=== PATIENT | female | born 1955 | race Caucasian/White ===

== ENCOUNTER 2021-12-10 13:39 | Inpatient (IN) ==
[2021-12-10] MEDS ORDERED: SODIUM CHLORIDE 0.9% 1000ML 1,000 ML IV SCH (13:45)
[2021-12-10 14:25] LABS: Basophils # (auto) 0.03 K/uL (0-0.2); Basophils % (auto) 0.5 %; Eosinophils % (auto) 1.8 %; Hematocrit (blood only) 28.4 % (37-47); Hemoglobin 9.3 g/dL (12.0-16.0); Immature Granulocytes # (auto) 0.01 K/uL (0.00-0.02); Immature Granulocytes % (auto) 0.2 %; Lymphocytes # (auto) 0.28 K/uL (1.2-3.4); Mean Corpuscular Hemoglobin 29.6 pg (25-34); Mean Corpuscular Hgb Conc 32.7 g/dL (32-36); Mean Corpuscular Volume 90.4 fL (80-100); Mean Platelet Volume 9.5 fL (7.4-10.4); Monocytes # (auto) 0.12 K/uL (0.11-0.59); Monocytes % (auto) 2.1 %; Neutrophils # (auto) 5.06 K/uL (1.4-6.5); Neutrophils % (auto) 90.4 %; Platelet Count 258 K/uL (130-400); RDW Coefficient of Variation 16.2 % (11.5-14.5); RDW Standard Deviation 53.9 fL (36.4-46.3); Red Blood Count 3.14 M/uL (4.2-5.4)
--- NOTE | 2021-12-10 14:25 | Emergency Department Note ---
History of Present Illness General Chief complaint: Hypotension Stated complaint: hypotension Time Seen by Provider: 12/10/21 13:41 History of Present Illness Provider complaint: Hypotension Onset (ago): day(s) 1 Maximum Pain Intensity: 0 Associated symptoms: no chest pain, no cough, no fever/chills, no headaches, no malaise, no nausea/vomiting or no shortness of breath 66-year-old female presents with history of metastatic breast cancer emergency department for hypotension. Patient was at her oncologist office and found to have low blood pressures. She reports polyuria over the last day or so. She reports no dysuria. No fevers. No cough. No falls. No chest pain or difficulty breathing. No shortness of breath. Patient presents with paperwork from her visit. Last chemotherapy was on Monday. According to the paperwork that was sent by the physician at the office the patient had orthostatic blood pressures with a laying blood pressure of 95/51 sitting blood pressure 74/41 and standing blood pressure of 50/35. Home Medications Medication Instructions Recorded Confirmed Type albuterol sulfate 90 mcg/actuation 2 puffs INH Q4H PRN gm 08/08/19 12/10/21 History aerosol inhaler amoxicillin 500 mg capsule 2,000 mg PO .COMPLEX cap 08/08/19 12/10/21 History aspirin 81 mg tablet,delayed 81 mg PO QAM 08/08/19 12/10/21 History release clopidogrel 75 mg tablet (Plavix) 75 mg PO QAM 08/08/19 12/10/21 History fenofibrate micronized 200 mg 200 mg PO HS 08/08/19 12/10/21 History capsule levothyroxine 200 mcg tablet 200 mcg PO DAILYBB 08/08/19 12/10/21 History (Synthroid) omeprazole 20 mg capsule,delayed 20 mg PO QAM 08/08/19 12/10/21 History release calcium carbonate 600 mg-vitamin 1 tab PO BID 10/09/19 12/10/21 History D3 5 mcg (200 unit) tablet fluticasone propionate 50 1 sprays INTNAS DAILY PRN 10/09/19 12/10/21 History mcg/actuation nasal spray,suspension acetaminophen 500 mg tablet 1,000 mg PO Q6H PRN tab 07/09/21 12/10/21 History (Tylenol Extra Strength) denosumab 120 mg/1.7 mL (70 mg/mL) 120 mg SUBCUT .EVERY 3 MONTHS ml 07/09/21 12/10/21 History subcutaneous solution (Xgeva) fluoxetine 20 mg capsule (Prozac) 40 mg PO QAM cap 07/09/21 12/10/21 History oxycodone-acetaminophen 5 mg-325 1 tab PO Q6H PRN 07/09/21 12/10/21 History mg tablet (Percocet) paclitaxel-protein bound 100 mg 0 mg IV UD 07/09/21 12/10/21 History intravenous suspension (Abraxane) prochlorperazine maleate 5 mg 10 mg PO QID PRN tab 07/09/21 12/10/21 History tablet (Compazine) spironolactone 100 mg tablet 100 mg PO QAM tab 07/09/21 12/10/21 History metoprolol tartrate 25 mg tablet 12.5 mg PO BID #90 tab 11/04/21 12/10/21 Rx ferrous sulfate 325 mg (65 mg 325 mg PO 2XWK tab 11/12/21 12/10/21 History iron) tablet losartan 25 mg tablet 25 mg PO QAM 11/12/21 12/10/21 History atorvastatin 80 mg tablet 80 mg PO HS 12/10/21 12/10/21 History metformin 500 mg tablet 500 mg PO BID 12/10/21 12/10/21 History ondansetron 4 mg disintegrating 4 mg PO Q6H PRN 12/10/21 12/10/21 History tablet Allergies Allergy/AdvReac Type Severity Reaction Status Date / Time NSAIDS (Non-Steroidal Allergy Severe Hives Verified 12/10/21 14:29 Anti-Inflamma oxaprozin [From Daypro] Allergy Severe Anaphylaxis Verified 12/10/21 14:29 dextromethorphan Allergy Mild Hives Verified 12/10/21 14:29 erythromycin base Allergy Mild Hives Verified 12/10/21 14:29 methylprednisolone Allergy Mild Anaphylaxis Verified 12/10/21 14:29 Past Med/Surg History Medical History Asthma Cancer right breast cancer Diabetes mellitus, type 2 Fusion of spine GERD (gastroesophageal reflux disease) History of deviated nasal septum History of OCD (obsessive compulsive disorder) Hx MRSA infection bilateral axillary abscess a year ago. Has not been retested. 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 Beliefs That Will Affect Care: None Current Living Situation: Spouse Feels Safe at Home: Yes Assistive Devices: Cane, Glasses and Walker Review of Systems A total of 10 systems reviewed and were otherwise negative Physical Exam Vital Signs Vital Signs - 24 hr 12/10/21 13:40 12/10/21 13:47 12/10/21 14:00 Temperature 37.2 C Temperature Source Oral Pulse Rate - Lying Pulse Rate - Sitting Pulse Rate - Standing Pulse Rate 66 75 76 Pulse Rate [Left Finger] Pulse Rate from SpO2 Sensor Pulse Rhythm [Left Finger] Respiratory Rate 16 6 L 27 H Respiratory Effort / Characteristics Non-Labored Respiratory Depth Normal Blood Pressure - Lying Blood Pressure - Sitting Blood Pressure- Standing Blood Pressure 135/59 L Blood Pressure [Left Arm] Blood Pressure Mean 84 Blood Pressure Mean [Left Arm] Pulse Oximetry 96 Oxygen Delivery Method Room Air Sepsis Recent Fever Within 48 Hours No Sepsis New/Unexplained Change in Mental Status N/A Sepsis Action Taken by Nursing No Action Required 12/10/21 14:02 12/10/21 14:15 12/10/21 14:16 Temperature Temperature Source Pulse Rate - Lying Pulse Rate - Sitting Pulse Rate - Standing Pulse Rate 73 75 80 Pulse Rate [Left Finger] Pulse Rate from SpO2 Sensor 78 71 84 Pulse Rhythm [Left Finger] Respiratory Rate 17 15 18 Respiratory Effort / Characteristics Respiratory Depth Blood Pressure - Lying Blood Pressure - Sitting Blood Pressure- Standing Blood Pressure 111/64 121/57 L 129/57 L Blood Pressure [Left Arm] Blood Pressure Mean 79 78 81 Blood Pressure Mean [Left Arm] Pulse Oximetry 96 91 93 Oxygen Delivery Method Sepsis Recent Fever Within 48 Hours Sepsis New/Unexplained Change in Mental Status Sepsis Action Taken by Nursing 12/10/21 14:18 12/10/21 14:30 12/10/21 14:31 Temperature Temperature Source Pulse Rate - Lying Pulse Rate - Sitting Pulse Rate - Standing Pulse Rate 70 Pulse Rate [Left Finger] 72 72 Pulse Rate from SpO2 Sensor 75 Pulse Rhythm [Left Finger] Respiratory Rate 20 16 16 Respiratory Effort / Characteristics Non-Labored Non-Labored Respiratory Depth Normal Normal Blood Pressure - Lying Blood Pressure - Sitting Blood Pressure- Standing Blood Pressure 124/52 L Blood Pressure [Left Arm] 129/57 L 124/52 L Blood Pressure Mean 76 Blood Pressure Mean [Left Arm] 81 76 Pulse Oximetry 98 96 96 Oxygen Delivery Method Room Air Room Air Sepsis Recent Fever Within 48 Hours Sepsis New/Unexplained Change in Mental Status Sepsis Action Taken by Nursing 12/10/21 14:48 12/10/21 14:51 12/10/21 14:54 Temperature Temperature Source Pulse Rate - Lying Pulse Rate - Sitting Pulse Rate - Standing Pulse Rate 80 Pulse Rate [Left Finger] 70 Pulse Rate from SpO2 Sensor 76 Pulse Rhythm [Left Finger] Respiratory Rate 19 Respiratory Effort / Characteristics Non-Labored Respiratory Depth Blood Pressure - Lying Blood Pressure - Sitting Blood Pressure- Standing Blood Pressure 130/58 L Blood Pressure [Left Arm] 127/54 L Blood Pressure Mean 82 Blood Pressure Mean [Left Arm] 78 Pulse Oximetry 99 Oxygen Delivery Method Sepsis Recent Fever Within 48 Hours Sepsis New/Unexplained Change in Mental Status Sepsis Action Taken by Nursing 12/10/21 14:56 12/10/21 15:00 12/10/21 15:04 Temperature Temperature Source Pulse Rate - Lying 70 Pulse Rate - Sitting 72 Pulse Rate - Standing 70 Pulse Rate 87 76 Pulse Rate [Left Finger] 72 Pulse Rate from SpO2 Sensor 88 75 Pulse Rhythm [Left Finger] Regular Respiratory Rate 13 17 Respiratory Effort / Characteristics Non-Labored Respiratory Depth Normal Blood Pressure - Lying 124/52 L Blood Pressure - Sitting 130/58 L Blood Pressure- Standing 132/55 L Blood Pressure 132/55 L Blood Pressure [Left Arm] 132/55 L Blood Pressure Mean 80 Blood Pressure Mean [Left Arm] 80 Pulse Oximetry 97 98 Oxygen Delivery Method Sepsis Recent Fever Within 48 Hours Sepsis New/Unexplained Change in Mental Status Sepsis Action Taken by Nursing 12/10/21 15:15 Temperature Temperature Source Oral Pulse Rate - Lying Pulse Rate - Sitting Pulse Rate - Standing Pulse Rate Pulse Rate [Left Finger] Pulse Rate from SpO2 Sensor Pulse Rhythm [Left Finger] Respiratory Rate Respiratory Effort / Characteristics Respiratory Depth Normal Blood Pressure - Lying Blood Pressure - Sitting Blood Pressure- Standing Blood Pressure Blood Pressure [Left Arm] Blood Pressure Mean Blood Pressure Mean [Left Arm] Pulse Oximetry Oxygen Delivery Method Sepsis Recent Fever Within 48 Hours Sepsis New/Unexplained Change in Mental Status Sepsis Action Taken by Nursing Physical Exam GENERAL: She is oriented to person, place, and time. She appears well-developed and well-nourished. She does not appear distressed. HENT: Exam performed. -Head: Normocephalic and atraumatic. -Right Ear: External ear normal. No mastoid tenderness. -Left Ear: External ear normal. No mastoid tenderness. -Mouth/Throat: The oropharynx is clear and moist. No trismus in the jaw. No dental abscesses or uvula swelling. No oropharyngeal exudate or tonsillar absce sses. EYES: Conjunctivae and EOM are normal. Pupils are equal, round, and reactive to light. Right eye exhibits no discharge. Left eye exhibits no discharge. No scleral icterus. NECK: Normal range of motion. Neck supple. No JVD present. No spinous process tenderness present. No carotid bruit present. No rigidity. No tracheal deviation and normal range of motion present. No Brudzinski's sign and no Kernig's sign noted. CV: Normal rate, regular rhythm, normal heart sounds and intact distal pulses. There is no peripheral edema. Palpable radial pulses bue. PULM/CHEST: Effort normal and breath sounds normal. No respiratory distress. No stridor. She has no wheezes. She has no rales. -Chest Wall: She exhibits no tenderness. ABD: The abdomen is soft. Bowel sounds are normal. She has no distension. No mass is present. There is no tenderness. There is no rebound, no guarding, no Perrin's sign and no tenderness at McBurney's point. Rovsig negative MUSC/SKEL: Normal range of motion. There is no peripheral edema, tenderness or deformity. LYMPH: No cervical adenopathy. NEURO: She is alert and oriented to person, place, and time. She has normal strength. No cranial nerve deficit or sensory deficit. Coordination and gait normal. GCS eye subscore is 4. GCS verbal subscore is 5. GCS motor subscore is 6. Cerebellar tests wnl. SKIN: Skin is warm and dry. She is not diaphoretic. PSYCH: She has a normal mood and affect. Behavior is normal. Judgment and thought content normal. Course Course 1341: The patient was evaluated in room B1. A complete history and physical exam was performed Cardiac monitoring: An order was placed for continuous cardiac monitoring. The monitor shows a rate of 70 with sinus rhythm Pressure stable on arrival fluids were started via EMS 1545: Vital signs stable. Patient's blood pressure has been stable in the emergency department. Labs are within normal limits with the exception of a magnesium of 1.3. Urinalysis negative for infection. [facility] who stated to admit to Dr. Eduardo Administered Medications Discontinued Medications Sodium Chloride (Nss 1000ml) 1,000 mls @ 999 mls/hr IV .Q1H1M KIM Stop: 12/10/21 14:45 Last Infusion: 12/10/21 15:27 Dose: 0 mls/hr Documented by: [id number] Admin: 12/10/21 14:16 Dose: 999 mls/hr Documented by: [id number] Medical Decision Making Laboratory Data Result diagrams: 12/10/21 13:58 12/10/21 13:58 Lab Results 12/10/21 12/10/21 12/10/21 Range/Units 13:58 13:58 13:58 WBC 5.60 (4.8-10.8) K/uL RBC 3.14 L (4.2-5.4) M/uL Hgb 9.3 L (12.0-16.0) g/dL Hct 28.4 L (37-47) % MCV 90.4 (80-100) fL MCH 29.6 (25-34) pg MCHC 32.7 (32-36) g/dL RDW Std Deviation 53.9 H (36.4-46.3) fL RDW Coeff of Azra 16.2 H (11.5-14.5) % Plt Count 258 (130-400) K/uL MPV 9.5 (7.4-10.4) fL Immature Gran % (Auto) 0.2 % Neut % (Auto) 90.4 % Lymph % (Auto) 5.0 % Craig % (Auto) 2.1 % Eos % (Auto) 1.8 % Baso % (Auto) 0.5 % Neut # (Auto) 5.06 (1.4-6.5) K/uL Lymph # (Auto) 0.28 L (1.2-3.4) K/uL Craig # (Auto) 0.12 (0.11-0.59) K/uL Eos # (Auto) 0.10 (0-0.5) K/uL Baso # (Auto) 0.03 (0-0.2) K/uL Immature Gran # (Auto) 0.01 (0.00-0.02) K/uL PT 11.8 (9.0-12.0) Seconds INR 1.1 (0.9-1.1) APTT 23.4 (21.0-31.0) Seconds PTT Ratio 0.9 Sodium 136 (136-145) mmol/L Potassium 4.3 (3.5-5.1) mmol/L Chloride 102 (98-107) mmol/L Carbon Dioxide 26 (21-32) mmol/L Anion Gap 8 (3-11) BUN 13 (6-23) mg/dl Creatinine 0.76 (0.6-1.2) mg/dl Est Cr Clr Drug Dosing 58.3 ml/min Est GFR ( Amer) 93.4 ml/min Est GFR (Non-Af Amer) 80.6 ml/min BUN/Creatinine Ratio 17.1 (10-20) Glucose 173 H (70-99(Fasting)) mg/dl Lactate (0.4-2.0) mmol/L Calcium 9.2 (8.5-10.1) mg/dl Magnesium 1.3 L (1.7-2.4) mg/dl Total Bilirubin 0.6 (0.2-1.0) mg/dl AST 19 (13-39) U/L ALT 7 (7-52) U/L Alkaline Phosphatase 93 (34-104) U/L Troponin I < 0.03 (0-0.04) ng/ml Total Protein 6.5 (6.0-8.3) gm/dl Albumin 3.6 (3.4-5.0) gm/dl Globulin 2.9 (2.5-4.0) gm/dl Albumin/Globulin Ratio 1.2 (0.9-2) Procalcitonin (0-0.5) ng/ml Urine Color Urine Appearance (Clear) Urine pH (4.5-7.5) Ur Specific Whiting (1.000-1.030) Urine Protein (Negative) Urine Glucose (UA) (Negative) Urine Ketones (Negative) Urine Blood (Negative) Urine Nitrite (Negative) Urine Bilirubin (Negative) Urine Urobilinogen (Negative) Ur Leukocyte Esterase (Negative) Urine WBC (Auto) (0-5) /hpf Urine RBC (Auto) (0-4) /hpf U Hyaline Cast (Auto) (0-5) /lpf U Epithel Cells (Auto) (0-5) /lpf Urine Bacteria (Auto) (Negative) Ur Renal Epithelial Cell (0-5) /lpf 12/10/21 12/10/21 12/10/21 Range/Units 13:58 13:58 14:55 WBC (4.8-10.8) K/uL RBC (4.2-5.4) M/uL Hgb (12.0-16.0) g/dL Hct (37-47) % MCV (80-100) fL MCH (25-34) pg MCHC (32-36) g/dL RDW Std Deviation (36.4-46.3) fL RDW Coeff of Azra (11.5-14.5) % Plt Count (130-400) K/uL MPV (7.4-10.4) fL Immature Gran % (Auto) % Neut % (Auto) % Lymph % (Auto) % Craig % (Auto) % Eos % (Auto) % Baso % (Auto) % Neut # (Auto) (1.4-6.5) K/uL Lymph # (Auto) (1.2-3.4) K/uL Craig # (Auto) (0.11-0.59) K/uL Eos # (Auto) (0-0.5) K/uL Baso # (Auto) (0-0.2) K/uL Immature Gran # (Auto) (0.00-0.02) K/uL PT (9.0-12.0) Seconds INR (0.9-1.1) APTT (21.0-31.0) Seconds PTT Ratio Sodium (136-145) mmol/L Potassium (3.5-5.1) mmol/L Chloride (98-107) mmol/L Carbon Dioxide (21-32) mmol/L Anion Gap (3-11) BUN (6-23) mg/dl Creatinine (0.6-1.2) mg/dl Est Cr Clr Drug Dosing ml/min Est GFR ( Amer) ml/min Est GFR (Non-Af Amer) ml/min BUN/Creatinine Ratio (10-20) Glucose (70-99(Fasting)) mg/dl Lactate 1.5 (0.4-2.0) mmol/L Calcium (8.5-10.1) mg/dl Magnesium (1.7-2.4) mg/dl Total Bilirubin (0.2-1.0) mg/dl AST (13-39) U/L ALT (7-52) U/L Alkaline Phosphatase (34-104) U/L Troponin I (0-0.04) ng/ml Total Protein (6.0-8.3) gm/dl Albumin (3.4-5.0) gm/dl Globulin (2.5-4.0) gm/dl Albumin/Globulin Ratio (0.9-2) Procalcitonin 0.05 (0-0.5) ng/ml Urine Color Dark Yellow Urine Appearance Clear (Clear) Urine pH 6.0 (4.5-7.5) Ur Specific Whiting 1.016 (1.000-1.030) Urine Protein 3+ H (Negative) Urine Glucose (UA) Negative (Negative) Urine Ketones Negative (Negative) Urine Blood 3+ H (Negative) Urine Nitrite Negative (Negative) Urine Bilirubin Negative (Negative) Urine Urobilinogen Negative (Negative) Ur Leukocyte Esterase Negative (Negative) Urine WBC (Auto) 10-30 H (0-5) /hpf Urine RBC (Auto) 10-30 H (0-4) /hpf U Hyaline Cast (Auto) 5-10 H (0-5) /lpf U Epithel Cells (Auto) >30 H (0-5) /lpf Urine Bacteria (Auto) Negative (Negative) Ur Renal Epithelial Cell 0-5 (0-5) /lpf Imaging Data Radiologist's Impression: Chest X-Ray 12/10/21 13:41 SINGLE VIEW CHEST CLINICAL HISTORY: Sepsis. FINDINGS: An AP, portable, upright chest radiograph is compared to study dated 12/01/2014. A right internal jugular central venous infusion port is in place. The heart is top normal for projection noting atherosclerotic calcification of the thoracic aorta. The pulmonary vasculature is noncongested. Chronic interstitial thickening is similar to previous. An accessory azygous fissure is incidentally noted. No airspace consolidation or large pleural effusion is identified. No pneumothorax is seen. The skeletal structures are osteopenic. The bony thorax is grossly intact. IMPRESSION: No acute cardiopulmonary abnormality. ACT 112: Negative or not required by law. Electronically signed by: Mukesh Melissa M.D. 12/10/2021 2:30 PM ECG Data Indication: + weakness Rate (beats per minute): 72 Rhythm: + sinus with SA ECG Intervals/blocks: + Normal SD and + Normal QT-c ECG ST segments: + Normal ST segments Additional Comments: QRS 74 MDM Narrative 1341: The patient was evaluated in room B1. A complete history and physical exam was performed Cardiac monitoring: An order was placed for continuous cardiac monitoring. The monitor shows a rate of 70 with sinus rhythm Pressure stable on arrival fluids were started via EMS 1545: Vital signs stable. Patient's blood pressure has been stable in the emergency department. Labs are within normal limits with the exception of a magnesium of 1.3. Urinalysis negative for infection. [facility] Dulce who stated to admit to Dr. Mei murray Impression & Plan Hypomagnesemia Discharge Plan Visit Data Chief Complaint: Hypotension Stated Complaint: hypotension ED Provider: Dilan Albrecht Discharge Problem: Hypomagnesemia Patient Disposition: Admitted As Inpatient Forms Stand Alone Forms: [facility] [employer] Prescriptions Prescriptions: No Action calcium carbonate-vitamin D3 600 mg(1,500mg) -200 unit tablet 1 tab PO BID RF: 0 fluticasone propionate 50 mcg/actuation spray,suspension 1 sprays INTNAS DAILY PRN (Reason: Congestion) RF: 0 prochlorperazine maleate [Compazine] 5 mg tablet 10 mg PO QID PRN (Reason: nausea and vomiting) RF: 0 Xgeva 120 mg/1.7 mL (70 mg/mL) solution 120 mg subcut .EVERY 3 MONTHS RF: 0 Abraxane 100 mg suspension for reconstitution 0 mg IV UD RF: 0 oxycodone-acetaminophen [Percocet] 5-325 mg tablet 1 tab PO Q6H PRN (Reason: Pain) RF: 0 acetaminophen [Tylenol Extra Strength] 500 mg tablet 1,000 mg PO Q6H PRN (Reason: Pain) RF: 0 losartan 25 mg tablet 25 mg PO QAM RF: 0 ferrous sulfate 325 mg (65 mg iron) tablet 325 mg PO 2XWK RF: 0 metoprolol tartrate 25 mg tablet 12.5 mg PO BID Qty: 90 RF: 3 albuterol sulfate 90 mcg/actuation HFA aerosol inhaler 2 puffs INH Q4H PRN (Reason: Shortness Of Breath Or Wheezing) RF: 0 amoxicillin 500 mg capsule 2,000 mg PO .COMPLEX RF: 0 aspirin 81 mg tablet,delayed release (DR/EC) 81 mg PO QAM RF: 0 clopidogrel [Plavix] 75 mg tablet 75 mg PO QAM RF: 0 fenofibrate micronized 200 mg capsule 200 mg PO HS RF: 0 omeprazole 20 mg capsule,delayed release(DR/EC) 20 mg PO QAM RF: 0 levothyroxine [Synthroid] 200 mcg tablet 200 mcg PO DAILYBB RF: 0 fluoxetine [Prozac] 20 mg capsule 40 mg PO QAM RF: 0 spironolactone 100 mg tablet 100 mg PO QAM RF: 0 ondansetron [Zofran ODT] 4 mg Tablet,Disintegrating 4 mg PO Q6H PRN (Reason: Nausea And Vomiting) RF: 0 metformin 500 mg Tablet 500 mg PO BID RF: 0 atorvastatin 80 mg tablet 80 mg PO HS RF: 0 Referrals Referrals: Alejandra Oquendo MD [Primary Care Provider] -
--- NOTE | 2021-12-10 14:32 | XRay Report ---
SINGLE VIEW CHEST CLINICAL HISTORY: Sepsis. FINDINGS: An AP, portable, upright chest radiograph is compared to study dated 12/01/2014. A right int ernal jugular central venous infusion port is in place. The heart is top normal for projection noting atherosclerotic calcification of the thoracic aorta. The pulmonary vasculature is noncongested. Control System Manager christiano interstitial thickening is similar to previous. An accessory azygous fissure is incidentally note d. No airspace consolidation or large pleural effusion is identified. No pneumothorax is seen. The sk eletal structures are osteopenic. The bony thorax is grossly intact. IMPRESSION: No acute cardiopulmonary abnormality. ACT 112: Negative or not required by law. Electronically signed by: Mukesh Melissa M.D. 12/10/2021 2:30 PM
[2021-12-10 14:34] LABS: Alanine Aminotransferase 7 U/L (7-52); Albumin Globulin Ratio 1.2 (0.9-2); Albumin Level 3.6 gm/dl (3.4-5.0); Alkaline Phosphatase 93 U/L (34-104); Anion Gap 8 (3-11); Aspartate Aminotransferase 19 U/L (13-39); BUN Creatinine Ratio 17.1 (10-20); Bilirubin,Total 0.6 mg/dl (0.2-1.0); Blood Urea Nitrogen 13 mg/dl (6-23); Calcium 9.2 mg/dl (8.5-10.1); Carbon Dioxide 26 mmol/L (21-32); Chloride 102 mmol/L (98-107); Creatinine Clr Calc Pharmacy 58.3 ml/min; Est GFR (African American) 93.4 ml/min; Est GFR (Non-African American) 80.6 ml/min; Globulin 2.9 gm/dl (2.5-4.0); Glucose 173 mg/dl (70-99(Fasting)); Magnesium 1.3 mg/dl (1.7-2.4); Potassium 4.3 mmol/L (3.5-5.1); Sodium 136 mmol/L (136-145); Total Protein 6.5 gm/dl (6.0-8.3)
[2021-12-10 14:36] LABS: Troponin I < 0.03 ng/ml (0-0.04)
[2021-12-10 14:51] LABS: INR 1.1 (0.9-1.1); Partial Thromboplastin Ratio 0.9; Partial Thromboplastin Time 23.4 Seconds (21.0-31.0); Prothrombin Time 11.8 Seconds (9.0-12.0)
[2021-12-10 15:22] LABS: Appearance Urine Clear (Clear); Bacteria Urine Automated Negative (Negative); Bilirubin Urine Negative (Negative); Blood Urine 3+ (Negative); Color Urine Dark Yellow; Epithelial Cell Urine Auto >30 /lpf (0-5); Glucose Urine UA Negative (Negative); Ketones Urine Negative (Negative); Leukocyte Esterase Urine Negative (Negative); Nitrite Urine Negative (Negative); Protein Urine 3+ (Negative); Specific Gravity Urine 1.016 (1.000-1.030); Urobilinogen Urine Negative (Negative)
[2021-12-10 15:40] LABS: Renal Epithelial Cells Urine 0-5 /lpf (0-5)
[2021-12-10 15:53] LABS: Influenza A virus by PCR Negative (Neg); Influenza B virus by PCR Negative (Neg); RSV by PCR Negative (Neg); SARS CoV2 RNA(COVID-19) InHosp NEGATIVE (Negative)
--- NOTE | 2021-12-10 15:58 | History & Physical Report ---
Date of Service December 10, 2021 Assessment & Plan (1) Hypotension: Plan: Patient is 66-year-old female with PMH right breast cancer with metastasis to pelvis s/p lumpectomy, radiation currently on chemo, DM II, HTN, dyslipidemia, CAD s/p VENKATA presented to ER for hypotension. Lightheaded today and seen at PCP clinic and found to be hypotensive with orthostatic hypotension In ER patient afebrile, SBP in 120s. No leukocytosis, Hgb: 9.3 (Around recent baseline), lactate and procalcitonin WNL In ER given 1 L NSS Hypertension may be secondary to dehydration, recent chemotherapy. r/o underlying infection Blood cultures, urine culture pending IVF Orthostatic vital signs in a.m. CBC, BMP in am (2) UTI (urinary tract infection): Plan: Possible UTI. Patient reports increased urinary frequency, urgency past couple of days. UA: 10-30 WBC, 10-30 RBC, > epithelial cells, negative bacteria Urine culture pending Rocephin pending urine culture (3) Hypomagnesemia: Plan: Magnesium: 1.3 In ER given 2 g magnesium sulfate IV Monitor and further replace as needed (4) Diabetes mellitus, type 2: Plan: A1c: 5.9 on 12/08/2021 Patient reports episodes of hypoglycemia recently and her glycemic medications have been cut back Hold home Metformin NovoLog correction insulin only at this time secondary to history hypoglycemic episodes at home (5) Hypertension: Plan: Hypotensive today Hold losartan, spironolactone Continue metoprolol tartrate with holding parameters (6) Hypercholesteremia: Plan: Continue statin (7) CAD (coronary artery disease): Plan: S/P VENKATA Denies CP, SOB Continue aspirin, Plavix, statin, Toprol tartrate (8) Anemia: Plan: Hgb: 9.3. Recent baseline ~9.5 Monitor (9) Hypothyroidism: Plan: Continue levothyroxine DVT Prophylaxis Lovenox SQ Full Code as per discussion with pt Follows with Dr Oquendo for routine care Pt was seen and care coordinated with Dr Eduardo. See addendum History of Present Illness Chief Complaint: Low blood pressure Primary Care Provider: Aleajndra Oquendo MD Patient is 66-year-old female with PMH right breast cancer with metastasis to pelvis s/p lumpectomy, radiation currently on chemo, DM II, HTN, dyslipidemia, C AD s/p VENKATA presented to ER for hyportension. Patient reports this morning felt lightheaded she checked her blood sugar and was 112 and had orange juice and went up to 132. She reports urinary urgency and increased frequency for the past 2 days. Reports nausea and vomiting with eating solid food only, she reports she feels like after she eats she gets a sudden pain in epigastric area and then will vomit and feels better after. Reports this is different than her nausea and vomiting with chemo. Last chemo was on 12/08/2021. Patient reports was started on iron recently and since has been having episodes of diarrhea. This week it was recommended that she takes her iron supplement twice weekly instead. Denies any current abdominal pain. Was seen at PCPs office today and noted to have orthostatic hypotension. In the clinic is reported her blood pressure 95/51, standing blood pressure 50/35 and was referred to ER. Patient reports did not receive IV fluids via EMS as they could not access her port. Denies fever/chills, diaphoresis, OCHOA, syncope, vision changes, neck pain, CP, SOB, orthopnea, palpitations, cough, sore throat, choking, otalgia, rhinorrhea, paresthesias,extremity weakness, extremity edema, rashes, hematuria, melena, hematochezia, hematemesis. Allergies Allergy/AdvReac Type Severity Reaction Status Date / Time NSAIDS (Non-Steroidal Allergy Severe Hives Verified 12/10/21 14:29 Anti-Inflamma oxaprozin [From Daypro] Allergy Severe Anaphylaxis Verified 12/10/21 14:29 dextromethorphan Allergy Mild Hives Verified 12/10/21 14:29 erythromycin base Allergy Mild Hives Verified 12/10/21 14:29 methylprednisolone Allergy Mild Anaphylaxis Verified 12/10/21 14:29 aspirin Allergy Unknown Unknown Verified 12/10/21 20:36 doxylamine Allergy Unknown Unknown Verified 12/10/21 20:36 pseudoephedrine Allergy Unknown Unknown Verified 12/10/21 20:36 Home Medications Medication Instructions Recorded Confirmed Type albuterol sulfate 90 mcg/actuation 2 puffs INH Q4H PRN gm 08/08/19 12/10/21 History aerosol inhaler amoxicillin 500 mg capsule 2,000 mg PO .COMPLEX cap 08/08/19 12/10/21 History aspirin 81 mg tablet,delayed 81 mg PO QAM 08/08/19 12/10/21 History release clopidogrel 75 mg tablet (Plavix) 75 mg PO QAM 08/08/19 12/10/21 History fenofibrate micronized 200 mg 200 mg PO HS 08/08/19 12/10/21 History capsule levothyroxine 200 mcg tablet 200 mcg PO DAILYBB 08/08/19 12/10/21 History (Synthroid) omeprazole 20 mg capsule,delayed 20 mg PO QAM 08/08/19 12/10/21 History release calcium carbonate 600 mg-vitamin 1 tab PO BID 10/09/19 12/10/21 History D3 5 mcg (200 unit) tablet fluticasone propionate 50 1 sprays INTNAS DAILY PRN 10/09/19 12/10/21 History mcg/actuation nasal spray,suspension acetaminophen 500 mg tablet 1,000 mg PO Q6H PRN tab 07/09/21 12/10/21 History (Tylenol Extra Strength) denosumab 120 mg/1.7 mL (70 mg/mL) 120 mg SUBCUT .EVERY 3 MONTHS ml 07/09/21 12/10/21 History subcutaneous solution (Xgeva) fluoxetine 20 mg capsule (Prozac) 40 mg PO QAM cap 07/09/21 12/10/21 History oxycodone-acetaminophen 5 mg-325 1 tab PO Q6H PRN 07/09/21 12/10/21 History mg tablet (Percocet) paclitaxel-protein bound 100 mg 0 mg IV UD 07/09/21 12/10/21 History intravenous suspension (Abraxane) prochlorperazine maleate 5 mg 10 mg PO QID PRN tab 07/09/21 12/10/21 History tablet (Compazine) spironolactone 100 mg tablet 100 mg PO QAM tab 07/09/21 12/10/21 History metoprolol tartrate 25 mg tablet 12.5 mg PO BID #90 tab 11/04/21 12/10/21 Rx ferrous sulfate 325 mg (65 mg 325 mg PO 2XWK tab 11/12/21 12/10/21 History iron) tablet losartan 25 mg tablet 25 mg PO QAM 11/12/21 12/10/21 History atorvastatin 80 mg tablet 80 mg PO HS 12/10/21 12/10/21 History metformin 500 mg tablet 500 mg PO BID 12/10/21 12/10/21 History ondansetron 4 mg disintegrating 4 mg PO Q6H PRN 12/10/21 12/10/21 History tablet Past Med/Surg History Medical History (Updated 12/10/21 @ 17:49 by Toyin Kenny PA-C) Anemia Asthma Cancer right breast cancer Diabetes mellitus, type 2 Fusion of spine GERD (gastroesophageal reflux disease) History of deviated nasal septum History of OCD (obsessive compulsive disorder) Hx MRSA infection bilateral axillary abscess a year ago. Has not been retested. Hyperlipidemia Hypertension Hypothyroidism Myocardial Infarction On anticoagulant therapy Osteoarthritis Peripheral neuropathy RUE, RLE Recent weight loss Surgical History History of cholecystectomy History of colonoscopy 2019 polyp removed History of discectomy History of esophagogastroduodenoscopy (EGD) History of heart artery stent History of repair of rotator cuff right Hx of lumpectomy right breast Family History Other Cancer Diabetes Hypertension Stroke Social History Smoking Status: Never smoker Hx Alcohol Use: No Hx Substance Use: No Preferred Language: Micronesian Communication Ability: Effective Rn Lpn Cna Required: No Beliefs That Will Affect Care: None Current Living Situation: Alone Current Living Situation Comment: Alone w/ family support, recently passed Other Information That Helps Us Care for You: No Feels Safe at Home: Yes Safety Concerns: Feels Safe At This Time Assistive Devices: Glasses Review of Systems Review of Systems: All systems reviewed & are unremarkable except as noted in HPI & below Physical Exam Physical Exam: General: no acute distress, chronic ill appearing, pale Head: normocephalic, atraumatic Eyes: PERRL, EOM's intact, conjunctiva non-injected, anicteric ENT: normal inspection external ears, nose, mucous membranes mildly dry Neck: supple, trachea midline Lungs: clear, no respiratory distress, no wheezing/rhonchi/rales CV: RRR, no murmur, no pretibial edema Abd: normal BS, soft, non-tender Ext: no cyanosis, no calf tenderness Neuro: A&O x 3, no focal deficits noted, normal affect Skin: warm, dry Results & Data Results & Data ([facility]) Vital Signs (Past 12 Hours) Vital Signs Temp Pulse Pulse Resp BP BP Pulse Ox 12/10/21 15:00 76 72 17 132/55 L 98 12/10/21 14:56 87 13 132/55 L 97 12/10/21 14:54 80 19 130/58 L 99 12/10/21 14:48 70 127/54 L 12/10/21 14:31 72 16 124/52 L 96 12/10/21 14:30 70 16 124/52 L 96 12/10/21 14:18 72 20 129/57 L 98 12/10/21 14:16 80 18 129/57 L 93 12/10/21 14:15 75 15 121/57 L 91 12/10/21 14:02 73 17 111/64 96 12/10/21 14:00 76 27 H 12/10/21 13:47 75 6 L 12/10/21 13:40 37.2 C 66 16 135/59 L 96 Laboratory Results Short CBC 12/10/21 Range/Units 13:58 WBC 5.60 (4.8-10.8) K/uL Hgb 9.3 L (12.0-16.0) g/dL Hct 28.4 L (37-47) % Plt Count 258 (130-400) K/uL BMP 12/10/21 13:58 Sodium 136 Potassium 4.3 Chloride 102 Carbon Dioxide 26 BUN 13 Creatinine 0.76 Glucose 173 H Calcium 9.2 Cardiac Enzymes 12/10/21 Range/Units 13:58 Troponin I < 0.03 (0-0.04) ng/ml Liver Function 12/10/21 Range/Units 13:58 Total Bilirubin 0.6 (0.2-1.0) mg/dl AST 19 (13-39) U/L ALT 7 (7-52) U/L Alkaline Phosphatase 93 (34-104) U/L Albumin 3.6 (3.4-5.0) gm/dl Urine 12/10/21 Range/Units 14:55 Urine Color Dark Yellow Urine Appearance Clear (Clear) Urine pH 6.0 (4.5-7.5) Ur Specific [place] 1.016 (1.000-1.030) Urine Protein 3+ H (Negative) Urine Glucose (UA) Negative (Negative) Diagnostic Findings Chest X-Ray 12/10/21 13:41 SINGLE VIEW CHEST CLINICAL HISTORY: Sepsis. FINDINGS: An AP, portable, upright chest radiograph is compared to study dated 12/01/2014. A right internal jugular central venous infusion port is in place. The heart is top normal for projection noting atherosclerotic calcification of the thoracic aorta. The pulmonary vasculature is noncongested. Chronic interstitial thickening is similar to previous. An accessory azygous fissure is incidentally noted. No airspace consolidation or large pleural effusion is identified. No pneumothorax is seen. The skeletal structures are osteopenic. The bony thorax is grossly intact. IMPRESSION: No acute cardiopulmonary abnormality. ACT 112: Negative or not required by law. Electronically signed by: Mukesh Melissa M.D. 12/10/2021 2:30 PM Supervising Physician Co-Signing Physician Notes Care coordinated with Toyin Kenny PA-C. Agree with above note. Patient seen and examined. Please refer to her notes for full details. Vital signs reviewed. Physical exam: General exam: Alert and oriented. Not in acute distress. CVS: S1 and S2 heard, regular rate and rhythm, no murmurs. RS: Clear to auscultation, no wheezing or crackles. ABD: Soft, bowel sounds present, nontender, no distention. FIBER HEEL PIECE SHAPER: Nonfocal. EXT: No edema, no erythema. Labs: Reviewed. Assessment and plan: 66F with hx cad s/p stent, Asthma, Dm, Metastatic breast cancer on chemo for last 2 yrs as per patient, last chemo couple of days ago felt light headed today felt almost passing out. In clinic her Blood pressure was low and orthostatic hypotension present and was sent to ER. Currently after fluids she is feeling fine. She had some diarrhea after chemo. No nausea or vomiting. appetite not . chest pain or sob. No cough. No fevers. Had headache earlier but ok now. Near syncope Hypotension orthostatic hypotension iv fluids monitor in med/tele Possible UTI on rocephin follow cx Hypomagnesium will replace. Other diagnosis and plan of care as per Toyin Kenny PA-C. Gaurang warren MD.
[2021-12-10] MEDS: MAGNESIUM SULFATE / D5W 1 GM/100 ML BAG IV SCH ×2 (16:16→18:00)
[2021-12-10] MEDS ORDERED: ALBUTEROL HFA 8 GM INHALER INH PRN (18:31)
[2021-12-10] MEDS ORDERED: GLUCOSE 10 TABS/TUBE PO PRN (18:31)
[2021-12-10] MEDS ORDERED: CARBOHYDRATES FOR HYPOGLYCEMIA PO PRN (18:31)
[2021-12-10] MEDS ORDERED: FLUTICASONE PROPIONATE NA SPR 16 GM BTL NAE PRN (18:31)
[2021-12-10] MEDS ORDERED: GLUCOSE 40% GEL 15 GM TUBE PO PRN (18:31)
[2021-12-10] MEDS ORDERED: oxyCODONE/ACETAMINOPHEN 5mg/325mg TAB PO PRN (18:31)
[2021-12-10] MEDS ORDERED: GLUCAGON FOR INJ 1 MG VIAL SQ PRN (18:31)
[2021-12-10] MEDS ORDERED: DEXTROSE 50% 50 ML SYRINGE IV PRN (18:31)
[2021-12-10] MEDS: SODIUM CHLORIDE 0.9% 1000ML 1,000 ML IV SCH (19:07)
[2021-12-10] MEDS ORDERED: PNEUMOCOCCAL POLYSACCHARIDES 25 MCG/0.5 ML VIAL/SYR IM ONE (19:15)
[2021-12-10] MEDS: cefTRIAXone SODIUM 1,000 MG in DEXTROSE 5% 50 ML IV SCH (19:34)
[2021-12-10] MEDS: ENOXAPARIN INJ 40 MG/0.4 ML SYR SQ SCH (19:43)
[2021-12-10] MEDS: CLOPIDOGREL BISULFATE 75 MG TAB PO SCH (20:38)
[2021-12-10] MEDS: ATORVASTATIN 40 MG TAB PO SCH (20:39)
[2021-12-10] MEDS: CALCIUM 600MG + VIT D 400 IU TAB PO SCH (20:39)
[2021-12-10] MEDS: METOPROLOL TARTRATE 25 MG TAB PO SCH (20:40)
[2021-12-10] MEDS: INSULIN ASPART PER UNIT SC SCH (20:41)
[2021-12-11] MEDS ORDERED: HEPARIN 100 UNIT/ML 5ML FLUSH FLUSH PRN (00:46)
[2021-12-11] MEDS: ONDANSETRON INJ 2 MG/ML 2 ML VIAL IV PRN (01:36)
[2021-12-11] MEDS: SODIUM CHLORIDE 0.9% 1000ML 1,000 ML IV SCH (02:31)
[2021-12-11] MEDS: LEVOTHYROXINE SODIUM 200 MCG TABLET PO SCH (04:52)
[2021-12-11 05:42] LABS: Mean Corpuscular Hemoglobin 29.3 pg (25-34); Mean Corpuscular Volume 91.6 fL (80-100); Platelet Count 239 K/uL (130-400); RDW Coefficient of Variation 16.3 % (11.5-14.5); RDW Standard Deviation 54.4 fL (36.4-46.3); Red Blood Count 2.73 M/uL (4.2-5.4); White Blood Count 4.77 K/uL (4.8-10.8)
[2021-12-11 06:07] LABS: BUN Creatinine Ratio 16.9 (10-20); Calcium 8.6 mg/dl (8.5-10.1); Creatinine Clr Calc Pharmacy 62.5 ml/min; Est GFR (African American) 105.7 ml/min; Est GFR (Non-African American) 91.2 ml/min; Magnesium 1.7 mg/dl (1.7-2.4)
[2021-12-11] MEDS: INSULIN ASPART PER UNIT SC SCH ×4 (08:11→23:58)
[2021-12-11] MEDS: ACETAMINOPHEN 325 MG TAB PO PRN ×2 (08:11→21:09)
[2021-12-11] MEDS: CLOPIDOGREL BISULFATE 75 MG TAB PO SCH (08:12)
[2021-12-11] MEDS: METOPROLOL TARTRATE 25 MG TAB PO SCH ×2 (08:12→21:06)
[2021-12-11] MEDS: FLUoxetine HCL 20 MG CAP PO SCH (08:13)
[2021-12-11] MEDS: ASPIRIN 81 MG ECTAB PO SCH (08:13)
[2021-12-11] MEDS: CALCIUM 600MG + VIT D 400 IU TAB PO SCH ×2 (08:13→21:06)
[2021-12-11] MEDS: PANTOprazole 40 MG TAB PO SCH (08:13)
[2021-12-11 08:57] LABS: Hematocrit (blood only) 25.8 % (37-47); Hemoglobin 8.2 g/dL (12.0-16.0)
[2021-12-11] MEDS ORDERED: SODIUM CHLORIDE 0.9% 1000ML 1,000 ML IV ONE (11:00)
--- NOTE | 2021-12-11 13:00 | Electrocardiogram Report ---
Test Reason : Blood Pressure : / mmHG Vent. Rate : 072 BPM Atrial Rate : 072 BPM P-R Int : 140 ms QRS Dur : 074 ms QT Int : 422 ms P-R-T Axes : 071 041 031 degrees QTc Int : 462 ms Normal sinus rhythm with sinus arrhythmia Normal ECG When compared with ECG of 30-NOV-2014 06:20, T wave inversion no longer evident in Inferior leads Nonspecific T wave abnormality no longer evident in Lateral leads Confirmed by Reyes Velazquez ([id number]) on 12/11/2021 1:00:14 PM Referred By: Wendy Zarate Confirmed By:Reyes Velazquez
--- NOTE | 2021-12-11 14:19 | Hospitalist Progress Note ---
Date of Service December 11, 2021 Assessment & Plan (1) Hypotension: Plan: Patient is a 66 yr female with H/O Right breast cancer with metastasis to pelvis s/p lumpectomy, radiation currently on chemo, DM II, HTN, dyslipidemia, CAD s/p VENKATA presented to ER for hypotension. Lightheaded today and seen at PCP clinic and found to be hypotensive with orthostatic hypotension Hypotension Likely due to dehydration, recent chemotherapy Also to rule out Infection Lactate and procalcitonin WNL Negative Orthostatics Blood culture pending Urine culture pending Continue IV fluids Hold antihypertensives (2) UTI (urinary tract infection): Plan: Abnormal UA Possible UTI Urine culture pending On Rocephin empirically (3) Hypomagnesemia: Plan: Replace as needed Monitor (4) Diabetes mellitus, type 2: Plan: A1c: 5.9 on 12/08/2021 Patient reports episodes of hypoglycemia recently and her glycemic medications have been cut back Hold home Metformin Continue NovoLog Monitor BGs Right breast CA with metastasis bone S/P lumpectomy, radiation Currently on Chemotherapy Last chemo on 12/08/21 Follows with [facility] (5) Hypertension: Plan: BP relatively low Hold losartan, spironolactone Continue metoprolol tartrate with holding parameters Monitor (6) Hypercholesteremia: Plan: Continue statin (7) CAD (coronary artery disease): Plan: S/P VENKATA Continue aspirin, Plavix, statin, Beta Blockers (8) Anemia: Plan: Anemia of Chronic disease Iron deficiency Anemia Baseline Hb ~9.5 No acute bleeding issues Hb drop likely dilutional and due to chemotherapy Continue Iron supplements Monitor CBC (9) Hypothyroidism: Plan: Continue levothyroxine DVT Px Lovenox SQ Code Status Full Code Admission and Anticipated Discharge Date Admission Date: December 10, 2021 Subjective Patient is seen and examined at bedside Reports having chronic right upper extremity pain which she attributes to liver mets States having nausea today but no vomiting Dizziness slowly improving Also reports having left lower extremity discomfort Denies any chest pain, shortness of breath, dysuria, hematuria, melena or any other bleeding issues Review of Systems Review of Systems: All systems reviewed & are unremarkable except as noted in Subjective Physical Exam Physical Exam: Physical Exam: Vitals signs as noted above General Appearance:Moderately built and nourished, no apparent distress, Chronic ill appearing Head: normocephalic, Atraumatic Eyes: normal inspection, EOMI Neck: supple, Trachea midline Respiratory/Chest: Normal breath sounds, CTA, No accessory muscle use Cardiovascular: S1, S2, No murmur Abdomen/GI:Soft, Non tender, Bowel sounds present Extremities/Musculoskeletal:normal inspection, no edema, left calf mild tender Neurologic/Psych:AAOX3, grossly no focal neurological deficits Skin: normal color, warm Results & Data Results & Data ([facility]) Vital Signs (Past 12 Hours) Vital Signs Temp Pulse Pulse Resp BP Pulse Ox 12/11/21 11:19 37.1 C 58 L 96 H 114/62 96 12/11/21 09:02 69 12/11/21 07:25 36.6 C 66 20 121/57 L 98 12/11/21 02:55 37 C 64 16 112/61 95 Laboratory Results Short CBC 12/10/21 12/11/21 12/11/21 Range/Units 13:58 05:02 08:47 WBC 5.60 4.77 L (4.8-10.8) K/uL Hgb 9.3 L 8.0 L 8.2 L (12.0-16.0) g/dL Hct 28.4 L 25.0 L 25.8 L (37-47) % Plt Count 258 239 (130-400) K/uL BMP 12/10/21 12/11/21 13:58 05:02 Sodium 136 137 Potassium 4.3 4.0 Chloride 102 106 Carbon Dioxide 26 26 BUN 13 11 Creatinine 0.76 0.65 Glucose 173 H 98 Calcium 9.2 8.6 Cardiac Enzymes 12/10/21 Range/Units 13:58 Troponin I < 0.03 (0-0.04) ng/ml Liver Function 12/10/21 Range/Units 13:58 Total Bilirubin 0.6 (0.2-1.0) mg/dl AST 19 (13-39) U/L ALT 7 (7-52) U/L Alkaline Phosphatase 93 (34-104) U/L Albumin 3.6 (3.4-5.0) gm/dl Urine 12/10/21 Range/Units 14:55 Urine Color Dark Yellow Urine Appearance Clear (Clear) Urine pH 6.0 (4.5-7.5) Ur Specific [place] 1.016 (1.000-1.030) Urine Protein 3+ H (Negative) Urine Glucose (UA) Negative (Negative)
[2021-12-11] MEDS: ENOXAPARIN INJ 40 MG/0.4 ML SYR SQ SCH (19:18)
[2021-12-11] MEDS: cefTRIAXone SODIUM 1,000 MG in DEXTROSE 5% 50 ML IV SCH (19:18)
[2021-12-11] MEDS: ATORVASTATIN 40 MG TAB PO SCH (21:05)
[2021-12-12] MEDS: LEVOTHYROXINE SODIUM 200 MCG TABLET PO SCH (05:37)
[2021-12-12 06:07] LABS: Hematocrit (blood only) 26.3 % (37-47); Hemoglobin 8.4 g/dL (12.0-16.0); Mean Corpuscular Hemoglobin 29.8 pg (25-34); Mean Corpuscular Hgb Conc 31.9 g/dL (32-36); Mean Corpuscular Volume 93.3 fL (80-100); Platelet Count 247 K/uL (130-400); RDW Coefficient of Variation 16.4 % (11.5-14.5); RDW Standard Deviation 56.3 fL (36.4-46.3); Red Blood Count 2.82 M/uL (4.2-5.4); White Blood Count 5.56 K/uL (4.8-10.8)
[2021-12-12 06:34] LABS: BUN Creatinine Ratio 18.2 (10-20); Calcium 9.2 mg/dl (8.5-10.1); Creatinine Clr Calc Pharmacy 66.7 ml/min; Est GFR (African American) 105.2 ml/min; Est GFR (Non-African American) 90.8 ml/min; Magnesium 1.4 mg/dl (1.7-2.4); Potassium 4.2 mmol/L (3.5-5.1)
[2021-12-12] MEDS: INSULIN ASPART PER UNIT SC SCH ×4 (07:44→20:44)
[2021-12-12] MEDS: ASPIRIN 81 MG ECTAB PO SCH (08:31)
[2021-12-12] MEDS: PANTOprazole 40 MG TAB PO SCH (08:31)
[2021-12-12] MEDS: FLUoxetine HCL 20 MG CAP PO SCH (08:31)
[2021-12-12] MEDS: CLOPIDOGREL BISULFATE 75 MG TAB PO SCH (08:31)
[2021-12-12] MEDS: CALCIUM 600MG + VIT D 400 IU TAB PO SCH ×2 (08:32→20:31)
[2021-12-12] MEDS: METOPROLOL TARTRATE 25 MG TAB PO SCH ×2 (08:32→20:29)
[2021-12-12] MEDS ORDERED: MAGNESIUM SULFATE / D5W 1 GM/100 ML BAG IV ONE (09:45)
[2021-12-12] MEDS: SODIUM CHLORIDE 0.9% 1000ML 1,000 ML IV SCH ×2 (13:00→20:36)
--- NOTE | 2021-12-12 15:38 | Hospitalist Progress Note ---
Date of Service December 12, 2021 Assessment & Plan (1) Hypotension: Plan: Patient is a 66 yr female with H/O Right breast cancer with metastasis to pelvis s/p lumpectomy, radiation currently on chemo, DM II, HTN, dyslipidemia, CAD s/p VENKATA presented to ER for hypotension. Lightheaded today and seen at PCP clinic and found to be hypotensive with orthostatic hypotension Hypotension Likely due to dehydration, recent chemotherapy Also to rule out Infection Lactate and procalcitonin WNL Negative Orthostatics Blood culture: Negative to date Urine culture: Negative Hold antihypertensives Continue IV fluids (2) UTI (urinary tract infection): Plan: Abnormal UA UTI ruled out Urine culture Negative Received Rocephin empirically for 2 days (3) Hypomagnesemia: Plan: Replace as needed Monitor (4) Diabetes mellitus, type 2: Plan: A1c: 5.9 on 12/08/2021 Patient reports episodes of hypoglycemia recently and her glycemic medications have been cut back Hold home Metformin Continue NovoLog Monitor BGs Right breast CA with metastasis bone S/P lumpectomy, radiation Currently on Chemotherapy Last chemo on 12/08/21 Follows with [facility] (5) Hypertension: Plan: BP relatively low Hold losartan, spironolactone Continue metoprolol tartrate with holding parameters Monitor (6) Hypercholesteremia: Plan: Continue statin (7) CAD (coronary artery disease): Plan: S/P VENKATA Continue aspirin, Plavix, statin, Beta Blockers (8) Anemia: Plan: Anemia of Chronic disease Iron deficiency Anemia Baseline Hb ~9.5 No acute bleeding issues Hb drop likely dilutional and due to chemotherapy Continue Iron supplements Monitor CBC (9) Hypothyroidism: Plan: Continue levothyroxine DVT Px Lovenox SQ Code Status Full Code Admission and Anticipated Discharge Date Admission Date: December 10, 2021 Subjective Patient is seen and examined at bedside Dizziness improving but not completely resolved BP relatively low today left lower extremity discomfort improving Denies any chest pain, dyspnea, abd pain No other complaints Review of Systems Review of Systems: All systems reviewed & are unremarkable except as noted in Subjective Physical Exam Physical Exam: Physical Exam: Vitals signs as noted above General Appearance:Moderately built and nourished, no apparent distress, Chronic ill appearing Head: normocephalic, Atraumatic Eyes: normal inspection, EOMI Neck: supple, Trachea midline Respiratory/Chest: Normal breath sounds, CTA, No accessory muscle use Cardiovascular: S1, S2, No murmur Abdomen/GI:Soft, Non tender, Bowel sounds present Extremities/Musculoskeletal:normal inspection, no edema, left calf mild tender Neurologic/Psych:AAOX3, grossly no focal neurological deficits Skin: normal color, warm Results & Data Results & Data ([facility]) Vital Signs (Past 12 Hours) Vital Signs Temp Pulse Pulse Resp BP Pulse Ox 12/12/21 15:12 63 12/12/21 15:09 37.0 C 68 16 109/58 L 93 12/12/21 10:48 37.5 C 62 16 124/63 95 12/12/21 07:25 36.9 C 73 16 124/69 97 12/12/21 07:03 61 12/12/21 04:12 36.6 C 62 16 124/62 95 Laboratory Results Short CBC 12/12/21 Range/Units 05:34 WBC 5.56 (4.8-10.8) K/uL Hgb 8.4 L (12.0-16.0) g/dL Hct 26.3 L (37-47) % Plt Count 247 (130-400) K/uL BMP 12/12/21 05:34 Sodium 140 Potassium 4.2 Chloride 107 Carbon Dioxide 27 BUN 12 Creatinine 0.66 Glucose 103 H Calcium 9.2
[2021-12-12] MEDS: ENOXAPARIN INJ 40 MG/0.4 ML SYR SQ SCH (20:28)
[2021-12-12] MEDS: ATORVASTATIN 40 MG TAB PO SCH (20:31)
[2021-12-12] MEDS: MAGNESIUM CHLORIDE 64MG DELAYED REL TAB PO SCH (20:33)
[2021-12-12] MEDS ORDERED: FENOFIBRATE NANOCRYSTALLIZED 145 MG TABLET PO SCH (21:00)
[2021-12-13] MEDS: LEVOTHYROXINE SODIUM 200 MCG TABLET PO SCH (04:57)
[2021-12-13 06:14] LABS: Hematocrit (blood only) 23.8 % (37-47); Hemoglobin 7.8 g/dL (12.0-16.0)
[2021-12-13 06:37] LABS: BUN Creatinine Ratio 16.4 (10-20); Calcium 8.2 mg/dl (8.5-10.1); Creatinine Clr Calc Pharmacy 65.7 ml/min; Est GFR (African American) 104.7 ml/min; Est GFR (Non-African American) 90.3 ml/min; Magnesium 1.4 mg/dl (1.7-2.4); Potassium 3.7 mmol/L (3.5-5.1)
[2021-12-13] MEDS ORDERED: MAGNESIUM SULFATE / D5W 1 GM/100 ML BAG IV ONE (08:15)
[2021-12-13] MEDS: INSULIN ASPART PER UNIT SC SCH ×2 (08:40→12:18)
[2021-12-13] MEDS: METOPROLOL TARTRATE 25 MG TAB PO SCH (08:46)
[2021-12-13] MEDS: PANTOprazole 40 MG TAB PO SCH (08:46)
[2021-12-13] MEDS: MAGNESIUM CHLORIDE 64MG DELAYED REL TAB PO SCH (08:47)
[2021-12-13] MEDS: CALCIUM 600MG + VIT D 400 IU TAB PO SCH (08:47)
[2021-12-13] MEDS: CLOPIDOGREL BISULFATE 75 MG TAB PO SCH (08:47)
[2021-12-13] MEDS: ASPIRIN 81 MG ECTAB PO SCH (08:47)
[2021-12-13] MEDS: FLUoxetine HCL 20 MG CAP PO SCH (08:47)
[2021-12-13] MEDS ORDERED: FERROUS SULFATE 325 MG TAB PO SCH (09:00)
[2021-12-13 09:44] VITALS: PULSE 66
[2021-12-13] MEDS: ONDANSETRON INJ 2 MG/ML 2 ML VIAL IV PRN (10:16)
[2021-12-13 11:49] VITALS: BP 120/56; TEMP 97.9; O2SAT 96
--- NOTE | 2021-12-13 12:40 | Hospitalist Progress Note ---
Date of Service December 13, 2021 Assessment & Plan (1) Hypotension: Plan: Patient is a 66 yr female with H/O Right breast cancer with metastasis to pelvis s/p lumpectomy, radiation currently on chemo, DM II, HTN, dyslipidemia, CAD s/p VENKATA presented to ER for hypotension. Lightheaded today and seen at PCP clinic and found to be hypotensive with orthostatic hypotension Hypotension Likely due to dehydration, recent chemotherapy Also to rule out Infection Lactate and procalcitonin WNL Negative Orthostatics Blood culture: Negative to date Urine culture: Negative Hold antihypertensives Received IV fluids BP improved (2) UTI (urinary tract infection): Plan: Abnormal UA UTI ruled out Urine culture Negative Received Rocephin empirically for 2 days (3) Hypomagnesemia: Plan: Replace as needed Monitor (4) Diabetes mellitus, type 2: Plan: A1c: 5.9 on 12/08/2021 Patient reports episodes of hypoglycemia recently and her glycemic medications have been cut back Hold home Metformin Continue NovoLog Monitor BGs Right breast CA with metastasis bone S/P lumpectomy, radiation Currently on Chemotherapy Last chemo on 12/08/21 Follows with [facility] (5) Hypertension: Plan: BP relatively low Hold losartan, spironolactone Continue metoprolol tartrate with holding parameters Monitor (6) Hypercholesteremia: Plan: Continue statin (7) CAD (coronary artery disease): Plan: S/P VENKATA Continue aspirin, Plavix, statin, Beta Blockers (8) Anemia: Plan: Anemia of Chronic disease Iron deficiency Anemia Baseline Hb ~9.5 No acute bleeding issues Hb drop dilutional due to IV fluids and due to chemotherapy Continue Iron supplements Monitor CBC Planned for repeat blood work with her Oncologist this week as outpatient (9) Hypothyroidism: Plan: Continue levothyroxine DVT Px Lovenox SQ Code Status Full Code Admission and Anticipated Discharge Date Admission Date: December 10, 2021 Subjective Patient is seen and examined at bedside Chronic nausea which attributes to cancer Dizziness resolved BP better Denies any chest pain, dyspnea, abd pain, vomiting, abd pain Review of Systems Review of Systems: All systems reviewed & are unremarkable except as noted in Subjective Physical Exam Physical Exam: Physical Exam: Vitals signs as noted above General Appearance:Moderately built and nourished, no apparent distress, Chronic ill appearing Head: normocephalic, Atraumatic Eyes: normal inspection, EOMI Neck: supple, Trachea midline Respiratory/Chest: Normal breath sounds, CTA, No accessory muscle use Cardiovascular: S1, S2, No murmur Abdomen/GI:Soft, Non tender, Bowel sounds present Extremities/Musculoskeletal:normal inspection, no edema, left calf mild tender Neurologic/Psych:AAOX3, grossly no focal neurological deficits Skin: normal color, warm Results & Data Results & Data ([facility]) Vital Signs (Past 12 Hours) Vital Signs Temp Pulse Pulse Resp BP Pulse Ox 12/13/21 11:48 36.6 C 66 16 120/56 L 96 12/13/21 09:43 66 12/13/21 07:28 36.8 C 68 16 146/69 H 95 12/13/21 04:30 36.7 C 66 127/72 94 12/13/21 00:39 71 Laboratory Results Short CBC 12/13/21 Range/Units 05:34 Hgb 7.8 L (12.0-16.0) g/dL Hct 23.8 L (37-47) % BMP 12/13/21 05:34 Sodium 139 Potassium 3.7 Chloride 107 Carbon Dioxide 25 BUN 11 Creatinine 0.67 Glucose 105 H Calcium 8.2 L
--- NOTE | 2021-12-13 12:52 | Discharge Summary ---
Date of Service December 13, 2021 Admission HPI Per Admitting Provider Patient is 66-year-old female with PMH right breast cancer with metastasis to pelvis s/p lumpectomy, radiation currently on chemo, DM II, HTN, dyslipidemia, CAD s/p VENKATA presented to ER for hyportension. Patient reports this morning felt lightheaded she checked her blood sugar and was 112 and had orange juice and went up to 132. She reports urinary urgency and increased frequency for the past 2 days. Reports nausea and vomiting with eating solid food only, she reports she feels like after she eats she gets a sudden pain in epigastric area and then will vomit and feels better after. Reports this is different than her nausea and vomiting with chemo. Last chemo was on 12/08/2021. Patient reports was started on iron recently and since has been having episodes of diarrhea. This week it was recommended that she takes her iron supplement twice weekly instead. Denies any current abdominal pain. Was seen at PCPs office today and noted to have orthostatic hypotension. In the clinic is reported her blood pressure 95/51, standing blood pressure 50/35 and was referred to ER. Patient reports did not receive IV fluids via EMS as they could not access her port. Denies fever/chills, diaphoresis, OCHOA, syncope, vision changes, neck pain, CP, SOB, orthopnea, palpitations, cough, sore throat, choking, otalgia, rhinorrhea, paresthesias,extremity weakness, extremity edema, rashes, hematuria, melena, hematochezia, hematemesis. Admission Exam Per Admitting Provider General: no acute distress, chronic ill appearing, pale Head: normocephalic, atraumatic Eyes: PERRL, EOM's intact, conjunctiva non-injected, anicteric ENT: normal inspection external ears, nose, mucous membranes mildly dry Neck: supple, trachea midline Lungs: clear, no respiratory distress, no wheezing/rhonchi/rales CV: RRR, no murmur, no pretibial edema Abd: normal BS, soft, non-tender Ext: no cyanosis, no calf tenderness Neuro: A&O x 3, no focal deficits noted, normal affect Skin: warm, dry Principal Diagnosis Hypotension Hypomagnesemia Discharge Data Allergies Allergy/AdvReac Type Severity Reaction Status Date / Time NSAIDS (Non-Steroidal Allergy Severe Hives Verified 12/10/21 14:29 Anti-Inflamma oxaprozin [From Daypro] Allergy Severe Anaphylaxis Verified 12/10/21 14:29 dextromethorphan Allergy Mild Hives Verified 12/10/21 14:29 erythromycin base Allergy Mild Hives Verified 12/10/21 14:29 methylprednisolone Allergy Mild Anaphylaxis Verified 12/10/21 14:29 aspirin Allergy Unknown Unknown Verified 12/10/21 20:36 doxylamine Allergy Unknown Unknown Verified 12/10/21 20:36 pseudoephedrine Allergy Unknown Unknown Verified 12/10/21 20:36 Consultations 12/10/21 15:30 ED Decision to Admit Stat Hospital Course (1) Hypotension: Patient is a 66 yr female with H/O Right breast cancer with metastasis to pelvis s/p lumpectomy, radiation currently on chemo, DM II, HTN, dyslipidemia, CAD s/p VENKATA presented to ER for hypotension. Lightheaded today and seen at PCP clinic and found to be hypotensive with orthostatic hypotension Hypotension Likely due to dehydration, recent chemotherapy Also to rule out Infection Lactate and procalcitonin WNL Negative Orthostatics Blood culture: Negative to date Urine culture: Negative Hold antihypertensives Received IV fluids BP improved (2) UTI (urinary tract infection): Abnormal UA UTI ruled out Urine culture Negative Received Rocephin empirically for 2 days (3) Hypomagnesemia: Replace as needed Monitor (4) Diabetes mellitus, type 2: A1c: 5.9 on 12/08/2021 Patient reports episodes of hypoglycemia recently and her glycemic medications have been cut back Hold home Metformin Continue NovoLog Monitor BGs Right breast CA with metastasis bone S/P lumpectomy, radiation Currently on Chemotherapy Last chemo on 12/08/21 Follows with [facility] (5) Hypertension: BP relatively low Hold losartan, spironolactone Continue metoprolol tartrate with holding parameters Monitor (6) Hypercholesteremia: Continue statin (7) CAD (coronary artery disease): S/P VENKATA Continue aspirin, Plavix, statin, Beta Blockers (8) Anemia: Anemia of Chronic disease Iron deficiency Anemia Baseline Hb ~9.5 No acute bleeding issues Hb drop dilutional due to IV fluids and due to chemotherapy Continue Iron supplements Monitor CBC Planned for repeat blood work with her Oncologist this week as outpatient (9) Hypothyroidism: Continue levothyroxine DVT Px Lovenox SQ Code Status Full Code Total Time Total Time Spent Total Time Spent (In Minutes): 43 minutes Discharge Plan Discharge Items Patient Disposition: Home - Self-Care Reason For Visit: HYPOTENSION Discharge Diagnosis: Hypotension Hypomagnesemia Activity: Per Instructions section Exercise/Sports: Gradually increase as tolerated Non-emergency contact: Primary Care Provider Call non-emergency contact if: you have any medication questions, your symptoms worsen, your pain is concerning for you and you have a fever Follow-up/Referrals: Alejandra Oquendo MD [Primary Care Provider] - Diet: Carb Consistent or DM2 Addtl Attending Provider Instructions: Follow-up with for primary care service on December 16, 2021 11:20 AM Follow-up with your oncologist in 1 to 2 weeks with blood work as advised --- Final blood cultures are pending at the time of discharge. Follow-up with your physician for results. --- Hold on taking losartan, spironolactone until follow-up with your physician. Check your blood pressure regularly as advised. Further instructions as per your family physician. --- Start taking magnesium supplements as prescribed. Seek immediate medical attention if your symptoms reoccur or worsen Please take all medications as instructed on discharge list below. Please call if you have any questions or problems. You can reach a [facility] hospitalist on duty at [facility] 24 hours a day by calling [phone] Pending Studies at Discharge: Yes Studies:: Blood Cultures Stand-Alone Forms: My [facility] [employer], Smoking Cessation Medications and DC Order Prescriptions: New Mag 64 64 mg Tablet,Delayed Release (Dr/Ec) 64 mg PO BID Qty: 30 RF: 0 Continued calcium carbonate-vitamin D3 600 mg(1,500mg) -200 unit tablet 1 tab PO BID RF: 0 fluticasone propionate 50 mcg/actuation spray,suspension 1 sprays INTNAS DAILY PRN (Reason: Congestion) RF: 0 prochlorperazine maleate [Compazine] 5 mg tablet 10 mg PO QID PRN (Reason: nausea and vomiting) RF: 0 Xgeva 120 mg/1.7 mL (70 mg/mL) solution 120 mg subcut .EVERY 3 MONTHS RF: 0 Abraxane 100 mg suspension for reconstitution 0 mg IV UD RF: 0 oxycodone-acetaminophen [Percocet] 5-325 mg tablet 1 tab PO Q6H PRN (Reason: Pain) RF: 0 acetaminophen [Tylenol Extra Strength] 500 mg tablet 1,000 mg PO Q6H PRN (Reason: Pain) RF: 0 ferrous sulfate 325 mg (65 mg iron) tablet 325 mg PO 2XWK RF: 0 metoprolol tartrate 25 mg tablet 12.5 mg PO BID Qty: 90 RF: 3 albuterol sulfate 90 mcg/actuation HFA aerosol inhaler 2 puffs INH Q4H PRN (Reason: Shortness Of Breath Or Wheezing) RF: 0 amoxicillin 500 mg capsule 2,000 mg PO .COMPLEX RF: 0 aspirin 81 mg tablet,delayed release (DR/EC) 81 mg PO QAM RF: 0 clopidogrel [Plavix] 75 mg tablet 75 mg PO QAM RF: 0 fenofibrate micronized 200 mg capsule 200 mg PO HS RF: 0 omeprazole 20 mg capsule,delayed release(DR/EC) 20 mg PO QAM RF: 0 levothyroxine [Synthroid] 200 mcg tablet 200 mcg PO DAILYBB RF: 0 fluoxetine [Prozac] 20 mg capsule 40 mg PO QAM RF: 0 ondansetron [Zofran ODT] 4 mg Tablet,Disintegrating 4 mg PO Q6H PRN (Reason: Nausea And Vomiting) RF: 0 metformin 500 mg Tablet 500 mg PO BID RF: 0 atorvastatin 80 mg tablet 80 mg PO HS RF: 0 Discontinued losartan 25 mg tablet 25 mg PO QAM RF: 0 spironolactone 100 mg tablet 100 mg PO QAM RF: 0 Discharge Orders: Discharge Order (Routine); Ordered 12/13/21 Ordered By: Hayden Gibbs Admission Data Admit Date/Time: 12/10/21 16:12 Attending Provider: Hayden Gibbs Admit Provider: Gaurang Eduardo Primary Care Provider: Alejandra Oquendo Other Providers: Gaurang Eduardo
== END 2021-12-13 15:45 | disposition home or self-care (01) | DRG 312 ==
LOC: ED 13:39 → 2N 16:12 → SUATTDRO 16:12 → 2N 17:30
DX: E11.9 Type 2 diabetes mellitus without complications; Z79.899 Other long term (current) drug therapy; M19.90 Unspecified osteoarthritis, unspecified site; Z79.84 Long term (current) use of oral hypoglycemic drugs; Z79.82 Long term (current) use of aspirin; D64.81 Anemia due to antineoplastic chemotherapy; I25.2 Old myocardial infarction; R82.90 Unspecified abnormal findings in urine; E86.0 Dehydration; E83.42 Hypomagnesemia; E03.9 Hypothyroidism, unspecified; E78.00 Pure hypercholesterolemia, unspecified; I10 Essential (primary) hypertension; D63.8 Anemia in other chronic diseases classified elsewhere; Z85.3 Personal history of malignant neoplasm of breast; E78.5 Hyperlipidemia, unspecified; E11.42 Type 2 diabetes mellitus with diabetic polyneuropathy; Z79.890 Hormone replacement therapy; Z88.8 Allergy status to other drugs, medicaments and biological substances; Z83.3 Family history of diabetes mellitus; I95.1 Orthostatic hypotension; Z88.6 Allergy status to analgesic agent; Z82.49 Family history of ischemic heart disease and other diseases of the circulatory system; T45.1X5A Adverse effect of antineoplastic and immunosuppressive drugs, initial encounter; I95.2 Hypotension due to drugs; C79.51 Secondary malignant neoplasm of bone; Z95.5 Presence of coronary angioplasty implant and graft; I25.10 Atherosclerotic heart disease of native coronary artery without angina pectoris; J45.909 Unspecified asthma, uncomplicated; D50.9 Iron deficiency anemia, unspecified; K21.9 Gastro-esophageal reflux disease without esophagitis; Z79.02 Long term (current) use of antithrombotics/antiplatelets; Z88.1 Allergy status to other antibiotic agents

== ENCOUNTER 2022-02-28 18:04 | Observation (INO) ==
--- NOTE | 2022-02-28 20:33 | Emergency Department Note ---
Impression & Plan Metastatic breast cancer, Hypomagnesemia, Facial droop, Facial paralysis/Circle palsy, Pleural effusion ED Provider Note Provider: Delvis Rollins MD DATE OF SERVICE: 02/28/2022 CHIEF COMPLAINT: Right facial droop and had pain involving the right eye HISTORY OF PRESENT ILLNESS: Patient is a 66-year-old female history of hypothyroidism, type 2 diabetes, CAD, breast cancer currently on chemotherapy with liver and bone mets presenting here today reporting onset approximately 5 days ago of some numbness and droop of her right cheek and face. This is worsened over the last several days over the last day or so now involving the right eye which is watering and not blinking well. Denies any new numbness or tingling in the extremities or significant weakness here but is currently on chemotherapy. Reports some unchanged during this time slight neuropathy from the chemotherapy" chemo brain. Denies significant worsening of this or falls. Reports bit of pain in the right posterior ear and neck region as well. Did have a week or 2 ago some swelling of the legs but this improved quite a bit. Still with some shortness of breath with exertion at times. Was to see her doctor's office today but when they learned of her symptoms sent her here for evaluation. Patient with some occasional slurred speech she says it is waxing and waning to some degree. Patient reports with chemotherapy her taste has been chronically off. REVIEW OF SYSTEMS: A total of 10 review of systems was obtained and negative except as stated above in the HPI. PAST MEDICAL HISTORY: As noted above MEDICATIONS: Reviewed home medication list and currently on chemotherapy SOCIAL HISTORY: Former nurse PHYSICAL EXAM: GENERAL: alert and oriented in no acute distress on stretcher Head: normocephalic and atraumatic, bald EYES: No injection, discharge or icterus except for some occasional tearing of the right eye which does not close entirely.PERRL, EOMI. NECK: Trachea midline. Supple without crepitus. ENT: Mucous membranes pink and moist. Pharynx without erythema or exudate. LUNGS: Airway patent. No retractions. Breath sounds clear with diminished bases however HEART: Regular rate and rhythm. ABDOMEN: Soft and non-tender, without guarding or rebound. SKIN: Acyanotic, warm, dry, without rashes EXTREMITIES: Without significant calf tenderness or deformity with trace bilateral pedal edema NEUROLOGICAL:No aphasia. No slurred speech. Normal strength and tone in the extremities. Sensation to gross touch normal. Ambulatory. Patient with significant droop of the right facial involving with the maxillary cheek and perhaps slightly the right forehead although a bit difficult to ascertain entirely. The right eye does not close entirely with blinking. EK bpm normal sinus rhythm. No PVC or PAC. No acute ST segment elevation or depression with a QTC of 468. Some nonspecific inferior anterior T wave changes noted. CONTINUOUS CARDIAC MONITORING: was ordered and showed a heart rate of bpm in 1 chest x-ray per my interpretation: No evidence of pneumothorax or pneumonia with recurrent left pulmonary edema. Patient's laboratory studies and imaging reviewed. Differential includes Infection, dehydration, metabolic abnormality, hypo/hyperglycemia, electrolyte disturbance, anemia, hypoxia, cardiac sources, intracerebral event, toxicologic, neurologic, as well as other pathologies. IMPRESSION/MEDICAL DECISION MAKING: Patient with significant past medical history with risk factors for both CVA as well as possible oncological reason causing her facial droop and eye issues. No significant issues in the other extremities beyond her baseline with a chemotherapy. This may simply represent a Glass's palsy type situation. Patient states she was leaning towards this and did not want to come in until her doctor told her to today. It has been [address] of the head as well as CTA of the head and neck will be completed with blood work and Lyme screening. Mild slightly improved anemia. Minimal leukopenia. No significant electrolyte abnormality. Borderline magnesium 1.5. Negative Lyme and COVID testing. Given magnesium supplementations and some Tylenol. CT imaging reports as below without significant acute findings although some pleural effusions. Lower suspicion stroke more likely Glass's palsy. Will cover with prednisone steroid and artificial tears. Given some irritation of the eye given trimethoprim drops for the eye. Did have increased welling last week with improved some. No history of significant fluid or swelling in the past. Chest x-ray with some pulmonary edema noted. Discussion with the patient all this and feel it is likely Glass's palsy. Believe further neurological evaluation also evaluation of the pleural effusions given her multiple comorbidities is reasonable. Hospitalist contacted in discussion with the patient. DIAGNOSIS: Right facial droop, slurred speech, pleural effusions, hypomagnesemia, breast cancer DISPOSITION: Hospitalist will evaluate Patient was agreeable with this plan. Preliminary Findings Only See Final Report For Complete Findings CT HEAD: Mild brain volume loss. Minimal chronic ischemic changes. No mass, hemorrhage or acute infarct. Sinuses, mastoids and bones are intact. Impression: No acute findings. Radiologist: Jairo Dietrich M.D. Study ready at 21:42 and initial results transmitted at 21:53 Preliminary Findings Only See Final Report For Complete Findings CTA HEAD: Moderate throat stenosis of the cavernous carotid arteries. MCAs and ACAs are intact. Vertebrals, basilar and the financial institution manager are intact. No abnormal enhancement. Impression: No acute findings. Radiologist: Jairo Dietrich M.D. Study ready at 21:42 and initial results transmitted at 21:56 Preliminary Findings Only See Final Report For Complete Findings CTA NECK: Mild atherosclerosis of the aortic arch. Mild atherosclerosis of the right carotid bulb. Mild atherosclerosis of the left carotid bulb. ICAs are intact. Vertebral arteries are intact. Partially seen small to moderate sized right pleural effusion and small left pleural effusion. The soft tissue structures are intact. DJD. Impression: No acute findings. Pleural effusions. Radiologist: Jairo Dietrich M.D. Study ready at 21:46 and initial results transmitted at 21:58 Past Med/Surg History Medical History (Updated 02/28/22 @ 22:49 by Delvis Rollins M.D.) Anemia Asthma Cancer right breast cancer Diabetes mellitus, type 2 Fusion of spine GERD (gastroesophageal reflux disease) History of deviated nasal septum History of OCD (obsessive compulsive disorder) Hx MRSA infection bilateral axillary abscess a year ago. Has not been retested. Hyperlipidemia Hypertension Hypothyroidism Myocardial Infarction On anticoagulant therapy Osteoarthritis Peripheral neuropathy RUE, RLE Recent weight loss Surgical History History of cholecystectomy History of colonoscopy 2019 polyp removed History of discectomy History of esophagogastroduodenoscopy (EGD) History of heart artery stent History of repair of rotator cuff right Hx of lumpectomy right breast Family History Other Cancer Diabetes Hypertension Stroke Social History Smoking Status: Never smoker Hx Alcohol Use: No Hx Substance Use: No Preferred Language: Bulgarian Communication Ability: Effective Edge Sawyer Required: No Beliefs That Will Affect Care: None Current Living Situation: Alone Current Living Situation Comment: Alone w/ family support, recently passed Feels Safe at Home: Yes Assistive Devices: Cane, Walker and Wheelchair Allergies Allergies Allergy/AdvReac Type Severity Reaction Status Date / Time NSAIDS (Non-Steroidal Allergy Severe Hives Verified 02/28/22 22:22 Anti-Inflamma oxaprozin [From Daypro] Allergy Severe Anaphylaxis Verified 02/28/22 22:22 dextromethorphan Allergy Mild Hives Verified 02/28/22 22:22 erythromycin base Allergy Mild Hives Verified 02/28/22 22:22 methylprednisolone Allergy Mild Anaphylaxis Verified 02/28/22 22:22 aspirin Allergy Unknown Unknown Verified 12/10/21 20:36 doxylamine Allergy Unknown Unknown Verified 02/28/22 22:22 pseudoephedrine Allergy Unknown Unknown Verified 02/28/22 22:22 Home Meds Home Medications Medication Instructions Recorded Confirmed albuterol sulfate 90 mcg/actuation 2 puffs INH Q4H PRN gm 08/08/19 02/28/22 aerosol inhaler amoxicillin 500 mg capsule 2,000 mg PO .COMPLEX cap 08/08/19 02/28/22 aspirin 81 mg tablet,delayed 81 mg PO QAM 08/08/19 02/28/22 release clopidogrel 75 mg tablet (Plavix) 75 mg PO QAM 08/08/19 02/28/22 fenofibrate micronized 200 mg 200 mg PO HS 08/08/19 02/28/22 capsule levothyroxine 200 mcg tablet 400 mcg PO 2XWK 08/08/19 02/28/22 (Synthroid) omeprazole 20 mg capsule,delayed 20 mg PO QAM 08/08/19 02/28/22 release calcium carbonate 600 mg-vitamin 1 tab PO BID 10/09/19 02/28/22 D3 5 mcg (200 unit) tablet fluticasone propionate 50 1 sprays INTNAS DAILY PRN 10/09/19 02/28/22 mcg/actuation nasal spray,suspension acetaminophen 500 mg tablet 1,000 mg PO Q6H PRN tab 07/09/21 02/28/22 (Tylenol Extra Strength) denosumab 120 mg/1.7 mL (70 mg/mL) 120 mg SUBCUT .EVERY 3 MONTHS ml 07/09/21 02/28/22 subcutaneous solution (Xgeva) fluoxetine 20 mg capsule (Prozac) 40 mg PO QAM cap 07/09/21 02/28/22 oxycodone-acetaminophen 5 mg-325 1 tab PO Q6H PRN 07/09/21 02/28/22 mg tablet (Percocet) paclitaxel protein-bound 100 mg 0 mg IV UD 07/09/21 02/28/22 intravenous suspension (Abraxane) prochlorperazine maleate 5 mg 10 mg PO QID PRN tab 07/09/21 02/28/22 tablet (Compazine) ferrous sulfate 325 mg (65 mg 325 mg PO 2XWK tab 11/12/21 02/28/22 iron) tablet atorvastatin 80 mg tablet 80 mg PO HS 12/10/21 02/28/22 ondansetron 4 mg disintegrating 4 mg PO Q6H PRN 12/10/21 02/28/22 tablet levothyroxine 200 mcg tablet 200 mcg PO 5XWK 02/28/22 02/28/22 magnesium chloride 64 mg 64 mg PO DAILY 02/28/22 02/28/22 (magnesium chloride) tablet,delayed release (Mag 64) Previous Rx's Medication Instructions Recorded metoprolol tartrate 25 mg tablet 12.5 mg PO BID #90 tab 11/04/21 Results & Data (ED) Vital Signs Vital Signs - 24 hr 02/28/22 18:22 02/28/22 20:27 02/28/22 22:00 Temperature 36.7 C Temperature Source Temporal Artery Scan Pulse Rate 92 H Pulse Rate [Apical] 70 74 Respiratory Rate 20 17 18 Respiratory Effort / Characteristics Non-Labored Non-Labored Spontaneous Respiratory Depth Normal Normal Blood Pressure 162/78 H Blood Pressure [Left Arm] 147/55 H 165/67 H Blood Pressure Mean 106 Blood Pressure Mean [Left Arm] 85 99 Pulse Oximetry 95 95 98 Oxygen Delivery Method Room Air Room Air Room Air Sepsis Recent Fever Within 48 Hours No Sepsis New/Unexplained Change in Mental Status N/A Sepsis Action Taken by Nursing No Action Required Laboratory Data Result diagrams: 02/28/22 20:35 02/28/22 20:35 Lab Results 02/28/22 02/28/22 02/28/22 Range/Units 20:16 20:35 20:35 WBC 2.99 L (4.8-10.8) K/uL RBC 3.17 L (4.2-5.4) M/uL Hgb 9.4 L (12.0-16.0) g/dL Hct 29.4 L (37-47) % MCV 92.7 (80-100) fL MCH 29.7 (25-34) pg MCHC 32.0 (32-36) g/dL RDW Std Deviation 74.0 H (36.4-46.3) fL RDW Coeff of Azra 22.0 H (11.5-14.5) % Plt Count 305 (130-400) K/uL MPV 11.6 H (7.4-10.4) fL PT 11.8 (9.0-12.0) Seconds INR 1.1 (0.9-1.1) APTT 24.1 (21.0-31.0) Seconds PTT Ratio 0.9 Sodium (136-145) mmol/L Potassium (3.5-5.1) mmol/L Chloride (98-107) mmol/L Carbon Dioxide (21-32) mmol/L Anion Gap (3-11) BUN (6-23) mg/dl Creatinine (0.6-1.2) mg/dl Est Cr Clr Drug Dosing ml/min Est GFR ( Amer) ml/min Est GFR (Non-Af Amer) ml/min BUN/Creatinine Ratio (10-20) Glucose (70-99(Fasting)) mg/dl POC Glucose 93 (70-99) mg/dl Calcium (8.5-10.1) mg/dl Magnesium (1.7-2.4) mg/dl Total Bilirubin (0.2-1.0) mg/dl AST (13-39) U/L ALT (7-52) U/L Alkaline Phosphatase (34-104) U/L Troponin I High Sens (0-14) pg/ml Total Protein (6.0-8.3) gm/dl Albumin (3.4-5.0) gm/dl Globulin (2.5-4.0) gm/dl Albumin/Globulin Ratio (0.9-2) Lyme Disease IgG Ab (Negative) Lyme Disease IgM Ab (Negative) SARS-CoV-2, RNA, NAAT (NEGATIVE) 02/28/22 02/28/22 02/28/22 Range/Units 20:35 20:35 21:10 WBC (4.8-10.8) K/uL RBC (4.2-5.4) M/uL Hgb (12.0-16.0) g/dL Hct (37-47) % MCV (80-100) fL MCH (25-34) pg MCHC (32-36) g/dL RDW Std Deviation (36.4-46.3) fL RDW Coeff of Azra (11.5-14.5) % Plt Count (130-400) K/uL MPV (7.4-10.4) fL PT (9.0-12.0) Seconds INR (0.9-1.1) APTT (21.0-31.0) Seconds PTT Ratio Sodium 140 (136-145) mmol/L Potassium 4.1 (3.5-5.1) mmol/L Chloride 108 H (98-107) mmol/L Carbon Dioxide 25 (21-32) mmol/L Anion Gap 7 (3-11) BUN 10 (6-23) mg/dl Creatinine 0.76 (0.6-1.2) mg/dl Est Cr Clr Drug Dosing 57.8 ml/min Est GFR ( Amer) 93.4 ml/min Est GFR (Non-Af Amer) 80.6 ml/min BUN/Creatinine Ratio 13.2 (10-20) Glucose 86 (70-99(Fasting)) mg/dl POC Glucose (70-99) mg/dl Calcium 8.7 (8.5-10.1) mg/dl Magnesium 1.5 L (1.7-2.4) mg/dl Total Bilirubin 0.7 (0.2-1.0) mg/dl AST 37 (13-39) U/L ALT 13 (7-52) U/L Alkaline Phosphatase 60 (34-104) U/L Troponin I High Sens 7.3 (0-14) pg/ml Total Protein 6.1 (6.0-8.3) gm/dl Albumin 3.7 (3.4-5.0) gm/dl Globulin 2.4 L (2.5-4.0) gm/dl Albumin/Globulin Ratio 1.5 (0.9-2) Lyme Disease IgG Ab Negative (Negative) Lyme Disease IgM Ab Negative (Negative) SARS-CoV-2, RNA, NAAT NEGATIVE (NEGATIVE) Administered Medications Discontinued Medications Acetaminophen (Acetaminophen 325 Mg Tab) 650 mg PO NOW STA Stop: 02/28/22 22:44 Last Admin: 02/28/22 22:55 Dose: 650 mg Documented by: [id number] Gadobutrol (Gadobutrol 7.5ml Vial) 5.5 ml IV ONCE ONE Stop: 03/01/22 01:05 Last Admin: 03/01/22 01:04 Dose: 5.5 ml Documented by: [id number] Magnesium Sulfate/Dextrose (Magnesium Sulfate / D5w) 1 gm in 100 mls @ 200 mls/hr IV Q30M KIM Stop: 02/28/22 23:42 Last Admin: 02/28/22 23:39 Dose: 200 mls/hr Documented by: [id number] Infusion: 02/28/22 23:25 Dose: 200 mls/hr Documented by: [id number] Admin: 02/28/22 22:55 Dose: 200 mls/hr Documented by: [id number] Ioversol (Optiray 320 125ml) 119 ml IV ONCE ONE Stop: 02/28/22 21:32 Last Admin: 02/28/22 21:34 Dose: 119 ml Documented by: [id number] Ioversol (Optiray 320 125ml) 125 ml IV ONCE ONE Stop: 03/01/22 00:25 Last Admin: 03/01/22 00:25 Dose: 94 ml Documented by: [id number] Multi-Ingredient Cream (Artificial Tears Op Oint 3.5 Gm Tube) 1 appln OP NOW ONE Stop: 02/28/22 22:46 Last Admin: 02/28/22 23:39 Dose: 1 appln Documented by: [id number] Polymyxin/Trimethoprim Sulfate (Trimethoprim/Polymyxin B) 2 drops OP NOW ONE Stop: 02/28/22 22:47 Last Admin: 02/28/22 22:55 Dose: 2 drops Documented by: [id number] Prednisone (Prednisone 20 Mg Tab) 40 mg PO NOW STA Stop: 02/28/22 22:46 Last Admin: 02/28/22 22:55 Dose: 40 mg Documented by: [id number] Discharge Plan Visit Data Chief Complaint: Stroke/CVA Symptoms Stated Complaint: DROOPING OF MOUTH AND EYE, SLURRED SPEECH ED Provider: Delvis Rollins Discharge Problem: Metastatic breast cancer, Hypomagnesemia, Facial droop, Facial paralysis/Circle palsy, Pleural effusion Patient Disposition: Being Evaluated by Hospitalist Forms Stand Alone Forms: My [facility] Prescriptions Prescriptions: No Action calcium carbonate-vitamin D3 600 mg(1,500mg) -200 unit tablet 1 tab PO BID RF: 0 fluticasone propionate 50 mcg/actuation spray,suspension 1 sprays INTNAS DAILY PRN (Reason: Congestion) RF: 0 prochlorperazine maleate [Compazine] 5 mg tablet 10 mg PO QID PRN (Reason: nausea and vomiting) RF: 0 Xgeva 120 mg/1.7 mL (70 mg/mL) solution 120 mg subcut .EVERY 3 MONTHS RF: 0 Abraxane 100 mg suspension for reconstitution 0 mg IV UD RF: 0 oxycodone-acetaminophen [Percocet] 5-325 mg tablet 1 tab PO Q6H PRN (Reason: Pain) RF: 0 acetaminophen [Tylenol Extra Strength] 500 mg tablet 1,000 mg PO Q6H PRN (Reason: Pain) RF: 0 ferrous sulfate 325 mg (65 mg iron) tablet 325 mg PO 2XWK RF: 0 metoprolol tartrate 25 mg tablet 12.5 mg PO BID Qty: 90 RF: 3 albuterol sulfate 90 mcg/actuation HFA aerosol inhaler 2 puffs INH Q4H PRN (Reason: Shortness Of Breath Or Wheezing) RF: 0 amoxicillin 500 mg capsule 2,000 mg PO .COMPLEX RF: 0 aspirin 81 mg tablet,delayed release (DR/EC) 81 mg PO QAM RF: 0 clopidogrel [Plavix] 75 mg tablet 75 mg PO QAM RF: 0 fenofibrate micronized 200 mg capsule 200 mg PO HS RF: 0 omeprazole 20 mg capsule,delayed release(DR/EC) 20 mg PO QAM RF: 0 levothyroxine [Synthroid] 200 mcg tablet 400 mcg PO 2XWK RF: 0 fluoxetine [Prozac] 20 mg capsule 40 mg PO QAM RF: 0 ondansetron 4 mg Tablet,Disintegrating 4 mg PO Q6H PRN (Reason: Nausea And Vomiting) RF: 0 atorvastatin 80 mg tablet 80 mg PO HS RF: 0 levothyroxine 200 mcg tablet 200 mcg PO 5XWK RF: 0 Mag 64 64 mg tablet,delayed release (DR/EC) 64 mg PO DAILY RF: 0 Referrals Referrals: Randy Rush MD [Primary Care Provider] -
[2022-02-28 20:52] LABS: Hematocrit (blood only) 29.4 % (37-47); Hemoglobin 9.4 g/dL (12.0-16.0); Mean Corpuscular Hemoglobin 29.7 pg (25-34); Mean Corpuscular Volume 92.7 fL (80-100); Mean Platelet Volume 11.6 fL (7.4-10.4); Platelet Count 305 K/uL (130-400); Red Blood Count 3.17 M/uL (4.2-5.4); White Blood Count 2.99 K/uL (4.8-10.8)
[2022-02-28 21:08] LABS: INR 1.1 (0.9-1.1); Partial Thromboplastin Ratio 0.9; Partial Thromboplastin Time 24.1 Seconds (21.0-31.0); Prothrombin Time 11.8 Seconds (9.0-12.0)
[2022-02-28 21:13] LABS: Troponin I High Sensitivity 7.3 pg/ml (0-14)
[2022-02-28 21:17] LABS: Albumin Globulin Ratio 1.5 (0.9-2); Albumin Level 3.7 gm/dl (3.4-5.0); BUN Creatinine Ratio 13.2 (10-20); Bilirubin,Total 0.7 mg/dl (0.2-1.0); Calcium 8.7 mg/dl (8.5-10.1); Creatinine Clr Calc Pharmacy 57.8 ml/min; Est GFR (African American) 93.4 ml/min; Est GFR (Non-African American) 80.6 ml/min; Globulin 2.4 gm/dl (2.5-4.0); Magnesium 1.5 mg/dl (1.7-2.4); Potassium 4.1 mmol/L (3.5-5.1); Total Protein 6.1 gm/dl (6.0-8.3)
[2022-02-28] MEDS ORDERED: OPTIRAY 320 125ml IV ONE (21:31)
[2022-02-28 21:32] LABS: Lyme Ab IgG w/WB Rflx Negative (Negative); Lyme Ab IgM w/WB Rflx Negative (Negative)
[2022-02-28] MEDS ORDERED: ACETAMINOPHEN 325 MG TAB PO STA (22:43)
[2022-02-28] MEDS ORDERED: predniSONE 20 MG TAB PO STA (22:45)
[2022-02-28] MEDS ORDERED: ARTIFICIAL TEARS OP OINT 3.5 GM TUBE OP ONE (22:45)
[2022-02-28] MEDS ORDERED: TRIMETHOPRIM/POLYMYXIN B OP ONE (22:46)
--- NOTE | 2022-02-28 22:51 | History & Physical Report ---
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 It may contain grammatical or spelling errors. Kindly contact undersigned for clarification of any documentation item in question. History of Present Illness Chief Complaint: Right facial droop Primary Care Provider: Randy Rush MD History obtained from patient and records. Medical history significant for chronic diastolic failure (EF 50 to 55%, TTE 2014), CAD status post stent, hypertension, hyperlipidemia, metastatic breast cancer status post surgery ongoing chemotherapy, PMR, DM2 diet-controlled, hypothyroidism, OCD as per records, chronic anemia (baseline hemoglobin of 9). Last confinement December 2021 for hypotension and hypomagnesemia. 2 weeks ago, patient developed shortness of breath and bilateral leg swelling. Out-of-town trip to [place] and [place]. No chest pain. No cough symptoms. Symptoms improving but not fully resolved upon return home. 5 days ago, patient noted right-sided numbness and droopiness of the face. Trouble closing her right eye. And tearing. Achy postauricular pain without r ashes. No prior episodes. No recollection of tick bites. At the ER, prednisone given for Glass's palsy. Medical History as above Surgical History : D&C, vascular procedure, partial mastectomy right, cholecystectomy, pilonidal cyst removal, shoulder surgery Family History : Breast cancer, colon cancer, DM, heart disease Personal/Social history : Non-smoker, occasional EtOH intake, retired RN, Allergies Allergy/AdvReac Type Severity Reaction Status Date / Time NSAIDS (Non-Steroidal Allergy Severe Hives Verified 02/28/22 22:22 Anti-Inflamma oxaprozin [From Daypro] Allergy Severe Anaphylaxis Verified 02/28/22 22:22 dextromethorphan Allergy Mild Hives Verified 02/28/22 22:22 erythromycin base Allergy Mild Hives Verified 02/28/22 22:22 methylprednisolone Allergy Mild Anaphylaxis Verified 02/28/22 22:22 aspirin Allergy Unknown Unknown Verified 12/10/21 20:36 doxylamine Allergy Unknown Unknown Verified 02/28/22 22:22 pseudoephedrine Allergy Unknown Unknown Verified 02/28/22 22:22 Home Medications Medication Instructions Recorded Confirmed Type albuterol sulfate 90 mcg/actuation 2 puffs INH Q4H PRN gm 08/08/19 02/28/22 History aerosol inhaler amoxicillin 500 mg capsule 2,000 mg PO .COMPLEX cap 08/08/19 02/28/22 History aspirin 81 mg tablet,delayed 81 mg PO QAM 08/08/19 02/28/22 History release clopidogrel 75 mg tablet (Plavix) 75 mg PO QAM 08/08/19 02/28/22 History fenofibrate micronized 200 mg 200 mg PO HS 08/08/19 02/28/22 History capsule levothyroxine 200 mcg tablet 400 mcg PO 2XWK 08/08/19 02/28/22 History (Synthroid) omeprazole 20 mg capsule,delayed 20 mg PO QAM 08/08/19 02/28/22 History release calcium carbonate 600 mg-vitamin 1 tab PO BID 10/09/19 02/28/22 History D3 5 mcg (200 unit) tablet fluticasone propionate 50 1 sprays INTNAS DAILY PRN 10/09/19 02/28/22 History mcg/actuation nasal spray,suspension acetaminophen 500 mg tablet 1,000 mg PO Q6H PRN tab 07/09/21 02/28/22 History (Tylenol Extra Strength) denosumab 120 mg/1.7 mL (70 mg/mL) 120 mg SUBCUT .EVERY 3 MONTHS ml 07/09/21 02/28/22 History subcutaneous solution (Xgeva) fluoxetine 20 mg capsule (Prozac) 40 mg PO QAM cap 07/09/21 02/28/22 History oxycodone-acetaminophen 5 mg-325 1 tab PO Q6H PRN 07/09/21 02/28/22 History mg tablet (Percocet) paclitaxel protein-bound 100 mg 0 mg IV UD 07/09/21 02/28/22 History intravenous suspension (Abraxane) prochlorperazine maleate 5 mg 10 mg PO QID PRN tab 07/09/21 02/28/22 History tablet (Compazine) metoprolol tartrate 25 mg tablet 12.5 mg PO BID #90 tab 11/04/21 02/28/22 Rx ferrous sulfate 325 mg (65 mg 325 mg PO 2XWK tab 11/12/21 02/28/22 History iron) tablet atorvastatin 80 mg tablet 80 mg PO HS 12/10/21 02/28/22 History ondansetron 4 mg disintegrating 4 mg PO Q6H PRN 12/10/21 02/28/22 History tablet levothyroxine 200 mcg tablet 200 mcg PO 5XWK 02/28/22 02/28/22 History magnesium chloride 64 mg 64 mg PO DAILY 02/28/22 02/28/22 History (magnesium chloride) tablet,delayed release (Mag 64) Past Med/Surg History Medical History (Updated 03/01/22 @ 05:45 by Chan Urbina MD) Anemia Asthma Cancer right breast cancer Diabetes mellitus, type 2 Fusion of spine GERD (gastroesophageal reflux disease) History of deviated nasal septum History of OCD (obsessive compulsive disorder) Hx MRSA infection bilateral axillary abscess a year ago. Has not been retested. Hyperlipidemia Hypertension Hypothyroidism Myocardial Infarction On anticoagulant therapy Osteoarthritis Peripheral neuropathy RUE, RLE Recent weight loss Surgical History History of cholecystectomy History of colonoscopy 2019 polyp removed History of discectomy History of esophagogastroduodenoscopy (EGD) History of heart artery stent History of repair of rotator cuff right Hx of lumpectomy right breast Family History Other Cancer Diabetes Hypertension Stroke Social History Smoking Status: Never smoker Hx Alcohol Use: No Hx Substance Use: No Preferred Language: Ivorian Communication Ability: Effective Boom Master Required: No Beliefs That Will Affect Care: None Current Living Situation: Other Current Living Situation Comment: friends stay w/ her. currently friends are moving in w/ her Feels Safe at Home: Yes Safety Concerns: Feels Safe At This Time Assistive Devices: Cane Review of Systems Review of Systems: As per HPI, all other systems reviewed and negative Physical Exam Physical Exam: GENERAL: Comfortable, pleasant, no respiratory distress SKIN: Pallor, warm HEENT: Alopecia, pale palpebral conjunctivae, incomplete eye closure right, ri ght facial palsy, moist buccal mucosa NECK : Supple, no tenderness CHEST : Decreased breath sounds, no tenderness HEART : RRR, no obvious murmurs ABDOMEN: Some distention, nontender EXTREMITIES : Minimal LE swelling, no LE tenderness, no other conspicuous deformities noted NEUROLOGIC : Coherent, right facial palsy, gait and stance not assessed Results & Data Results & Data ([facility]) Vital Signs (Past 12 Hours) Vital Signs Temp Pulse Pulse Resp BP BP Pulse Ox 02/28/22 20:27 70 17 147/55 H 95 02/28/22 18:22 36.7 C 92 H 20 162/78 H 95 Laboratory Results Laboratory Results WBC 2.99 K/uL (4.8-10.8) L 02/28/22 20:35 RBC 3.17 M/uL (4.2-5.4) L 02/28/22 20:35 Hgb 9.4 g/dL (12.0-16.0) L 02/28/22 20:35 Hct 29.4 % (37-47) L 02/28/22 20:35 MCV 92.7 fL (80-100) 02/28/22 20:35 MCH 29.7 pg (25-34) 02/28/22 20:35 MCHC 32.0 g/dL (32-36) 02/28/22 20:35 RDW Std Deviation 74.0 fL (36.4-46.3) H 02/28/22 20:35 RDW Coeff of Azra 22.0 % (11.5-14.5) H 02/28/22 20:35 Plt Count 305 K/uL (130-400) 02/28/22 20:35 MPV 11.6 fL (7.4-10.4) H 02/28/22 20:35 PT 11.8 Seconds (9.0-12.0) 02/28/22 20:35 INR 1.1 (0.9-1.1) 02/28/22 20:35 APTT 24.1 Seconds (21.0-31.0) 02/28/22 20:35 PTT Ratio 0.9 02/28/22 20:35 Sodium 140 mmol/L (136-145) 02/28/22 20:35 Potassium 4.1 mmol/L (3.5-5.1) 02/28/22 20:35 Chloride 108 mmol/L (98-107) H 02/28/22 20:35 Carbon Dioxide 25 mmol/L (21-32) 02/28/22 20:35 Anion Gap 7 (3-11) 02/28/22 20:35 BUN 10 mg/dl (6-23) 02/28/22 20:35 Creatinine 0.76 mg/dl (0.6-1.2) 02/28/22 20:35 Est Cr Clr Drug Dosing 57.8 ml/min 02/28/22 20:35 Est GFR ( Amer) 93.4 ml/min 02/28/22 20:35 Est GFR (Non-Af Amer) 80.6 ml/min 02/28/22 20:35 BUN/Creatinine Ratio 13.2 (10-20) 02/28/22 20:35 Glucose 86 mg/dl (70-99(Fasting)) 02/28/22 20:35 POC Glucose 93 mg/dl (70-99) 02/28/22 20:16 Calcium 8.7 mg/dl (8.5-10.1) 02/28/22 20:35 Magnesium 1.5 mg/dl (1.7-2.4) L 02/28/22 20:35 Total Bilirubin 0.7 mg/dl (0.2-1.0) 02/28/22 20:35 AST 37 U/L (13-39) 02/28/22 20:35 ALT 13 U/L (7-52) 02/28/22 20:35 Alkaline Phosphatase 60 U/L (34-104) 02/28/22 20:35 Troponin I High Sens 7.3 pg/ml (0-14) 02/28/22 20:35 Total Protein 6.1 gm/dl (6.0-8.3) 02/28/22 20:35 Albumin 3.7 gm/dl (3.4-5.0) 02/28/22 20:35 Globulin 2.4 gm/dl (2.5-4.0) L 02/28/22 20:35 Albumin/Globulin Ratio 1.5 (0.9-2) 02/28/22 20:35 Lyme Disease IgG Ab Negative (Negative) 02/28/22 20:35 Lyme Disease IgM Ab Negative (Negative) 02/28/22 20:35 SARS-CoV-2, RNA, NAAT NEGATIVE (NEGATIVE) 02/28/22 21:[address] head initial read: Mild brain volume loss. Minimal chronic ischemic changes. No mass, hemorrhage or acute infarct. Sinuses, mastoids and bones are intact. Impression:No acute findings. CTA head initial read: Moderate throat stenosis of the cavernous carotid arteries. MCAs and ACAs are intact. Vertebrals, basilar and the heel emery buffer are intact. No abnormal enhancement. Impression:No acute findings CTA neck initial read: Mild atherosclerosis of the aortic arch. Mild atherosclerosis of the right carotid bulb. Mild atherosclerosis of the left carotid bulb. ICAs are intact. Vertebral arteries are intact. Partiallyseen small to moderate sized right pleural effusion and small left pleural effusion. The soft tissue structures are intact. DJD. Impression:No acute findings. Pleural effusions CT chest initial read: No acute pulmonaryembolism. Moderate right and mild left pleural effusionswith subjacent atelectasis. Mild pulmonaryvascular redistribution. Cardiomegaly. Findings are consistent with CHF. No pneumothorax. Hepatic steatosiswith lowattenuation lesions in the liver, concerning for metastatic disease. Correlate for primarymalignancy. Right Port-A-Cath. Non-aneurysmal aortawith mild asthma changes LE venous Dopplers initial read: All of the visualized deep veins of both lower extremities are unremarkable. No masses or fluid collections. Impression:No DVT MRI brain initial read: No mass, hemorrhage or acute infarct. Mild chronic ischemic changes. No extra- axial collections. The pedicles are intact. No abnormal enhancement. Impression:No acute findings. EKG as per my interpretation: Rate 75, NSR, normal axis, T wave abnormalities in ferior and septal leads
[2022-02-28] MEDS: MAGNESIUM SULFATE / D5W 1 GM/100 ML BAG IV SCH ×2 (22:55→23:39)
[2022-02-28] MEDS ORDERED: PROMETHAZINE HCL 12.5 MG in SODIUM CHLORIDE 0.9% 50 ML IV PRN (23:58)
[2022-03-01] MEDS ORDERED: OPTIRAY 320 125ml IV ONE (00:24)
[2022-03-01] MEDS ORDERED: GADOBUTROL 7.5ML VIAL IV ONE (01:04)
[2022-03-01] MEDS ORDERED: CARBOHYDRATES FOR HYPOGLYCEMIA PO PRN (01:28)
[2022-03-01] MEDS ORDERED: FUROSEMIDE INJ 20 MG/2 ML VIAL IV ONE (01:28)
[2022-03-01] MEDS ORDERED: GLUCOSE 10 TAB/TUBE PO PRN (01:28)
[2022-03-01] MEDS ORDERED: DEXTROSE 50% 50 ML SYRINGE IV PRN (01:28)
[2022-03-01] MEDS ORDERED: ACETAMINOPHEN 325 MG TAB PO PRN (01:28)
[2022-03-01] MEDS ORDERED: FLUTICASONE PROPIONATE NA SPR 16 GM BTL PRN (01:28)
[2022-03-01] MEDS ORDERED: GLUCAGON FOR INJ 1 MG VIAL SQ PRN (01:28)
[2022-03-01] MEDS ORDERED: oxyCODONE/ACETAMINOPHEN 5mg/325mg TAB PO PRN (01:28)
[2022-03-01] MEDS ORDERED: ALBUMIN 25% 12.5 GM/50 ML VIAL IV ONE (01:28)
[2022-03-01] MEDS ORDERED: GLUCOSE 40% GEL 15 GM TUBE PO PRN (01:28)
[2022-03-01] MEDS: METOPROLOL TARTRATE 25 MG TAB PO SCH ×2 (02:28→08:57)
[2022-03-01] MEDS: INSULIN ASPART PER UNIT SC SCH ×4 (02:34→17:37)
[2022-03-01] MEDS: ARTIFICIAL TEARS OP OINT 3.5 GM TUBE OPR SCH ×8 (02:56→17:06)
[2022-03-01] MEDS ORDERED: INSULIN GLARGINE SOLOSTAR 100 UNITS/ML 3 ML PEN SC SCH (03:00)
[2022-03-01] MEDS: valACYclovir HCL 500 MG TABLET PO SCH ×2 (05:11→15:05)
[2022-03-01] MEDS ORDERED: LEVOTHYROXINE SODIUM 200 MCG TABLET PO SCH (06:30)
--- NOTE | 2022-03-01 06:40 | Ultrasound Report ---
BILATERAL LOWER EXTREMITY VENOUS DOPPLER HISTORY: Acute pain and swelling of the lower legs leg swellling COMPARISON STUDY: None. FINDINGS: There is normal compressibility, flow, and augmentation within the bilateral lower extremit y deep venous systems. Subcutaneous edema limits evaluation of the lower leg venous structures. IMPRESSION: No DVT within the right or left lower extremity. ACT 112: Negative or not required by law. Electronically signed by: Raghavendra Lange M.D. 03/01/2022 6:39 AM
--- NOTE | 2022-03-01 07:02 | CT Scan Report ---
CT head/brain wo con, CT angio neck with con, CT angio head w con CLINICAL HISTORY: 66 years-old Female with R facial droop hx breast ca, R neck pain. Acute strokelik e symptoms TECHNIQUE: Multiple axial CT images of the head were obtained without contrast. CTA head and neck wa s also obtained following the intravenous administration of 119 mL Optiray 320. 3-D coronal and sagit nori MIPS were obtained and submitted for review. All measurements were obtained according to NASCET roxi amos. A dose lowering technique was utilized adhering to the principles of ALARA. CT DOSE: 970.73 mGy.cm COMPARISON: Brain MRI 03/01/2022 FINDINGS: CT HEAD: No acute intracranial hemorrhage, midline shift, intracranial mass, hydrocephalus, territorial ischem ia or abnormal extra-axial collection. Minimal involutional changes. Mild white matter hypodensities suggestive of chronic microvascular ischemic disease. The calvarium is intact. The paranasal sinuses, mastoid air cells, and middle ear cavities are clear . CTA HEAD AND NECK: Atherosclerosis of the thoracic aortic arch which demonstrates a three-vessel morphology. Patency of the innominate and imaged subclavian arteries. Right IJ central venous catheter with a suggested fibr in sheath. The common carotid arteries are patent. There is moderate atherosclerotic plaque of the carotid bulbs resulting in less than 50% stenosis bilaterally. Additional calcified plaque involves the petrous, c avernous, clinoid and supraclinoid segments without high-grade stenosis. The middle and anterior cere bral arteries appear patent. The vertebral arteries are codominant and widely patent. The basilar and posterior cerebral arteries are patent. The cerebral venous sinuses appear normal. There is no abnor mal intracranial enhancement. Azygos lobe and fissure. Layering pleural effusions, right greater than left. Intralobular septal thi ckening with groundglass densities. Atrophic thyroid. Unremarkable soft tissues. Degenerative changes of the spine. Multilevel central canal and neural foraminal narrowing. IMPRESSION: 1. No acute intracranial abnormality. 2. Atherosclerosis without aneurysm, dissection, high-grade stenosis or arterial occlusion identified . 3. Pulmonary edema with pleural effusions. ACT 112: Negative or not required by law. The above report was generated using voice recognition software. It may contain grammatical, syntax o r spelling errors. Electronically signed by: Raghavendra Lange M.D. 03/01/2022 7:00 AM
--- NOTE | 2022-03-01 07:04 | XRay Report ---
XR chest 1V portable CLINICAL HISTORY: leg swelling, pleural effusions COMPARISON STUDY: Chest radiograph December 10, 2021. FINDINGS: There is no pneumothorax. No pleural effusion is identified. Interstitial thickening is not ed. There is mild cardiomegaly. Right internal jugular [id number] is in place. IMPRESSION: Interstitial pulmonary edema. ACT 112: Negative or not required by law. Electronically signed by: Omero Mooney M.D. 03/01/2022 7:02 AM
[2022-03-01 07:09] LABS: Basophils # (auto) 0.01 K/uL (0-0.2); Basophils % (auto) 0.4 %; Hematocrit (blood only) 30.1 % (37-47); Hemoglobin 9.5 g/dL (12.0-16.0); Immature Granulocytes # (auto) 0.01 K/uL (0.00-0.02); Immature Granulocytes % (auto) 0.4 %; Lymphocytes # (auto) 0.34 K/uL (1.2-3.4); Lymphocytes % (auto) 13.1 %; Mean Corpuscular Hemoglobin 28.6 pg (25-34); Mean Corpuscular Hgb Conc 31.6 g/dL (32-36); Mean Corpuscular Volume 90.7 fL (80-100); Mean Platelet Volume 10.6 fL (7.4-10.4); Monocytes # (auto) 0.02 K/uL (0.11-0.59); Monocytes % (auto) 0.8 %; Neutrophils # (auto) 2.21 K/uL (1.4-6.5); Neutrophils % (auto) 85.3 %; Platelet Count 300 K/uL (130-400); Red Blood Count 3.32 M/uL (4.2-5.4); White Blood Count 2.59 K/uL (4.8-10.8)
[2022-03-01 07:28] LABS: BUN Creatinine Ratio 12.9 (10-20); Calcium 8.7 mg/dl (8.5-10.1); Creatinine Clr Calc Pharmacy 62.9 ml/min; Est GFR (African American) 103.2 ml/min; Potassium 4.2 mmol/L (3.5-5.1)
--- NOTE | 2022-03-01 07:49 | CT Scan Report ---
CT ANGIOGRAPHY OF THE CHEST, PULMONARY EMBOLUS PROTOCOL CLINICAL HISTORY: Shortness of breath. Metastatic breast cancer. COMPARISON STUDY: Chest radiographs December 10, 2021 and February 28, 2022. PET/CT June 03, 2021. TECHNIQUE: Following IV administration of 94 mL of Optiray, helical axial images of the chest were ob tained utilizing the pulmonary embolus protocol. Maximal intensity projections and sagittal and john paul nal reformats were viewed on an independent 3D workstation. IV contrast was administered without com plication. Automated exposure control was utilized for the study. A dose lowering technique was uti lized adhering to the principles of ALARA. CT DOSE: 228.11 mGy.cm FINDINGS: No pulmonary emboli are identified. There is mild cardiomegaly. No thoracic lymphadenopath y is present. No thoracic aortic dissection is present. Right internal jugular [id number] is in pl brunilda. Small to moderate right and small left pleural effusions are noted. Interlobular septal thickeni ng is noted with groundglass opacities within the lungs. No suspicious pulmonary nodules are present. Mild loss of height of C7 is noted with underlying lesion as shown on prior PET/CT. Extensive hepati c metastatic disease is noted. This was shown on prior PET/CT. Right breast skin thickening is noted . IMPRESSION: 1. No pulmonary emboli identified. 2. Extensive hepatic metastatic disease, as shown on PET/CT of June 03, 2021. 3. Interstitial pulmonary edema. Small to moderate right and small left pleural effusions. Mild cardi omegaly. ACT 112: Negative or not required by law. Electronically signed by: Omero Mooney M.D. 03/01/2022 7:47 AM
--- NOTE | 2022-03-01 08:10 | Magnetic Resonance Report ---
MR brain wo/w con HISTORY: 66 years-old Female fung, R facial palsy, hx breast CA acute headache COMPARISON: Head CT, CTA head and neck 02/28/2022 TECHNIQUE: Multiplanar multisequence MRI of the brain was obtained both with and without the use of 5 .5 cc Gadavist FINDINGS: No restricted diffusion to suggest acute or subacute infarct. Midline structures appear unremarkable. Degenerative changes of the imaged cervical spine. No acute intracranial hemorrhage, midline shift, abnormal extra-axial collection, hydrocephalus or intracranial mass. No pathologic blooming artifact on the T2 star series. Mild T2/FLAIR hyperintense foci are suggestive of chronic microvascular ischem ic disease. Cerebral venous sinuses and major arterial flow voids appear patent. Trace mastoid effusions. Mild mu cosal thickening of the paranasal sinuses. Mild rightward bowing and spurring of the nasal septum. Sk ull, orbits and soft tissues are unremarkable. No abnormal enhancement. IMPRESSION: 1. No acute intracranial abnormality. No acute or subacute infarct. 2. Mild T2/FLAIR hyperintense foci of the white matter are nonspecific however suggests probable supervisor color paste mixing christiano microvascular ischemic disease. 3. No abnormal enhancement. ACT 112: Negative or not required by law. The above report was generated using voice recognition software. It may contain grammatical, syntax o r spelling errors. Electronically signed by: Raghavendra Lange M.D. 03/01/2022 8:09 AM
[2022-03-01 08:24] LABS: Anisocytosis Present
[2022-03-01] MEDS ORDERED: FLUoxetine HCL 20 MG CAP PO SCH (09:00)
[2022-03-01] MEDS ORDERED: PANTOprazole 40 MG TAB PO SCH (09:00)
[2022-03-01] MEDS ORDERED: CLOPIDOGREL BISULFATE 75 MG TAB PO SCH (09:00)
[2022-03-01] MEDS ORDERED: predniSONE 20 MG TAB PO SCH (09:00)
[2022-03-01] MEDS ORDERED: ASPIRIN 81 MG ECTAB PO SCH (09:00)
[2022-03-01] MEDS ORDERED: ENOXAPARIN INJ 40 MG/0.4 ML SYR SQ SCH (09:00)
--- NOTE | 2022-03-01 09:09 | Electrocardiogram Report ---
Test Reason : Blood Pressure : / mmHG Vent. Rate : 074 BPM Atrial Rate : 074 BPM P-R Int : 142 ms QRS Dur : 068 ms QT Int : 422 ms P-R-T Axes : 063 013 -12 degrees QTc Int : 468 ms Normal sinus rhythm Diffuse Minor Nonspecific T wave abnormality Abnormal ECG When compared with ECG of 10-DEC-2021 14:24, Nonspecific T wave abnormality now evident in Anterior leads Confirmed by Frankie Wall ([id number]) on 03/01/2022 9:09:32 AM Referred By: Ruchi Rush Confirmed By:Frankie Wall
--- NOTE | 2022-03-01 10:19 | XCELERA ---
[id number]
--- NOTE | 2022-03-01 10:47 | Cardiology Consultation ---
Date of Consultation March 01, 2022 Assessment & Plan (1) CHF (congestive heart failure): -acute diastolic congestive failure noted on presentation. -no obvious reason for her decompensation. Suspect dietary indiscretion with salt. -responded well to 1 dose of intravenous Lasix. -discussed the strategy of daily weights and sliding-scale diuretics. -stable for hospital discharge. (2) CAD (coronary artery disease): -s/p inferior HI and RCA VENKATA, November 2014 -quiescent on medical management. (3) Hypertension: -adequate control on current regimen. (4) Hypercholesteremia: -continue atorvastatin. History of Present Illness Attending Physician: Dimas Sims MD History of Present Illness Mrs. Diaz is a 66-year-old female admitted yesterday with acute diastolic CHF. This consultation was ordered to assist in her cardiac management. Of note, patient is well known to me from the outpatient setting. The patient was in her usual state of health until approximately 2 weeks prior to admission. The patient travel by car to [place], [place] for week- long vacation at the [employer]. Soon after her arrival, she began to note a 2 to 3+ pitting edema from her feet up to her mid thighs. She also noted significant and progressive exertional dyspnea. She did not experience PND or orthopnea. No exertional angina pectoris. She started to restrict her salt and fluid intake. Her symptoms as described did not improve, therefore, she presented to the emergency room for further care. On arrival here, chest x-ray and CT scan of the chest both revealed interstitial pulmonary edema. She was given 1 dose of intravenous Lasix and diuresed significantly. The patient has never experienced decompensated CHF. She is receiving intravenous chemotherapy for her metastatic breast carcinoma 3 out of every 4 weeks. Her effusion takes approximately 35 minutes. She does not receive aggressive hydration. She also carries a history of coronary artery disease having suffered an inferior myocardial infarction back in November of 2014. She had a drug-eluting stent placed in the RCA at that time. Currently, patient is resting comfortably in bed without complaints. Past medical and surgical history 1. Coronary artery disease-see above 2. RCA VENKATA-November 2014 3. Hypertension 4. Hypercholesterolemia 5. Diastolic dysfunction 6. Diabetes mellitus 7. GERD 8. Hypothyroidism 9. Asthma 10. Anemia of chronic disease 11. Polymyalgia rheumatica 12. Generalized peripheral neuropathy 13. Colonic polyps 14. Metastatic breast carcinoma-liver and bony Mets 15. Obsessive-compulsive disorder 16. Cholecystectomy 17. Breast lumpectomy 18. Rotator cuff repair 19. Spinal fusion Social history , lives with friends Retired nurse No tobacco alcohol Family history No early coronary artery disease Review of systems A 10 review systems was undertaken and negative except that described above. Allergies Allergy/AdvReac Type Severity Reaction Status Date / Time NSAIDS (Non-Steroidal Allergy Severe Hives Verified 02/28/22 22:22 Anti-Inflamma oxaprozin [From Daypro] Allergy Severe Anaphylaxis Verified 02/28/22 22:22 dextromethorphan Allergy Mild Hives Verified 02/28/22 22:22 erythromycin base Allergy Mild Hives Verified 02/28/22 22:22 methylprednisolone Allergy Mild Anaphylaxis Verified 02/28/22 22:22 aspirin Allergy Unknown Unknown Verified 12/10/21 20:36 doxylamine Allergy Unknown Unknown Verified 02/28/22 22:22 pseudoephedrine Allergy Unknown Unknown Verified 02/28/22 22:22 Home Medications Medication Instructions Recorded Confirmed Type albuterol sulfate 90 mcg/actuation 2 puffs INH Q4H PRN gm 08/08/19 02/28/22 History aerosol inhaler amoxicillin 500 mg capsule 2,000 mg PO .COMPLEX cap 08/08/19 02/28/22 History aspirin 81 mg tablet,delayed 81 mg PO QAM 08/08/19 02/28/22 History release clopidogrel 75 mg tablet (Plavix) 75 mg PO QAM 08/08/19 02/28/22 History fenofibrate micronized 200 mg 200 mg PO HS 08/08/19 02/28/22 History capsule levothyroxine 200 mcg tablet 400 mcg PO 2XWK 08/08/19 02/28/22 History (Synthroid) omeprazole 20 mg capsule,delayed 20 mg PO QAM 08/08/19 02/28/22 History release calcium carbonate 600 mg-vitamin 1 tab PO BID 10/09/19 02/28/22 History D3 5 mcg (200 unit) tablet fluticasone propionate 50 1 sprays INTNAS DAILY PRN 10/09/19 02/28/22 History mcg/actuation nasal spray,suspension acetaminophen 500 mg tablet 1,000 mg PO Q6H PRN tab 07/09/21 02/28/22 History (Tylenol Extra Strength) denosumab 120 mg/1.7 mL (70 mg/mL) 120 mg SUBCUT .EVERY 3 MONTHS ml 07/09/21 02/28/22 History subcutaneous solution (Xgeva) fluoxetine 20 mg capsule (Prozac) 40 mg PO QAM cap 07/09/21 02/28/22 History oxycodone-acetaminophen 5 mg-325 1 tab PO Q6H PRN 07/09/21 02/28/22 History mg tablet (Percocet) paclitaxel protein-bound 100 mg 0 mg IV UD 07/09/21 02/28/22 History intravenous suspension (Abraxane) prochlorperazine maleate 5 mg 10 mg PO QID PRN tab 07/09/21 02/28/22 History tablet (Compazine) metoprolol tartrate 25 mg tablet 12.5 mg PO BID #90 tab 11/04/21 02/28/22 Rx ferrous sulfate 325 mg (65 mg 325 mg PO 2XWK tab 11/12/21 02/28/22 History iron) tablet atorvastatin 80 mg tablet 80 mg PO HS 12/10/21 02/28/22 History ondansetron 4 mg disintegrating 4 mg PO Q6H PRN 12/10/21 02/28/22 History tablet levothyroxine 200 mcg tablet 200 mcg PO 5XWK 02/28/22 02/28/22 History magnesium chloride 64 mg 64 mg PO DAILY 02/28/22 02/28/22 History (magnesium chloride) tablet,delayed release (Mag 64) Patient History Medical History (Updated 03/01/22 @ 05:45 by Chan Urbina MD) Anemia Asthma Cancer right breast cancer Diabetes mellitus, type 2 Fusion of spine GERD (gastroesophageal reflux disease) History of deviated nasal septum History of OCD (obsessive compulsive disorder) Hx MRSA infection bilateral axillary abscess a year ago. Has not been retested. Hyperlipidemia Hypertension Hypothyroidism Myocardial Infarction On anticoagulant therapy Osteoarthritis Peripheral neuropathy RUE, RLE Recent weight loss Surgical History History of cholecystectomy History of colonoscopy 2019 polyp removed History of discectomy History of esophagogastroduodenoscopy (EGD) History of heart artery stent History of repair of rotator cuff right Hx of lumpectomy right breast Family History Other Cancer Diabetes Hypertension Stroke Social History Smoking Status: Never smoker Hx Alcohol Use: No Hx Substance Use: No Preferred Language: Yi Communication Ability: Effective 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 currently friends are moving in w/ her Feels Safe at Home: Yes Safety Concerns: Feels Safe At This Time Assistive Devices: Cane Physical Exam Physical Exam: In general is well-developed well-nourished female in no acute distress. HEENT exam notes alopecia and a patch across the right eye. Neck is supple with full carotid upstrokes. No carotid bruits. Jugular is pressure is flat at 90. There is no thyromegaly. Cardiovascular exam reveals a regular rhythm with a normal S1-S2. No S3, S4, or murmurs are noted. Lungs are clear without rales, rhonchi, or wheezes. Abdomen is soft and nontender without bruits. Chest reveals a port in the right subclavicular region. Extremities reveal intact radial artery pulses bilaterally. Trace pretibial edema is noted. Results & Data ([facility]) Vital Signs (Past 12 Hours) Vital Signs Temp Pulse Pulse Resp BP BP Pulse Ox 03/01/22 07:08 36.8 C 58 L 18 137/61 96 03/01/22 02:23 68 03/01/22 02:19 36.1 C L 73 20 150/58 H 96 02/28/22 23:27 71 19 136/63 96 02/28/22 22:53 79 19 165/67 H 97 Laboratory Results CBC notes hemoglobin 9.5, hematocrit 30.1, white count 2.59, platelet count of 300,000. Electrolytes note a sodium of 136, potassium 4.2, chloride 105, bicarb 23, BUN 9, creatinine 0.7, and glucose of 174. Magnesium level is low at 1.5. High sensitivity troponin is normal at 7.3. TSH is normal 2.34. Diagnostic Findings EKG notes normal sinus rhythm and nonspecific T-wave abnormality. Quick look at her echocardiogram notes normal systolic function without wall motion abnormalities. Chest x-ray notes cardiomegaly and interstitial pulmonary edema. CT scan of the chest notes no pulmonary embolism. There is cardiomegaly along with an interstitial pulmonary edema. Extensive hepatic metastases are noted. Lower extremity ultrasound shows no evidence of DVT. PG Care Time/CCT Total # of Minutes Spent Total Time Spent with Patient: Total time spent is greater than 50% in coordination of care (as documented) at patient's floor/unit and/or counseling patient: Coding Level of Care Code INT OBSERVATION CARE 70M LVL 3 Diagnoses CHF (congestive heart failure) I50.9 CAD (coronary artery disease) I25.10 Hypertension I10 Hypercholesteremia E78.00
[2022-03-01 15:45] VITALS: BP 125/59; PULSE 67; TEMP 97.7; O2SAT 95
--- NOTE | 2022-03-01 16:30 | Hospitalist Progress Note ---
Date of Service March 01, 2022 Assessment & Plan (1) CHF (congestive heart failure): Plan: Acute CHF hx diastolic dysfunction History metastatic breast cancer ongoing Abraxane chemotherapy Rule out cardiotoxicity Echo obtained - Compared with study from November 2014, previously noted wall motion abnormalities are no longer apparent, otherwise no significant change. LV is normal in structure and function. LV systolic function is normal. EF 60 to 65%. RV is normal in size and function. RV systolic pressure is normal. There is no pericardial effusion. 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 Prednisone, acyclovir course, local eye care for Glass's palsy MRI brain also obtained and negative for any acute pathology Chronic conditions DM2 diet-controlled, well-controlled as of recent hemoglobin A1c of 5.9 December 24 Basal insulin, ISS BG goal 110-140, carb count coverage Hypothyroidism, euthyroid as of recent outpatient TSH Chronic anemia, hemoglobin at baseline DVT prophylaxis per Lovenox subcu DNR By CMS guidelines, a determination that the admission or continued stay is not medically necessary has been made by a member of the UR committee and a physician for this hospital stay, therefore a Code 44 will be completed and the Inpatient admission will be changed to outpatient. Admission and Anticipated Discharge Date Admission Date: February 28, 2022 Subjective Patient seen in follow-up of mild CHF exacerbation Patient history of metastatic breast cancer Currently laying in bed, in no acute distress, breathing comfortably on room air Responded well to diuretics Seen by cardiology Denies fevers, chills, chest pain, shortness of breath, abdomen pain, nausea vomiting Review of Systems Review of Systems: All systems reviewed & are unremarkable except as noted in Subjective Physical Exam Physical Exam: GENERAL: Comfortable, pleasant, no respiratory distress HEENT: NC/AT. Alopecia, pale palpebral conjunctivae, incomplete eye closure right, right facial palsy, moist buccal mucosa NECK : Supple, no tenderness CHEST : Decreased breath sounds, no tenderness HEART : RRR, no obvious murmurs ABDOMEN: soft, some distention, nontender EXTREMITIES : Minimal LE swelling, moves extremities SKIN: Pallor, warm NEUROLOGIC : Alert oriented, answering questions appropriately, right facial palsy, gait and stance not assessed Results & Data Results & Data ([facility]) Vital Signs (Past 12 Hours) Vital Signs Temp Pulse Pulse Resp BP Pulse Ox 03/01/22 15:44 36.5 C 67 17 125/59 L 95 03/01/22 14:46 70 03/01/22 12:15 36.3 C L 62 17 128/44 L 97 03/01/22 07:08 36.8 C 58 L 18 137/61 96 Laboratory Results 03/01/22 03/01/22 03/01/22 Range/Units 16:29 11:13 07:10 WBC (4.8-10.8) K/uL RBC (4.2-5.4) M/uL Hgb (12.0-16.0) g/dL Hct (37-47) % MCV (80-100) fL MCH (25-34) pg MCHC (32-36) g/dL RDW Std Deviation (36.4-46.3) fL RDW Coeff of Azra (11.5-14.5) % Plt Count (130-400) K/uL MPV (7.4-10.4) fL Immature Gran % (Auto) % Neut % (Auto) % Lymph % (Auto) % [place] % (Auto) % Eos % (Auto) % Baso % (Auto) % Neut # (Auto) (1.4-6.5) K/uL Lymph # (Auto) (1.2-3.4) K/uL [place] # (Auto) (0.11-0.59) K/uL Eos # (Auto) (0-0.5) K/uL Baso # (Auto) (0-0.2) K/uL Immature Gran # (Auto) (0.00-0.02) K/uL Anisocytosis PT (9.0-12.0) Seconds INR (0.9-1.1) APTT (21.0-31.0) Seconds PTT Ratio Sodium (136-145) mmol/L Potassium (3.5-5.1) mmol/L Chloride (98-107) mmol/L Carbon Dioxide (21-32) mmol/L Anion Gap (3-11) BUN (6-23) mg/dl Creatinine (0.6-1.2) mg/dl Est Cr Clr Drug Dosing ml/min Est GFR ( Amer) ml/min Est GFR (Non-Af Amer) ml/min BUN/Creatinine Ratio (10-20) Glucose (70-99(Fasting)) mg/dl POC Glucose 187 H 226 H 169 H (70-99) mg/dl Calcium (8.5-10.1) mg/dl Magnesium (1.7-2.4) mg/dl Total Bilirubin (0.2-1.0) mg/dl AST (13-39) U/L ALT (7-52) U/L Alkaline Phosphatase (34-104) U/L Troponin I High Sens (0-14) pg/ml Total Protein (6.0-8.3) gm/dl Albumin (3.4-5.0) gm/dl Globulin (2.5-4.0) gm/dl Albumin/Globulin Ratio (0.9-2) TSH (0.300-4.500) uIu/ml Lyme Disease IgG Ab (Negative) Lyme Disease IgM Ab (Negative) Hepatitis C Ab (EIA) Hep C Ab Signal/Cutoff SARS-CoV-2, RNA, NAAT (NEGATIVE) 03/01/22 03/01/22 03/01/22 Range/Units 06:15 06:15 06:15 WBC (4.8-10.8) K/uL RBC (4.2-5.4) M/uL Hgb (12.0-16.0) g/dL Hct (37-47) % MCV (80-100) fL MCH (25-34) pg MCHC (32-36) g/dL RDW Std Deviation (36.4-46.3) fL RDW Coeff of Azra (11.5-14.5) % Plt Count (130-400) K/uL MPV (7.4-10.4) fL Immature Gran % (Auto) % Neut % (Auto) % Lymph % (Auto) % [place] % (Auto) % Eos % (Auto) % Baso % (Auto) % Neut # (Auto) (1.4-6.5) K/uL Lymph # (Auto) (1.2-3.4) K/uL [place] # (Auto) (0.11-0.59) K/uL Eos # (Auto) (0-0.5) K/uL Baso # (Auto) (0-0.2) K/uL Immature Gran # (Auto) (0.00-0.02) K/uL Anisocytosis PT (9.0-12.0) Seconds INR (0.9-1.1) APTT (21.0-31.0) Seconds PTT Ratio Sodium 136 (136-145) mmol/L Potassium 4.2 (3.5-5.1) mmol/L Chloride 105 (98-107) mmol/L Carbon Dioxide 23 (21-32) mmol/L Anion Gap 8 (3-11) BUN 9 (6-23) mg/dl Creatinine 0.70 (0.6-1.2) mg/dl Est Cr Clr Drug Dosing 62.9 ml/min Est GFR ( Amer) 103.2 ml/min Est GFR (Non-Af Amer) 89.0 ml/min BUN/Creatinine Ratio 12.9 (10-20) Glucose 174 H (70-99(Fasting)) mg/dl POC Glucose (70-99) mg/dl Calcium 8.7 (8.5-10.1) mg/dl Magnesium (1.7-2.4) mg/dl Total Bilirubin (0.2-1.0) mg/dl AST (13-39) U/L ALT (7-52) U/L Alkaline Phosphatase (34-104) U/L Troponin I High Sens (0-14) pg/ml Total Protein (6.0-8.3) gm/dl Albumin (3.4-5.0) gm/dl Globulin (2.5-4.0) gm/dl Albumin/Globulin Ratio (0.9-2) TSH 2.347 (0.300-4.500) uIu/ml Lyme Disease IgG Ab (Negative) Lyme Disease IgM Ab (Negative) Hepatitis C Ab (EIA) Pending Hep C Ab Signal/Cutoff Pending SARS-CoV-2, RNA, NAAT (NEGATIVE) 03/01/22 03/01/22 02/28/22 Range/Units 06:15 02:20 21:10 WBC 2.59 L (4.8-10.8) K/uL RBC 3.32 L (4.2-5.4) M/uL Hgb 9.5 L (12.0-16.0) g/dL Hct 30.1 L (37-47) % MCV 90.7 (80-100) fL MCH 28.6 (25-34) pg MCHC 31.6 L (32-36) g/dL RDW Std Deviation 73.0 H (36.4-46.3) fL RDW Coeff of Azra 22.0 H (11.5-14.5) % Plt Count 300 (130-400) K/uL MPV 10.6 H (7.4-10.4) fL Immature Gran % (Auto) 0.4 % Neut % (Auto) 85.3 % Lymph % (Auto) 13.1 % [place] % (Auto) 0.8 % Eos % (Auto) 0.0 % Baso % (Auto) 0.4 % Neut # (Auto) 2.21 (1.4-6.5) K/uL Lymph # (Auto) 0.34 L (1.2-3.4) K/uL [place] # (Auto) 0.02 L (0.11-0.59) K/uL Eos # (Auto) 0.00 (0-0.5) K/uL Baso # (Auto) 0.01 (0-0.2) K/uL Immature Gran # (Auto) 0.01 (0.00-0.02) K/uL Anisocytosis Present PT (9.0-12.0) Seconds INR (0.9-1.1) APTT (21.0-31.0) Seconds PTT Ratio Sodium (136-145) mmol/L Potassium (3.5-5.1) mmol/L Chloride (98-107) mmol/L Carbon Dioxide (21-32) mmol/L Anion Gap (3-11) BUN (6-23) mg/dl Creatinine (0.6-1.2) mg/dl Est Cr Clr Drug Dosing ml/min Est GFR ( Amer) ml/min Est GFR (Non-Af Amer) ml/min BUN/Creatinine Ratio (10-20) Glucose (70-99(Fasting)) mg/dl POC Glucose 141 H (70-99) mg/dl Calcium (8.5-10.1) mg/dl Magnesium (1.7-2.4) mg/dl Total Bilirubin (0.2-1.0) mg/dl AST (13-39) U/L ALT (7-52) U/L Alkaline Phosphatase (34-104) U/L Troponin I High Sens (0-14) pg/ml Total Protein (6.0-8.3) gm/dl Albumin (3.4-5.0) gm/dl Globulin (2.5-4.0) gm/dl Albumin/Globulin Ratio (0.9-2) TSH (0.300-4.500) uIu/ml Lyme Disease IgG Ab (Negative) Lyme Disease IgM Ab (Negative) Hepatitis C Ab (EIA) Hep C Ab Signal/Cutoff SARS-CoV-2, RNA, NAAT NEGATIVE (NEGATIVE) 02/28/22 02/28/22 02/28/22 Range/Units 20:35 20:35 20:35 WBC (4.8-10.8) K/uL RBC (4.2-5.4) M/uL Hgb (12.0-16.0) g/dL Hct (37-47) % MCV (80-100) fL MCH (25-34) pg MCHC (32-36) g/dL RDW Std Deviation (36.4-46.3) fL RDW Coeff of Azra (11.5-14.5) % Plt Count (130-400) K/uL MPV (7.4-10.4) fL Immature Gran % (Auto) % Neut % (Auto) % Lymph % (Auto) % [place] % (Auto) % Eos % (Auto) % Baso % (Auto) % Neut # (Auto) (1.4-6.5) K/uL Lymph # (Auto) (1.2-3.4) K/uL [place] # (Auto) (0.11-0.59) K/uL Eos # (Auto) (0-0.5) K/uL Baso # (Auto) (0-0.2) K/uL Immature Gran # (Auto) (0.00-0.02) K/uL Anisocytosis PT 11.8 (9.0-12.0) Seconds INR 1.1 (0.9-1.1) APTT 24.1 (21.0-31.0) Seconds PTT Ratio 0.9 Sodium 140 (136-145) mmol/L Potassium 4.1 (3.5-5.1) mmol/L Chloride 108 H (98-107) mmol/L Carbon Dioxide 25 (21-32) mmol/L Anion Gap 7 (3-11) BUN 10 (6-23) mg/dl Creatinine 0.76 (0.6-1.2) mg/dl Est Cr Clr Drug Dosing 57.8 ml/min Est GFR ( Amer) 93.4 ml/min Est GFR (Non-Af Amer) 80.6 ml/min BUN/Creatinine Ratio 13.2 (10-20) Glucose 86 (70-99(Fasting)) mg/dl POC Glucose (70-99) mg/dl Calcium 8.7 (8.5-10.1) mg/dl Magnesium 1.5 L (1.7-2.4) mg/dl Total Bilirubin 0.7 (0.2-1.0) mg/dl AST 37 (13-39) U/L ALT 13 (7-52) U/L Alkaline Phosphatase 60 (34-104) U/L Troponin I High Sens 7.3 (0-14) pg/ml Total Protein 6.1 (6.0-8.3) gm/dl Albumin 3.7 (3.4-5.0) gm/dl Globulin 2.4 L (2.5-4.0) gm/dl Albumin/Globulin Ratio 1.5 (0.9-2) TSH (0.300-4.500) uIu/ml Lyme Disease IgG Ab Negative (Negative) Lyme Disease IgM Ab Negative (Negative) Hepatitis C Ab (EIA) Hep C Ab Signal/Cutoff SARS-CoV-2, RNA, NAAT (NEGATIVE) 02/28/22 02/28/22 Range/Units 20:35 20:16 WBC 2.99 L (4.8-10.8) K/uL RBC 3.17 L (4.2-5.4) M/uL Hgb 9.4 L (12.0-16.0) g/dL Hct 29.4 L (37-47) % MCV 92.7 (80-100) fL MCH 29.7 (25-34) pg MCHC 32.0 (32-36) g/dL RDW Std Deviation 74.0 H (36.4-46.3) fL RDW Coeff of Azra 22.0 H (11.5-14.5) % Plt Count 305 (130-400) K/uL MPV 11.6 H (7.4-10.4) fL Immature Gran % (Auto) % Neut % (Auto) % Lymph % (Auto) % [place] % (Auto) % Eos % (Auto) % Baso % (Auto) % Neut # (Auto) (1.4-6.5) K/uL Lymph # (Auto) (1.2-3.4) K/uL [place] # (Auto) (0.11-0.59) K/uL Eos # (Auto) (0-0.5) K/uL Baso # (Auto) (0-0.2) K/uL Immature Gran # (Auto) (0.00-0.02) K/uL Anisocytosis PT (9.0-12.0) Seconds INR (0.9-1.1) APTT (21.0-31.0) Seconds PTT Ratio Sodium (136-145) mmol/L Potassium (3.5-5.1) mmol/L Chloride (98-107) mmol/L Carbon Dioxide (21-32) mmol/L Anion Gap (3-11) BUN (6-23) mg/dl Creatinine (0.6-1.2) mg/dl Est Cr Clr Drug Dosing ml/min Est GFR ( Amer) ml/min Est GFR (Non-Af Amer) ml/min BUN/Creatinine Ratio (10-20) Glucose (70-99(Fasting)) mg/dl POC Glucose 93 (70-99) mg/dl Calcium (8.5-10.1) mg/dl Magnesium (1.7-2.4) mg/dl Total Bilirubin (0.2-1.0) mg/dl AST (13-39) U/L ALT (7-52) U/L Alkaline Phosphatase (34-104) U/L Troponin I High Sens (0-14) pg/ml Total Protein (6.0-8.3) gm/dl Albumin (3.4-5.0) gm/dl Globulin (2.5-4.0) gm/dl Albumin/Globulin Ratio (0.9-2) TSH (0.300-4.500) uIu/ml Lyme Disease IgG Ab (Negative) Lyme Disease IgM Ab (Negative) Hepatitis C Ab (EIA) Hep C Ab Signal/Cutoff SARS-CoV-2, RNA, NAAT (NEGATIVE) Medications Administered Current Inpatient Medications Acetaminophen (Acetaminophen 325 Mg Tab) 650 mg PO Q4H PRN PRN Reason: Pain or Fever Stop: 03/31/22 01:27 Aspirin (Aspirin 81 Mg Ectab) 81 mg PO QAM [facility] Stop: 03/31/22 08:59 Last Admin: 03/01/22 08:57 Dose: 81 mg Documented by: Atorvastatin Calcium (Atorvastatin 40 Mg Tab) 80 mg PO HS [facility] Stop: 03/31/22 20:59 Clopidogrel Bisulfate (Clopidogrel Bisulfate 75 Mg Tab) 75 mg PO QAM [facility] Stop: 03/31/22 08:59 Last Admin: 03/01/22 08:57 Dose: 75 mg Documented by: Dextrose (Dextrose 50% 50 Ml Syringe) 25 - 50 ml IV UD PRN; Protocol PRN Reason: Hypoglycemia Protocol Stop: 03/31/22 01:27 Enoxaparin Sodium (Enoxaparin Inj 40 Mg/0.4 Ml Syr) [facility] [place]: 03/31/22 08:59 Last Admin: 03/01/22 08:58 Dose: 40 mg Documented by: Fenofibrate (Fenofibrate Nanocrystallized 145 Mg Tablet) 145 mg PO [facility] Stop: 03/31/22 20:59 Ferrous Sulfate (Ferrous Sulfate 325 Mg Tab) 325 mg PO [facility] Stop: 04/02/22 08:59 Fluoxetine HCl (Fluoxetine Hcl 20 Mg Cap) 40 mg PO QAM [facility] Stop: 03/31/22 08:59 Last Admin: 03/01/22 08:57 Dose: 40 mg Documented by: Fluticasone Propionate (Fluticasone Propionate Na Spr 16 Gm Btl) 1 sprays NA DAILY PRN PRN Reason: Congestion Stop: 03/31/22 01:27 Glucagon (Glucagon For Inj 1 Mg Vial) 1 mg SQ UD PRN; Protocol PRN Reason: Hypoglycemia Protocol Stop: 03/31/22 01:27 Glucose (Glucose 10 Tabs/Tube) 4 - 8 tabs PO UD PRN; Protocol PRN Reason: Hypoglycemia Protocol Stop: 03/31/22 01:27 Glucose (Glucose 40% Gel 15 Gm Tube) 15 - 30 gm PO UD PRN; Protocol PRN Reason: Hypoglycemia Protocol Stop: 03/31/22 01:27 Promethazine HCl 12.5 mg/ (Sodium Chloride) 50.5 mls @ 202 mls/hr IV Q6H PRN PRN Reason: Nausea And Vomiting Stop: 03/30/22 23:57 Insulin Aspart (Insulin Aspart Per Unit) 0 units SC ACHS [facility] Stop: 03/31/22 01:27 Last Admin: 03/01/22 12:37 Dose: 6 units Documented by: Insulin Glargine (Insulin Glargine Solostar 100 Units/Ml 3 Ml Pen) 5 units SC DAILY [facility] Stop: 03/31/22 02:59 Last Admin: 03/01/22 05:12 Dose: 5 units Documented by: Levothyroxine Sodium (Levothyroxine Sodium 200 Mcg Tablet) 200 mcg PO SuTuWeFrSa [facility] Stop: 03/31/22 06:29 Last Admin: 03/01/22 05:31 Dose: 200 mcg Documented by: Levothyroxine Sodium (Levothyroxine Sodium 200 Mcg Tablet) 400 mcg PO MoTh [facility] Stop: 04/02/22 06:29 Metoprolol Tartrate (Metoprolol Tartrate 25 Mg Tab) 12.5 mg PO BID [facility] Stop: 03/31/22 01:27 Last Admin: 03/01/22 08:57 Dose: 12.5 mg Documented by: Miscellaneous (Carbohydrates For Hypoglycemia ) 15 - 30 gm PO UD PRN PRN Reason: Hypoglycemia Protocol Stop: 03/31/22 01:27 Multi-Ingredient Cream (Artificial Tears Op Oint 3.5 Gm Tube) 1 appln OPR Q2H [facility] Stop: 03/31/22 01:59 Last Admin: 03/01/22 14:44 Dose: 1 appln Documented by: Oxycodone/Acetaminophen (Oxycodone/Acetaminophen 5mg/325mg Tab) 1 tab PO Q6H PRN PRN Reason: Pain Stop: 03/15/22 01:27 Pantoprazole Sodium (Pantoprazole 40 Mg Tab) 40 mg PO QAM [facility] Stop: 03/31/22 08:59 Last Admin: 03/01/22 08:57 Dose: 40 mg Documented by: Prednisone (Prednisone 20 Mg Tab) 60 mg PO DAILY [facility] Stop: 03/06/22 08:59 Last Admin: 03/01/22 08:58 Dose: 60 mg Documented by: Valacyclovir HCl (Valacyclovir Hcl 500 Mg Tablet) 1,000 mg PO TID [facility] Stop: 03/11/22 02:59 Last Admin: 03/01/22 15:05 Dose: 1,000 mg Documented by:
--- NOTE | 2022-03-01 16:59 | Discharge Summary ---
Date of Service March 01, 2022 Admission HPI Per Admitting Provider History obtained from patient and records. Medical history significant for chronic diastolic failure (EF 50 to 55%, TTE 2014), CAD status post stent, hypertension, hyperlipidemia, metastatic breast cancer status post surgery ongoing chemotherapy, PMR, DM2 diet-controlled, hypothyroidism, OCD as per records, chronic anemia (baseline hemoglobin of 9). Last confinement December 2021 for hypotension and hypomagnesemia. 2 weeks ago, patient developed shortness of breath and bilateral leg swelling. Out-of-town trip to [facility]. No chest pain. No cough symptoms. Symptoms improving but not fully resolved upon return home. 5 days ago, patient noted right-sided numbness and droopiness of the face. Trouble closing her right eye. And tearing. Achy postauricular pain without rashes. No prior episodes. No recollection of tick bites. At the ER, prednisone given for Glass's palsy. Medical History as above Surgical History : D&C, vascular procedure, partial mastectomy right, cholecystectomy, pilonidal cyst removal, shoulder surgery Family History : Breast cancer, colon cancer, DM, heart disease Personal/Social history : Non-smoker, occasional EtOH intake, retired RN, Admission Exam Per Admitting Provider GENERAL: Comfortable, pleasant, no respiratory distress SKIN: Pallor, warm HEENT: Alopecia, pale palpebral conjunctivae, incomplete eye closure right, right facial palsy, moist buccal mucosa NECK : Supple, no tenderness CHEST : Decreased breath sounds, no tenderness HEART : RRR, no obvious murmurs ABDOMEN: Some distention, nontender EXTREMITIES : Minimal LE swelling, no LE tenderness, no other conspicuous deformities noted NEUROLOGIC : Coherent, right facial palsy, gait and stance not assessed Principal Diagnosis Acute CHF exacerbation Glass's palsy Discharge Exam GENERAL: Comfortable, pleasant, no respiratory distress HEENT: NC/AT. Alopecia, pale palpebral conjunctivae, incomplete eye closure r ight, right facial palsy, moist buccal mucosa NECK : Supple, no tenderness CHEST : Decreased breath sounds, no tenderness HEART : RRR, no obvious murmurs ABDOMEN: soft, some distention, nontender EXTREMITIES : Minimal LE swelling, moves extremities SKIN: Pallor, warm NEUROLOGIC : Alert oriented, answering questions appropriately, right facial palsy, gait and stance not assessed Discharge Data Allergies Allergy/AdvReac Type Severity Reaction Status Date / Time NSAIDS (Non-Steroidal Allergy Severe Hives Verified 02/28/22 22:22 Anti-Inflamma oxaprozin [From Daypro] Allergy Severe Anaphylaxis Verified 02/28/22 22:22 dextromethorphan Allergy Mild Hives Verified 02/28/22 22:22 erythromycin base Allergy Mild Hives Verified 02/28/22 22:22 methylprednisolone Allergy Mild Anaphylaxis Verified 02/28/22 22:22 aspirin Allergy Unknown Unknown Verified 12/10/21 20:36 doxylamine Allergy Unknown Unknown Verified 02/28/22 22:22 pseudoephedrine Allergy Unknown Unknown Verified 02/28/22 22:22 Consultations 02/28/22 22:48 ED Decision to Admit Stat 03/01/22 01:53 Consult Cardiology Routine Ordered Studies 02/28/22 20:26 CT angio head w con Urgent CT angio neck with con Urgent CT head/brain wo con Urgent IMPRESSION: 1. No acute intracranial abnormality. 2. Atherosclerosis without aneurysm, dissection, high-grade stenosis or arterial occlusion identified. 3. Pulmonary edema with pleural effusions. 02/28/22 23:50 CT angio chest PE protocol Urgent IMPRESSION: 1. No pulmonary emboli identified. 2. Extensive hepatic metastatic disease, as shown on PET/CT of June 03, 2021. 3. Interstitial pulmonary edema. Small to moderate right and small left pleural effusions. Mild cardiomegaly. US venous doppler LE BI Urgent IMPRESSION: No DVT within the right or left lower extremity. 03/01/22 00:10 MR brain wo/w con Stat IMPRESSION: 1. No acute intracranial abnormality. No acute or subacute infarct. 2. Mild T2/FLAIR hyperintense foci of the white matter are nonspecific however suggests probable chronic microvascular ischemic disease. 3. No abnormal enhancement. Hospital Course (1) CHF (congestive heart failure): Acute CHF hx diastolic dysfunction History metastatic breast cancer ongoing Abraxane chemotherapy Rule out cardiotoxicity Echo obtained - Compared with study from November 2014, previously noted wall motion abnormalities are no longer apparent, otherwise no significant change. LV is normal in structure and function. LV systolic function is normal. EF 60 to 65%. RV is normal in size and function. RV systolic pressure is normal. There is no pericardial effusion. 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 Prednisone, acyclovir course, local eye care for Glass's palsy MRI brain also obtained and negative for any acute pathology Chronic conditions DM2 diet-controlled, well-controlled as of recent hemoglobin A1c of 5.9 December 24 Basal insulin, ISS BG goal 110-140, carb count coverage Hypothyroidism, euthyroid as of recent outpatient TSH Chronic anemia, hemoglobin at baseline DVT prophylaxis per Lovenox subcu DNR By CMS guidelines, a determination that the admission or continued stay is not medically necessary has been made by a member of the UR committee and a physician for this hospital stay, therefore a Code 44 will be completed and the Inpatient admission will be changed to outpatient. Total Time Total Time Spent Total Time Spent (In Minutes): 40 Discharge Plan Discharge Items Patient Disposition: Home - Self-Care Reason For Visit: CHF Discharge Diagnosis: Acute CHF exacerbation Glass's palsy Activity: Per Instructions section Non-emergency contact: Primary Care Provider and Construction Secretary Call non-emergency contact if: you have any medication questions and your symptoms worsen Follow-up/Referrals: Randy Rush MD [Primary Care Provider] - Diet: Heart Healthy and Low Sodium (2gm) Fluids: 2000ml (8 cups) Addtl Attending Provider Instructions: Follow-up with your primary care doctor within 1 week. Prednisone and valacyclovir was prescribed for you for Glass's palsy. As discussed with cardiology, take furosemide/Lasix if you gain weight, about 3 pounds overnight. At that point, also notify your healthcare providers. You should weigh yourself daily and record your numbers. Recommend heart healthy, low-sodium diet. Addtl Milieu Counselor Provider Instructions: Call your Primary Care doctor if any of the following symptoms or problems start or get worse: * Shortness of breath or difficulty breathing * Wake up at night short of breath * Chest pain * Cough * Swelling of your hands, feet, or legs * More fatigued or tired with your normal activity * Palpitations - sudden fast heart beats WEIGHT * Weigh yourself every morning after using the bathroom. * Use the same scale. * Wear the same amount of clothing. * Write your weight down on a chart. * Call your Primary Care doctor if you gain more than 2-3 pounds in 1-2 days. MEDICATIONS * Use this discharge instruction sheet for medication instructions. * Take your medications at the time your doctor ordered. * Do not skip a dose of your medicines. * If you miss a dose of medicine, take it as soon as possible, but DO NOT DOUBLE A DOSE. * Read your medicine information when you get home. * Know all of the side effects of your medicine. If in doubt, ask your pharmacist * Call your Primary Care doctor's office if you have any side effects. * Be sure all of your doctors know what medicine and herbs you take (including cold, flu, and herbal medicine). Take the following with you to your follow-up doctor appointments: * Weight Chart * Medication List * List of questions Do not drink excessive alcohol, beer or wine. Pending Studies at Discharge: No Stand-Alone Forms: My [employer] ([place]), Smoking Cessation Medications and DC Order Prescriptions: New valacyclovir 500 mg Tablet 1,000 mg PO TID 5 Days Qty: 30 RF: 0 Artificial Tears (kvng/min) 83-15 % Ointment 1 applic OPR Q2H Qty: 3.5 RF: 0 prednisone 20 mg Tablet 60 mg PO DAILY 4 Days Qty: 12 RF: 0 furosemide [Lasix] 20 mg tablet 20 mg PO UD PRN (Reason: weight gain) Qty: 10 RF: 0 Continued calcium carbonate-vitamin D3 600 mg(1,500mg) -200 unit tablet 1 tab PO BID RF: 0 fluticasone propionate 50 mcg/actuation spray,suspension 1 sprays INTNAS DAILY PRN (Reason: Congestion) RF: 0 prochlorperazine maleate [Compazine] 5 mg tablet 10 mg PO QID PRN (Reason: nausea and vomiting) RF: 0 Xgeva 120 mg/1.7 mL (70 mg/mL) solution 120 mg subcut .EVERY 3 MONTHS RF: 0 Abraxane 100 mg suspension for reconstitution 0 mg IV UD RF: 0 oxycodone-acetaminophen [Percocet] 5-325 mg tablet 1 tab PO Q6H PRN (Reason: Pain) RF: 0 acetaminophen [Tylenol Extra Strength] 500 mg tablet 1,000 mg PO Q6H PRN (Reason: Pain) RF: 0 ferrous sulfate 325 mg (65 mg iron) tablet 325 mg PO 2XWK RF: 0 metoprolol tartrate 25 mg tablet 12.5 mg PO BID Qty: 90 RF: 3 albuterol sulfate 90 mcg/actuation HFA aerosol inhaler 2 puffs INH Q4H PRN (Reason: Shortness Of Breath Or Wheezing) RF: 0 amoxicillin 500 mg capsule 2,000 mg PO .COMPLEX RF: 0 aspirin 81 mg tablet,delayed release (DR/EC) 81 mg PO QAM RF: 0 clopidogrel [Plavix] 75 mg tablet 75 mg PO QAM RF: 0 fenofibrate micronized 200 mg capsule 200 mg PO HS RF: 0 omeprazole 20 mg capsule,delayed release(DR/EC) 20 mg PO QAM RF: 0 levothyroxine [Synthroid] 200 mcg tablet 400 mcg PO 2XWK RF: 0 fluoxetine [Prozac] 20 mg capsule 40 mg PO QAM RF: 0 ondansetron 4 mg Tablet,Disintegrating 4 mg PO Q6H PRN (Reason: Nausea And Vomiting) RF: 0 atorvastatin 80 mg tablet 80 mg PO HS RF: 0 levothyroxine 200 mcg tablet 200 mcg PO 5XWK RF: 0 Mag 64 64 mg tablet,delayed release (DR/EC) 64 mg PO DAILY RF: 0 Discharge Orders: Discharge Order (Routine); Ordered 03/01/22 Ordered By: Dimas Sims Admission Data Admit Date/Time: 02/28/22 23:51 Attending Provider: Dimas Sims Admit Provider: Chan Urbina Primary Care Provider: Randy Rush Other Providers: Chan Urbina ; Rah Groves ; Frankie Wall ; Viraj Vaughan ; Ben Sanchez ; Reyes Velazquez ; Jose Gray Jr ; Vinicio Tay ; Celsa Maurer ; Lita Max ; Rohan Turner ; Terrell Escalante ; Ric Graham ; Julia Michaels ; Ninfa Bullock ; Chris Fletcher ; Carlos Adame Michael K. ; Irwin Aguirre ; Ben Lira V.
--- NOTE | 2022-03-01 18:35 | Communication Note ---
Date of Service: March 01, 2022 Code 44 attestation; 66-year-old female with history of CAD hypertension was admitted with CHF and was appropriately treated by the attending physician and also garment parts cutter hand. She did not have any symptoms prior to discharge this afternoon. Chart reviewed and labs reviewed too. By CMS guidelines, a determination that the admission or continued stay is not medically necessary has been made by a member of the UR committee and a physician for this hospital stay, therefore a Code 44 will be completed and the Inpatient admission will be changed to outpatient. Dr Everardo Pulido Member UR committee
[2022-03-01] MEDS ORDERED: ATORVASTATIN 40 MG TAB PO SCH (21:00)
[2022-03-01] MEDS ORDERED: FENOFIBRATE NANOCRYSTALLIZED 145 MG TABLET PO SCH (21:00)
[2022-03-03] MEDS ORDERED: LEVOTHYROXINE SODIUM 200 MCG TABLET PO SCH (06:30)
[2022-03-03] MEDS ORDERED: NON-FORMULARY MEDICATION (Ferrous Sulfate 325 mg (65 mg iron) tablet) PO SCH (09:00)
[2022-03-03] MEDS ORDERED: FERROUS SULFATE 325 MG TAB PO SCH (09:00)
== END 2022-03-01 17:57 | disposition home or self-care (01) | DRG 291 ==
LOC: ED 18:04 → 2E 23:51 → INTOOBSV 23:51 → 2E 03-01 01:47

== ENCOUNTER 2022-03-18 12:15 | Inpatient (IN) ==
[2022-03-18] MEDS ORDERED: SODIUM CHLORIDE 0.9% 1000ML 1,000 ML IV SCH (13:00)
[2022-03-18 13:32] LABS: Basophils # (auto) 0.03 K/uL (0-0.2); Basophils % (auto) 0.7 %; Eosinophils # (auto) 0.04 K/uL (0-0.50); Eosinophils % (auto) 0.9 %; Hematocrit (blood only) 30.9 % (34.1-44.9); Hemoglobin 9.7 g/dl (12.0-16.0); Immature Granulocytes # (auto) 0.02 K/uL (0.00-0.02); Immature Granulocytes % (auto) 0.4 %; Lymphocytes # (auto) 0.33 K/uL (1.2-3.4); Lymphocytes % (auto) 7.2 %; Mean Corpuscular Hemoglobin 29.4 pg (25.0-34.0); Mean Corpuscular Hgb Conc 31.4 g/dL (32.0-36.0); Mean Corpuscular Volume 93.6 fL (80.0-100.0); Mean Platelet Volume 10.1 fL (9.4-12.3); Monocytes % (auto) 4.4 %; Neutrophils # (auto) 3.97 K/uL (1.4-6.5); Neutrophils % (auto) 86.4 %; Platelet Count 321 K/uL (130-400); RDW Coefficient of Variation 21.2 % (11.5-14.5); RDW Standard Deviation 72.3 fL (36.4-46.3); White Blood Count 4.59 K/ul (4.8-10.8)
--- NOTE | 2022-03-18 13:46 | CT Scan Report ---
CT SCAN OF THE BRAIN WITHOUT IV CONTRAST CLINICAL HISTORY: Change in mental status. Fall. Breast cancer. COMPARISON STUDY: CT of the brain dated 02/28/2022. MRI of the brain dated 03/01/2022. TECHNIQUE: Unenhanced axial CT scan of the brain is performed from the vertex to the skull base. A do se lowering technique was utilized adhering to the principles of ALARA. CT DOSE: 638.56 mGycm FINDINGS: Brain parenchyma: There is age-related involutional change noting minimal subcortical and periventric ular microangiopathic disease. There is no hemorrhage, mass effect, or evidence of acute territorial ischemia by CT criteria. Solomon-white matter differentiation is preserved. No extra-axial fluid collect ion is seen. Ventricles, sulci, cisterns: Prominent secondary to involutional change. Intracranial vasculature: There is atherosclerotic calcification of the cavernous carotid and vertebr al arteries. Calvarium: There is no depressed calvarial fracture. A left mandibular fracture is partially visualiz ed on image #1. Sinuses and mastoids: The visualized paranasal sinuses are clear. The mastoid air cells are well pneu matized. Orbits: The bony orbits are grossly intact. IMPRESSION: 1. There is no hemorrhage, mass effect, or evidence of acute territorial ischemia by CT criteria. 2. A left mandibular fracture is partially visualized. Correlation with a facial bone CT scan is [place] mmended. ACT 112: Negative or not required by law. Electronically signed by: Mukesh Melissa M.D. 03/18/2022 1:45 PM
[2022-03-18 13:50] LABS: INR 1.1 (0.9-1.1); Partial Thromboplastin Ratio 1.8; Prothrombin Time 11.3 Seconds (9.0-12.0)
[2022-03-18 14:00] LABS: Anisocytosis Present; Ovalocytes 1+; Schistocytes 1+; Tear Drop Cells 1+; Troponin I High Sensitivity 3.4 pg/ml (0-14)
[2022-03-18 14:02] LABS: Partial Thromboplastin Time 49.8 Seconds (21.0-31.0)
--- NOTE | 2022-03-18 14:30 | CT Scan Report ---
CERVICAL SPINE CT CT DOSE: 963.31 mGy.cm HISTORY: fall, neck pain TECHNIQUE: Multiaxial CT images of the cervical spine were performed and reformatted in the sagittal and coronal plane without the use of contrast. A dose lowering technique was utilized adhering to th e principles of ALARA. COMPARISON: None. FINDINGS: No fractures. No subluxation. Prevertebral soft tissues and the C1-C2 interval are intact. No pneumothorax. Partially visualized right jugular catheter is noted. A 5 mm sclerotic focus at the C3 vertebral body. This is nonspecific but favors a bone island. Moderate disc space narrowing at C4- C5 and C5-C6 with ossification of the posterior longitudinal ligament at this level. This results in moderate left-sided central canal narrowing. There is a C7 vertebral body hemangioma. Small focal ind entation along the inferior plate of C7 is likely chronic. IMPRESSION: No fractures within the cervical spine. ACT 112: Negative or not required by law. Electronically signed by: Farooq Alba M.D. 03/18/2022 2:29 PM
[2022-03-18 14:34] LABS: Albumin Globulin Ratio 1.5 (0.9-2); Albumin Level 3.7 gm/dl (3.4-5.0); BUN Creatinine Ratio 23.9 (10-20); Bilirubin,Total 0.3 mg/dl (0.2-1.0); Calcium 9.5 mg/dl (8.5-10.1); Creatinine Clr Calc Pharmacy 50.5 ml/min; Est GFR (African American) 78.2 ml/min; Est GFR (Non-African American) 67.5 ml/min; Globulin 2.5 gm/dl (2.5-4.0); Magnesium 1.7 mg/dl (1.7-2.4); Phosphorus 3.1 mg/dl (2.5-4.9); Potassium 4.2 mmol/L (3.5-5.1); Total Protein 6.2 gm/dl (6.0-8.3)
--- NOTE | 2022-03-18 14:35 | CT Scan Report ---
CT SCAN OF THE FACIAL BONES WITHOUT IV CONTRAST CLINICAL HISTORY: Fall. Trauma. COMPARISON STUDY: CT of the brain performed earlier the same day 03/18/2022. CT angiogram of the neck dated 02/28/2022. TECHNIQUE: High-resolution CT scan of the facial bones is performed. Images are reviewed in the axia l, sagittal, and coronal planes. IV contrast was not administered for this examination. A dose lower ing technique was utilized adhering to the principles of ALARA. FINDINGS: The skeletal structures are osteopenic. There is a mildly displaced and angulated fracture of the left mandible ramus just below the mandibular neck. This is best seen on axial image #268. Add itionally, there is a subtle nondisplaced fracture of the right mandibular body. This is best seen on axial image #59 and extends posteriorly, possibly involving the socket of a right mandibular molar. There is fracture of a the most posterior right maxillary molar seen on axial image #174. A metallic foreign body anterior to the right mandibular body on image #111 is new from previous and likely repr esents displaced dental hardware. The temporomandibular joints are preserved. Degenerative change is noted at the left TMJ. The bony orbits are intact and the orbital contents are within normal limits. The zygomatic arches, nasal bones, and pterygoid plates are preserved. The maxillary intact. There ar e no layering blood products within the paranasal sinuses. There is trace mucosal thickening in the l eft maxillary antrum. The remaining paranasal sinuses are clear. The mastoid air cells are well pneum atized. The visualized calvarium and upper cervical spine are maintained. Partially imaged brain pare nchyma is within normal limits. Soft tissue injury is noted in the chin with small radiodense foreign bodies. Subcutaneous gas deep to the right mandible is likely related to soft tissue injury. IMPRESSION: 1. Fractures of the mandible are seen bilaterally as detailed above. 2. There is a fracture of the most posterior right maxillary molar. 3. A metallic foreign body anterior to the right body of the mandible is new from previous and likely represents displaced dental hardware. Correlation with direct visualization is recommended, as is fo llow-up with dentistry. 4. Soft tissue injury of the chin with small radiodense foreign bodies. ACT 112: Negative or not required by law. Electronically signed by: Mukesh Melissa M.D. 03/18/2022 2:33 PM
[2022-03-18] MEDS ORDERED: LIDOCAINE/EPINEPH/TETRACAINE 1 EA SYR EXT ONE (14:49)
--- NOTE | 2022-03-18 15:09 | History & Physical Report ---
Date of Service March 18, 2022 Assessment & Plan (1) Syncope: (2) Fall: (3) Bilateral mandibular fracture: (4) CHF (congestive heart failure): (5) Facial paralysis/[place] palsy: (6) Diabetes mellitus, type 2: (7) Metastatic breast cancer: Plan This is a 66-year-old female who has a significant past medical history of right metastatic breast cancer to liver and bone status post resection, radiation and currently receiving chemotherapy with Abraxane, last treatment 03/09, chronic HFpEF, CAD, HLD, T2DM, hypothyroidism, Glass's palsy who presents to ED after sustaining a syncopal episode and fall prior to arrival. Syncope Fall Admit to telemetry Syncope w/u with orthostatics, carotid Doppler, cycle trops, monitor on tele Recent Echo revealed EF 60-65% w/o valvular changes obtain dimer (expect it to be elevated in setting of malignancy) if positive will obtain CTA to r/o PE lacerations repaired in ED receiving IVF in ED, will reduce to 60cc/hr and then d/c after 1L given hx of CHF Bilateral Mandibular Fx Fracture of posterior R maxillary molar Dr. Centeno Consulted keep npo for now ICE pain management with IV morphine 2mg for severe pain and oral oxycodone for moderate pain Metastatic Breast Ca to liver and bone follows Dr. Subramanian Receiving Abraxane, last 03/[address] s/p resection and xrt recent PET 03/16 shows increased activity in right paratracheal node, right suprahilar node, increased activity distal osseous metastatic lesions and stable diffuse hepatic metastases Chronic HFpEF Dry weight 110.2 Euvolemic, strict I's and O's, daily weights Has not required Lasix since discharge Continue metoprolol CAD No chest pain or shortness of breath Continue ASA, statin, metoprolol Plavix on hold until evaluated by Dr. Centeno, reevaluate in a.m. and resume when able History of Present Illness Chief Complaint: Fall and Syncope episode [employer]. Primary Care Provider: Randy Rush MD This is a 66-year-old female who has a significant past medical history of right metastatic breast cancer to liver and bone status post resection, radiation and currently receiving chemotherapy with Abraxane, last treatment 03/09, chronic HFpEF, CAD, HLD, T2DM, hypothyroidism, Glass's palsy who presents to ED after sustaining a syncopal episode and fall prior to arrival. Her sister and caregiver are at bedside. Of significance patient was recently hospitalized 02/28-03/01 secondary to CHF and Glass's palsy. She did undergo echocardiogram which revealed EF 60 to 65% but otherwise unremarkable. She was treated with IV Lasix. In regards to her Glass's palsy MRI was negative. She completed course of acyclovir and prednisone. She continues to have symptoms of Glass's palsy. She has not required Lasix since being discharged and her dry weight is 110.2. Today she was going to clinic to see pharmacist in regards to diabetes. Upon walking in she sustained a fall. She does not recall falling but remembers being on the ground. She struck her chin. She recalls calling her a gentleman to help her. Staff from [facility] came out to assist and get her in a wheelchair. EMS was summoned. She was awake and alert at this time. Fall was otherwise unwitnessed. She states ever since starting chemotherapy she does occasionally get lightheaded and feeling of passing out. She has never passed o ut. She had no presyncopal symptoms today including lightheadedness, dizziness, chest pain, nausea or diaphoresis. Currently she is complaining of bilateral facial pain. Otherwise she denies any complaints. She continues to have facial nerve palsy as well as frequent tearing to right eye. She denies any fever, chills, sweats, URI symptoms, cough, chest pain, shortness of breath, palpitations, nausea, vomiting, abdominal pain. She has not had any nausea and vomiting with chemotherapy and is otherwise been tolerating it well. She has been eating and drinking well. Patient did undergo PET scan on 03/16 which did reveal increased activity at right paratracheal node, right suprahilar node, distal osseous metastatic lesions and stable diffuse hepatic lesions. In ED patient remained hemodynamically stable. Head CT was negative for any acute abnormality. Facial CT did reveal bilateral mandibular fractures and fracture of posterior right maxillary molar. She also sustained lacerations to chin which were repaired in ED. Oromaxillofacial, Dr. Centeno, was consulted. Allergies Allergy/AdvReac Type Severity Reaction Status Date / Time methylprednisolone Allergy Severe Anaphylaxis Verified 03/18/22 15:12 NSAIDS (Non-Steroidal Allergy Severe Hives Verified 03/18/22 15:12 Anti-Inflamma oxaprozin [From Daypro] Allergy Severe Anaphylaxis Verified 03/18/22 15:12 dextromethorphan Allergy Intermediate Hives Verified 03/18/22 15:12 erythromycin base Allergy Intermediate Hives Verified 03/18/22 15:12 aspirin Allergy Unknown Unknown Verified 03/18/22 15:12 doxylamine Allergy Unknown Unknown Verified 03/18/22 15:12 pseudoephedrine Allergy Unknown Unknown Verified 03/18/22 15:12 Home Medications Medication Instructions Recorded Confirmed Type albuterol sulfate 90 mcg/actuation 2 puffs inhalation Q4H PRN 08/08/19 03/18/22 History aerosol inhaler Shortness Of Breath Or Wheezing amoxicillin 500 mg capsule 2,000 mg PO DIRECTED PRN 1 HOUR 08/08/19 03/18/22 History PRIOR TO DENTAL APPT. aspirin 81 mg tablet,delayed 81 mg PO QAM 08/08/19 03/18/22 History release clopidogrel 75 mg tablet (Plavix) 75 mg PO QAM 08/08/19 03/18/22 History fenofibrate micronized 200 mg 200 mg PO HS 08/08/19 03/18/22 History capsule levothyroxine 200 mcg tablet 400 mcg PO 2XWK 08/08/19 03/18/22 History (Synthroid) omeprazole 20 mg capsule,delayed 20 mg PO QAM 08/08/19 03/18/22 History release calcium carbonate 600 mg-vitamin 1 tab PO BID 10/09/19 03/18/22 History D3 5 mcg (200 unit) tablet fluticasone propionate 50 1 sprays intranasal DAILY PRN 10/09/19 03/18/22 History mcg/actuation nasal Congestion spray,suspension acetaminophen 500 mg tablet 1,000 mg PO Q6H PRN Pain 07/09/21 03/18/22 History (Tylenol Extra Strength) denosumab 120 mg/1.7 mL (70 mg/mL) 120 mg subcut .EVERY 3 MONTHS 07/09/21 03/18/22 History subcutaneous solution (Xgeva) fluoxetine 20 mg capsule (Prozac) 40 mg PO QAM 07/09/21 03/18/22 History oxycodone-acetaminophen 5 mg-325 1 tab PO Q6H PRN Pain 07/09/21 03/18/22 History mg tablet (Percocet) paclitaxel protein-bound 100 mg 0 mg IV UD 07/09/21 03/18/22 History intravenous suspension (Abraxane) prochlorperazine maleate 5 mg 10 mg PO QID PRN nausea and 07/09/21 03/18/22 History tablet (Compazine) vomiting metoprolol tartrate 25 mg tablet 12.5 mg PO BID #90 tabs 11/04/21 03/18/22 Rx ferrous sulfate 325 mg (65 mg 325 mg PO 2XWK 11/12/21 03/18/22 History iron) tablet atorvastatin 80 mg tablet 80 mg PO HS 12/10/21 03/18/22 History ondansetron 4 mg disintegrating 4 mg PO Q6H PRN Nausea And Vomiting 12/10/21 03/18/22 History tablet levothyroxine 200 mcg tablet 200 mcg PO 5XWK 02/28/22 03/18/22 History magnesium chloride 64 mg 64 mg PO DAILY 02/28/22 03/18/22 History (magnesium chloride) tablet,delayed release (Mag 64) furosemide 20 mg tablet (Lasix) 20 mg PO UD PRN weight gain #10 03/01/22 03/18/22 Rx tabs white petrolatum-mineral oil 83 1 applic OPR Q2H #3.5 grams 03/01/22 03/18/22 Rx %-15 % eye ointment (Artificial Tears (petrolatum/mineral oil)) mirtazapine 15 mg tablet 15 mg PO HS 03/18/22 03/18/22 History Past Med/Surg History Medical History Anemia Asthma Cancer right breast cancer Diabetes mellitus, type 2 Fusion of spine GERD (gastroesophageal reflux disease) History of deviated nasal septum History of OCD (obsessive compulsive disorder) Hx MRSA infection bilateral axillary abscess a year ago. Has not been retested. Hyperlipidemia Hypertension Hypothyroidism Myocardial Infarction On anticoagulant therapy Osteoarthritis Peripheral neuropathy RUE, RLE Recent weight loss Surgical History History of cholecystectomy History of colonoscopy 2019 polyp removed History of discectomy History of esophagogastroduodenoscopy (EGD) History of heart artery stent History of repair of rotator cuff right Hx of lumpectomy right breast Family History Other Cancer Diabetes Hypertension Stroke Social History Smoking Status: Never smoker Hx Alcohol Use: No Hx Substance Use: No Preferred Language: Turkish Communication Ability: Effective Supervisor [employer] Required: No Beliefs That Will Affect Care: None marital status: Single Current Living Situation: Other Current Living Situation Comment: friends stay w/ her. currently friends are moving in w/ her Feels Safe at Home: Yes Assistive Devices: Cane and Walker Review of Systems Review of Systems: All systems reviewed & are unremarkable except as noted in HPI & below Physical Exam Physical Exam: Constitutional: chronically ill appearing, F, vitals as above, NAD, sitting up in bed, pleasant, conversing easily Head: Normocephalic, +lacerations to chin, alopecia Eyes: PERRL, conjunctivae normal, anicteric sclerae ENMT: external ear and nose normal, +R facial nerve palsy Neck: trachea midline, no thyromegaly normal visual inspection Respiratory: normal respiratory effort, lungs clear to auscultation, no wheeze, rales, rhonchi. Normal insp/exp effort, no accessory muscle use Cardiovascular: RRR, no murmur, no edema Vessels: no JVD or carotid bruit Chest: RACW port Abdomen: normal bowel sounds, soft, nontender, no hepatosplenomegaly Musculoskeletal: no cyanosis or clubbing, AROM x 4 Skin: no rashes, warm and dry normal turgor Neurologic: PERRL, EOMI, accommodation nl, no face palsy, no dysarthria CN's II-XI intact bilaterally and moves all extremities Psychiatric: A+Ox3, euthymic affect : deferred Results & Data Results & Data ([facility]) Vital Signs (Past 12 Hours) Vital Signs Temp Pulse Resp BP Pulse Ox O2 Del Method 03/18/22 12:29 36.5 C 61 16 158/90 H 100 Room Air Diagnostic Findings Head CT 03/18/22 13:07 CT SCAN OF THE BRAIN WITHOUT IV CONTRAST CLINICAL HISTORY: Change in mental status. Fall. Breast cancer. COMPARISON STUDY: CT of the brain dated 02/28/2022. MRI of the brain dated 03/01/2022. TECHNIQUE: Unenhanced axial CT scan of the brain is performed from the vertex to the skull base. A dose lowering technique was utilized adhering to the principles of ALARA. CT DOSE: 638.56 mGycm FINDINGS: Brain parenchyma: There is age-related involutional change noting minimal subcortical and periventricular microangiopathic disease. There is no hemorrhage, mass effect, or evidence of acute territorial ischemia by CT criteria. Solomon-white matter differentiation is preserved. No extra-axial fluid collection is seen. Ventricles, sulci, cisterns: Prominent secondary to involutional change. Intracranial vasculature: There is atherosclerotic calcification of the cavernous carotid and vertebral arteries. Calvarium: There is no depressed calvarial fracture. A left mandibular fracture is partially visualized on image #1. Sinuses and mastoids: The visualized paranasal sinuses are clear. The mastoid air cells are well pneumatized. Orbits: The bony orbits are grossly intact. IMPRESSION: 1. There is no hemorrhage, mass effect, or evidence of acute territorial ischemia by CT criteria. 2. A left mandibular fracture is partially visualized. Correlation with a facial bone CT scan is recommended. ACT 112: Negative or not required by law. Electronically signed by: Mukesh Melissa M.D. 03/18/2022 1:[address] 03/18/22 13:[address] DOSE: 963.31 mGy.cm HISTORY: fall, neck pain TECHNIQUE: Multiaxial CT images of the cervical spine were performed and reformatted in the sagittal and coronal plane without the use of contrast. A dose lowering technique was utilized adhering to the principles of ALARA. COMPARISON: None. FINDINGS: No fractures. No subluxation. Prevertebral soft tissues and the C1-C2 interval are intact. No pneumothorax. Partially visualized right jugular catheter is noted. A 5 mm sclerotic focus at the C3 vertebral body. This is nonspecific but favors a bone island. Moderate disc space narrowing at C4-C5 and C5-C6 with ossification of the posterior longitudinal ligament at this level. This results in moderate left-sided central canal narrowing. There is a C7 vertebral body hemangioma. Small focal indentation along the inferior plate of C7 is likely chronic. IMPRESSION: No fractures within the cervical spine. ACT 112: Negative or not required by law. Electronically signed by: Farooq Alba M.D. 03/18/2022 2:[address] 03/18/22 13:51 CT SCAN OF THE FACIAL BONES WITHOUT IV CONTRAST CLINICAL HISTORY: Fall. Trauma. COMPARISON STUDY: CT of the brain performed earlier the same day 03/18/2022. CT angiogram of the neck dated 02/28/2022. TECHNIQUE: High-resolution CT scan of the facial bones is performed. Images are reviewed in the axial, sagittal, and coronal planes. IV contrast was not administered for this examination. A dose lowering technique was utilized adhering to the principles of ALARA. FINDINGS: The skeletal structures are osteopenic. There is a mildly displaced and angulated fracture of the left mandible ramus just below the mandibular neck. This is best seen on axial image #268. Additionally, there is a subtle nondisplaced fracture of the right mandibular body. This is best seen on axial image #59 and extends posteriorly, possibly involving the socket of a right mandibular molar. There is fracture of a the most posterior right maxillary molar seen on axial image #174. A metallic foreign body anterior to the right mandibular body on image #111 is new from previous and likely represents displaced dental hardware. The temporomandibular joints are preserved. Degenerative change is noted at the left TMJ. The bony orbits are intact and the orbital contents are within normal limits. The zygomatic arches, nasal bones, and pterygoid plates are preserved. The maxillary intact. There are no layering blood products within the paranasal sinuses. There is trace mucosal thickening in the left maxillary antrum. The remaining paranasal sinuses are clear. The mastoid air cells are well pneumatized. The visualized calvarium and upper cervical spine are maintained. Partially imaged brain parenchyma is within normal limits. Soft tissue injury is noted in the chin with small radiodense foreign bodies. Subcutaneous gas deep to the right mandible is likely related to soft tissue injury. IMPRESSION: 1. Fractures of the mandible are seen bilaterally as detailed above. 2. There is a fracture of the most posterior right maxillary molar. 3. A metallic foreign body anterior to the right body of the mandible is new from previous and likely represents displaced dental hardware. Correlation with direct visualization is recommended, as is follow-up with dentistry. 4. Soft tissue injury of the chin with small radiodense foreign bodies. ACT 112: Negative or not required by law. Electronically signed by: Mukesh Melissa M.D. 03/18/2022 2:33 PM Medications Administered Medication List Sodium Chloride (Nss 1000ml) 1,000 mls @ 125 mls/hr IV .Q8H KIM Stop: 04/17/22 12:59 Last Admin: 03/18/22 13:07 Dose: 125 mls/hr Documented By: KT Discontinued Medications Lidocaine (Lidocaine/Epineph/Tetracaine 1 Ea Syr) Confirm Administered Dose 1 each EXT .STK-MED ONE Stop: 03/18/22 14:50 Last Admin: 03/18/22 14:50 Dose: 1 each Documented By: ОЛЬГА ECG Rate (beats per minute): 63 Rhythm: normal sinus Findings: + PAC COVID-19 Results Results COVID-19 Adm Lab Results: RBC 3.30 M/uL (3.93-5.22) L 03/18/22 WBC 4.59 K/ul (4.8-10.8) L 03/18/22 Hgb 9.7 g/dl (12.0-16.0) L 03/18/22 Hct 30.9 % (34.1-44.9) L 03/18/22 Plt Count 321 K/uL (130-400) 03/18/22 Neutrophils (%) (Auto) 86.4 % 03/18/22 Lymphocytes (%) (Auto) 7.2 % 03/18/22 Monocytes # (Auto) 0.20 K/uL (0.24-0.82) L 03/18/22 Eosinophils # (Auto) 0.04 K/uL (0-0.50) 03/18/22 Immature Granulocyte % (Auto) 0.4 % 03/18/22 Neutrophils # (Auto) 3.97 K/uL (1.4-6.5) 03/18/22 Lymphocytes # (Auto) 0.33 K/uL (1.2-3.4) L 03/18/22 Monocytes # (Auto) 0.20 K/uL (0.24-0.82) L 03/18/22 Eosinophils # (Auto) 0.04 K/uL (0-0.50) 03/18/22 Basophils # (Auto) 0.03 K/uL (0-0.2) 03/18/22 Immature Granulocyte # (Auto) 0.02 K/uL (0.00-0.02) 2 Anisocytosis Present 03/18/22 Tear Drop Cells 1+ 03/18/22 Ovalocytes 1+ 03/18/22 Schistocytes 1+ 03/18/22 Na 139 mmol/L (136-145) 03/18/22 K 4.2 mmol/L (3.5-5.1) 03/18/22 Cl 109 mmol/L (98-107) H 03/18/22 CO2 24 mmol/L (21-32) 03/18/22 Anion Gap 6 (3-11) 03/18/22 BUN 21 mg/dl (6-23) 03/18/22 Creatinine 0.88 mg/dl (0.6-1.2) 03/18/22 BUN/Creatinine Ratio 23.9 (10-20) H 03/18/22 Glucose Level 256 mg/dl (70-99(Fasting)) H 03/18/22 Ca 9.5 mg/dl (8.5-10.1) 03/18/22 Phosphorus Level 3.1 mg/dl (2.5-4.9) 03/18/22 Total Bilirubin 0.3 mg/dl (0.2-1.0) 03/18/22 AST/SGOT 100 U/L (13-39) H 03/18/22 ALT/SGPT 42 U/L (7-52) 03/18/22 Alkaline Phosphatase 63 U/L (34-104) 03/18/22 Total Protein 6.2 gm/dl (6.0-8.3) 03/18/22 Albumin 3.7 gm/dl (3.4-5.0) 03/18/22 Globulin 2.5 gm/dl (2.5-4.0) 03/18/22 Albumin/Globulin Ratio 1.5 (0.9-2) 03/18/22 PTT 49.8 Seconds (21.0-31.0) H* 03/18/22 INR 1.1 (0.9-1.1) 03/18/22 SARS-CoV-2, RNA, NAAT NEGATIVE (NEGATIVE) 03/18/22 Code Status & VTE Plan Code Status FULL CODE VTE Prophylaxis Plan VTE Prophylaxis will be ordered: Yes Supervising Physician Co-Signing Physician Notes Patient was seen and examined with Diamond CORDERO at bedside. Caregiver and sister at bedside. Chart reviewed. Case discussed with Diamond and agree with the documentation above. In summary, this is a 66 year old female with h/o right metastatic breast cancer s/p resection and radiation, currently on chemo presented to the ED with fall and ?syncopal episode while walking to the [facility] clinic diabetic appointment, sustaining mandibular fracture. Had prior presyncopal episodes but no syncope before. Doesn't recall the fall. On exam, AAO, chest clear, right sided port-a-cath, heart sounds normal, abd benign, no edema, MMM, alopecia. She has not required any lasix since discharge. Had her breakfast this morning and was not hypoglycemic. Agree with tele, orthostatic vitals, carotid doppler. Check D dimer- if positive, CTA chest. Consult Dr Smalls for mandibular fracture. PT eval. Rest as per the note above.
[2022-03-18] MEDS ORDERED: MoRPHine SULFATE 2 MG/ML CARP IV STA (15:51)
--- NOTE | 2022-03-18 16:09 | Emergency Department Note ---
Impression & Plan Fracture of mandible, Metastatic breast cancer, Fall, Head injury, closed, with brief LOC, Laceration of face, multiple sites ED Provider Note CHIEF COMPLAINT: Fall, facial injury, confusion HISTORY OF PRESENT ILLNESS: This 66-year-old female patient presents to the emergency department with complaints of facial injuries, fall and loss of consciousness while trying to walk into a doctor's office in [place] today. The patient has metastatic breast cancer and is currently undergoing chemotherapy. She was on her way for diabetic checkup. It is unknown if she tripped or passed out, but she woke up on the ground. She does remember asking for help but does not recall anything thereafter until "coming to" in the ambulance. Patient does not take blood thinners. She is not nauseated but does complain of jaw pain. She states her about 6 months ago. She does live at home alone but has a caregiver and her sister close by. He denies any fevers, chills, chest pain or shortness of breath. REVIEW OF SYSTEMS: A review of systems was performed with positives and pertinent negatives listed in the history of present illness. 10 systems were reviewed and are otherwise negative. ALLERGIES: see below MEDICATIONS: see below PMH: see below SOCIAL HISTORY: see below DDx: Fracture, dislocation, contusion, intra-abdominal, pneumothorax, intrathoracic, intracranial, neurologic, compartment syndrome, rhabdomyolysis, as well as other pathologies. PHYSICAL EXAM: Vital signs reviewed. General: Chronically ill-appearing 66-year-old female, in no significant distress. HEENT: No scleral icterus, PERRLA, neck supple. Noted to the chin and inside the mouth. Several teeth are missing however central incisors broken on the right. Alopecia noted. Cardiovascular: Regular rate and rhythm, no extra sounds. Pulmonary: Clear to auscultation bilaterally, normal work of breathing. Abdomen: Soft, nontender, nondistended, positive bowel sounds. Musculoskeletal: Atraumatic, no peripheral edema. Nontender to palpation of the cervical, thoracic and lumbar spine. Neurologic: Patient awake alert and oriented x 3 Skin: Warm, dry, no rash. Laceration noted to the lower face at the mandible/chin and the submandibular region. Please see my procedure note below. EMERGENCY DEPARTMENT COURSE/MDM: This patient was evaluated and appeared to be in no significant distress. IV access was obtained and laboratory work was drawn. Patient was placed on the hospital monitor noted to be in a normal sinus rhythm. The patient was sent for CAT scan of the reveals a mandibular fracture. There is no evidence of intracranial hemorrhage. CT imaging of the face and ne ck were then performed and reveals a bilateral mandibular fracture. Dental fracture is also noted. Case was discussed with Dr. Centeno of [facility] who will evaluate the images and see the patient consultation. Patient's lacerations were approximated using Dermabond and Steri-Strips. Please see my procedure note below. Given the patient's complicated medical situation and now bilateral mandibular fractures and need for possible operative intervention, case was discussed with the hospitalist service who will evaluate the patient for admission and further management. Patient and family are aware of the plan and agreed. PROCEDURE:Location: Lower face/chin, submandibular Total length: 1 cm, 2 cm Complexity: simple Verbal consent was obtained after the risks and benefits were explained, incl uding but not limited to bleeding, scarring, infection, pain, and bone/joint/nerve damage. At this time, the risks of the procedure are less than the risks of NOT performing the procedure. A time out was taken and the correct patient and site identified. The skin was prepped with Betadine. The target area was anesthetized with LET gel. Copious irrigation was performed using saline. The skin was re-prepped and a sterile field set. The wound was explored for foreign bodies and none found. Examination revealed no injury to deep structures such as tendons, bone, or significant blood vessels. Debridement was not performed. The wound edges were approximated using Dermabond. Hemosta and Steri-Stripssis and excellent approximation was achieved. No complications and the patient tolerated the procedure well. MONITORING: An order for cardiac monitoring was placed and the patient is noted to be in a normal sinus rhythm at 89 beats per minute. RADIOLOGY: See below EKG: Sinus rhythm with PACs at 63 bpm. QTc is 442. Normal axis. Normal ST segments. DISPOSITION: Admission Past Med/Surg History Medical History Anemia Asthma Cancer right breast cancer Diabetes mellitus, type 2 Fusion of spine GERD (gastroesophageal reflux disease) History of deviated nasal septum History of OCD (obsessive compulsive disorder) Hx MRSA infection bilateral axillary abscess a year ago. Has not been retested. Hyperlipidemia Hypertension Hypothyroidism Myocardial Infarction On anticoagulant therapy Osteoarthritis Peripheral neuropathy RUE, RLE Recent weight loss Surgical History History of cholecystectomy History of colonoscopy 2019 polyp removed History of discectomy History of esophagogastroduodenoscopy (EGD) History of heart artery stent History of repair of rotator cuff right Hx of lumpectomy right breast Family History Other Cancer Diabetes Hypertension Stroke Social History Smoking Status: Never smoker Hx Alcohol Use: No Hx Substance Use: No Preferred Language: Azerbaijani Communication Ability: Effective Housekeeping Lead Required: No Beliefs That Will Affect Care: None marital status: Single Current Living Situation: Other Current Living Situation Comment: friends stay w/ her. currently friends are moving in w/ her Feels Safe at Home: Yes Assistive Devices: Cane and Walker Allergies Allergies Allergy/AdvReac Type Severity Reaction Status Date / Time methylprednisolone Allergy Severe Anaphylaxis Verified 03/18/22 15:12 NSAIDS (Non-Steroidal Allergy Severe Hives Verified 03/18/22 15:12 Anti-Inflamma oxaprozin [From Daypro] Allergy Severe Anaphylaxis Verified 03/18/22 15:12 dextromethorphan Allergy Intermediate Hives Verified 03/18/22 15:12 erythromycin base Allergy Intermediate Hives Verified 03/18/22 15:12 aspirin Allergy Unknown Unknown Verified 03/18/22 15:12 doxylamine Allergy Unknown Unknown Verified 03/18/22 15:12 pseudoephedrine Allergy Unknown Unknown Verified 03/18/22 15:12 Home Meds Home Medications Medication Instructions Recorded Confirmed albuterol sulfate 90 mcg/actuation 2 puffs inhalation Q4H PRN 08/08/19 03/18/22 aerosol inhaler Shortness Of Breath Or Wheezing amoxicillin 500 mg capsule 2,000 mg PO DIRECTED PRN 1 HOUR 08/08/19 03/18/22 PRIOR TO DENTAL APPT. aspirin 81 mg tablet,delayed 81 mg PO QAM 08/08/19 03/18/22 release clopidogrel 75 mg tablet (Plavix) 75 mg PO QAM 08/08/19 03/18/22 fenofibrate micronized 200 mg 200 mg PO HS 08/08/19 03/18/22 capsule levothyroxine 200 mcg tablet 400 mcg PO 2XWK 08/08/19 03/18/22 (Synthroid) omeprazole 20 mg capsule,delayed 20 mg PO QAM 08/08/19 03/18/22 release calcium carbonate 600 mg-vitamin 1 tab PO BID 10/09/19 03/18/22 D3 5 mcg (200 unit) tablet fluticasone propionate 50 1 sprays intranasal DAILY PRN 10/09/19 03/18/22 mcg/actuation nasal Congestion spray,suspension acetaminophen 500 mg tablet 1,000 mg PO Q6H PRN Pain 07/09/21 03/18/22 (Tylenol Extra Strength) denosumab 120 mg/1.7 mL (70 mg/mL) 120 mg subcut .EVERY 3 MONTHS 07/09/21 03/18/22 subcutaneous solution (Xgeva) fluoxetine 20 mg capsule (Prozac) 40 mg PO QAM 07/09/21 03/18/22 oxycodone-acetaminophen 5 mg-325 1 tab PO Q6H PRN Pain 07/09/21 03/18/22 mg tablet (Percocet) paclitaxel protein-bound 100 mg 0 mg IV UD 07/09/21 03/18/22 intravenous suspension (Abraxane) prochlorperazine maleate 5 mg 10 mg PO QID PRN nausea and 07/09/21 03/18/22 tablet (Compazine) vomiting ferrous sulfate 325 mg (65 mg 325 mg PO 2XWK 11/12/21 03/18/22 iron) tablet atorvastatin 80 mg tablet 80 mg PO HS 12/10/21 03/18/22 ondansetron 4 mg disintegrating 4 mg PO Q6H PRN Nausea And Vomiting 12/10/21 03/18/22 tablet levothyroxine 200 mcg tablet 200 mcg PO 5XWK 02/28/22 03/18/22 magnesium chloride 64 mg 64 mg PO DAILY 02/28/22 03/18/22 (magnesium chloride) tablet,delayed release (Mag 64) mirtazapine 15 mg tablet 15 mg PO HS 03/18/22 03/18/22 Previous Rx's Medication Instructions Recorded metoprolol tartrate 25 mg tablet 12.5 mg PO BID #90 tabs 11/04/21 furosemide 20 mg tablet (Lasix) 20 mg PO UD PRN weight gain #10 03/01/22 tabs white petrolatum-mineral oil 83 1 applic OPR Q2H #3.5 grams 03/01/22 %-15 % eye ointment (Artificial Tears (petrolatum/mineral oil)) Results & Data (ED) Vital Signs Vital Signs - 24 hr 03/18/22 12:29 03/18/22 12:30 03/18/22 12:40 Temperature 36.5 C Temperature Source Oral Pulse Rate 61 61 76 Pulse Rate [Left Finger] Pulse Rate from SpO2 Sensor 61 69 Respiratory Rate 16 19 24 Respiratory Effort / Characteristics Respiratory Depth Respiratory Pattern Blood Pressure 158/90 H Blood Pressure [Right Arm] Blood Pressure Mean 112 Blood Pressure Mean [Right Arm] Blood Pressure Position Lying Pulse Oximetry 100 100 99 Oxygen Delivery Method Room Air Sepsis Recent Fever Within 48 Hours No Sepsis New/Unexplained Change in Mental Status No Sepsis Action Taken by Nursing No Action Required 03/18/22 12:50 03/18/22 13:00 03/18/22 13:10 Temperature Temperature Source Pulse Rate 64 63 71 Pulse Rate [Left Finger] Pulse Rate from SpO2 Sensor 63 63 66 Respiratory Rate 17 16 21 Respiratory Effort / Characteristics Respiratory Depth Respiratory Pattern Blood Pressure Blood Pressure [Right Arm] Blood Pressure Mean Blood Pressure Mean [Right Arm] Blood Pressure Position Pulse Oximetry 99 99 100 Oxygen Delivery Method Sepsis Recent Fever Within 48 Hours Sepsis New/Unexplained Change in Mental Status Sepsis Action Taken by Nursing 03/18/22 13:45 03/18/22 13:45 03/18/22 13:50 Temperature Temperature Source Pulse Rate 65 65 Pulse Rate [Left Finger] Pulse Rate from SpO2 Sensor 67 68 Respiratory Rate 15 14 Respiratory Effort / Characteristics Respiratory Depth Respiratory Pattern Blood Pressure 132/56 L Blood Pressure [Right Arm] Blood Pressure Mean 81 Blood Pressure Mean [Right Arm] Blood Pressure Position Pulse Oximetry 94 99 Oxygen Delivery Method Sepsis Recent Fever Within 48 Hours Sepsis New/Unexplained Change in Mental Status Sepsis Action Taken by Nursing 03/18/22 14:00 03/18/22 14:00 03/18/22 14:29 Temperature Temperature Source Pulse Rate 63 Pulse Rate [Left Finger] 89 Pulse Rate from SpO2 Sensor 63 Respiratory Rate 15 19 Respiratory Effort / Characteristics Non-Labored Spontaneous Respiratory Depth Normal Respiratory Pattern Regular Blood Pressure 133/55 L Blood Pressure [Right Arm] 137/95 Blood Pressure Mean 81 Blood Pressure Mean [Right Arm] 109 Blood Pressure Position Pulse Oximetry 93 97 Oxygen Delivery Method Room Air Sepsis Recent Fever Within 48 Hours Sepsis New/Unexplained Change in Mental Status Sepsis Action Taken by [facility] Medications Current Medication List: was personally reviewed by me Laboratory Data Attestation: I reviewed the patient's lab results. Result diagrams: 03/18/22 13:10 03/18/22 13:10 Lab Results 03/18/22 03/18/22 03/18/22 Range/Units 13:10 13:10 13:10 WBC 4.59 L (4.8-10.8) K/ul RBC 3.30 L (3.93-5.22) M/uL Hgb 9.7 L (12.0-16.0) g/dl Hct 30.9 L (34.1-44.9) % MCV 93.6 (80.0-100.0) fL MCH 29.4 (25.0-34.0) pg MCHC 31.4 L (32.0-36.0) g/dL RDW Std Deviation 72.3 H (36.4-46.3) fL RDW Coeff of Azra 21.2 H (11.5-14.5) % Plt Count 321 (130-400) K/uL MPV 10.1 (9.4-12.3) fL Immature Gran % (Auto) 0.4 % Neut % (Auto) 86.4 % Lymph % (Auto) 7.2 % [facility] % (Auto) 4.4 % Eos % (Auto) 0.9 % Baso % (Auto) 0.7 % Neut # (Auto) 3.97 (1.4-6.5) K/uL Lymph # (Auto) 0.33 L (1.2-3.4) K/uL [facility] # (Auto) 0.20 L (0.24-0.82) K/uL Eos # (Auto) 0.04 (0-0.50) K/uL Baso # (Auto) 0.03 (0-0.2) K/uL Immature Gran # (Auto) 0.02 (0.00-0.02) K/uL Anisocytosis Present Tear Drop Cells 1+ Ovalocytes 1+ Schistocytes 1+ PT 11.3 (9.0-12.0) Seconds INR 1.1 (0.9-1.1) APTT 49.8 H* (21.0-31.0) Seconds PTT Ratio 1.8 Sodium 139 (136-145) mmol/L Potassium 4.2 (3.5-5.1) mmol/L Chloride 109 H (98-107) mmol/L Carbon Dioxide 24 (21-32) mmol/L Anion Gap 6 (3-11) BUN 21 (6-23) mg/dl Creatinine 0.88 (0.6-1.2) mg/dl Est Cr Clr Drug Dosing 50.5 ml/min Est GFR ( Amer) 78.2 ml/min Est GFR (Non-Af Amer) 67.5 ml/min BUN/Creatinine Ratio 23.9 H (10-20) Glucose 256 H (70-99(Fasting)) mg/dl Calcium 9.5 (8.5-10.1) mg/dl Phosphorus 3.1 (2.5-4.9) mg/dl Magnesium 1.7 (1.7-2.4) mg/dl Total Bilirubin 0.3 (0.2-1.0) mg/dl AST 100 H (13-39) U/L ALT 42 (7-52) U/L Alkaline Phosphatase 63 (34-104) U/L Troponin I High Sens 3.4 (0-14) pg/ml Total Protein 6.2 (6.0-8.3) gm/dl Albumin 3.7 (3.4-5.0) gm/dl Globulin 2.5 (2.5-4.0) gm/dl Albumin/Globulin Ratio 1.5 (0.9-2) SARS-CoV-2, RNA, NAAT (NEGATIVE) 03/18/22 Range/Units 13:43 WBC (4.8-10.8) K/ul RBC (3.93-5.22) M/uL Hgb (12.0-16.0) g/dl Hct (34.1-44.9) % MCV (80.0-100.0) fL MCH (25.0-34.0) pg MCHC (32.0-36.0) g/dL RDW Std Deviation (36.4-46.3) fL RDW Coeff of Azra (11.5-14.5) % Plt Count (130-400) K/uL MPV (9.4-12.3) fL Immature Gran % (Auto) % Neut % (Auto) % Lymph % (Auto) % [facility] % (Auto) % Eos % (Auto) % Baso % (Auto) % Neut # (Auto) (1.4-6.5) K/uL Lymph # (Auto) (1.2-3.4) K/uL [facility] # (Auto) (0.24-0.82) K/uL Eos # (Auto) (0-0.50) K/uL Baso # (Auto) (0-0.2) K/uL Immature Gran # (Auto) (0.00-0.02) K/uL Anisocytosis Tear Drop Cells Ovalocytes Schistocytes PT (9.0-12.0) Seconds INR (0.9-1.1) APTT (21.0-31.0) Seconds PTT Ratio Sodium (136-145) mmol/L Potassium (3.5-5.1) mmol/L Chloride (98-107) mmol/L Carbon Dioxide (21-32) mmol/L Anion Gap (3-11) BUN (6-23) mg/dl Creatinine (0.6-1.2) mg/dl Est Cr Clr Drug Dosing ml/min Est GFR ( Amer) ml/min Est GFR (Non-Af Amer) ml/min BUN/Creatinine Ratio (10-20) Glucose (70-99(Fasting)) mg/dl Calcium (8.5-10.1) mg/dl Phosphorus (2.5-4.9) mg/dl Magnesium (1.7-2.4) mg/dl Total Bilirubin (0.2-1.0) mg/dl AST (13-39) U/L ALT (7-52) U/L Alkaline Phosphatase (34-104) U/L Troponin I High Sens (0-14) pg/ml Total Protein (6.0-8.3) gm/dl Albumin (3.4-5.0) gm/dl Globulin (2.5-4.0) gm/dl Albumin/Globulin Ratio (0.9-2) SARS-CoV-2, RNA, NAAT NEGATIVE (NEGATIVE) Administered Medications Discontinued Medications Sodium Chloride (Nss 1000ml) 1,000 mls @ 60 mls/hr IV .[id number] KIM Stop: 04/17/22 12:59 Last Infusion: 03/18/22 16:02 Dose: 60 mls/hr Documented By: Admin: 03/18/22 13:07 Dose: 125 mls/hr Documented By: YESSI Lidocaine (Lidocaine/Epineph/Tetracaine 1 Ea Syr) Confirm Administered Dose 1 each EXT .STK-MED ONE Stop: 03/18/22 14:50 Last Admin: 03/18/22 14:50 Dose: 1 each Documented By: ОЛЬГА Morphine Sulfate (Morphine Sulfate 2 Mg/Ml Carp) 2 mg IV NOW STA Stop: 03/18/22 15:52 Last Admin: 03/18/22 16:03 Dose: 2 mg Documented By: CINTHIA Imaging Data Radiologist's Impression: Head CT 03/18/22 13:07 CT SCAN OF THE BRAIN WITHOUT IV CONTRAST CLINICAL HISTORY: Change in mental status. Fall. Breast cancer. COMPARISON STUDY: CT of the brain dated 02/28/2022. MRI of the brain dated 03/01/2022. TECHNIQUE: Unenhanced axial CT scan of the brain is performed from the vertex to the skull base. A dose lowering technique was utilized adhering to the principles of ALARA. CT DOSE: 638.56 mGycm FINDINGS: Brain parenchyma: There is age-related involutional change noting minimal subcortical and periventricular microangiopathic disease. There is no hemorrhage, mass effect, or evidence of acute territorial ischemia by CT criteria. Solomon-white matter differentiation is preserved. No extra-axial fluid collection is seen. Ventricles, sulci, cisterns: Prominent secondary to involutional change. Intracranial vasculature: There is atherosclerotic calcification of the cavernous carotid and vertebral arteries. Calvarium: There is no depressed calvarial fracture. A left mandibular fracture is partially visualized on image #1. Sinuses and mastoids: The visualized paranasal sinuses are clear. The mastoid air cells are well pneumatized. Orbits: The bony orbits are grossly intact. IMPRESSION: 1. There is no hemorrhage, mass effect, or evidence of acute territorial is chemia by CT criteria. 2. A left mandibular fracture is partially visualized. Correlation with a facial bone CT scan is recommended. ACT 112: Negative or not required by law. Electronically signed by: Mukesh Melissa M.D. 03/18/2022 1:[address] 03/18/22 13:[address] DOSE: 963.31 mGy.cm HISTORY: fall, neck pain TECHNIQUE: Multiaxial CT images of the cervical spine were performed and reformatted in the sagittal and coronal plane without the use of contrast. A dose lowering technique was utilized adhering to the principles of ALARA. COMPARISON: None. FINDINGS: No fractures. No subluxation. Prevertebral soft tissues and the C1-C2 interval are intact. No pneumothorax. Partially visualized right jugular catheter is noted. A 5 mm sclerotic focus at the C3 vertebral body. This is nonspecific but favors a bone island. Moderate disc space narrowing at C4-C5 and C5-C6 with ossification of the posterior longitudinal ligament at this level. This results in moderate left-sided central canal narrowing. There is a C7 vertebral body hemangioma. Small focal indentation along the inferior plate of C7 is likely chronic. IMPRESSION: No fractures within the cervical spine. ACT 112: Negative or not required by law. Electronically signed by: Farooq Alba M.D. 03/18/2022 2:[address] 03/18/22 13:51 CT SCAN OF THE FACIAL BONES WITHOUT IV CONTRAST CLINICAL HISTORY: Fall. Trauma. COMPARISON STUDY: CT of the brain performed earlier the same day 03/18/2022. CT angiogram of the neck dated 02/28/2022. TECHNIQUE: High-resolution CT scan of the facial bones is performed. Images are reviewed in the axial, sagittal, and coronal planes. IV contrast was not administered for this examination. A dose lowering technique was utilized adhering to the principles of ALARA. FINDINGS: The skeletal structures are osteopenic. There is a mildly displaced and angulated fracture of the left mandible ramus just below the mandibular neck. This is best seen on axial image #268. Additionally, there is a subtle nondisplaced fracture of the right mandibular body. This is best seen on axial image #59 and extends posteriorly, possibly involving the socket of a right mandibular molar. There is fracture of a the most posterior right maxillary molar seen on axial image #174. A metallic foreign body anterior to the right mandibular body on image #111 is new from previous and likely represents displaced dental hardware. The temporomandibular joints are preserved. Degenerative change is noted at the left TMJ. The bony orbits are intact and the orbital contents are within normal limits. The zygomatic arches, nasal bones, and pterygoid plates are preserved. The maxillary intact. There are no layering blood products within the paranasal sinuses. There is trace mucosal thickening in the left maxillary antrum. The remaining paranasal sinuses are clear. The mastoid air cells are well pneumatized. The visualized calvarium and upper cervical spine are maintained. Partially imaged brain parenchyma is within normal limits. Soft tissue injury is noted in the chin with small radiodense foreign bodies. Subcutaneous gas deep to the right mandible is likely related to soft tissue injury. IMPRESSION: 1. Fractures of the mandible are seen bilaterally as detailed above. 2. There is a fracture of the most posterior right maxillary molar. 3. A metallic foreign body anterior to the right body of the mandible is new from previous and likely represents displaced dental hardware. Correlation with direct visualization is recommended, as is follow-up with dentistry. 4. Soft tissue injury of the chin with small radiodense foreign bodies. ACT 112: Negative or not required by law. Electronically signed by: Mukesh Melissa M.D. 03/18/2022 2:33 PM Blood Pressure Blood Pressure Findings: Elevated blood pressure Blood Pressure Disposition: further management by hospitalist Discharge Plan Visit Data Chief Complaint: Fall Stated Complaint: FALL, AMS, STROKE SX ED Provider: Betaris Leonard Discharge Problem: Fracture of mandible, Metastatic breast cancer, Fall, Head injury, closed, with brief LOC, Laceration of face, multiple sites
[2022-03-18 16:16] LABS: Appearance Urine Clear (Clear); Bacteria Urine Automated Negative (Negative); Bilirubin Urine 1+ (Negative); Blood Urine Negative (Negative); Color Urine Dark Yellow; Epithelial Cell Urine Auto >30 /lpf (0-5); Glucose Urine UA Negative (Negative); Ketones Urine Trace (Negative); Leukocyte Esterase Urine Trace (Negative); Nitrite Urine Negative (Negative); Protein Urine Trace (Negative); RBC Urine Automated 0-4 /hpf (0-4); Specific Gravity Urine 1.022 (1.000-1.030); Urobilinogen Urine Negative (Negative)
[2022-03-18] MEDS ORDERED: DEXTROSE 50% 50 ML SYRINGE IV PRN (16:25)
[2022-03-18] MEDS ORDERED: MoRPHine SULFATE 2 MG/ML CARP IV PRN (16:25)
[2022-03-18] MEDS ORDERED: ONDANSETRON INJ 2 MG/ML 2 ML VIAL IV PRN (16:25)
[2022-03-18] MEDS ORDERED: MAGNESIUM HYDROXIDE SUSP 30 ML UDC PO PRN (16:25)
[2022-03-18] MEDS ORDERED: ALUMINUM/MAGNESIUM SUSP 30 ML UDC PO PRN (16:25)
[2022-03-18] MEDS ORDERED: ALBUTEROL HFA 8 GM INHALER INH PRN (16:25)
[2022-03-18] MEDS ORDERED: POLYETHYLENE (MIRALAX) 17 GM PACK PO PRN (16:25)
[2022-03-18] MEDS ORDERED: GLUCOSE 10 TAB/TUBE PO PRN (16:25)
[2022-03-18] MEDS ORDERED: GLUCAGON FOR INJ 1 MG VIAL SQ PRN (16:25)
[2022-03-18] MEDS ORDERED: CARBOHYDRATES FOR HYPOGLYCEMIA PO PRN (16:25)
[2022-03-18] MEDS ORDERED: GLUCOSE 40% GEL 15 GM TUBE PO PRN (16:25)
--- NOTE | 2022-03-18 16:29 | Oral/Maxillofacial Consult ---
Date of Consultation March 18, 2022 Assessment & Plan (1) Bilateral mandibular fracture: (2) Syncope: (3) Fall: (4) Fractured tooth due to trauma without complication: History of Present Illness Attending Physician: Logan Meier MD History of Present Illness I saw Mrs. Diaz this morning. I reviewed the CT scan There is a slightly displaced jaw fracture on the left and non displaced fracture on the right. 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 Ideally I would like to avoid and extraction. The usually treatment for this type of injury is a closed reduction to allow consolidation of the bone. Early function with elastic therapy is the most common method of achieving this. This will entail a general anesthesia to place the arch bars to hold the dental elastics. The need to remove an fractured teeth beyond repair will also be necessary. Given her current medical morbilities please advice as her ability to tolerate general anesthesia. Anesthesia has cleared the patient if the procedure is necessary. The deciding factor is based on the ability to open and close the jaw and to produce a stable occlusion. Fortunately--this is the case. Mrs Diaz can open at least 20 mm and and is able to close her teeth together achieving an occlusion that with some minor dental adjustments will be close to her normal occlusion per-accident. Based on the CT finding, ability to open and close into a relatively stable occlusion, the fact she is missing many teeth I will elect to treat her with conservative functional therapy. This will consist of jaw opening exercise, jaw closing exercise, soft non chew diet, ideal oral care and follow up in 10 days. If when I see her or if she feels her bite is shifting we will have no choice but to readmit her for a closed reduction of the left sub condyle fracture. There is a fractured # 3 tooth I was able to remove the loose fragment. Hopefully we can avoid extraction, I will discuss with dentist smoothing the sharp edges once Janell is able to open further. Her follow up with me is on March 29 at 4:14 pm Janell has my card with phone number and address. Allergies Allergy/AdvReac Type Severity Reaction Status Date / Time methylprednisolone Allergy Severe Anaphylaxis Verified 03/18/22 15:12 NSAIDS (Non-Steroidal Allergy Severe Hives Verified 03/18/22 15:12 Anti-Inflamma oxaprozin [From Daypro] Allergy Severe Anaphylaxis Verified 03/18/22 15:12 dextromethorphan Allergy Intermediate Hives Verified 03/18/22 15:12 erythromycin base Allergy Intermediate Hives Verified 03/18/22 15:12 aspirin Allergy Unknown Unknown Verified 03/18/22 15:12 doxylamine Allergy Unknown Unknown Verified 03/18/22 15:12 pseudoephedrine Allergy Unknown Unknown Verified 03/18/22 15:12 Home Medications Medication Instructions Recorded Confirmed Type albuterol sulfate 90 mcg/actuation 2 puffs inhalation Q4H PRN 08/08/19 03/18/22 History aerosol inhaler Shortness Of Breath Or Wheezing amoxicillin 500 mg capsule 2,000 mg PO DIRECTED PRN 1 HOUR 08/08/19 03/18/22 History PRIOR TO DENTAL APPT. aspirin 81 mg tablet,delayed 81 mg PO QAM 08/08/19 03/18/22 History release clopidogrel 75 mg tablet (Plavix) 75 mg PO QAM 08/08/19 03/18/22 History fenofibrate micronized 200 mg 200 mg PO HS 08/08/19 03/18/22 History capsule levothyroxine 200 mcg tablet 400 mcg PO 2XWK 08/08/19 03/18/22 History (Synthroid) omeprazole 20 mg capsule,delayed 20 mg PO QAM 08/08/19 03/18/22 History release calcium carbonate 600 mg-vitamin 1 tab PO BID 10/09/19 03/18/22 History D3 5 mcg (200 unit) tablet fluticasone propionate 50 1 sprays intranasal DAILY PRN 10/09/19 03/18/22 History mcg/actuation nasal Congestion spray,suspension acetaminophen 500 mg tablet 1,000 mg PO Q6H PRN Pain 07/09/21 03/18/22 History (Tylenol Extra Strength) denosumab 120 mg/1.7 mL (70 mg/mL) 120 mg subcut .EVERY 3 MONTHS 07/09/21 03/18/22 History subcutaneous solution (Xgeva) fluoxetine 20 mg capsule (Prozac) 40 mg PO QAM 07/09/21 03/18/22 History oxycodone-acetaminophen 5 mg-325 1 tab PO Q6H PRN Pain 07/09/21 03/18/22 History mg tablet (Percocet) paclitaxel protein-bound 100 mg 0 mg IV UD 07/09/21 03/18/22 History intravenous suspension (Abraxane) prochlorperazine maleate 5 mg 10 mg PO QID PRN nausea and 07/09/21 03/18/22 History tablet (Compazine) vomiting metoprolol tartrate 25 mg tablet 12.5 mg PO BID #90 tabs 11/04/21 03/18/22 Rx ferrous sulfate 325 mg (65 mg 325 mg PO 2XWK 11/12/21 03/18/22 History iron) tablet atorvastatin 80 mg tablet 80 mg PO HS 12/10/21 03/18/22 History ondansetron 4 mg disintegrating 4 mg PO Q6H PRN Nausea And Vomiting 12/10/21 03/18/22 History tablet levothyroxine 200 mcg tablet 200 mcg PO 5XWK 02/28/22 03/18/22 History magnesium chloride 64 mg 64 mg PO DAILY 02/28/22 03/18/22 History (magnesium chloride) tablet,delayed release (Mag 64) furosemide 20 mg tablet (Lasix) 20 mg PO UD PRN weight gain #10 03/01/22 03/18/22 Rx tabs white petrolatum-mineral oil 83 1 applic OPR Q2H #3.5 grams 03/01/22 03/18/22 Rx %-15 % eye ointment (Artificial Tears (petrolatum/mineral oil)) mirtazapine 15 mg tablet 15 mg PO HS 03/18/22 03/18/22 History Patient History Medical History Anemia Asthma Cancer right breast cancer Diabetes mellitus, type 2 Fusion of spine GERD (gastroesophageal reflux disease) History of deviated nasal septum History of OCD (obsessive compulsive disorder) Hx MRSA infection bilateral axillary abscess a year ago. Has not been retested. Hyperlipidemia Hypertension Hypothyroidism Myocardial Infarction On anticoagulant therapy Osteoarthritis Peripheral neuropathy RUE, RLE Recent weight loss Surgical History History of cholecystectomy History of colonoscopy 2019 polyp removed History of discectomy History of esophagogastroduodenoscopy (EGD) History of heart artery stent History of repair of rotator cuff right Hx of lumpectomy right breast Family History Other Cancer Diabetes Hypertension Stroke Social History Smoking Status: Never smoker Hx Alcohol Use: Yes Hx Substance Use: No Preferred Language: Amharic Communication Ability: Effective Refuge Worker Required: No Beliefs That Will Affect Care: None marital status: Single Current Living Situation: Family Current Living Situation Comment: friends stay w/ her. currently friends are moving in w/ her Feels Safe at Home: Yes Safety Concerns: Feels Safe At This Time Assistive Devices: Cane, Glasses and Walker Results & Data ([facility]) Vital Signs (Past 12 Hours) Vital Signs Temp Pulse Pulse Resp BP BP Pulse Ox 03/18/22 14:29 89 19 137/95 97 03/18/22 14:00 63 15 93 03/18/22 14:00 133/55 L 03/18/22 13:50 65 14 99 03/18/22 13:45 65 15 94 03/18/22 13:45 132/56 L 03/18/22 13:10 71 21 100 03/18/22 13:00 63 16 99 03/18/22 12:50 64 17 99 03/18/22 12:40 76 24 99 03/18/22 12:30 61 19 100 03/18/22 15:53 94 03/18/22 12:29 36.5 C 61 16 158/90 H 100 O2 Del Method 03/18/22 14:29 Room Air 03/18/22 14:00 03/18/22 14:00 03/18/22 13:50 03/18/22 13:45 03/18/22 13:45 03/18/22 13:10 03/18/22 13:00 03/18/22 12:50 03/18/22 12:40 03/18/22 12:30 03/18/22 15:53 03/18/22 12:29 Room Air PG Care Time/CCT Total # of Minutes Spent Total Time Spent with Patient: Total time spent is greater than 50% in coordination of care (as documented) at patient's floor/unit and/or counseling patient: Coding Level of Care Code 79794 Inpt Consult Level 3 Diagnoses Bilateral mandibular fracture S02.609A Syncope R55 Fall W19.XXXA Fractured tooth due to trauma without complication S02.5XXA
[2022-03-18 16:41] LABS: Cast Urine Automated >30 /lpf (0-5)
[2022-03-18 17:20] LABS: D Dimer 7670 ug/L FEU (0-500)
[2022-03-18] MEDS ORDERED: OPTIRAY 320 125ml IV ONE (18:07)
--- NOTE | 2022-03-18 18:12 | Electrocardiogram Report ---
Test Reason : Blood Pressure : / mmHG Vent. Rate : 063 BPM Atrial Rate : 063 BPM P-R Int : 126 ms QRS Dur : 076 ms QT Int : 432 ms P-R-T Axes : 043 012 021 degrees QTc Int : 442 ms Sinus rhythm with Premature atrial complexes Otherwise normal ECG When compared with ECG of 28-FEB-2022 20:14, Premature atrial complexes are now Present Nonspecific T wave abnormality no longer evident in Anterior leads Confirmed by Terrell Escalante ([id number]) on 03/18/2022 6:11:56 PM Referred By: REFERRED SELF Confirmed By:Simba Escalante
--- NOTE | 2022-03-18 18:53 | Anesthesiology Consultation ---
Date of Service March 18, 2022 Assessment & Plan Chart Review Chart Review: Acceptable Risk for Surgery (Anticipate general anesthesia using nasal intubation. ) Consults Requested none History Height/Weight Height: 5 ft 1 in Weight: 59 kg Allergies Allergy/AdvReac Type Severity Reaction Status Date / Time methylprednisolone Allergy Severe Anaphylaxis Verified 03/18/22 15:12 NSAIDS (Non-Steroidal Allergy Severe Hives Verified 03/18/22 15:12 Anti-Inflamma oxaprozin [From Daypro] Allergy Severe Anaphylaxis Verified 03/18/22 15:12 dextromethorphan Allergy Intermediate Hives Verified 03/18/22 15:12 erythromycin base Allergy Intermediate Hives Verified 03/18/22 15:12 aspirin Allergy Unknown Unknown Verified 03/18/22 15:12 doxylamine Allergy Unknown Unknown Verified 03/18/22 15:12 pseudoephedrine Allergy Unknown Unknown Verified 03/18/22 15:12 Medications Home Medications Medication Instructions Recorded Confirmed Last Taken albuterol sulfate 90 mcg/actuation 2 puffs inhalation Q4H PRN 08/08/19 03/18/22 Unknown aerosol inhaler Shortness Of Breath Or Wheezing amoxicillin 500 mg capsule 2,000 mg PO DIRECTED PRN 1 HOUR 08/08/19 03/18/22 Unknown PRIOR TO DENTAL APPT. aspirin 81 mg tablet,delayed 81 mg PO QAM 08/08/19 03/18/22 03/17/22 release clopidogrel 75 mg tablet (Plavix) 75 mg PO QAM 08/08/19 03/18/22 03/17/22 fenofibrate micronized 200 mg 200 mg PO HS 08/08/19 03/18/22 03/17/22 capsule levothyroxine 200 mcg tablet 400 mcg PO 2XWK 08/08/19 03/18/22 03/17/22 (Synthroid) omeprazole 20 mg capsule,delayed 20 mg PO QAM 08/08/19 03/18/22 03/17/22 release calcium carbonate 600 mg-vitamin 1 tab PO BID 10/09/19 03/18/22 03/17/22 D3 5 mcg (200 unit) tablet fluticasone propionate 50 1 sprays intranasal DAILY PRN 10/09/19 03/18/22 Unknown mcg/actuation nasal Congestion spray,suspension acetaminophen 500 mg tablet 1,000 mg PO Q6H PRN Pain 07/09/21 03/18/22 Unknown (Tylenol Extra Strength) denosumab 120 mg/1.7 mL (70 mg/mL) 120 mg subcut .EVERY 3 MONTHS 07/09/21 03/18/22 01/28/22 subcutaneous solution (Xgeva) fluoxetine 20 mg capsule (Prozac) 40 mg PO QAM 07/09/21 03/18/22 03/17/22 oxycodone-acetaminophen 5 mg-325 1 tab PO Q6H PRN Pain 07/09/21 03/18/22 Unknown mg tablet (Percocet) paclitaxel protein-bound 100 mg 0 mg IV UD 07/09/21 03/18/22 02/23/22 intravenous suspension (Abraxane) prochlorperazine maleate 5 mg 10 mg PO QID PRN nausea and 07/09/21 03/18/22 12/09/21 tablet (Compazine) vomiting metoprolol tartrate 25 mg tablet 12.5 mg PO BID #90 tabs 11/04/21 03/18/22 03/17/22 ferrous sulfate 325 mg (65 mg 325 mg PO 2XWK 11/12/21 03/18/22 03/17/22 iron) tablet atorvastatin 80 mg tablet 80 mg PO HS 12/10/21 03/18/22 03/17/22 ondansetron 4 mg disintegrating 4 mg PO Q6H PRN Nausea And Vomiting 12/10/21 03/18/22 Unknown tablet levothyroxine 200 mcg tablet 200 mcg PO 5XWK 02/28/22 03/18/22 03/16/22 magnesium chloride 64 mg 64 mg PO DAILY 02/28/22 03/18/22 03/17/22 (magnesium chloride) tablet,delayed release (Mag 64) furosemide 20 mg tablet (Lasix) 20 mg PO UD PRN weight gain #10 03/01/22 03/18/22 Unknown tabs white petrolatum-mineral oil 83 1 applic OPR Q2H #3.5 grams 03/01/22 03/18/22 Unknown %-15 % eye ointment (Artificial Tears (petrolatum/mineral oil)) mirtazapine 15 mg tablet 15 mg PO HS 03/18/22 03/18/22 Unknown Past Medical History Medical History Anemia Asthma Cancer right breast cancer Diabetes mellitus, type 2 Fusion of spine GERD (gastroesophageal reflux disease) History of deviated nasal septum History of OCD (obsessive compulsive disorder) Hx MRSA infection bilateral axillary abscess a year ago. Has not been retested. Hyperlipidemia Hypertension Hypothyroidism Myocardial Infarction On anticoagulant therapy Osteoarthritis Peripheral neuropathy RUE, RLE Recent weight loss Past Family History Family History Other Cancer Diabetes Hypertension Stroke Past Surgical History Surgical History History of cholecystectomy History of colonoscopy 2019 polyp removed History of discectomy History of esophagogastroduodenoscopy (EGD) History of heart artery stent History of repair of rotator cuff right Hx of lumpectomy right breast Social History Smoking Status: Never smoker Hx Alcohol Use: No Hx Substance Use: No substance use type: does not use Physical Exam Vital Signs Last Vital Signs Temp 36.5 C 03/18/22 12:29 Pulse 89 03/18/22 14:29 Resp 19 03/18/22 14:29 BP 137/95 03/18/22 14:29 Pulse Ox 94 03/18/22 15:53 O2 Del Method 03/18/22 14:29 Testing Laboratory Results 03/18/22 13:10 03/18/22 13:10 PT 11.3 Seconds (9.0-12.0) 03/18/22 13:10 INR 1.1 (0.9-1.1) 03/18/22 13:10 APTT 49.8 Seconds (21.0-31.0) H* 03/18/22 13:10 Urine Color Dark Yellow 03/18/22 15:50 Urine Appearance Clear (Clear) 03/18/22 15:50 Urine pH 5.0 (4.5-7.5) 03/18/22 15:50 Ur Specific [place] 1.022 (1.000-1.030) 03/18/22 15:50 Urine Protein Trace (Negative) H 03/18/22 15:50 Urine Glucose (UA) Negative (Negative) 03/18/22 15:50 Urine Ketones Trace (Negative) H 03/18/22 15:50 Urine Nitrite Negative (Negative) 03/18/22 15:50 Ur Leukocyte Esterase Trace (Negative) H 03/18/22 15:50 Urine WBC (Auto) 5-10 /hpf (0-5) H 03/18/22 15:50 Urine RBC (Auto) 0-4 /hpf (0-4) 03/18/22 15:50 U Hyaline Cast (Auto) >30 /lpf (0-5) H 03/18/22 15:50 U Epithel Cells (Auto) >30 /lpf (0-5) H 03/18/22 15:50 Urine Bacteria (Auto) Negative (Negative) 03/18/22 15:50
--- NOTE | 2022-03-18 18:55 | CT Scan Report ---
CT ANGIOGRAM OF THE CHEST CLINICAL HISTORY: Dyspnea. COMPARISON STUDY: Chest CT dated 03/01/2022. TECHNIQUE: Following the IV administration of 120 cc of Optiray 320, CT angiogram of the chest was pe rformed from the upper abdomen to the thoracic inlet utilizing the pulmonary embolus protocol. Images are reviewed in the axial, sagittal, and coronal planes. 3-D MIPS images are created and assessed. I V contrast was administered without complication. A dose lowering technique was utilized adhering to the principles of ALARA. CT DOSE: 243.33 mGy.cm FINDINGS: Thyroid: Atrophic. Thoracic aorta: There is atherosclerotic calcification of the thoracic aorta, which is normal in carly mae and demonstrates standard 3-vessel arch anatomy. No dissection is seen. Pulmonary vasculature: The pulmonary trunk is normal in caliber. There are no filling defects identif ied in main, lobar, or segmental pulmonary branches to suggest pulmonary embolus. Heart: A right internal jugular central venous infusion port is in place. The heart is mildly enlarge d and without pericardial effusion. There are coronary artery calcifications. Lungs and pleural spaces: There is no airspace consolidation typical for pneumonia. Trace pleural eff usion is noted on the right. There is minimal dependent atelectasis. An accessory azygous fissure is incidentally noted. Mediastinum: There is no mediastinal lymphadenopathy. Aletha: Mildly enlarged right hilar nodes measure up to 16 mm in short axis. No left hilar adenopathy i s seen. Axillae: There is no axillary lymphadenopathy. Upper abdomen: Again seen is evidence of extensive/multifocal hepatic metastatic disease. Partially v isualized upper abdominal viscera is within normal limits. Skeletal structures: The skeletal structures are osteopenic. An indeterminant lesion is again noted i n the body of C7. IMPRESSION: 1. There is no evidence of pulmonary embolus in the main, lobar, or segmental pulmonary arteries. 2. Extensive/multifocal hepatic metastatic disease is again noted. 3. Cardiomegaly and trace right pleural effusion. 4. There is no airspace consolidation typical for pneumonia. 5. A mildly enlarged right hilar lymph node is nonspecific and may be reactive. 6. Additional findings as above. ACT 112: Negative or not required by law. Electronically signed by: Mukesh Melissa M.D. 03/18/2022 6:53 PM
--- NOTE | 2022-03-18 19:03 | Ultrasound Report ---
ULTRASOUND OF THE CAROTID ARTERIES CLINICAL HISTORY: Syncope. COMPARISON STUDY: No priors TECHNIQUE: Real-time, grayscale, and color Doppler sonography of the carotid arteries is performed. I mages are reviewed in the transverse and longitudinal planes. FINDINGS: The carotid arteries are patent bilaterally and demonstrate antegrade flow. There is mild atheroscler otic plaque seen in the carotid bulbs. Normal doppler arterial waveforms are seen throughout. Velocit y measurements are listed below. Common carotid peak systolic velocity (cm/sec): RIGHT: 114 LEFT: 120 ICA proximal peak systolic velocity (cm/sec): RIGHT: 87 LEFT: 95 ICA mid peak systolic velocity (cm/sec): RIGHT: 100 LEFT: 75 ICA distal peak systolic velocity (cm/sec): RIGHT: 73 LEFT: 110 ICA/CC peak systolic ratio: RIGHT: 0.9 LEFT: 0.9 Antegrade flow was shown in the vertebral arteries. The external carotid arteries are patent. IMPRESSION: 1. There is no sonographic evidence of hemodynamically significant stenosis in the right or left kay tid arterial system. 2. Antegrade flow is shown in the vertebral arteries. ACT 112: Negative or not required by law. Electronically signed by: Mukesh Melissa M.D. 03/18/2022 7:02 PM
[2022-03-18] MEDS: INSULIN ASPART PER UNIT SC SCH (19:06)
[2022-03-18] MEDS: ARTIFICIAL TEARS OP OINT 3.5 GM TUBE OPR SCH ×3 (19:22→21:18)
[2022-03-18] MEDS: oxyCODONE/ACETAMINOPHEN 5mg/325mg TAB PO PRN (19:30)
[2022-03-18 20:08] LABS: Thyroid Stimulating Hormone 21.32 uIu/ml (0.300-4.500)
[2022-03-18 20:42] LABS: T4 Free Thyroxine 0.88 ng/dl (0.61-1.60)
[2022-03-18] MEDS: CALCIUM 600MG + VIT D 400 IU TAB PO SCH (21:14)
[2022-03-18] MEDS: MIRTAZAPINE TAB 15 MG TAB PO SCH (21:14)
[2022-03-18] MEDS: ATORVASTATIN 40 MG TAB PO SCH (21:15)
[2022-03-18] MEDS: METOPROLOL TARTRATE 25 MG TAB PO SCH (21:15)
[2022-03-19] MEDS: INSULIN ASPART PER UNIT SC SCH ×5 (00:08→20:11)
[2022-03-19] MEDS: LANTUS PER UNIT CHARGE SQ SCH ×3 (00:09→20:12)
[2022-03-19] MEDS: ARTIFICIAL TEARS OP OINT 3.5 GM TUBE OPR SCH ×13 (00:15→23:23)
[2022-03-19] MEDS ORDERED: HEPARIN 100 UNIT/ML 5ML FLUSH FLUSH PRN (00:39)
[2022-03-19] MEDS: ACETAMINOPHEN 325 MG TAB PO PRN ×2 (01:59→10:54)
[2022-03-19] MEDS: LEVOTHYROXINE SODIUM 200 MCG TABLET PO SCH (05:59)
[2022-03-19 06:00] LABS: Basophils # (auto) 0.03 K/uL (0-0.2); Basophils % (auto) 0.6 %; Eosinophils # (auto) 0.03 K/uL (0-0.50); Eosinophils % (auto) 0.6 %; Hematocrit (blood only) 28.9 % (34.1-44.9); Hemoglobin 9.1 g/dl (12.0-16.0); Immature Granulocytes # (auto) 0.01 K/uL (0.00-0.02); Immature Granulocytes % (auto) 0.2 %; Lymphocytes # (auto) 0.44 K/uL (1.2-3.4); Lymphocytes % (auto) 8.7 %; Mean Corpuscular Hemoglobin 28.8 pg (25.0-34.0); Mean Corpuscular Hgb Conc 31.5 g/dL (32.0-36.0); Mean Corpuscular Volume 91.5 fL (80.0-100.0); Mean Platelet Volume 10.3 fL (9.4-12.3); Monocytes # (auto) 0.26 K/uL (0.24-0.82); Monocytes % (auto) 5.2 %; Neutrophils # (auto) 4.27 K/uL (1.4-6.5); Neutrophils % (auto) 84.7 %; Platelet Count 320 K/uL (130-400); RDW Coefficient of Variation 21.3 % (11.5-14.5); RDW Standard Deviation 71.7 fL (36.4-46.3); Red Blood Count 3.16 M/uL (3.93-5.22); White Blood Count 5.04 K/ul (4.8-10.8)
[2022-03-19 06:33] LABS: Tear Drop Cells Occasional
[2022-03-19 06:41] LABS: Albumin Globulin Ratio 1.5 (0.9-2); Albumin Level 3.5 gm/dl (3.4-5.0); BUN Creatinine Ratio 24.4 (10-20); Bilirubin,Total 0.5 mg/dl (0.2-1.0); Calcium 9.5 mg/dl (8.5-10.1); Creatinine Clr Calc Pharmacy 49.5 ml/min; Est GFR (African American) 85.2 ml/min; Est GFR (Non-African American) 73.5 ml/min; Globulin 2.4 gm/dl (2.5-4.0); Magnesium 1.7 mg/dl (1.7-2.4); Potassium 4.3 mmol/L (3.5-5.1); Total Protein 5.9 gm/dl (6.0-8.3)
[2022-03-19 07:51] LABS: Estimated Average Glucose 131 mg/dl; Hemoglobin A1C 6.2 % (4.5-5.6)
[2022-03-19] MEDS: MAGNESIUM CHLORIDE W/CALCIUM 64MG DELAYED REL TAB PO SCH (08:05)
[2022-03-19] MEDS: PANTOprazole 40 MG TAB PO SCH (08:05)
[2022-03-19] MEDS: FLUoxetine HCL 20 MG CAP PO SCH (08:05)
[2022-03-19] MEDS: ASPIRIN 81 MG ECTAB PO SCH (08:05)
[2022-03-19] MEDS: CALCIUM 600MG + VIT D 400 IU TAB PO SCH ×2 (08:05→20:10)
[2022-03-19] MEDS: METOPROLOL TARTRATE 25 MG TAB PO SCH (08:08)
--- NOTE | 2022-03-19 08:20 | Hospitalist Progress Note ---
Date of Service March 19, 2022 Assessment & Plan (1) Syncope: (2) Fall: (3) Bilateral mandibular fracture: (4) CHF (congestive heart failure): (5) Facial paralysis/[place] palsy: (6) Diabetes mellitus, type 2: (7) Metastatic breast cancer: (8) Hypotension: Plan: consider adrenal insufficiency in setting of known mets disease. Perform cosyntropin stim test in am and obtain am ACTH, also. For now her BP is responding to IVF, but this needs to be given cautiously given her recent history of CHF. Metoprolol has been held with ongoing bradycardia. Plan This is a 66-year-old female who has a significant past medical history of right metastatic breast cancer to liver and bone status post resection, radiation and currently receiving chemotherapy with Abraxane, last treatment 03/09, chronic HFpEF, CAD, HLD, T2DM, hypothyroidism, Glass's palsy who presents to ED after sustaining a syncopal episode and fall prior to arrival. Syncope and fall in the parking lot No presyncopal symptoms--?cardiac etiology. Consult cardiology Normal BP on admission but has become hypotensive. Fluid bolus given with improvement in BP reading, but this fell again when IVF was stopped Cont IVF for now to help with hypotension Orthostatic v/s No sig carotid stenosis on u/s No evidence of ACS Recent Echo revealed EF 60-65% w/o valvular changes Elevated D-dimer with f/u CT chest and no evidence of PE. facial lacerations repaired in ED Bilateral Mandibular Fx Fracture of posterior R maxillary molar Dr. Centeno Consulted opted for conservative management Notably patient is on Xgeva which may cause higher risk of ONJ cont ice and pain medications as needed Metastatic Breast Ca to liver and bone follows Dr. Subramanian Receiving Abraxane, last 03/[address] s/p resection and xrt recent PET 03/16 shows increased activity in right paratracheal node, right suprahilar node, increased activity distal osseous metastatic lesions and stable diffuse hepatic metastases Chronic HFpEF Dry weight 110.2 Euvolemic, strict I's and O's, daily weights Has not required Lasix since discharge Continue metoprolol CAD chronic, stable. No chest pain or shortness of breath Continue ASA, statin, metoprolol, Plavix DVT proph: Lovenox Full Code Dispo-to home after Cardiology clearance and feeling improved/tolerating PO Meredith Wadena, DO [facility] Hospitalist Admission and Anticipated Discharge Date Admission Date: March 18, 2022 Subjective 66-year-old female with history of right breast invasive ductal carcinoma status post resection in November 2017 with metastatic disease involving the left pubic bone and multiple liver lesions presents with facial pain and multiple facial fractures after syncope and fall while walking into outpatient clinic yesterday. Per outpatient record review, she is on paclitaxel with last treatment infused on 03/09. She receives Xgeva every 12 weeks-last dose was 2 months ago. She also has a history of seronegative polyarthritis which has been in remission after starting systemic chemotherapy for breast cancer. She was previously on Plaquenil over 1 year ago. She had a recent echocardiogram revealing normal left ventricular systolic function with an ejection fraction of 60 to 65% and normal right ventricular size and function with normal right ventricular systolic pressure there was no pericardial effusion and no severe valvular disease. She was also recently affected by Glass's palsy in February. She was treated withPrednisone acyclovir and local eye care for Glass's palsy. Brain MRI at that time revealed no acute intracranial abnormality. On presentation this admission work-up revealed an elevated D-dimer. Subsequently a CTA of the chest was performed revealing no evidence of pulmonary embolus. Extensive multifocal hepatic metastatic disease was noted. There was a trace right pleural effusion with no airspace consolidation typical for pneumo dedrick. White blood cell count is normal anemia is at baseline with a hemoglobin of 9.1 and she has normal platelets. Electrolytes and renal function are normal. A slightly elevated glucose of 256 was noted on admission with a hemoglobin A1c of 6.2. Noted recent prednisone use. There was a mild elevation in AST to 100 that is increased proved to 53 this morning TSH was abnormal at 21 with a free T4 of 0.9. Patient is on levothyroxine replacement. Urinalysis was normal She is felling fatigued but well enough to tolerate some food. Not much pain in her jaw and she reports that Dr. Centeno has decided on conservative nonoperative management. She reports feeling lightheaded with walking for the last couple of months and states that her BP has been in the 80s/40s for this time period, also . She has been handling chemotherapy but is tired from her treatments, last was on 03/09. Review of Systems Review of Systems: All systems were reviewed and negative except as indicated on subjective above. Physical Exam Physical Exam: CONSTITUTIONAL: WNWD, vitals as above, generally well- appearing, NAD EYES: normal conjunctivae, no scleral icterus, ENT: external ear and nose normal, chipped tooth and trauma to chin, able to speak without issue NECK: trachea midline RESPIRATORY: clear to auscultation bilaterally, no crackles, rales or wheezes, normal respiratory effort CARDIOVASCULAR: regular rate and rhythm, S1 and 2 heard without murmurs, gallops or rubs, no JVD, no peripheral edema CHEST: inspection of chest was normal GASTROINTESTINAL: soft, nontender, ND, no guarding MUSCULOSKELETAL: strength 5/5 throughout, head is normocephalic with trauma to lower face, neck supple, normal palpation of chest wall without tenderness SKIN: warm and dry, NEUROLOGIC: left facial palsy, otherwise, CN 2-12 grossly intact, normal cognition, normal speech PSYCHIATRIC: alert cooperative and oriented to person, place and time. Euthymic mood, makes good eye contact, language grossly intact, recent and remote memory grossly intact. Results & Data Results & Data ([facility]) Vital Signs (Past 12 Hours) Vital Signs Temp Pulse Pulse Resp BP BP BP 03/19/22 08:00 36.9 C 51 L 18 88/43 L 03/19/22 03:53 37 C 49 L 18 83/41 L 03/19/22 01:20 51 L 03/19/22 01:15 36.7 C 52 L 16 101/46 L 03/18/22 22:30 51 L 5 L 03/18/22 22:30 95/42 L 03/18/22 22:00 62 20 03/18/22 22:00 92/52 L 03/18/22 21:30 124/55 L 03/18/22 21:30 69 19 03/18/22 21:00 70 18 03/18/22 21:00 130/55 L 03/18/22 20:30 68 12 03/18/22 20:30 126/56 L Pulse Ox O2 Del Method 03/19/22 08:00 98 Room Air 03/19/22 03:53 96 Room Air 03/19/22 01:20 03/19/22 01:15 99 Room Air 03/18/22 22:30 03/18/22 22:30 03/18/22 22:00 03/18/22 22:00 03/18/22 21:30 03/18/22 21:30 03/18/22 21:00 03/18/22 21:00 03/18/22 20:30 03/18/22 20:30 Laboratory Results Short CBC 03/18/22 03/19/22 Range/Units 13:10 05:43 WBC 4.59 L 5.04 (4.8-10.8) K/ul Hgb 9.7 L 9.1 L (12.0-16.0) g/dl Hct 30.9 L 28.9 L (34.1-44.9) % Plt Count 321 320 (130-400) K/uL BMP 03/18/22 03/19/22 13:10 05:43 Sodium 139 140 Potassium 4.2 4.3 Chloride 109 H 111 H Carbon Dioxide 24 25 BUN 21 20 Creatinine 0.88 0.82 Glucose 256 H 129 H Calcium 9.5 9.5 Liver Function 03/18/22 03/19/22 Range/Units 13:10 05:43 Total Bilirubin 0.3 0.5 (0.2-1.0) mg/dl AST 100 H 53 H (13-39) U/L ALT 42 29 (7-52) U/L Alkaline Phosphatase 63 56 (34-104) U/L Albumin 3.7 3.5 (3.4-5.0) gm/dl Urine 03/18/22 Range/Units 15:50 Urine Color Dark Yellow Urine Appearance Clear (Clear) Urine pH 5.0 (4.5-7.5) Ur Specific Boss 1.022 (1.000-1.030) Urine Protein Trace H (Negative) Urine Glucose (UA) Negative (Negative) Medications Administered Current Inpatient Medications Acetaminophen (Acetaminophen 325 Mg Tab) 650 mg PO Q4H PRN PRN Reason: pain/fever Stop: 04/17/22 16:24 Last Admin: 03/19/22 01:59 Dose: 650 mg Al Hydrox/Mg Hydrox/Simethicone (Aluminum/Magnesium Susp 30 Ml Udc) 30 ml PO Q6H PRN PRN Reason: Dyspepsia Stop: 04/17/22 16:24 Albuterol (Albuterol Hfa 8 Gm Inhaler) 2 puffs INH Q4H PRN PRN Reason: Shortness Of Breath Or Wheezing Stop: 04/17/22 16:24 Aspirin (Aspirin 81 Mg Ectab) 81 mg PO QAM [facility] Stop: 04/18/22 08:59 Last Admin: 03/19/22 08:05 Dose: 81 mg Atorvastatin Calcium (Atorvastatin 40 Mg Tab) 80 mg PO HS [facility] Stop: 04/17/22 20:59 Last Admin: 03/18/22 21:15 Dose: 80 mg Dextrose (Dextrose 50% 50 Ml Syringe) 25 - 50 ml IV UD PRN; Protocol PRN Reason: Hypoglycemia Protocol Stop: 04/17/22 16:24 Ferrous Sulfate (Ferrous Sulfate 325 Mg Tab) 325 mg PO MoTh@0900 [facility] Stop: 04/20/22 08:59 Fluoxetine HCl (Fluoxetine Hcl 20 Mg Cap) 40 mg PO QAM [facility] Stop: 04/18/22 08:59 Last Admin: 03/19/22 08:05 Dose: 40 mg Glucagon (Glucagon For Inj 1 Mg Vial) 1 mg SQ UD PRN; Protocol PRN Reason: Hypoglycemia Protocol Stop: 04/17/22 16:24 Glucose (Glucose 40% Gel 15 Gm Tube) 15 - 30 gm PO UD PRN; Protocol PRN Reason: Hypoglycemia Protocol Stop: 04/17/22 16:24 Glucose (Glucose 10 Tab/Tube) 4 - 8 tab PO UD PRN; Protocol PRN Reason: Hypoglycemia Treatment Stop: 04/17/22 16:24 Heparin Sodium (Porcine) (Heparin 100 Unit/Ml 5ml Flush) 5 ml FLUSH PRN PRN PRN Reason: Flush Stop: 04/18/22 00:38 Last Admin: 03/19/22 01:59 Dose: 5 ml Sodium Chloride (Nss 1000ml) 500 mls @ 999 mls/hr IV .Q31M ONE Stop: 03/19/22 08:56 Insulin Aspart (Insulin Aspart Per Unit) 0 units SC ACHS [facility] Stop: 04/17/22 16:29 Last Admin: 03/19/22 00:08 Dose: Not Given Insulin Glargine (Lantus Per Unit Charge) 5 units SQ BID [facility] Stop: 04/17/22 20:59 Last Admin: 03/19/22 00:09 Dose: Not Given Levothyroxine Sodium (Levothyroxine Sodium 200 Mcg Tablet) 400 mcg PO MoTh@0630 [facility] Stop: 04/20/22 06:29 Levothyroxine Sodium (Levothyroxine Sodium 200 Mcg Tablet) 200 mcg PO JeremyuWeFVitaa@0630 [facility] Stop: 04/18/22 06:29 Last Admin: 03/19/22 05:59 Dose: 200 mcg Magnesium Chloride (Magnesium Chloride W/Calcium 64mg Delayed Rel Tab) 64 mg PO DAILY KIM Stop: 04/18/22 08:59 Last Admin: 03/19/22 08:05 Dose: 64 mg Magnesium Hydroxide (Magnesium Hydroxide Susp 30 Ml Udc) 30 ml PO Q6H PRN PRN Reason: Constipation Stop: 04/17/22 16:24 Metoprolol Tartrate (Metoprolol Tartrate 25 Mg Tab) 12.5 mg PO BID [facility] Stop: 04/17/22 20:59 Last Admin: 03/19/22 08:08 Dose: Not Given Mirtazapine (Mirtazapine Tab 15 Mg Tab) 15 mg PO HS [facility] Stop: 04/17/22 20:59 Last Admin: 03/18/22 21:14 Dose: 15 mg Miscellaneous (Carbohydrates For Hypoglycemia ) 15 - 30 gm PO UD PRN PRN Reason: Hypoglycemia Protocol Stop: 04/17/22 16:24 Miscellaneous (Fenofibrate 200 Mg ~ Order Awaiting Action) 1 each N/A QS [facility] Stop: 04/18/22 00:00 Last Admin: 03/19/22 07:10 Dose: Not Given Morphine Sulfate (Morphine Sulfate 2 Mg/Ml Carp) 2 mg IV Q4H PRN PRN Reason: severe pain Stop: 04/01/22 16:24 Multi-Ingredient Cream (Artificial Tears Op Oint 3.5 Gm Tube) 1 appln OPR Q2H [facility] Stop: 04/17/22 16:24 Last Admin: 03/19/22 08:08 Dose: 1 appln Multivitamins/Minerals (Calcium 600mg + Vit D 400 Iu Tab) 1 tab PO BID [facility] Stop: 04/17/22 20:59 Last Admin: 03/19/22 08:05 Dose: 1 tab Ondansetron HCl (Ondansetron Inj 2 Mg/Ml 2 Ml Vial) 4 mg IV Q6H PRN PRN Reason: Nausea Stop: 04/17/22 16:24 Oxycodone/Acetaminophen (Oxycodone/Acetaminophen 5mg/325mg Tab) 1 tab PO Q6H PRN PRN Reason: moderate pain Stop: 04/01/22 16:24 Last Admin: 03/18/22 19:30 Dose: 1 tab Pantoprazole Sodium (Pantoprazole 40 Mg Tab) 40 mg PO [facility] Stop: 04/18/22 08:59 Last Admin: 03/19/22 08:05 Dose: 40 mg Polyethylene Glycol (Polyethylene (Miralax) 17 Gm Pack) 17 gm PO DAILY PRN PRN Reason: Constipation Stop: 04/17/22 16:24
[2022-03-19] MEDS ORDERED: SODIUM CHLORIDE 0.9% 1000ML 500 ML IV ONE (08:26)
[2022-03-19] MEDS: SODIUM CHLORIDE 0.9% 1000ML 1,000 ML IV SCH ×2 (15:45→23:23)
[2022-03-19] MEDS: oxyCODONE/ACETAMINOPHEN 5mg/325mg TAB PO PRN (16:38)
[2022-03-19] MEDS ORDERED: COSYNTROPIN 250 MCG in SYRINGE 4 ML IV ONE (17:38)
[2022-03-19] MEDS ORDERED: oxyCODONE HCL IR 5 MG TAB (IMMEDIATE RELEASE) PO PRN (17:44)
[2022-03-19] MEDS: ATORVASTATIN 40 MG TAB PO SCH (20:10)
[2022-03-19] MEDS: MIRTAZAPINE TAB 15 MG TAB PO SCH (20:10)
[2022-03-19] MEDS: ACETAMINOPHEN 500 MG TAB PO SCH (20:13)
[2022-03-20] MEDS: ARTIFICIAL TEARS OP OINT 3.5 GM TUBE OPR SCH ×11 (01:16→22:14)
[2022-03-20] MEDS: ACETAMINOPHEN 500 MG TAB PO SCH ×3 (05:58→19:38)
[2022-03-20] MEDS: LEVOTHYROXINE SODIUM 200 MCG TABLET PO SCH (05:59)
[2022-03-20] MEDS: MAGNESIUM CHLORIDE W/CALCIUM 64MG DELAYED REL TAB PO SCH (07:40)
[2022-03-20] MEDS: FLUoxetine HCL 20 MG CAP PO SCH (07:40)
[2022-03-20] MEDS: CALCIUM 600MG + VIT D 400 IU TAB PO SCH ×2 (07:41→20:20)
[2022-03-20] MEDS: PANTOprazole 40 MG TAB PO SCH (07:41)
[2022-03-20] MEDS: LANTUS PER UNIT CHARGE SQ SCH ×2 (07:41→20:21)
[2022-03-20] MEDS ORDERED: Cosyntropin 250mcg IVP **Standard-Dose Cortrosyn Stim Test IV ONE (08:00)
[2022-03-20 08:27] LABS: Hematocrit (blood only) 26.3 % (34.1-44.9); Hemoglobin 8.3 g/dl (12.0-16.0); Mean Corpuscular Hemoglobin 29.3 pg (25.0-34.0); Mean Corpuscular Hgb Conc 31.6 g/dL (32.0-36.0); Mean Corpuscular Volume 92.9 fL (80.0-100.0); Mean Platelet Volume 10.6 fL (9.4-12.3); Platelet Count 243 K/uL (130-400); RDW Standard Deviation 72.7 fL (36.4-46.3); Red Blood Count 2.83 M/uL (3.93-5.22); White Blood Count 3.45 K/ul (4.8-10.8)
[2022-03-20] MEDS: INSULIN ASPART PER UNIT SC SCH ×5 (08:48→20:21)
[2022-03-20 09:03] LABS: BUN Creatinine Ratio 22.9 (10-20); Calcium 8.5 mg/dl (8.5-10.1); Est GFR (African American) 103.2 ml/min; Potassium 3.8 mmol/L (3.5-5.1)
--- NOTE | 2022-03-20 10:53 | Cardiology Consultation ---
Date of Consultation March 20, 2022 Assessment & Plan (1) Fall: -suspect this may have been an episode of syncope. -no pauses or Maurisio dysrhythmia recognize on monitor thus far. -may be reasonable to discontinue metoprolol tartrate as her event could have been orthostatic hypotension. -will discuss with electrophysiology tomorrow. (2) Hypotension: -she has demonstrated relatively low blood pressure several times during this hospitalization. -as above, it may be reasonable to discontinue metoprolol tartrate. (3) CAD (coronary artery disease): -s/p IMI with an RCA VENKATA in November 2014 -beta-inocente therapy 5 years after the event of little value. -continue aspirin, clopidogrel, and atorvastatin. (4) CHF (congestive heart failure): -hospitalized in February with decompensated diastolic CHF. -follows daily weights and sliding-scale diuretics as an outpatient. -seems compensated at this time. History of Present Illness Attending Physician: Meredith Ariza DO History of Present Illness Mrs. Diaz is a 66-year-old female admitted on the 18 of March after a fall resulting in bilateral mandibular fracture and fracture of the right posterior maxillary molar. This consultation was ordered to assist in her cardiac management. Of note, patient is well known to me from the inpatient and outpatient settings. The patient was in her usual state of health until the day of presentation. She was walking into the [facility] in [place] to meet with the pharmacist and discuss her diabetes. She fell to the ground striking her chin. She has no recollection of the fall. There were minor abrasions on her hands. There was no concurrent nausea, vomiting, or diaphoresis. Patient has never experienced an episode of syncope previously. There has been no dysrhythmia identified on the monitor thus far. The patient carries a history of diastolic CHF and was admitted to the hospital February 28 and March 01 in a decompensated state. She responded to 1 dose of intravenous diuretics and was discharged home in stable fashion. The patient does follow daily weights at home and uses sliding-scale diuretics when necessary for weight gain. Her current dry weight is 110 lbs. She has not required a diuretic dose since her hospital discharge. The patient is receiving Abraxane to treat her metastatic breast carcinoma (liver and bony Mets). Her last treatment was on March 09. She tolerates chemotherapy without difficulty. She has been eating and drinking normally. Currently, patient is resting comfortably in bed without complaints. Past medical and surgical history 1. Coronary artery disease-see above 2. RCA VENKATA-November 2014 3. Hypertension 4. Hypercholesterolemia 5. Diastolic CHF 6. Diabetes mellitus 7. GERD 8. Hypothyroidism 9. Asthma 10. Anemia of chronic disease 11. Polymyalgia rheumatica 12. Generalized peripheral neuropathy 13. Colonic polyps 14. Metastatic breast carcinoma-liver and bony Mets 15. Obsessive-compulsive disorder 16. Cholecystectomy 17. Breast lumpectomy 18. Rotator cuff repair 19. Spinal fusion Social history , lives with friends Retired nurse No tobacco alcohol Family history No early coronary artery disease Review of systems A 10 review systems was undertaken and negative except that described above. Allergies Allergy/AdvReac Type Severity Reaction Status Date / Time methylprednisolone Allergy Severe Anaphylaxis Verified 03/18/22 15:12 NSAIDS (Non-Steroidal Allergy Severe Hives Verified 03/18/22 15:12 Anti-Inflamma oxaprozin [From Daypro] Allergy Severe Anaphylaxis Verified 03/18/22 15:12 dextromethorphan Allergy Intermediate Hives Verified 03/18/22 15:12 erythromycin base Allergy Intermediate Hives Verified 03/18/22 15:12 aspirin Allergy Unknown Unknown Verified 03/18/22 15:12 doxylamine Allergy Unknown Unknown Verified 03/18/22 15:12 pseudoephedrine Allergy Unknown Unknown Verified 03/18/22 15:12 Home Medications Medication Instructions Recorded Confirmed Type albuterol sulfate 90 mcg/actuation 2 puffs inhalation Q4H PRN 08/08/19 03/18/22 History aerosol inhaler Shortness Of Breath Or Wheezing amoxicillin 500 mg capsule 2,000 mg PO DIRECTED PRN 1 HOUR 08/08/19 03/18/22 History PRIOR TO DENTAL APPT. aspirin 81 mg tablet,delayed 81 mg PO QAM 08/08/19 03/18/22 History release clopidogrel 75 mg tablet (Plavix) 75 mg PO QAM 08/08/19 03/18/22 History fenofibrate micronized 200 mg 200 mg PO HS 08/08/19 03/18/22 History capsule levothyroxine 200 mcg tablet 400 mcg PO 2XWK 08/08/19 03/18/22 History (Synthroid) omeprazole 20 mg capsule,delayed 20 mg PO QAM 08/08/19 03/18/22 History release calcium carbonate 600 mg-vitamin 1 tab PO BID 10/09/19 03/18/22 History D3 5 mcg (200 unit) tablet fluticasone propionate 50 1 sprays intranasal DAILY PRN 10/09/19 03/18/22 History mcg/actuation nasal Congestion spray,suspension acetaminophen 500 mg tablet 1,000 mg PO Q6H PRN Pain 07/09/21 03/18/22 History (Tylenol Extra Strength) denosumab 120 mg/1.7 mL (70 mg/mL) 120 mg subcut .EVERY 3 MONTHS 07/09/21 03/18/22 History subcutaneous solution (Xgeva) fluoxetine 20 mg capsule (Prozac) 40 mg PO QAM 07/09/21 03/18/22 History oxycodone-acetaminophen 5 mg-325 1 tab PO Q6H PRN Pain 07/09/21 03/18/22 History mg tablet (Percocet) paclitaxel protein-bound 100 mg 0 mg IV UD 07/09/21 03/18/22 History intravenous suspension (Abraxane) prochlorperazine maleate 5 mg 10 mg PO QID PRN nausea and 07/09/21 03/18/22 History tablet (Compazine) vomiting metoprolol tartrate 25 mg tablet 12.5 mg PO BID #90 tabs 11/04/21 03/18/22 Rx ferrous sulfate 325 mg (65 mg 325 mg PO 2XWK 11/12/21 03/18/22 History iron) tablet atorvastatin 80 mg tablet 80 mg PO HS 12/10/21 03/18/22 History ondansetron 4 mg disintegrating 4 mg PO Q6H PRN Nausea And Vomiting 12/10/21 03/18/22 History tablet levothyroxine 200 mcg tablet 200 mcg PO 5XWK 02/28/22 03/18/22 History magnesium chloride 64 mg 64 mg PO DAILY 02/28/22 03/18/22 History (magnesium chloride) tablet,delayed release (Mag 64) furosemide 20 mg tablet (Lasix) 20 mg PO UD PRN weight gain #10 03/01/22 03/18/22 Rx tabs white petrolatum-mineral oil 83 1 applic OPR Q2H #3.5 grams 03/01/22 03/18/22 Rx %-15 % eye ointment (Artificial Tears (petrolatum/mineral oil)) mirtazapine 15 mg tablet 15 mg PO HS 03/18/22 03/18/22 History Patient History Medical History Anemia Asthma Cancer right breast cancer Diabetes mellitus, type 2 Fusion of spine GERD (gastroesophageal reflux disease) History of deviated nasal septum History of OCD (obsessive compulsive disorder) Hx MRSA infection bilateral axillary abscess a year ago. Has not been retested. Hyperlipidemia Hypertension Hypothyroidism Myocardial Infarction On anticoagulant therapy Osteoarthritis Peripheral neuropathy RUE, RLE Recent weight loss Surgical History History of cholecystectomy History of colonoscopy 2019 polyp removed History of discectomy History of esophagogastroduodenoscopy (EGD) History of heart artery stent History of repair of rotator cuff right Hx of lumpectomy right breast Family History Other Cancer Diabetes Hypertension Stroke Social History Smoking Status: Never smoker Hx Alcohol Use: Yes Hx Substance Use: No Preferred Language: [place] Communication Ability: Effective Satellite Installation Technician Required: No Beliefs That Will Affect Care: None marital status: Single Current Living Situation: Family Current Living Situation Comment: friends stay w/ her. currently friends are moving in w/ her Feels Safe at Home: Yes Safety Concerns: Feels Safe At This Time Assistive Devices: Cane and Walker Physical Exam Physical Exam: In general is well -developed well-no urished female in no acute distress. HEENT exam notes alopecia and a dr essing across her chin. Neck is sup ple with full kay tid upstrokes. No carotid bruits. Jugular is pressur e is flat at 90. There is no thyro megaly. Cardiovas cular exam reveals a regular rhythm with a normal S1-S 2. No S3, S4, or murmurs are noted. Lungs are clear without rales, rho nchi, or wheezes. Abdomen is soft a nd nontender witho ut bruits. Chest reveals a port in the right subclavi cular region. Ext remities reveal in tact radial artery pulses bilaterall y. Trace pretibia l edema is noted. Results & Data ([facility]) Vital Signs (Past 12 Hours) Vital Signs Temp Pulse Pulse Resp BP Pulse Ox O2 Del Method 03/20/22 07:32 36.8 C 63 18 109/57 L 98 Room Air 03/20/22 07:30 60 03/20/22 03:43 36.7 C 59 L 18 99/46 L 97 Room Air Laboratory Results CBC notes hemoglobin of 8.3, hematocrit 26.3, white count 3.45, platelet count 2 0 43,000. Electrolytes note a sodium of 141, potassium 3.8, chloride 111, bicarb 24, BUN 16, creatinine 0.7, glucose of 99. High sensitivity troponins are 3.4, 4.6, and 6.2. Diagnostic Findings EKG notes normal sinus rhythm with PACs. Echocardiogram performed on March 01 noted normal systolic function with ejection fraction of 60-65%. There were no wall motion abnormalities. There was no valvular pathology. PG Care Time/CCT Total # of Minutes Spent Total Time Spent with Patient: Total time spent is greater than 50% in coordination of care (as documented) at patient's floor/unit and/or counseling patient: Coding Level of Care Code 15119 Initial Inpt Care Lvl 3 Diagnoses Fall W19.XXXA Hypotension I95.9 CAD (coronary artery disease) I25.10 CHF (congestive heart failure) I50.9
--- NOTE | 2022-03-20 15:15 | Hospitalist Progress Note ---
Date of Service March 20, 2022 Assessment & Plan (1) Syncope: (2) Fall: (3) Bilateral mandibular fracture: (4) CHF (congestive heart failure): (5) Facial paralysis/[place] palsy: (6) Diabetes mellitus, type 2: (7) Metastatic breast cancer: (8) Hypotension: (9) Anemia: Plan Syncope and fall in the parking lot No presyncopal symptoms--?cardiac etiology. Consult cardiology Normal BP on admission but has become hypotensive. Fluid bolus given with improvement in BP reading, but this fell again when IVF was stopped Cont IVF for now to help with hypotension Orthostatic v/s No sig carotid stenosis on u/s No evidence of ACS Recent Echo revealed EF 60-65% w/o valvular changes Elevated D-dimer with f/u CT chest and no evidence of PE. facial lacerations repaired in ED Bilateral Mandibular Fx Fracture of posterior R maxillary molar Dr. Centeno Consulted opted for conservative management Notably patient is on Xgeva which may cause higher risk of ONJ cont ice and pain medications as needed soft diet Hypotension normal cosyntropin stim test ruling out adrenal insufficiency low BP resolved after giving IVF overnight Cont to hold metoprolol in setting of bradycardia. Metastatic Breast Ca to liver and bone follows Dr. Subramanian Receiving Abraxane, last 03/[address] s/p resection and xrt recent PET 03/16 shows increased activity in right paratracheal node, right suprahilar node, increased activity distal osseous metastatic lesions and stable diffuse hepatic metastases f/u Oncology as outpatient. Chronic HFpEF Dry weight 110.2 Euvolemic, strict I's and O's, daily weights Has not required Lasix since discharge Continue metoprolol CAD chronic, stable. No chest pain or shortness of breath Continue ASA, statin, metoprolol, Plavix DVT proph: Lovenox Full Code Dispo-to home after Cardiology clearance and feeling improved/tolerating PO Meredith Ariza DO [facility] Hospitalist Admission and Anticipated Discharge Date Admission Date: March 19, 2022 Subjective 66-year-old female presents with syncopal episode and subsequent mandibular fracture as a result of the fall. Her pain is improved and she is tolerating PO well Seen by cardiology who wants to cont to monitor her on telemetry for now given the sudden collapse without prodrome Denies any chest pain, SOB BP has improved after 2 L IVF overnight Cosyntropin stim test this am was negative. Review of Systems Review of Systems: All systems were reviewed and negative except as indicated on subjective above. Physical Exam Physical Exam: CONSTITUTIONAL: WNWD, vitals as above, generally well- appearing, NAD EYES: normal conjunctivae, no scleral icterus, ENT: external ear and nose normal, chipped tooth and trauma to chin, able to speak without issue NECK: trachea midline RESPIRATORY: clear to auscultation bilaterally, no crackles, rales or wheezes, normal respiratory effort CARDIOVASCULAR: regular rate and rhythm, S1 and 2 heard without murmurs, gallops or rubs, no JVD, no peripheral edema CHEST: inspection of chest was normal GASTROINTESTINAL: soft, nontender, ND, no guarding MUSCULOSKELETAL: strength 5/5 throughout, head is normocephalic with trauma to lower face, neck supple, normal palpation of chest wall without tenderness SKIN: warm and dry, NEUROLOGIC: left facial palsy, otherwise, CN 2-12 grossly intact, normal cognition, normal speech PSYCHIATRIC: alert cooperative and oriented to person, place and time. Euthymic mood, makes good eye contact, language grossly intact, recent and remote memory grossly intact. Results & Data Results & Data ([facility]) Vital Signs (Past 12 Hours) Vital Signs Temp Pulse Pulse Resp BP Pulse Ox O2 Del Method 03/20/22 14:28 36.5 C 68 18 116/66 99 Room Air 03/20/22 11:57 36.5 C 63 18 111/64 96 Room Air 03/20/22 07:32 36.8 C 63 18 109/57 L 98 Room Air 03/20/22 07:30 60 03/20/22 03:43 36.7 C 59 L 18 99/46 L 97 Room Air Laboratory Results Short CBC 03/20/22 Range/Units 07:52 WBC 3.45 L (4.8-10.8) K/ul Hgb 8.3 L (12.0-16.0) g/dl Hct 26.3 L (34.1-44.9) % Plt Count 243 (130-400) K/uL BMP 03/20/22 07:52 Sodium 141 Potassium 3.8 Chloride 111 H Carbon Dioxide 24 BUN 16 Creatinine 0.70 Glucose 99 Calcium 8.5 Medications Administered Current Inpatient Medications Acetaminophen (Acetaminophen 500 Mg Tab) 1,000 mg PO Q8H KIM Stop: 04/18/22 19:59 Last Admin: 03/20/22 12:46 Dose: 1,000 mg Al Hydrox/Mg Hydrox/Simethicone (Aluminum/Magnesium Susp 30 Ml Udc) 30 ml PO Q6H PRN PRN Reason: Dyspepsia Stop: 04/17/22 16:24 Albuterol (Albuterol Hfa 8 Gm Inhaler) 2 puffs INH Q4H PRN PRN Reason: Shortness Of Breath Or Wheezing Stop: 04/17/22 16:24 Aspirin (Aspirin 81 Mg Ectab) 81 mg PO QAM [facility] Stop: 04/18/22 08:59 Last Admin: 03/19/22 08:05 Dose: 81 mg Atorvastatin Calcium (Atorvastatin 40 Mg Tab) 80 mg PO HS [facility] Stop: 04/17/22 20:59 Last Admin: 03/19/22 20:10 Dose: 80 mg Dextrose (Dextrose 50% 50 Ml Syringe) 25 - 50 ml IV UD PRN; Protocol PRN Reason: Hypoglycemia Protocol Stop: 04/17/22 16:24 Ferrous Sulfate (Ferrous Sulfate 325 Mg Tab) 325 mg PO MoTh@0900 [facility] Stop: 04/20/22 08:59 Fluoxetine HCl (Fluoxetine Hcl 20 Mg Cap) 40 mg PO QAM [facility] Stop: 04/18/22 08:59 Last Admin: 03/20/22 07:40 Dose: 40 mg Glucagon (Glucagon For Inj 1 Mg Vial) 1 mg SQ UD PRN; Protocol PRN Reason: Hypoglycemia Protocol Stop: 04/17/22 16:24 Glucose (Glucose 40% Gel 15 Gm Tube) 15 - 30 gm PO UD PRN; Protocol PRN Reason: Hypoglycemia Protocol Stop: 04/17/22 16:24 Glucose (Glucose 10 Tab/Tube) 4 - 8 tab PO UD PRN; Protocol PRN Reason: Hypoglycemia Treatment Stop: 04/17/22 16:24 Heparin Sodium (Porcine) (Heparin 100 Unit/Ml 5ml Flush) 5 ml FLUSH PRN PRN PRN Reason: Flush Stop: 04/18/22 00:38 Last Admin: 03/19/22 01:59 Dose: 5 ml Insulin Aspart (Insulin Aspart Per Unit) 0 units SC ACHS KIM Stop: 04/17/22 16:29 Last Admin: 03/20/22 12:58 Dose: 3 units Insulin Glargine (Lantus Per Unit Charge) 5 units SQ BID [facility] Stop: 04/17/22 20:59 Last Admin: 03/20/22 07:41 Dose: Not Given Levothyroxine Sodium (Levothyroxine Sodium 200 Mcg Tablet) 400 mcg PO MoTh@0630 [facility] Stop: 04/20/22 06:29 Levothyroxine Sodium (Levothyroxine Sodium 200 Mcg Tablet) 200 mcg PO SuTuWeFrS a@0630 [facility] Stop: 04/18/22 06:29 Last Admin: 03/20/22 05:59 Dose: 200 mcg Magnesium Chloride (Magnesium Chloride W/Calcium 64mg Delayed Rel Tab) 64 mg PO DAILY [facility] Stop: 04/18/22 08:59 Last Admin: 03/20/22 07:40 Dose: 64 mg Magnesium Hydroxide (Magnesium Hydroxide Susp 30 Ml Udc) 30 ml PO Q6H PRN PRN Reason: Constipation Stop: 04/17/22 16:24 Metoprolol Tartrate (Metoprolol Tartrate 25 Mg Tab) 12.5 mg PO BID [facility] Stop: 04/17/22 20:59 Last Admin: 03/19/22 08:08 Dose: Not Given Mirtazapine (Mirtazapine Tab 15 Mg Tab) 15 mg PO HS [facility] Stop: 04/17/22 20:59 Last Admin: 03/19/22 20:10 Dose: 15 mg Miscellaneous (Carbohydrates For Hypoglycemia ) 15 - 30 gm PO UD PRN PRN Reason: Hypoglycemia Protocol Stop: 04/17/22 16:24 Miscellaneous (Fenofibrate 200 Mg ~ Order Awaiting Action) 1 each N/A QS [facility] Stop: 04/18/22 00:00 Last Admin: 03/20/22 07:40 Dose: Not Given Morphine Sulfate (Morphine Sulfate 2 Mg/Ml Carp) 2 mg IV Q4H PRN PRN Reason: severe pain Stop: 04/01/22 16:24 Multi-Ingredient Cream (Artificial Tears Op Oint 3.5 Gm Tube) 1 appln OPR Q2H [facility] Stop: 04/17/22 16:24 Last Admin: 03/20/22 14:31 Dose: Not Given Multivitamins/Minerals (Calcium 600mg + Vit D 400 Iu Tab) 1 tab PO BID [facility] Stop: 04/17/22 20:59 Last Admin: 03/20/22 07:41 Dose: 1 tab Ondansetron HCl (Ondansetron Inj 2 Mg/Ml 2 Ml Vial) 4 mg IV Q6H PRN PRN Reason: Nausea Stop: 04/17/22 16:24 Oxycodone HCl (Oxycodone Hcl Ir 5 Mg Tab (Immediate Release)) 5 mg PO Q6H PRN PRN Reason: severe pain (7-10) Stop: 04/02/22 17:43 Pantoprazole Sodium ([facility]oprazole 40 Mg Tab) [facility]: 04/18/22 08:59 Last Admin: 03/20/22 07:41 Dose: 40 mg Polyethylene Glycol (Polyethylene (Miralax) 17 Gm Pack) 17 gm PO DAILY PRN PRN Reason: Constipation Stop: 04/17/22 16:24
[2022-03-20] MEDS: ATORVASTATIN 40 MG TAB PO SCH (20:20)
[2022-03-20] MEDS: MIRTAZAPINE TAB 15 MG TAB PO SCH (20:21)
[2022-03-20] MEDS ORDERED: ENOXAPARIN INJ 40 MG/0.4 ML SYR SQ SCH (21:00)
[2022-03-21] MEDS: ARTIFICIAL TEARS OP OINT 3.5 GM TUBE OPR SCH ×6 (00:22→12:14)
[2022-03-21] MEDS: ACETAMINOPHEN 500 MG TAB PO SCH ×2 (05:52→12:14)
[2022-03-21] MEDS ORDERED: LEVOTHYROXINE SODIUM 200 MCG TABLET PO SCH (06:30)
[2022-03-21 07:51] LABS: Hematocrit (blood only) 26.6 % (34.1-44.9); Hemoglobin 8.3 g/dl (12.0-16.0); Mean Corpuscular Hemoglobin 28.6 pg (25.0-34.0); Mean Corpuscular Hgb Conc 31.2 g/dL (32.0-36.0); Mean Corpuscular Volume 91.7 fL (80.0-100.0); Mean Platelet Volume 10.7 fL (9.4-12.3); Platelet Count 254 K/uL (130-400); RDW Coefficient of Variation 20.7 % (11.5-14.5); RDW Standard Deviation 70.4 fL (36.4-46.3); White Blood Count 3.29 K/ul (4.8-10.8)
[2022-03-21 08:20] LABS: BUN Creatinine Ratio 23.1 (10-20); Calcium 8.8 mg/dl (8.5-10.1); Creatinine Clr Calc Pharmacy 62.5 ml/min; Est GFR (African American) 105.7 ml/min; Est GFR (Non-African American) 91.2 ml/min; Potassium 3.8 mmol/L (3.5-5.1)
[2022-03-21 08:21] VITALS: BP 125/62; PULSE 56; TEMP 97.9; O2SAT 98
[2022-03-21] MEDS: INSULIN ASPART PER UNIT SC SCH ×2 (08:39→12:12)
[2022-03-21] MEDS: LANTUS PER UNIT CHARGE SQ SCH (08:40)
[2022-03-21] MEDS: CALCIUM 600MG + VIT D 400 IU TAB PO SCH (08:48)
[2022-03-21] MEDS: FLUoxetine HCL 20 MG CAP PO SCH (08:48)
[2022-03-21] MEDS: MAGNESIUM CHLORIDE W/CALCIUM 64MG DELAYED REL TAB PO SCH (08:49)
[2022-03-21] MEDS: PANTOprazole 40 MG TAB PO SCH (08:49)
[2022-03-21] MEDS: ASPIRIN 81 MG ECTAB PO SCH (08:50)
[2022-03-21] MEDS ORDERED: CLOPIDOGREL BISULFATE 75 MG TAB PO SCH (09:00)
[2022-03-21] MEDS ORDERED: FERROUS SULFATE 325 MG TAB PO SCH (09:00)
--- NOTE | 2022-03-21 10:44 | Cardiology Progress Note ---
Date of Service March 21, 2022 Assessment & Plan (1) Fall: Plan: -orthostatic hypotension verses cardiac syncope. -no pauses or Maurisio dysrhythmia recognized on monitor since admission (favors orthostasis). -metoprolol tartrate discontinued as her event may have been orthostatic hypotension. -stable for hospital discharge. -agree with outpatient monitor. -stable for hospital discharge. -follow-up as scheduled next month. -discussed with electrophysiology, they agree with our strategy. (2) Hypotension: Plan: -she has demonstrated relatively low blood pressure several times during this hospitalization. -metoprolol tartrate discontinued. (3) CAD (coronary artery disease): Plan: -s/p IMI with an RCA VENKATA in November 2014 -beta-inocente therapy 5 years after the event of little value. -continue aspirin, clopidogrel, and atorvastatin. (4) CHF (congestive heart failure): Plan: -hospitalized in February with decompensated diastolic CHF. -follows daily weights and sliding-scale diuretics as an outpatient. -uses Lasix p.r.n. weight gain. -she is compensated at this time. Admission and Anticipated Discharge Date Admission Date: March 19, 2022 Subjective Mrs. Diaz is resting comfortably in bed without complaints of chest pain, dyspnea, syncope, or presyncope. Physical Exam Physical Exam: In general is well -developed well-no urished female in no acute distress. HEENT exam notes alopecia and a dr essing across her chin. Neck is sup ple with full kay tid upstrokes. No carotid bruits. No JVD. There is no thyromegaly. C ardiovascular exam reveals a regular rhythm with a nor mal S1-S2. No S3, S4, or murmurs ar e noted. Lungs ar e clear without ra les, rhonchi, or w heezes. Abdomen i s soft and nontend er without bruits. Chest reveals a port in the right subclavicular simona on. Extremities r eveal intact radia l artery pulses bi laterally. Trace pretibial edema is noted. Results & Data ([facility]) Vital Signs (Past 12 Hours) Vital Signs Temp Pulse Pulse Resp BP Pulse Ox O2 Del Method 03/21/22 08:17 36.6 C 56 L 17 125/62 98 Room Air 03/21/22 07:15 63 07/18/22 03:23 36.7 C 70 18 138/67 97 Room Air 03/20/22 23:55 64 03/20/22 22:45 36.4 C L 65 20 126/61 98 Room Air Diagnostic Findings leaf size picker notes normal sinus rhythm without abnormalities. No pauses or Maurisio dysrhythmias identified. PG Care Time/CCT Total # of Minutes Spent Total Time Spent with Patient: Total time spent is greater than 50% in coordination of care (as documented) at patient's floor/unit and/or counseling patient: Coding Level of Care Code 06291 Subseq Hosp Care Lvl 3 Diagnoses Fall W19.XXXA Hypotension I95.9 CAD (coronary artery disease) I25.10 CHF (congestive heart failure) I50.9
--- NOTE | 2022-03-21 10:51 | Discharge Summary ---
Date of Service March 21, 2022 Admission HPI Per Admitting Provider This is a 66-year-old female who has a significant past medical history of right metastatic breast cancer to liver and bone status post resection, radiation and currently receiving chemotherapy with Abraxane, last treatment 03/09, chronic HFpEF, CAD, HLD, T2DM, hypothyroidism, Glass's palsy who presents to ED after sustaining a syncopal episode and fall prior to arrival. Her sister and caregiver are at bedside. Of significance patient was recently hospitalized 02/28-03/01 secondary to CHF and Glass's palsy. She did undergo echocardiogram which revealed EF 60 to 65% but otherwise unremarkable. She was treated with IV Lasix. In regards to her Glass's palsy MRI was negative. She completed course of acyclovir and prednisone. She continues to have symptoms of Glass's palsy. She has not required Lasix since being discharged and her dry weight is 110.2. Today she was going to clinic to see pharmacist in regards to diabetes. Upon walking in she sustained a fall. She does not recall falling but remembers being on the ground. She struck her chin. She recalls calling her a gentleman to help her. Staff from [facility] came out to assist and get her in a wheelchair. EMS was summoned. She was awake and alert at this time. Fall was otherwise unwitnessed. She states ever since starting chemotherapy she does occasionally get lightheaded and feeling of passing out. She has never passed out. She had no presyncopal symptoms today including lightheadedness, dizziness, chest pain, nausea or diaphoresis. Currently she is complaining of bilateral facial pain. Otherwise she denies any complaints. She continues to have facial nerve palsy as well as frequent tearing to right eye. She denies any fever, chills, sweats, URI symptoms, cough, chest pain, shortness of breath, palpitations, nausea, vomiting, abdominal pain. She has not had any nausea and vomiting with chemotherapy and is otherwise been tolerating it well. She has been eating and drinking well. Patient did undergo PET scan on 03/16 which did reveal increased activity at right paratracheal node, right suprahilar node, distal osseous metastatic lesions and stable diffuse hepatic lesions. In ED patient remained hemodynamically stable. Head CT was negative for any acute abnormality. Facial CT did reveal bilateral mandibular fractures and fracture of posterior right maxillary molar. She also sustained lacerations to chin w hich were repaired in ED. Oromaxillofacial, Dr. Centeno, was consulted. Principal Diagnosis Syncope Hypotension-resolved bilateral mandibular fractures metastatic breast cancer on chemotherapy treatment Discharge Exam CONSTITUTIONAL: WNWD, vitals as above, generally well-appearing, NAD EYES: normal conjunctivae, no scleral icterus, ENT: external ear and nose normal, chipped tooth and trauma to chin, able to speak without issue NECK: trachea midline RESPIRATORY: clear to auscultation bilaterally, no crackles, rales or wheezes, normal respiratory effort CARDIOVASCULAR: regular rate and rhythm, S1 and 2 heard without murmurs, gallops or rubs, no JVD, no peripheral edema CHEST: inspection of chest was normal GASTROINTESTINAL: soft, nontender, ND, no guarding MUSCULOSKELETAL: strength 5/5 throughout, head is normocephalic with trauma to lower face, neck supple, normal palpation of chest wall without tenderness SKIN: warm and dry, NEUROLOGIC: left facial palsy, otherwise, CN 2-12 grossly intact, normal cognition, normal speech PSYCHIATRIC: alert cooperative and oriented to person, place and time. Euthymic mood, makes good eye contact, language grossly intact, recent and remote memory grossly intact. Discharge Data Allergies Allergy/AdvReac Type Severity Reaction Status Date / Time methylprednisolone Allergy Severe Anaphylaxis Verified 03/18/22 15:12 NSAIDS (Non-Steroidal Allergy Severe Hives Verified 03/18/22 15:12 Anti-Inflamma oxaprozin [From Daypro] Allergy Severe Anaphylaxis Verified 03/18/22 15:12 dextromethorphan Allergy Intermediate Hives Verified 03/18/22 15:12 erythromycin base Allergy Intermediate Hives Verified 03/18/22 15:12 aspirin Allergy Unknown Unknown Verified 03/18/22 15:12 doxylamine Allergy Unknown Unknown Verified 03/18/22 15:12 pseudoephedrine Allergy Unknown Unknown Verified 03/18/22 15:12 Consultations 03/18/22 14:55 ED Decision to Admit Stat 03/18/22 15:07 Consult Oromaxillofacial Surgery Routine 03/18/22 18:02 Consult Anesthesiology Routine 03/19/22 17:46 Consult Cardiology Routine Procedures Performed Operation Date: 03/19/22 09:00 <No data on this case meets the specified criteria> Ordered Studies 03/18/22 13:07 CT head/brain wo con Stat 03/18/22 13:51 CT cervical spine wo con Stat CT face [CT facial bones wo con] Stat 03/18/22 15:50 Carotid duplex [US carotid doppler BI] Routine 03/18/22 17:40 CT angio chest PE protocol Stat Hospital Course (1) Syncope: (2) Fall: (3) Bilateral mandibular fracture: (4) CHF (congestive heart failure): (5) Facial paralysis/[place] palsy: (6) Diabetes mellitus, type 2: (7) Metastatic breast cancer: (8) Hypotension: (9) Anemia: Plan Syncope and fall in the parking lot of clinic No presyncopal symptoms--?cardiac etiology. Consulted cardiology Normal BP on admission but has become hypotensive. Fluid bolus given with improvement in BP reading, but this fell again when IVF was stopped Cont IVF for now to help with hypotension Orthostatic v/s negative No sig carotid stenosis on carotid u/s No evidence of ACS Recent Echo revealed EF 60-65% w/o significant valvular changes Elevated D-dimer with f/u CT chest and no evidence of PE. facial lacerations repaired in ED Bilateral Mandibular Fx Fracture of posterior R maxillary molar Dr. Centeno [place] [place] Consulted opted for conservative management Notably patient is on Xgeva which may cause higher risk of osteonecrosis of jaw cont ice and pain medications as needed soft diet which she was tolerating for a couple of days prior to discharge will cont this until she follows up with Dr. Centeno in clinic. Hypotension normal cosyntropin stim test ruled out adrenal insufficiency low BP resolved after giving IVF overnight Cont to hold metoprolol in setting of bradycardia. BP remained stable off IVF, ?dehydration as a possible cause for syncope Metastatic Breast Ca to liver and bone follows Dr. Subramanian Receiving Abraxane, last 03/[address] s/p resection and xrt recent PET 03/16 shows increased activity in right paratracheal node, right suprahilar node, increased activity distal osseous metastatic lesions and stable diffuse hepatic metastases f/u Oncology as outpatient. Chronic HFpEF Dry weight 110.2 Euvolemic, strict I's and O's, daily weights Has not required Lasix since discharge Continue metoprolol CAD chronic, stable. No chest pain or shortness of breath Continue ASA, statin, metoprolol, Plavix It was felt that her syncopal episode may have been attributed to transient low BP, bradycardia on metoprolol, dehydration, elevated environmental temperatures and recent chemotherapy infusion just one week prior to the episode. She was monitored on telemetry during her stay with no evidence of heart block or occult arrhythmias. Will plan for event monitor as outpatient and follow-up closely with her PCP. Total Time Total Time Spent Total Time Spent (In Minutes): 60 Discharge Plan Discharge Items Patient Disposition: Home - Self-Care Reason For Visit: FALL, B/L MANDIBULAR FX Discharge Diagnosis: Syncope Hypotension-resolved bilateral mandibular fractures metastatic breast cancer on chemotherapy treatment Condition on Discharge: Good Activity: Resume your previous activity Lifting: Gradually increase as tolerated Bathing: No limitations Exercise/Sports: As tolerated Non-emergency contact: Surgeon Call non-emergency contact if: your pain is worsening and your wound pain has increased Follow-up/Referrals: Jony Centeno DMD [Physician] - Randy Rush MD [Primary Care Provider] - (Date & Time 03/24/2022 11:20 AM Provider Randy Rush MD Department Family [facility] ) Diet: Regular Diet Comment: soft diet ONLY, NON CHEW DIET until you see Dr Centeno Addtl Attending Provider Instructions: ACTIVITY RECOMMENDATIONS: Activity Please take it easy for the next few days Under no circumstances are you to drive a car until you medical provider instruct you to do so. SPECIAL DIET INSTRUCTIONS: * Soft foods and liquids will be required to prevent stressing the fractured bone and promote healing * Avoid hot, spicy foods. * you MUST follow the jaw exercising for opening and closing as instructed by Dr Centeno * Please maintain GOOD oral Hygiene care this will help with healing SPECIAL CARE INSTRUCTIONS: Pain: * Do not take pain pills on an empty stomach. * You may take an alternative over the counter pain medication (Tylenol or Motrin) as necessary or call our office for assistance. * Sleeping with the head of bed elevated above the level of the heart for the first two post-operative nights may tend to lessen swelling. Oral Hygiene: * Oral Hygiene should not be neglected. * Kennan your teeth as usual and rinse with warm salt water after each meal beginning gently the night of surgery. Side Effects: * Ear ache, temporary ache of adjacent teeth, restricted mouth opening, stretching or cracking at the corners of the mouth or discoloration of the skin may occur post- operatively. These are temporary conditions that will improve as healing progresses. * As a result of the jaw fracture, your bite will feel off, this is normal. This will improve with the jaw exercise and any dental adjustment Call Dr Centeno with any questions [phone] Exercise, soft diet and good oral care is the best treatment for your fracture at this time FOLLOW UP MARCH 29 at 4:15 Add Pipe Testing Technician Provider Instructions: Please stop your metoprolol as your heart rate was low this admission. This in conjunction with transient low blood pressure may have contributed to your episode with loss of consciousness. Please follow-up with your primary care physician within one week of discharge from the hospital. Important at this appointment will be to review your medication changes, assess your jaw and pain level, and get you hooked up with a short term event monitor to monitor your heart rate and rhythm for 10-14 days. It was a pleasure taking care of you! Please call if you have any questions or problems. You can reach a [facility] hospitalist on duty at [facility] 24 hours a day by calling [phone]. Take care of yourself. Meredith Ariza, [facility] Center[facility] Pending Studies at Discharge: No Stand-Alone Forms: My [facility] Medications and DC Order Prescriptions: New oxycodone-acetaminophen [Percocet] 5-325 mg tablet 1 tab PO Q8H PRN (Reason: severe pain) Qty: 15 0RF Continued calcium carbonate-vitamin D3 600 mg(1,500mg) -200 unit tablet 1 tab PO BID fluticasone propionate 50 mcg/actuation spray,suspension 1 sprays INTNAS DAILY PRN (Reason: Congestion) prochlorperazine maleate [Compazine] 5 mg tablet 10 mg PO QID PRN (Reason: nausea and vomiting) Xgeva 120 mg/1.7 mL (70 mg/mL) solution 120 mg subcut .EVERY 3 MONTHS Rx Instructions: DUE IN LATE APRIL, BEGINNING OF Abraxane 100 mg suspension for reconstitution 0 mg IV UD Label Comments: weekly x3 then 1 week off Rx Instructions: Given weekly for 3 weeks then off 1 week oxycodone-acetaminophen [Percocet] 5-325 mg tablet 1 tab PO Q6H PRN (Reason: Pain) acetaminophen [Tylenol Extra Strength] 500 mg tablet 1,000 mg PO Q6H PRN (Reason: Pain) ferrous sulfate 325 mg (65 mg iron) tablet 325 mg PO 2XWK Rx Instructions: Monday and albuterol sulfate 90 mcg/actuation HFA aerosol inhaler 2 puffs INH Q4H PRN (Reason: Shortness Of Breath Or Wheezing) amoxicillin 500 mg capsule 2,000 mg PO DIRECTED PRN (Reason: 1 HOUR PRIOR TO DENTAL APPT.) Rx Instructions: 2,000 mg PO 1 hour prior to dental appointment aspirin 81 mg tablet,delayed release (DR/EC) 81 mg PO QAM clopidogrel [Plavix] 75 mg tablet 75 mg PO QAM fenofibrate micronized 200 mg capsule 200 mg PO HS omeprazole 20 mg capsule,delayed release(DR/EC) 20 mg PO QAM levothyroxine [Synthroid] 200 mcg tablet 400 mcg PO 2XWK Rx Instructions: TAKE TWO TABLETS EVERY MONDAY AND MONDAY BEFORE BREAKFAST. fluoxetine [Prozac] 20 mg capsule 40 mg PO QAM mirtazapine 15 mg Tablet 15 mg PO HS ondansetron 4 mg Tablet,Disintegrating 4 mg PO Q6H PRN (Reason: Nausea And Vomiting) atorvastatin 80 mg tablet 80 mg PO HS levothyroxine 200 mcg tablet 200 mcg PO 5XWK Rx Instructions: TAKE 200MCG EVERY MONDAY, MONDAY, MONDAY, MONDAY, MONDAY. Mag 64 64 mg tablet,delayed release (DR/EC) 64 mg PO DAILY Artificial Tears (kvng/min) 83-15 % Ointment 1 applic OPR Q2H Qty: 3.5 0RF furosemide [Lasix] 20 mg tablet 20 mg PO UD PRN (Reason: weight gain) Qty: 10 0RF Rx Instructions: take 1 tab if gain 3 lbs overnight Discontinued metoprolol tartrate 25 mg tablet 12.5 mg PO BID Qty: 90 3RF Discharge Orders: Discharge Order (Routine); Ordered 03/21/22 Ordered By: Meredith Ariza Admission Data Admit Date/Time: 03/19/22 17:32 Attending Provider: Meredith Ariza Admit Provider: Logan Meier Primary Care Provider: Randy Rush Other Providers: Logan Meier ; Jony Centeno ; Christina Bates ; María Aguilar ; Camille Delaney ; Barb Vela ; Aubrey Garza ; Lee Brooks ; Satinder Angela ; Farooq Rodriguez ; Quiana Rodirguez ; Tobi Ramirez ; Julia Devlin ; Ferny Tarango ; Marko Pate ; Roby Castillo ; Delvis Macias ; Becka Griffin ; George Bowie ; Madyson Staley ; Ana Bowie ; Michael Burger ; Kellen Gaston ; Bobby Angelo. ; Shawanda Quinones ; Sera Ramires ; Rayna Tubbs ; Jose Khan ; Ivon Doty A ; Kita Brown A ; Mariella Jo ; Beatris Khoury A ; Chan Khoury V ; Karthik Virgen ; María Koroma ; Efrem Pearson ; Linda Reyes ; Chan Eng ; Fei Griffin ; Yandel Forrester. ; Diamond Myers ; Kaitlin Butler. ; Chan Valladares ; Ben Villasenor ; Enrrique Macias ; Annika Watkins. ; Rohan Stephen ; Virginia Paz ; Salvatore Rollins ; Rohan Zhou ; Aubrey Calvert Jr ; Darline Valencia ; Leah Coleman A. ; Lydia Higgins. ; Jose Cisneros ; Barb Engle ; Farooq Wade ; Shmuel Ugarte I. ; Neida Dejesus ; Viraj Vaughan
[2022-03-21] MEDS ORDERED: FENOFIBRATE PO SCH (21:00)
--- NOTE | 2022-03-22 16:56 | Electrocardiogram Report ---
Test Reason : Blood Pressure : / mmHG Vent. Rate : 063 BPM Atrial Rate : 063 BPM P-R Int : 150 ms QRS Dur : 078 ms QT Int : 434 ms P-R-T Axes : 056 010 -03 degrees QTc Int : 444 ms Normal sinus rhythm with sinus arrhythmia Normal ECG When compared with ECG of 18-MAR-2022 13:03, Premature atrial complexes are no longer Present Confirmed by Viraj Vaughan ([id number]) on 03/22/2022 4:55:53 PM Referred By: REFERRED SELF Confirmed By:Viraj Vaughan
== END 2022-03-21 13:08 | disposition home or self-care (01) | DRG 315 ==
LOC: ED 12:15 → EDINP 12:15 → SUATTDRO 15:07 → 3E 19:46 → 2N 03-19 01:09

== ENCOUNTER 2022-06-16 12:41 | Inpatient (IN) ==
[2022-06-16] MEDS ORDERED: SODIUM CHLORIDE 0.9% 500 ML IV STA (14:12)
--- NOTE | 2022-06-16 14:15 | Emergency Department Note ---
Impression & Plan Metastatic breast cancer, Abdominal ascites, Hypomagnesemia ED Provider Note NAME: ERNESTO YOON AGE: 67 SEX: F : 1955 ARRIVES VIA: Walk-In INFORMANT: Patient, ED PROVIDER(S): Viraj Tran DO CHIEF COMPLAINT: Abdominal distention HPI: The patient is a 67-year-old female who has a history of metastatic breast cancer who presented to the emergency department at the request of her primary oncologist for ascites. The patient was seen in their office and had laboratory studies done. She was found to have some abnormal electrolytes as well. She was told to go to the emergency department for IV fluids as well as to be admitted for paracentesis. The patient has never had a paracentesis before. Apparently she also follows with palliative medicine. She denies having any fever. She does complain of lower extremity swelling. She was also noted to have a low phosphorus as well as a high calcium. ROS: See above HPI for pertinent positives & negatives. A total of 10 systems reviewed and were otherwise negative. PAST MEDICAL HISTORY: See Below PAST SURGICAL HISTORY: See Below FAMILY HISTORY: See Below SOCIAL HISTORY: See Below HOME MEDICATIONS: See Below ALLERGIES: See Below VITALS: See Below PHYSICAL EXAMINATION: GENERAL: Patient is awake alert in no acute distress patient is resting comfortably and showing no signs of anxiety EYES: The conjunctivae are pale. The pupils are round and reactive. EARS, NOSE, MOUTH AND THROAT: The nose is without any evidence of any deformity. NECK: The neck is nontender and supple. RESPIRATORY: Diminished breath sounds are noted at both bases. There were rales at both bases. CARDIOVASCULAR: Regular rate and rhythm noted there no murmurs rubs or gallops normal S1 normal S2. GASTROINTESTINAL: Abdomen was distended. There is no specific tenderness guarding or rigidity. MUSCULOSKELETAL/EXTREMITIES: There is no evidence of gross deformity full range of motion is noted in the hips and shoulders. SKIN: The skin is warm and dry. Pedal edema was noted bilaterally. NEUROLOGIC: Patient is awake alert and oriented x3 MEDICAL DECISION MAKING: The patient is a 67-year-old female who presented to the emergency department for an evaluation of abdominal discomfort. The patient has a history of metastatic cancer which now appears to be causing a malignant ascites. The patient was seen by her oncologist today. She appeared to be in discomfort and appeared to be having some difficulty breathing because of the ascites. She was referred to the emergency department for further evaluation. The patient was [facility] by [facility]. They will order a paracentesis u ltrasound-guided with radiology. They agreed to evaluate the patient in the emergency department. Triage Nursing notes reviewed. Prior medical records reviewed Vital Signs: reviewed and remarkable for no significant abnormalities Differential diagnosis: Etiologies such as appendicitis, diverticulitis, obstruction, inflammatory bowel disease, renal colic, PUD, biliary pathology, pancreatitis, mesenteric ischemia, aortic pathology, infections, genitourinary, UTI, perforated viscus, as well as others were entertained. ER treatment provided: See below Diagnostics interpreted by me: ECG: EKG was obtained in the emergency department. My interpretation is normal sinus rhythm at 89 bpm. Nonspecific T wave abnormalities were noted with inversion and flattening. This was compared to a tracing from March 21, 2022. The changes are new compared to the previous tracing. Cardiac Monitoring: An order was placed for continuous cardiac monitoring. The monitor shows a rate of 75 bpm with sinus rhythm. Laboratory studies: As stated above and show below. Imaging studies: See below Consultation(s): I discussed this case with Theresa who is on-call for [facility] Past Med/Surg History Medical History Anemia Asthma Cancer right breast cancer Diabetes mellitus, type 2 Fusion of spine GERD (gastroesophageal reflux disease) History of deviated nasal septum History of OCD (obsessive compulsive disorder) Hx MRSA infection bilateral axillary abscess a year ago. Has not been retested. Hyperlipidemia Hypertension Hypothyroidism Myocardial Infarction On anticoagulant therapy Osteoarthritis Peripheral neuropathy RUE, RLE Recent weight loss Surgical History History of cholecystectomy History of colonoscopy 2019 polyp removed History of discectomy History of esophagogastroduodenoscopy (EGD) History of heart artery stent History of repair of rotator cuff right Hx of lumpectomy right breast Family History Other Cancer Diabetes Hypertension Stroke Social History Smoking Status: Never smoker Hx Alcohol Use: Yes Hx Substance Use: No Preferred Language: Ghanaian Communication Ability: Effective Skinning Machine Feeder Required: No Beliefs That Will Affect Care: None marital status: Single Current Living Situation: Family Current Living Situation Comment: friends stay w/ her. currently friends are moving in w/ her Feels Safe at Home: Yes Assistive Devices: Cane and Walker Allergies Allergies Allergy/AdvReac Type Severity Reaction Status Date / Time methylprednisolone Allergy Severe Anaphylaxis Verified 06/16/22 16:00 NSAIDS (Non-Steroidal Allergy Severe Hives Verified 06/16/22 16:00 Anti-Inflamma oxaprozin [From Daypro] Allergy Severe Anaphylaxis Verified 06/16/22 16:00 dextromethorphan Allergy Intermediate Hives Verified 06/16/22 16:00 erythromycin base Allergy Intermediate Hives Verified 06/16/22 16:00 pseudoephedrine Allergy Intermediate Hives Verified 06/16/22 16:00 doxylamine Allergy Unknown Unknown Verified 06/16/22 16:00 Home Meds Home Medications Medication Instructions Recorded Confirmed albuterol sulfate 90 mcg/actuation 2 puffs inhalation Q4H PRN 08/08/19 06/16/22 aerosol inhaler Shortness Of Breath Or Wheezing amoxicillin 500 mg capsule 2,000 mg PO DIRECTED PRN 1 HOUR 08/08/19 06/16/22 PRIOR TO DENTAL APPT. aspirin 81 mg tablet,delayed 81 mg PO QAM 08/08/19 06/16/22 release clopidogrel 75 mg tablet (Plavix) 75 mg PO QAM 08/08/19 06/16/22 fenofibrate micronized 200 mg 200 mg PO HS 08/08/19 06/16/22 capsule levothyroxine 200 mcg tablet 400 mcg PO 2XWK 08/08/19 06/16/22 (Synthroid) omeprazole 20 mg capsule,delayed 20 mg PO QAM 08/08/19 06/16/22 release fluticasone propionate 50 1 sprays intranasal DAILY PRN 10/09/19 06/16/22 mcg/actuation nasal Congestion spray,suspension acetaminophen 500 mg tablet 1,000 mg PO Q6H PRN Pain 07/09/21 06/16/22 (Tylenol Extra Strength) denosumab 120 mg/1.7 mL (70 mg/mL) 120 mg subcut .EVERY 3 MONTHS 07/09/21 06/16/22 subcutaneous solution (Xgeva) fluoxetine 20 mg capsule (Prozac) 40 mg PO QAM 07/09/21 06/16/22 prochlorperazine maleate 5 mg 10 mg PO QID PRN nausea and 07/09/21 06/16/22 tablet (Compazine) vomiting ferrous sulfate 325 mg (65 mg 325 mg PO 2XWK 11/12/21 06/16/22 iron) tablet ondansetron 4 mg disintegrating 4 mg PO Q6H PRN Nausea And Vomiting 12/10/21 06/16/22 tablet levothyroxine 200 mcg tablet 200 mcg PO 5XWK 02/28/22 06/16/22 magnesium chloride 64 mg 64 mg PO DAILY 02/28/22 06/16/22 (magnesium chloride) tablet,delayed release (Mag 64) mirtazapine 15 mg tablet 15 mg PO HS 03/18/22 06/16/22 Previous Rx's Medication Instructions Recorded white petrolatum-mineral oil 83 1 applic OPR Q2H #3.5 grams 03/01/22 %-15 % eye ointment (Artificial Tears (petrolatum/mineral oil)) oxycodone-acetaminophen 5 mg-325 1 tab PO Q8H PRN svere pain #10 03/21/22 mg tablet (Percocet) tabs atorvastatin 80 mg tablet 80 mg PO HS #90 tabs 06/10/22 Results & Data (ED) Vital Signs Vital Signs - 24 hr 06/16/22 13:25 Temperature 36.8 C Temperature Source Temporal Artery Scan Pulse Rate 96 H Respiratory Rate 20 Respiratory Effort / Characteristics Non-Labored Respiratory Depth Normal Blood Pressure 96/58 L Blood Pressure Mean 70 Pulse Oximetry 97 Oxygen Delivery Method Room Air Sepsis Recent Fever Within 48 Hours No Sepsis New/Unexplained Change in Mental Status N/A Sepsis Action Taken by Nursing No Action Required Home Medications Current Medication List: was personally reviewed by me Laboratory Data Attestation: I reviewed the patient's lab results. Result diagrams: 06/16/22 14:48 06/16/22 14:48 Lab Results 06/16/22 06/16/22 06/16/22 Range/Units 14:33 14:48 14:48 WBC 5.92 (4.8-10.8) K/ul RBC 3.40 L (3.93-5.22) M/uL Hgb 10.7 L (12.0-16.0) g/dl Hct 31.3 L (34.1-44.9) % MCV 92.1 (80.0-100.0) fL MCH 31.5 (25.0-34.0) pg MCHC 34.2 (32.0-36.0) g/dL RDW Std Deviation 69.8 H (36.4-46.3) fL RDW Coeff of Azra 22.7 H (11.5-14.5) % Plt Count 172 (130-400) K/uL MPV 11.5 (9.4-12.3) fL Immature Gran % (Auto) 0.2 % Neut % (Auto) 85.9 % Lymph % (Auto) 9.0 % Preston % (Auto) 4.1 % Eos % (Auto) 0.5 % Baso % (Auto) 0.3 % Neut # (Auto) 5.09 (1.4-6.5) K/uL Lymph # (Auto) 0.53 L (1.2-3.4) K/uL Preston # (Auto) 0.24 (0.24-0.82) K/uL Eos # (Auto) 0.03 (0-0.50) K/uL Baso # (Auto) 0.02 (0-0.2) K/uL Immature Gran # (Auto) 0.01 (0.00-0.02) K/uL Anisocytosis Present Echinocytes 1+ PT 13.2 H (9.0-12.0) Seconds INR 1.3 H (0.9-1.1) APTT 43.3 H (21.0-31.0) Seconds PTT Ratio 1.6 Sodium (136-145) mmol/L Potassium (3.5-5.1) mmol/L Chloride (98-107) mmol/L Carbon Dioxide (21-32) mmol/L Anion Gap (3-11) BUN (6-23) mg/dl Creatinine (0.6-1.2) mg/dl Est Cr Clr Drug Dosing Est GFR ( Amer) ml/min Est GFR (Non-Af Amer) ml/min BUN/Creatinine Ratio (10-20) Glucose (70-99(Fasting)) mg/dl Calcium (8.5-10.1) mg/dl Phosphorus (2.5-4.9) mg/dl Magnesium (1.7-2.4) mg/dl Total Bilirubin (0.2-1.0) mg/dl AST (13-39) U/L ALT (7-52) U/L Alkaline Phosphatase (34-104) U/L Troponin I High Sens (0-14) pg/ml Total Protein (6.0-8.3) gm/dl Albumin (3.4-5.0) gm/dl Globulin (2.5-4.0) gm/dl Albumin/Globulin Ratio (0.9-2) Lipase (11-82) U/L SARS-CoV-2, RNA, NAAT NEGATIVE (NEGATIVE) 06/16/22 Range/Units 14:48 WBC (4.8-10.8) K/ul RBC (3.93-5.22) M/uL Hgb (12.0-16.0) g/dl Hct (34.1-44.9) % MCV (80.0-100.0) fL MCH (25.0-34.0) pg MCHC (32.0-36.0) g/dL RDW Std Deviation (36.4-46.3) fL RDW Coeff of Azra (11.5-14.5) % Plt Count (130-400) K/uL MPV (9.4-12.3) fL Immature Gran % (Auto) % Neut % (Auto) % Lymph % (Auto) % Preston % (Auto) % Eos % (Auto) % Baso % (Auto) % Neut # (Auto) (1.4-6.5) K/uL Lymph # (Auto) (1.2-3.4) K/uL Preston # (Auto) (0.24-0.82) K/uL Eos # (Auto) (0-0.50) K/uL Baso # (Auto) (0-0.2) K/uL Immature Gran # (Auto) (0.00-0.02) K/uL Anisocytosis Echinocytes PT (9.0-12.0) Seconds INR (0.9-1.1) APTT (21.0-31.0) Seconds PTT Ratio Sodium 137 (136-145) mmol/L Potassium 4.1 (3.5-5.1) mmol/L Chloride 108 H (98-107) mmol/L Carbon Dioxide 22 (21-32) mmol/L Anion Gap 7 (3-11) BUN 14 (6-23) mg/dl Creatinine 0.48 L (0.6-1.2) mg/dl Est Cr Clr Drug Dosing Not Reportable Est GFR ( Amer) 116.0 ml/min Est GFR (Non-Af Amer) 100.1 ml/min BUN/Creatinine Ratio 29.2 H (10-20) Glucose 68 L (70-99(Fasting)) mg/dl Calcium 10.7 H (8.5-10.1) mg/dl Phosphorus 1.9 L (2.5-4.9) mg/dl Magnesium 1.5 L (1.7-2.4) mg/dl Total Bilirubin 1.5 H (0.2-1.0) mg/dl AST 54 H (13-39) U/L ALT 25 (7-52) U/L Alkaline Phosphatase 231 H (34-104) U/L Troponin I High Sens 5.0 (0-14) pg/ml Total Protein 5.3 L (6.0-8.3) gm/dl Albumin 3.0 L (3.4-5.0) gm/dl Globulin 2.3 L (2.5-4.0) gm/dl Albumin/Globulin Ratio 1.3 (0.9-2) Lipase 11 (11-82) U/L SARS-CoV-2, RNA, NAAT (NEGATIVE) Administered Medications Magnesium Sulfate/Dextrose (Magnesium Sulfate / D5w) 1 gm in 100 mls @ 50 mls/hr IV Q2H ON LICENSE OF [facility] Stop: 06/16/22 20:14 Last Admin: 06/16/22 16:57 Dose: 50 mls/hr Documented By: Infusion: 06/16/22 16:57 Dose: 50 mls/hr Documented By: Admin: 06/16/22 16:52 Dose: 50 mls/hr Documented By: ELIDA Sodium Phosphate 30 mmol/ (Sodium Chloride) 510 mls @ 88 mls/hr IV ONE ONE Stop: 06/16/22 22:17 Last Admin: 06/16/22 17:56 Dose: 88 mls/hr Documented By: ELIDA Discontinued Medications Acetaminophen (Acetaminophen 500 Mg Tab) 1,000 mg PO NOW STA Stop: 06/16/22 16:47 Last Admin: 06/16/22 16:52 Dose: 1,000 mg Documented By: ELIDA Sodium Chloride (Nss) 500 mls @ 999 mls/hr IV .Q31M STA Stop: 06/16/22 14:42 Last Infusion: 06/16/22 16:52 Dose: 0 mls/hr Documented By: Admin: 06/16/22 15:21 Dose: 999 mls/hr Documented By: ELIDA Discharge Plan Visit Data Chief Complaint: Abdominal Pain Stated Complaint: abd pain ED Provider: Viraj Tran Discharge Problem: Metastatic breast cancer, Abdominal ascites, Hypomagnesemia Patient Disposition: Being Evaluated by Hospitalist Discharge Instructions Interventions: ED Discharge Assessment Last Done: 06/16/22 18:35
--- NOTE | 2022-06-16 14:43 | History & Physical Report ---
Date of Service June 16, 2022 Assessment & Plan (1) Abdominal ascites: (2) Malignant neoplasm of central portion of right breast in female, estrogen receptor positive: (3) Metastatic breast cancer: Plan: Pt with Right breast invasive ductal carcinoma grade 3, ER+/MS -/ [id number] - diagnosed November 2017, with metastasis to left pubic ramus and liver with multiple biopsy proven lesions in Sep 2019. She has completed several chemotherapies in the past, but is currently on Eribulin weekly x 2 followed by 1 week off started on 03/28/2022. Xgeva every 12 weeks since December 2021, previously was started December 04, 2019 every 4 weeks. - Repeat PET scans were completed on 06/10 showing disease progression - Mets to liver, spine and pelvis - Moderate ascites with bilateral pleural effusions - Discussed with radiology and will plan to perform this tomorrow morning, remove goal of max 2 L fluids for diagnostic and therapeutic tap. Monitor for needs for albumin IV and lasix. - Monitor lytes with am labs - Consulted nephro : replace mag with 2 g IV, phosphorus with 30 mmol IV, and calcium noted at 11.6 but no additional therapies at this time for such - Follow with heme/onc with Dr. Subramanian outpatient, Dr. Kingsley recently - Has not received chemo for 3 weeks due to counts and progressively feeling weaker, palliative medicine has been consulted as an outpatient and the patient is a DNR/DNI. - Place on supportive O2 at 2 L with lower sats/poor reading while at bedside, monitor - Cont antiemetics (4) Hypomagnesemia: (5) Hypophosphatemia: Plan: - Replace electrolytes as above - appreciate nephrology assistance with such (6) CAD (coronary artery disease): (7) Hypertension: (8) Hypercholesteremia: Plan: - Cont antihypertensives, statin, aspirin and hold plavix tomorrow morning prior to paracentesis and resume afterwards (9) Hypothyroidism: Plan: - Cont levothyroxine DVT ppx: scds, aspirin, holding plavix for paracentesis tomorrow CODE: DNR/DNI Dispo: Likely to remain in the hospital x 2 days History of Present Illness Chief Complaint: Abdominal Pain Primary Care Provider: Randy Rush MD This is a 67 yo F with PMhx of Right breast invasive ductal carcinoma grade 3, ER+/MS -/ [id number] - diagnosed November 2017, with metastasis to left pubic ramus a nd liver with multiple biopsy proven lesions in Sep 2019. She has completed several chemotherapies in the past, but is currently on Eribulin weekly x 2 followed by 1 week off started on 03/28/2022. Xgeva every 12 weeks since December 2021, previously was started December 04, 2019 every 4 weeks. Other past medical history includes OK in 2012 s/p VENKATA placement on plavix therapy, polymyalgia rheumatica on prednisone previously, currently on Plaquenil, osteoarthritis of multiple joints, diabetes, hyperlipidemia, OCD and depression on Prozac. It was noted in her last visit with heme-onc on 06/03/2022 that she was feeling increasingly weak after each chemotherapy treatment and abdominal distention and pain. Was noted that her calcium serum level was 11.7 at that time was instructed to hold calcium supplement. She was scheduled to have repeat PET scans within the next 2 weeks and now abdominal ultrasound to assess right upper quadrant pain and possible ascites. Her CT of the abdomen pelvis was completed on 06/10/2022 showing increased diffuse hepatic metallic metastatic disease, increased burden of ben hepatis and gastrohepatic ligament lymphadenopathy as well as new hypermetabolic retr operitoneal lymphadenopathy. Metastatic disease is most noted in the right pedicle of L4, in T2, and remains in the left pubic rami without focal activity, presumably treated disease. All of this suggests overall disease progression. Also notes new findings of fluid overload, including small bilateral pleural effusions, moderate ascites and body wall edema. This morning she presented to outpatient [facility] clinic for routine lab work and phorphorus was low and calcium was high. She has been getting IV hydration as an outpatient fairly frequently, within the past 2 weeks. She has gotten infusions of 1000 over 500 mL x 3, most recently was last . She feels that in the past 2 weeks her abdomen has gotten increasingly distended, pain, and decreased p.o. appetite due to distention. She is tolerating fluids without difficulty. She feels short of breath with minimal exertional activities such as getting out of bed to use bedside potty at night. Present at bedside is her friend, MALINA, who also serves as a caregiver and lives with her in her home. She reports a steady decline in the past 2 weeks specifically. Patient is aware of her recent PET scan results showing progressive malignancy/disease as it was recently discussed with her by her primary oncologist. She follows with Dr. Subramanian however as he is currently on vacation, she saw Dr. Kingsley this past visit on 06/03/2022. The patients right side of her face has [place] Palsy since March 2022 and it has not improved. Allergies Allergy/AdvReac Type Severity Reaction Status Date / Time methylprednisolone Allergy Severe Anaphylaxis Verified 06/16/22 16:00 NSAIDS (Non-Steroidal Allergy Severe Hives Verified 06/16/22 16:00 Anti-Inflamma oxaprozin [From Daypro] Allergy Severe Anaphylaxis Verified 06/16/22 16:00 dextromethorphan Allergy Intermediate Hives Verified 06/16/22 16:00 erythromycin base Allergy Intermediate Hives Verified 06/16/22 16:00 pseudoephedrine Allergy Intermediate Hives Verified 06/16/22 16:00 doxylamine Allergy Unknown Unknown Verified 06/16/22 16:00 Home Medications Medication Instructions Recorded Confirmed Type albuterol sulfate 90 mcg/actuation 2 puffs inhalation Q4H PRN 08/08/19 06/16/22 History aerosol inhaler Shortness Of Breath Or Wheezing amoxicillin 500 mg capsule 2,000 mg PO DIRECTED PRN 1 HOUR 08/08/19 06/16/22 History PRIOR TO DENTAL APPT. aspirin 81 mg tablet,delayed 81 mg PO QAM 08/08/19 06/16/22 History release clopidogrel 75 mg tablet (Plavix) 75 mg PO QAM 08/08/19 06/16/22 History fenofibrate micronized 200 mg 200 mg PO HS 08/08/19 06/16/22 History capsule levothyroxine 200 mcg tablet 400 mcg PO 2XWK 08/08/19 06/16/22 History (Synthroid) omeprazole 20 mg capsule,delayed 20 mg PO QAM 08/08/19 06/16/22 History release fluticasone propionate 50 1 sprays intranasal DAILY PRN 10/09/19 06/16/22 History mcg/actuation nasal Congestion spray,suspension acetaminophen 500 mg tablet 1,000 mg PO Q6H PRN Pain 07/09/21 06/16/22 History (Tylenol Extra Strength) denosumab 120 mg/1.7 mL (70 mg/mL) 120 mg subcut .EVERY 3 MONTHS 07/09/21 06/16/22 History subcutaneous solution (Xgeva) fluoxetine 20 mg capsule (Prozac) 40 mg PO QAM 07/09/21 06/16/22 History prochlorperazine maleate 5 mg 10 mg PO QID PRN nausea and 07/09/21 06/16/22 History tablet (Compazine) vomiting ferrous sulfate 325 mg (65 mg 325 mg PO 2XWK 11/12/21 06/16/22 History iron) tablet ondansetron 4 mg disintegrating 4 mg PO Q6H PRN Nausea And Vomiting 12/10/21 06/16/22 History tablet levothyroxine 200 mcg tablet 200 mcg PO 5XWK 02/28/22 06/16/22 History magnesium chloride 64 mg 64 mg PO DAILY 02/28/22 06/16/22 History (magnesium chloride) tablet,delayed release (Mag 64) white petrolatum-mineral oil 83 1 applic OPR Q2H #3.5 grams 03/01/22 06/16/22 Rx %-15 % eye ointment (Artificial Tears (petrolatum/mineral oil)) mirtazapine 15 mg tablet 15 mg PO HS 03/18/22 06/16/22 History oxycodone-acetaminophen 5 mg-325 1 tab PO Q8H PRN svere pain #10 03/21/22 06/16/22 Rx mg tablet (Percocet) tabs atorvastatin 80 mg tablet 80 mg PO HS #90 tabs 06/10/22 06/16/22 Rx Past Med/Surg History Medical History Anemia Asthma Cancer right breast cancer Diabetes mellitus, type 2 Fusion of spine GERD (gastroesophageal reflux disease) History of deviated nasal septum History of OCD (obsessive compulsive disorder) Hx MRSA infection bilateral axillary abscess a year ago. Has not been retested. Hyperlipidemia Hypertension Hypothyroidism Myocardial Infarction On anticoagulant therapy Osteoarthritis Peripheral neuropathy RUE, RLE Recent weight loss Surgical History History of cholecystectomy History of colonoscopy 2019 polyp removed History of discectomy History of esophagogastroduodenoscopy (EGD) History of heart artery stent History of repair of rotator cuff right Hx of lumpectomy right breast Family History Other Cancer Diabetes Hypertension Stroke Social History Smoking Status: Never smoker Hx Alcohol Use: Yes Hx Substance Use: No Preferred Language: Mongolian Communication Ability: Effective Irrigation Equipment Remover Required: No Beliefs That Will Affect Care: None marital status: Single Current Living Situation: Family Current Living Situation Comment: friends stay w/ her. currently friends are moving in w/ her Feels Safe at Home: Yes Assistive Devices: Cane and Walker Review of Systems Review of Systems: Constitutional: No fever, sweats or chills Eyes: No diplopia, no worsening or blurred vision ENT: normal hearing, no trouble swallowing Respiratory: No cough, sputum, dyspnea at rest, + dyspnea on exertion as per HPI Cardiovascular: No chest pain, tightness or palpitations Abdomen:+ Distension, + pain, no nausea, vomiting, diarrhea or constipation Musculoskeletal: No joint pain, calf pain, + BLE trace swelling Neurologic: + generalized weakness, no numbness/tingling, no balance problems Psychiatric: No anxiety or depression Skin: No rash or itch Physical Exam Physical Exam: General: awake, alert, no apparent distress, + alopecia, + pallor, + right sided facial droop involving the eye and mouth from [place] Palsy Head: Normocephalic, atraumatic ENT: PERRL, EOMI, no pharyngeal exudate, mucous membranes moist Chest: On room air, sats fluctuate between 80 and low 90s on RA, will place on O2, absent breath sounds at bases bilaterally, no wheezes rales or rhonchi. Cardiac: Regular rate and rhythm, no murmur, no JVD, normal peripheral pulses, good capillary refill Abdominal: Hypoactive bowel sounds x 4 quadrants, distended abdomen, nontender to palpation, no rebound or guarding Extremities: + Trace nonpitting peripheral edema of BLE, no erythema, calfs nontender to palpation Psych: Normal mood and affect Neuro: AAO x 3, strength intact bilaterally and rated 5/5, no motor deficits, speech is clear, no peripheral sensory deficits Results & Data Results & Data ([facility]) Vital Signs (Past 12 Hours) Vital Signs Temp Pulse Resp BP Pulse Ox O2 Del Method 06/16/22 13:25 36.8 C 96 H 20 96/58 L 97 Room Air Laboratory Results 06/16/22 06/16/22 06/16/22 15:15 14:48 14:48 WBC RBC Hgb Hct MCV MCH MCHC RDW Std Deviation RDW Coeff of Azra Plt Count MPV Immature Gran % (Auto) Neut % (Auto) Lymph % (Auto) [place] % (Auto) Eos % (Auto) Baso % (Auto) Neut # (Auto) Lymph # (Auto) [place] # (Auto) Eos # (Auto) Baso # (Auto) Immature Gran # (Auto) Anisocytosis Echinocytes PT 13.2 H INR 1.3 H APTT 43.3 H PTT Ratio 1.6 Sodium 137 Potassium 4.1 Chloride 108 H Carbon Dioxide 22 Anion Gap 7 BUN 14 Creatinine 0.48 L Est Cr Clr Drug Dosing Not Reportable Est GFR ( Amer) 116.0 Est GFR (Non-Af Amer) 100.1 BUN/Creatinine Ratio 29.2 H Glucose 68 L Calcium 10.7 H Ionized Calcium 1.51 H Phosphorus 1.9 L Magnesium 1.5 L Total Bilirubin 1.5 H AST 54 H ALT 25 Alkaline Phosphatase 231 H Troponin I High Sens 5.0 Total Protein 5.3 L Albumin 3.0 L Globulin 2.3 L Albumin/Globulin Ratio 1.3 Lipase 11 SARS-CoV-2, RNA, NAAT 06/16/22 06/16/22 14:48 14:33 WBC 5.92 RBC 3.40 L Hgb 10.7 L Hct 31.3 L MCV 92.1 MCH 31.5 MCHC 34.2 RDW Std Deviation 69.8 H RDW Coeff of Azra 22.7 H Plt Count 172 MPV 11.5 Immature Gran % (Auto) 0.2 Neut % (Auto) 85.9 Lymph % (Auto) 9.0 [place] % (Auto) 4.1 Eos % (Auto) 0.5 Baso % (Auto) 0.3 Neut # (Auto) 5.09 Lymph # (Auto) 0.53 L [place] # (Auto) 0.24 Eos # (Auto) 0.03 Baso # (Auto) 0.02 Immature Gran # (Auto) 0.01 Anisocytosis Present Echinocytes 1+ PT INR APTT PTT Ratio Sodium Potassium Chloride Carbon Dioxide Anion Gap BUN Creatinine Est Cr Clr Drug Dosing Est GFR ( Amer) Est GFR (Non-Af Amer) BUN/Creatinine Ratio Glucose Calcium Ionized Calcium Phosphorus Magnesium Total Bilirubin AST ALT Alkaline Phosphatase Troponin I High Sens Total Protein Albumin Globulin Albumin/Globulin Ratio Lipase SARS-CoV-2, RNA, NAAT NEGATIVE Code Status & VTE Plan Code Status DNR/ DNI Supervising Physician Co-Signing Physician Notes Pt seen and examined by me, care coordinated w/ G. GIL Pleitez, pls refer to her note above for further detail. 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 CT of the abdomen pelvis was completed on 06/10/2022 showing increased diffuse hepatic metastatic disease. This morning she presented to outpatient clinic for routine lab work and phos was low and calcium was elevated. She has been getting IV hydration as an outpatient fairly frequently, within the past 2 weeks.She feels that in the past 2 weeks her abdomen has gotten increasingly distended, and uncomfortable. She follows with Dr. Subramanian (oncology) however as he is currently on vacation, she saw Dr. Kingsley this past visit on 06/03/2022. Given her electrolytes abnormalities, and abdominal distention/ascites, she was referred to ED. Currently she is lying in bed, in no acute distress. She is thin and chronically ill-appearing. Lung sounds are fairly clear, with some crackles at the bases. No wheezing. Heart sounds regular. Abdomen is somewhat distended, mildly tender to palpation, mostly patient is complaining of pressure. Trace lower extremity edema noted as well. Plan for paracentesis tomorrow. Electrolytes repleted. Nephrology also consulted for hypercalcemia. Of note, pt sees palliative medicine as outpt, she is DNR/DNI. MD Levi (1) Abdominal ascites Ascites type: malignant Qualified Code(s): R18.0 - Malignant ascites
[2022-06-16 15:11] LABS: Basophils # (auto) 0.02 K/uL (0-0.2); Basophils % (auto) 0.3 %; Eosinophils # (auto) 0.03 K/uL (0-0.50); Eosinophils % (auto) 0.5 %; Hematocrit (blood only) 31.3 % (34.1-44.9); Hemoglobin 10.7 g/dl (12.0-16.0); Immature Granulocytes # (auto) 0.01 K/uL (0.00-0.02); Immature Granulocytes % (auto) 0.2 %; Lymphocytes # (auto) 0.53 K/uL (1.2-3.4); Mean Corpuscular Hemoglobin 31.5 pg (25.0-34.0); Mean Corpuscular Hgb Conc 34.2 g/dL (32.0-36.0); Mean Corpuscular Volume 92.1 fL (80.0-100.0); Mean Platelet Volume 11.5 fL (9.4-12.3); Monocytes # (auto) 0.24 K/uL (0.24-0.82); Monocytes % (auto) 4.1 %; Neutrophils # (auto) 5.09 K/uL (1.4-6.5); Neutrophils % (auto) 85.9 %; Platelet Count 172 K/uL (130-400); RDW Coefficient of Variation 22.7 % (11.5-14.5); RDW Standard Deviation 69.8 fL (36.4-46.3); White Blood Count 5.92 K/ul (4.8-10.8)
[2022-06-16 15:31] LABS: Anisocytosis Present; Echinocytes 1+; INR 1.3 (0.9-1.1); Partial Thromboplastin Ratio 1.6; Partial Thromboplastin Time 43.3 Seconds (21.0-31.0); Prothrombin Time 13.2 Seconds (9.0-12.0)
[2022-06-16 15:47] LABS: Alanine Aminotransferase 25 U/L (7-52); Albumin Globulin Ratio 1.3 (0.9-2); Alkaline Phosphatase 231 U/L (34-104); Anion Gap 7 (3-11); Aspartate Aminotransferase 54 U/L (13-39); BUN Creatinine Ratio 29.2 (10-20); Bilirubin,Total 1.5 mg/dl (0.2-1.0); Blood Urea Nitrogen 14 mg/dl (6-23); Calcium 10.7 mg/dl (8.5-10.1); Carbon Dioxide 22 mmol/L (21-32); Chloride 108 mmol/L (98-107); Est GFR (Non-African American) 100.1 ml/min; Globulin 2.3 gm/dl (2.5-4.0); Glucose 68 mg/dl (70-99(Fasting)); Lipase 11 U/L (11-82); Magnesium 1.5 mg/dl (1.7-2.4); Phosphorus 1.9 mg/dl (2.5-4.9); Potassium 4.1 mmol/L (3.5-5.1); Sodium 137 mmol/L (136-145); Total Protein 5.3 gm/dl (6.0-8.3)
[2022-06-16] MEDS ORDERED: SODIUM PHOSPHATE 3 MMOL/1 ML INFUSION IV STA (16:15)
[2022-06-16] MEDS ORDERED: SODIUM PHOSPHATE 30 MMOL in SODIUM CHLORIDE 0.9% 500 ML IV ONE (16:30)
[2022-06-16] MEDS ORDERED: ACETAMINOPHEN 500 MG TAB PO STA (16:46)
[2022-06-16] MEDS ORDERED: oxyCODONE HCL IR 5 MG TAB (IMMEDIATE RELEASE) PO PRN (16:47)
[2022-06-16] MEDS: MAGNESIUM SULFATE / D5W 1 GM/100 ML BAG IV SCH ×2 (16:52→16:57)
[2022-06-16 17:08] LABS: Appearance Urine Clear (Clear); Bacteria Urine Automated Negative (Negative); Blood Urine Negative (Negative); Color Urine Orange; Epithelial Cell Urine Auto >30 /lpf (0-5); Glucose Urine UA Negative (Negative); Ketones Urine 1+ (Negative); Leukocyte Esterase Urine 1+ (Negative); Nitrite Urine Positive (Negative); Protein Urine 1+ (Negative); RBC Urine Automated 0-4 /hpf (0-4); Specific Gravity Urine 1.033 (1.000-1.030); Urobilinogen Urine Negative (Negative)
[2022-06-16 17:15] LABS: Bilirubin Urine 2+ (Negative)
[2022-06-16 17:37] LABS: Mucus Urine Present (None Prsent)
[2022-06-16] MEDS ORDERED: ONDANSETRON 4 MG OD TAB PO PRN (18:37)
[2022-06-16] MEDS: oxyCODONE/ACETAMINOPHEN 5mg/325mg TAB PO PRN (23:11)
[2022-06-16] MEDS: ATORVASTATIN 40 MG TAB PO SCH (23:12)
[2022-06-16] MEDS: ARTIFICIAL TEARS OP OINT 3.5 GM TUBE OPR SCH ×3 (23:12→23:19)
[2022-06-16] MEDS: LEVOTHYROXINE SODIUM 200 MCG TABLET PO SCH (23:12)
[2022-06-17] MEDS: ARTIFICIAL TEARS OP OINT 3.5 GM TUBE OPR SCH ×12 (01:25→21:39)
--- NOTE | 2022-06-17 06:23 | Electrocardiogram Report ---
Test Reason : Blood Pressure : / mmHG Vent. Rate : 089 BPM Atrial Rate : 089 BPM P-R Int : 150 ms QRS Dur : 076 ms QT Int : 368 ms P-R-T Axes : 025 008 -56 degrees QTc Int : 447 ms Normal sinus rhythm Nonspecific T wave abnormality Abnormal ECG When compared with ECG of 21-MAR-2022 05:59, Nonspecific T wave abnormality now evident in Anterior leads Confirmed by Vinicio Tay ([id number]) on 06/17/2022 6:22:57 AM Referred By: REFERRED SELF Confirmed By:Vinicio Tay
[2022-06-17 06:36] LABS: Hematocrit (blood only) 27.8 % (34.1-44.9); Hemoglobin 9.5 g/dl (12.0-16.0); Mean Corpuscular Hemoglobin 31.3 pg (25.0-34.0); Mean Corpuscular Hgb Conc 34.2 g/dL (32.0-36.0); Mean Corpuscular Volume 91.4 fL (80.0-100.0); Mean Platelet Volume 10.8 fL (9.4-12.3); Platelet Count 133 K/uL (130-400); RDW Coefficient of Variation 22.1 % (11.5-14.5); RDW Standard Deviation 68.1 fL (36.4-46.3); Red Blood Count 3.04 M/uL (3.93-5.22); White Blood Count 4.38 K/ul (4.8-10.8)
[2022-06-17 07:18] LABS: Albumin Globulin Ratio 1.5 (0.9-2); Albumin Level 2.9 gm/dl (3.4-5.0); BUN Creatinine Ratio 36.8 (10-20); Bilirubin,Total 1.5 mg/dl (0.2-1.0); Calcium 9.9 mg/dl (8.5-10.1); Est GFR (African American) 125.3 ml/min; Est GFR (Non-African American) 108.1 ml/min; Magnesium 1.8 mg/dl (1.7-2.4); Phosphorus 3.2 mg/dl (2.5-4.9); Potassium 3.7 mmol/L (3.5-5.1); Total Protein 4.9 gm/dl (6.0-8.3)
--- NOTE | 2022-06-17 10:10 | Ultrasound Report ---
US abdomen ltd ascites HISTORY: 67 years-old Female eval ascities for paracentesis malignant ascites COMPARISON: CTA chest 03/18/2022 TECHNIQUE: Multiple real-time sonographic images of the abdomen were obtained assessing grayscale yo earance FINDINGS: Enlarged heterogeneous liver with innumerable metastasis. Small volume ascites. No large pocket ident ified for a safe paracentesis access area. This was discussed in detail with the patient. Agreement w ith the patient and myself was then made that as more ascitic fluid would accumulate over time, she c ould return for paracentesis. IMPRESSION: Small volume of abdominal ascites. No paracentesis was conducted. ACT 112: Negative or not required by law. The above report was generated using voice recognition software. It may contain grammatical, syntax o r spelling errors. Electronically signed by: Raghavendra Lange M.D. 06/17/2022 10:09 AM
[2022-06-17] MEDS: oxyCODONE/ACETAMINOPHEN 5mg/325mg TAB PO PRN ×2 (10:45→20:47)
[2022-06-17] MEDS: FLUoxetine HCL 20 MG CAP PO SCH (11:10)
[2022-06-17] MEDS: PANTOprazole 40 MG TAB PO SCH (11:11)
--- NOTE | 2022-06-17 14:51 | Hospitalist Progress Note ---
Date of Service June 17, 2022 Assessment & Plan (1) Abdominal ascites: Plan: - Repeat PET scans were completed on 06/10 showing disease progression - Mets to liver, spine and pelvis - Moderate ascites with bilateral pleural effusions Discussed with radiology and was planned to perform 2 L paracentesis this morning 06/17/2022 Acetic fluid was too small to be drained Increasing pain of the abdomen-we will decrease the frequency of pain medication PT OT evaluation for possible discharge tomorrow (2) Malignant neoplasm of central portion of right breast in female, estrogen receptor positive: Plan: - Repeat PET scans were completed on 06/10 showing disease progression - Mets to liver, spine and pelvis - Moderate ascites with bilateral pleural effusions - Follow with heme/onc with Dr. Subramanian outpatient, Dr. Kingsley recently - Has not received chemo for 3 weeks due to counts and progressively feeling weaker, palliative medicine has been consulted as an outpatient and the patient is a DNR/DNI. - Place on supportive O2 at 2 L with lower sats/poor reading while at bedside, monitor - Cont antiemetics (3) Metastatic breast cancer: Plan: Pt with Right breast invasive ductal carcinoma grade 3, ER+/MS -/ [id number] - diagnosed November 2017, with metastasis to left pubic ramus and liver with multiple biopsy proven lesions in Sep 2019. She has completed several chemotherapies in the past, but is currently on Eribulin weekly x 2 followed by 1 week off started on 03/28/2022. Xgeva every 12 weeks since December 2021, previously was started December 04, 2019 every 4 weeks. Electrolytes abnormality-as below - Consulted nephro : replace mag with 2 g IV, phosphorus with 30 mmol IV, and calcium noted at 11.6 but no additional therapies at this time for such Appreciate nephrology input and recommendation -We will monitor electrolytes (4) Hypomagnesemia: (5) Hypophosphatemia: Plan: - Replace electrolytes as above - appreciate nephrology assistance with such (6) CAD (coronary artery disease): (7) Hypertension: Plan: Remains on the lower side (8) Hypercholesteremia: Plan: - Cont antihypertensives, statin, aspirin and hold plavix tomorrow morning prior to paracentesis and resume afterwards (9) Hypothyroidism: Plan: - Cont levothyroxine DVT ppx: scds, aspirin, holding plavix for paracentesis tomorrow CODE: DNR/DNI Admission and Anticipated Discharge Date Admission Date: June 16, 2022 Subjective 06/17/2022 The patient was seen and examined in medical telemetry unit She has been complaining of more abdominal pain without any nausea and or vomiting Her ascites is very minimal and that cannot be drained She was strongly advised to continue with the electrolyte supplement Review of Systems Review of Systems: All systems reviewed & are unremarkable except as noted in Subjective Physical Exam Physical Exam: Lying in bed comfortably. Very weak and lethargic Constitutional: + ill appearing and average body habitus Eyes: PERRL, conjunctivae normal, anicteric sclerae ENMT: external ear and nose normal, oropharynx normal Neck: trachea midline, no thyromegaly Respiratory: + respiratory distress (Minimal distress at rest) Auscultation: + diminished lung sounds and + crackles (Minimal crackles at the bases) Cardiovascular: Rate/Rhythm: regular rate and regular rhythm; not tachycardic Heart Sounds: normal S1, normal S2 and + murmur Extremities: + edema (1+ edema bilaterally) Gastrointestinal (Abdomen): Inspection/Auscultation: + abdomen distended and normal bowel sounds Percussion/Palpation: + abdomen tender and abdomen soft Musculoskeletal: No acute arthritis in any joint Neurologic: no focal motor deficits Generally very weak and lethargic. Lymphatic: no cervical or axillary lymphadenopathy Results & Data Results & Data ([facility]) Vital Signs (Past 12 Hours) Vital Signs Temp Pulse Pulse Resp BP Pulse Ox O2 Del Method 06/17/22 11:17 36.4 C L 84 18 107/64 99 Nasal Cannula 06/17/22 08:00 63 06/17/22 07:50 36.3 C L 81 18 99/60 L 95 Nasal Cannula 06/17/22 04:08 36.8 C 66 18 102/53 L 99 O2 Flow Rate 06/17/22 11:17 2 06/17/22 08:00 06/17/22 07:50 2 06/17/22 04:08 2 Laboratory Results Short CBC 06/16/22 06/17/22 Range/Units 14:48 05:50 WBC 5.92 4.38 L (4.8-10.8) K/ul Hgb 10.7 L 9.5 L (12.0-16.0) g/dl Hct 31.3 L 27.8 L (34.1-44.9) % Plt Count 172 133 (130-400) K/uL BMP 06/16/22 06/17/22 14:48 05:50 Sodium 137 138 Potassium 4.1 3.7 Chloride 108 H 109 H Carbon Dioxide 22 24 BUN 14 14 Creatinine 0.48 L 0.38 L Glucose 68 L 67 L Calcium 10.7 H 9.9 Liver Function 06/16/22 06/17/22 Range/Units 14:48 05:50 Total Bilirubin 1.5 H 1.5 H (0.2-1.0) mg/dl AST 54 H 50 H (13-39) U/L ALT 25 23 (7-52) U/L Alkaline Phosphatase 231 H 217 H (34-104) U/L Albumin 3.0 L 2.9 L (3.4-5.0) gm/dl Urine 06/16/22 Range/Units Unknown Urine Color [place] Urine Appearance Clear (Clear) Urine pH 5.0 (4.5-7.5) Ur Specific [place] 1.033 H (1.000-1.030) Urine Protein 1+ H (Negative) Urine Glucose (UA) Negative (Negative) Medications Administered Current Inpatient Medications Acetaminophen (Acetaminophen 500 Mg Tab) 1,000 mg PO Q8H PRN PRN Reason: Pain Stop: 07/16/22 18:36 Atorvastatin Calcium (Atorvastatin 40 Mg Tab) 80 mg PO HS [facility] Stop: 07/16/22 20:59 Last Admin: 06/16/22 23:12 Dose: 80 mg Ferrous Sulfate (Ferrous Sulfate 325 Mg Tab) 325 mg PO DAILY@0730 [facility] Stop: 07/20/22 07:29 Fluoxetine HCl (Fluoxetine Hcl 20 Mg Cap) 40 mg PO QAM [facility] Stop: 07/17/22 08:59 Last Admin: 06/17/22 11:10 Dose: 40 mg Levothyroxine Sodium (Levothyroxine Sodium 200 Mcg Tablet) 400 mcg PO MoTh@0630 [facility] Stop: 07/16/22 18:59 Last Admin: 06/16/22 23:12 Dose: 400 mcg Miscellaneous (Fenofibrate Micronized 200 Mg Capsule~Order Awaiting Action) 1 each N/A QS [facility] Stop: 07/17/22 00:00 Last Admin: 06/17/22 10:44 Dose: Not Given Multi-Ingredient Cream (Artificial Tears Op Oint 3.5 Gm Tube) 1 appln OPR Q2H KIM Stop: 07/16/22 18:36 Last Admin: 06/17/22 13:22 Dose: 1 appln Ondansetron HCl (Ondansetron 4 Mg Od Tab) 4 mg PO Q6H PRN PRN Reason: Nausea And Vomiting Stop: 07/16/22 18:36 Oxycodone/Acetaminophen (Oxycodone/Acetaminophen 5mg/325mg Tab) 1 tab PO Q4H PRN PRN Reason: svere pain Stop: 06/30/22 18:36 Pantoprazole Sodium (Pantoprazole 40 Mg Tab) 40 mg PO QAM KIM Stop: 07/17/22 08:59 Last Admin: 06/17/22 11:11 Dose: 40 mg (1) Abdominal ascites Ascites type: malignant Qualified Code(s): R18.0 - Malignant ascites
[2022-06-17] MEDS: FENOFIBRATE PO SCH (16:54)
--- NOTE | 2022-06-17 17:01 | Consultation Report ---
NEPHROLOGY CONSULTATION NOTE DATE OF SERVICE: 06/17/2022. REASON FOR CONSULTATION: Hypercalcemia and low magnesium and low phosphorus. HISTORY OF PRESENT ILLNESS: The patient is a 67-year-old female with history of advanced metastatic breast cancer. She has completed several chemotherapies in the past, reviewed in weekly x2 followed by 1 week, started in March 2022. However, currently chemo is on hold. She also gets Xgeva every 12 weeks since December 2021. Yesterday, she presented to the outpatient clinic for routine lab work and was found to have very low phosphorus and elevated calcium, after which she was instructed to get admitted in the hospital as an outpatient. Her calcium was 11.7 recently and was instructed to hold her calcium supplement. Since being admitted, calcium has come down promptly and is now normal with just the use of IV fluid. Phosphorus and magnesium was low and she has received supplement and with that it is completely normal. As an outpatient, she does take magnesium supplement once daily. It is also worth noting that her elevated calcium. is not new. Even two weeks ago, she had a calcium of 11.7 and there are multiple readings of 11+ calcium. However, the phosphorus was low for the first time yesterday. The patient is weak and frail and says she can barely eat anything. Her blood pressure is on the low side. Blood work this morning shows normal phosphorus, normal magnesium, and normal calcium. She is not on any oral phosphorus supplement as an outpatient. PAST MEDICAL AND SURGICAL HISTORY: Includes type 2 diabetes, GERD, history of OCD, bilateral axillary abscess drained, history of metastatic breast cancer with multiple chemotherapy, history of NV, history of anticoagulation therapy, cholecystectomy, colonoscopy, diskectomy, EGD, coronary artery stent, repair of rotator cuff, breast lumpectomy. FAMILY HISTORY: Positive for cancer and diabetes. SOCIAL HISTORY: Never smoked. Single. She uses cane and walker for ambulation. No oxygen. ALLERGIES: List was reviewed in detail and is as per the H and P. MEDICATIONS: Home medication list was reviewed in detail and is as per the H and P. REVIEW OF SYSTEMS: Positive for nausea, poor appetite, weakness and abdominal discomfort from ascites. Otherwise, 12 systems reviewed and negative. PHYSICAL EXAMINATION: GENERAL: Elderly white female who appears to be weak and frail. She is awake, alert, oriented x3. She is able to give me a detailed account of her medical problem list history. VITAL SIGNS: Blood pressure 107/64, pulse rate 84, temperature 36.4, 99% on 2 liter nasal cannula. HEENT: Mucous membrane is moist. NECK: Supple. No jugular venous distention. CHEST: Bilateral decreased breath sounds, occasional crackles at the bases. CVS: S1 and S2, regular. ABDOMEN: Distended, ascites present. EXTREMITIES: Show trace edema. ASSESSMENT AND PLAN: A 67-year-old female with advanced metastatic breast cancer, admitted with abnormal outpatient labs, mainly hypercalcemia, low magnesium and low phosphorus. I have been consulted for electrolyte management. Electrolyte issues, appears to be related, essentially with poor oral intake for the last few weeks. She is barely eating any solid food as she is constantly full because of increasing abdominal ascites. The cause of slightly low magnesium and slightly low phosphorus is nutritional. Instructed patient to look at the list of high potassium, high phosphorus and high magnesium food and try to eat as much as possible. She was already on magnesium supplement once daily, which I would recommend to double it to twice daily. She can also be on phosphorus supplement. Hypercalcemia has improved promptly with just the use of IV fluid, so I do not think we need to do any further treatment for the hypercalcemia. This is also most likely related with inadequate oral intake causing her prerenal state which can make hypercalcemia worse. As long as the patient maintains adequate hydration and she is eating and drinking enough food, her electrolytes issues will be reasonable. Thank you very much. Job ID: [id number] MTDD
[2022-06-17] MEDS: ATORVASTATIN 40 MG TAB PO SCH (20:48)
[2022-06-18] MEDS: ARTIFICIAL TEARS OP OINT 3.5 GM TUBE OPR SCH ×12 (00:02→23:34)
[2022-06-18 07:08] LABS: Basophils # (auto) 0.03 K/uL (0-0.2); Basophils % (auto) 0.7 %; Eosinophils # (auto) 0.09 K/uL (0-0.50); Eosinophils % (auto) 2.2 %; Hematocrit (blood only) 29.1 % (34.1-44.9); Hemoglobin 9.9 g/dl (12.0-16.0); Immature Granulocytes # (auto) 0.03 K/uL (0.00-0.02); Immature Granulocytes % (auto) 0.7 %; Lymphocytes # (auto) 0.52 K/uL (1.2-3.4); Lymphocytes % (auto) 12.6 %; Mean Corpuscular Hemoglobin 32.4 pg (25.0-34.0); Mean Corpuscular Volume 95.1 fL (80.0-100.0); Mean Platelet Volume 11.2 fL (9.4-12.3); Monocytes % (auto) 4.8 %; Neutrophils # (auto) 3.27 K/uL (1.4-6.5); Platelet Count 142 K/uL (130-400); RDW Coefficient of Variation 22.6 % (11.5-14.5); RDW Standard Deviation 74.2 fL (36.4-46.3); Red Blood Count 3.06 M/uL (3.93-5.22); White Blood Count 4.14 K/ul (4.8-10.8)
[2022-06-18 07:43] LABS: Anisocytosis Present; Poikilocytosis Present
[2022-06-18 08:04] LABS: BUN Creatinine Ratio 28.1 (10-20); Calcium 10.4 mg/dl (8.5-10.1); Creatinine Clr Calc Pharmacy 80.6 ml/min; Est GFR (African American) 109.6 ml/min; Est GFR (Non-African American) 94.6 ml/min; Magnesium 1.6 mg/dl (1.7-2.4); Phosphorus 1.9 mg/dl (2.5-4.9)
[2022-06-18] MEDS: PANTOprazole 40 MG TAB PO SCH (08:47)
[2022-06-18] MEDS: FLUoxetine HCL 20 MG CAP PO SCH (08:47)
[2022-06-18] MEDS: oxyCODONE/ACETAMINOPHEN 5mg/325mg TAB PO PRN ×2 (08:49→20:02)
[2022-06-18] MEDS: POT PHOSPHATE MONOBASIC W/ SOD TAB PO SCH ×2 (09:08→20:00)
[2022-06-18] MEDS: MAGNESIUM OXIDE 400 MG TAB PO SCH ×2 (09:08→20:00)
[2022-06-18] MEDS: HEPARIN 100 UNIT/ML 5ML FLUSH FLUSH PRN (12:30)
--- NOTE | 2022-06-18 12:50 | Hospitalist Progress Note ---
Date of Service June 18, 2022 Assessment & Plan (1) Abdominal ascites: Plan: - Repeat PET scans were completed on 06/10 showing disease progression - Mets to liver, spine and pelvis - Moderate ascites with bilateral pleural effusions Discussed with radiology and was planned to perform 2 L paracentesis this morning 06/17/2022 Acetic fluid was too small to be drained Increasing pain of the abdomen-we will decrease the frequency of pain medication Remains weak and lethargic but generally a little better compared with yesterday Has not had any PT and/or OT evaluation Likely discharge on Monday (2) Malignant neoplasm of central portion of right breast in female, estrogen receptor positive: Plan: - Repeat PET scans were completed on 06/10 showing disease progression - Mets to liver, spine and pelvis - Moderate ascites with bilateral pleural effusions - Follow with heme/onc with Dr. Subramanian outpatient, Dr. Kingsley recently - Has not received chemo for 3 weeks due to counts and progressively feeling weaker, palliative medicine has been consulted as an outpatient and the patient is a DNR/DNI. - Place on supportive O2 at 2 L with lower sats/poor reading while at bedside, monitor - Cont antiemetics (3) Metastatic breast cancer: Plan: Pt with Right breast invasive ductal carcinoma grade 3, ER+/NC -/ [id number] - diagnosed November 2017, with metastasis to left pubic ramus and liver with multiple biopsy proven lesions in Sep 2019. She has completed several chemotherapies in the past, but is currently on Eribulin weekly x 2 followed by 1 week off started on 03/28/2022. Xgeva every 12 weeks since December 2021, previously was started December 04, 2019 every 4 weeks. Electrolytes abnormality-as below - Consulted nephro : replace mag with 2 g IV, phosphorus with 30 mmol IV, and calcium noted at 11.6 but no additional therapies at this time for such Appreciate nephrology input and recommendation -We will monitor electrolytes -Magnesium and phosphate remains minimally low -Will start oral supplement with magnesium and phosphate -We will monitor (4) Hypomagnesemia: (5) Hypophosphatemia: Plan: - Replace electrolytes as above - appreciate nephrology assistance with such (6) CAD (coronary artery disease): (7) Hypertension: Plan: Remains on the lower side (8) Hypercholesteremia: Plan: - Cont antihypertensives, statin, aspirin and hold plavix tomorrow morning prior to paracentesis and resume afterwards (9) Hypothyroidism: Plan: - Cont levothyroxine DVT ppx: scds, aspirin, holding plavix for paracentesis tomorrow CODE: DNR/DNI Admission and Anticipated Discharge Date Admission Date: June 16, 2022 Subjective 06/17/2022 The patient was seen and examined in medical telemetry unit She has been complaining of more abdominal pain without any nausea and or vomiting Her ascites is very minimal and that cannot be drained She was strongly advised to continue with the electrolyte supplement 06/18/2022 The patient was seen and examined in medical telemetry unit She complains to have ongoing weakness but denies any other significant symptoms Pain seems to be controlled and denies any nausea and or vomiting No abdominal distention Review of Systems Review of Systems: All systems reviewed and are unremarkable except as noted below Gastrointestinal: Minimal abdominal distention but soft and mildly tender Physical Exam Physical Exam: Lying in bed comfortably. Very weak and lethargic Constitutional: + ill appearing and average body habitus Eyes: PERRL, conjunctivae normal, anicteric sclerae ENMT: external ear and nose normal, oropharynx normal Neck: trachea midline, no thyromegaly Respiratory: + respiratory distress (Minimal distress at rest) Auscultation: + diminished lung sounds and + crackles (Minimal crackles at the bases) Cardiovascular: Rate/Rhythm: regular rate and regular rhythm; not tachycardic Heart Sounds: normal S1, normal S2 and + murmur Extremities: + edema (1+ edema bilaterally) Gastrointestinal (Abdomen): Inspection/Auscultation: + abdomen distended and normal bowel sounds Percussion/Palpation: + abdomen tender and abdomen soft Musculoskeletal: No acute arthritis in any joint Neurologic: no focal motor deficits Lymphatic: no cervical or axillary lymphadenopathy Results & Data Results & Data ([facility]) Vital Signs (Past 12 Hours) Vital Signs Temp Pulse Pulse Resp BP Pulse Ox O2 Del Method 06/18/22 11:26 36.6 C 76 20 116/64 97 Nasal Cannula 06/18/22 10:21 Nasal Cannula 06/18/22 06:23 71 06/18/22 08:09 36.5 C 74 20 107/58 L 98 Nasal Cannula 06/18/22 03:54 36.8 C 72 18 101/54 L 93 Nasal Cannula O2 Flow Rate 06/18/22 11:26 2 06/18/22 10:21 2 06/18/22 06:23 06/18/22 08:09 2 06/18/22 03:54 2 Laboratory Results Short CBC 06/18/22 Range/Units 06:40 WBC 4.14 L (4.8-10.8) K/ul Hgb 9.9 L (12.0-16.0) g/dl Hct 29.1 L (34.1-44.9) % Plt Count 142 (130-400) K/uL BMP 06/18/22 06:40 Sodium 136 Potassium 4.0 Chloride 107 Carbon Dioxide 25 BUN 16 Creatinine 0.57 L Glucose 78 Calcium 10.4 H Medications Administered Current Inpatient Medications Acetaminophen (Acetaminophen 500 Mg Tab) 1,000 mg PO Q8H PRN PRN Reason: Pain Stop: 07/16/22 18:36 Atorvastatin Calcium (Atorvastatin 40 Mg Tab) 80 mg PO HS KIM Stop: 07/16/22 20:59 Last Admin: 06/17/22 20:48 Dose: 80 mg Fenofibrate (Fenofibrate) 1 each PO Q24H KIM Stop: 07/17/22 16:59 Last Admin: 06/17/22 16:54 Dose: 1 each Ferrous Sulfate (Ferrous Sulfate 325 Mg Tab) 325 mg PO DAILY@0730 KIM Stop: 07/20/22 07:29 Fluoxetine HCl (Fluoxetine Hcl 20 Mg Cap) 40 mg PO QAM KIM Stop: 07/17/22 08:59 Last Admin: 06/18/22 08:47 Dose: 40 mg Heparin Sodium (Porcine) (Heparin 100 Unit/Ml 5ml Flush) 5 ml FLUSH PRN PRN PRN Reason: Flush Stop: 07/18/22 00:22 Last Admin: 06/18/22 12:30 Dose: 5 ml Levothyroxine Sodium (Levothyroxine Sodium 200 Mcg Tablet) 400 mcg PO MoTh@0630 KIM Stop: 07/16/22 18:59 Last Admin: 06/16/22 23:12 Dose: 400 mcg Magnesium Oxide (Magnesium Oxide 400 Mg Tab) 400 mg PO BID KIM Stop: 07/18/22 08:59 Last Admin: 06/18/22 09:08 Dose: 400 mg Multi-Ingredient Cream (Artificial Tears Op Oint 3.5 Gm Tube) 1 appln OPR Q2H KIM Stop: 07/16/22 18:36 Last Admin: 06/18/22 12:09 Dose: 1 appln Ondansetron HCl (Ondansetron 4 Mg Od Tab) 4 mg PO Q6H PRN PRN Reason: Nausea And Vomiting Stop: 07/16/22 18:36 Oxycodone/Acetaminophen (Oxycodone/Acetaminophen 5mg/325mg Tab) 1 tab PO Q4H PRN PRN Reason: svere pain Stop: 06/30/22 18:36 Last Admin: 06/18/22 08:49 Dose: 1 tab Pantoprazole Sodium (Pantoprazole 40 Mg Tab) 40 mg PO QAM [facility] Stop: 07/17/22 08:59 Last Admin: 06/18/22 08:47 Dose: 40 mg Potassium Phosphate (Pot Phosphate Monobasic W/ Sod Tab) 2 tab PO BID [facility] Stop: 07/18/22 08:59 Last Admin: 06/18/22 09:08 Dose: 2 tab (1) Abdominal ascites Ascites type: malignant Qualified Code(s): R18.0 - Malignant ascites
[2022-06-18] MEDS: FENOFIBRATE PO SCH (16:57)
[2022-06-18] MEDS: ATORVASTATIN 40 MG TAB PO SCH (20:00)
[2022-06-19] MEDS: ARTIFICIAL TEARS OP OINT 3.5 GM TUBE OPR SCH ×12 (00:35→23:43)
[2022-06-19 07:15] LABS: BUN Creatinine Ratio 27.7 (10-20); Calcium 10.4 mg/dl (8.5-10.1); Creatinine Clr Calc Pharmacy 97.8 ml/min; Est GFR (African American) 116.8 ml/min; Est GFR (Non-African American) 100.8 ml/min; Magnesium 1.6 mg/dl (1.7-2.4); Potassium 3.9 mmol/L (3.5-5.1)
[2022-06-19] MEDS ORDERED: SODIUM PHOSPHATE 3 MMOL/1 ML 5 ML VIAL IV ONE (07:40)
[2022-06-19] MEDS: PANTOprazole 40 MG TAB PO SCH (08:32)
[2022-06-19] MEDS: POT PHOSPHATE MONOBASIC W/ SOD TAB PO SCH ×2 (08:32→20:54)
[2022-06-19] MEDS: FLUoxetine HCL 20 MG CAP PO SCH (08:32)
[2022-06-19] MEDS: MAGNESIUM OXIDE 400 MG TAB PO SCH ×2 (08:32→20:54)
[2022-06-19] MEDS: ACETAMINOPHEN 500 MG TAB PO PRN (08:37)
[2022-06-19] MEDS ORDERED: SODIUM PHOSPHATE 21 MMOL in SODIUM CHLORIDE 0.9% 500 ML IV ONE (09:00)
[2022-06-19] MEDS: oxyCODONE/ACETAMINOPHEN 5mg/325mg TAB PO PRN (11:12)
[2022-06-19] MEDS ORDERED: bisacodyL 10 MG SUPP PR STA (11:18)
--- NOTE | 2022-06-19 12:07 | Hospitalist Progress Note ---
Date of Service June 18, 2022 Assessment & Plan (1) Abdominal ascites: Plan: - Repeat PET scans were completed on 06/10 showing disease progression - Mets to liver, spine and pelvis - Moderate ascites with bilateral pleural effusions Discussed with radiology and was planned to perform 2 L paracentesis this morning 06/17/2022 Acetic fluid was too small to be drained Increasing pain of the abdomen-we will decrease the frequency of pain medication Remains weak and lethargic but generally a little better compared with yesterday Has not had any PT and/or OT evaluation Likely discharge on Monday Clinically much better and stable Will get ultrasound of the abdomen and likely discharge tomorrow afternoon Continue PT and OT evaluation prior to discharge (2) Malignant neoplasm of central portion of right breast in female, estrogen receptor positive: Plan: - Repeat PET scans were completed on 06/10 showing disease progression - Mets to liver, spine and pelvis - Moderate ascites with bilateral pleural effusions - Follow with heme/onc with Dr. Subramanian outpatient, Dr. Kingsley recently - Has not received chemo for 3 weeks due to counts and progressively feeling weaker, palliative medicine has been consulted as an outpatient and the patient is a DNR/DNI. - Place on supportive O2 at 2 L with lower sats/poor reading while at bedside, monitor - Cont antiemetics (3) Metastatic breast cancer: Plan: Pt with Right breast invasive ductal carcinoma grade 3, ER+/CT -/ [id number] - diagnosed November 2017, with metastasis to left pubic ramus and liver with multiple biopsy proven lesions in Sep 2019. She has completed several chemotherapies in the past, but is currently on Eribulin weekly x 2 followed by 1 week off started on 03/28/2022. Xgeva every 12 weeks since December 2021, previously was started December 04, 2019 every 4 weeks. Electrolytes abnormality-as below - Consulted nephro : replace mag with 2 g IV, phosphorus with 30 mmol IV, and calcium noted at 11.6 but no additional therapies at this time for such Appreciate nephrology input and recommendation -We will monitor electrolytes -Magnesium and phosphate remains minimally low -Will start oral supplement with magnesium and phosphate -We will check electrolytes tomorrow (4) Hypomagnesemia: (5) Hypophosphatemia: Plan: - Replace electrolytes as above - appreciate nephrology assistance with such (6) CAD (coronary artery disease): (7) Hypertension: Plan: Remains on the lower side (8) Hypercholesteremia: Plan: - Cont antihypertensives, statin, aspirin and hold plavix tomorrow morning prior to paracentesis and resume afterwards (9) Hypothyroidism: Plan: - Cont levothyroxine DVT ppx: scds, aspirin, holding plavix for paracentesis tomorrow CODE: DNR/DNI Admission and Anticipated Discharge Date Admission Date: June 16, 2022 Subjective 06/17/2022 The patient was seen and examined in medical telemetry unit She has been complaining of more abdominal pain without any nausea and or vomiting Her ascites is very minimal and that cannot be drained She was strongly advised to continue with the electrolyte supplement 06/18/2022 The patient was seen and examined in medical telemetry unit She complains to have ongoing weakness but denies any other significant symptoms Pain seems to be controlled and denies any nausea and or vomiting No abdominal distention 06/19/2022 The patient was seen and examined in medical telemetry unit She has been complaining of more abdominal distention with discomfort Denies any significant pain, nausea and or vomiting Her bowel is not moved yet Review of Systems Review of Systems: All systems reviewed and are unremarkable except as noted below Gastrointestinal: Minimal abdominal distention but soft and mildly tender Physical Exam Physical Exam: Lying in bed comfortably. Very weak and lethargic Constitutional: + ill appearing and average body habitus Eyes: PERRL, conjunctivae normal, anicteric sclerae ENMT: external ear and nose normal, oropharynx normal Neck: trachea midline, no thyromegaly Respiratory: + respiratory distress (Minimal distress at rest) Auscultation: + diminished lung sounds and + crackles (Minimal crackles at the bases) Cardiovascular: Rate/Rhythm: regular rate and regular rhythm; not tachycardic Heart Sounds: normal S1, normal S2 and + murmur Extremities: + edema (1+ edema bilaterally) Gastrointestinal (Abdomen): Inspection/Auscultation: + abdomen distended and normal bowel sounds (Decreased bowel sounds) Percussion/Palpation: + abdomen tender and abdomen soft Musculoskeletal: No acute arthritis in any joint Neurologic: no focal motor deficits Lymphatic: no cervical or axillary lymphadenopathy Results & Data Results & Data ([facility]) Vital Signs (Past 12 Hours) Vital Signs Temp Pulse Pulse Resp BP Pulse Ox O2 Del Method 06/18/22 11:26 36.6 C 76 20 116/64 97 Nasal Cannula 06/18/22 10:21 Nasal Cannula 06/18/22 06:23 71 06/18/22 08:09 36.5 C 74 20 107/58 L 98 Nasal Cannula 06/18/22 03:54 36.8 C 72 18 101/54 L 93 Nasal Cannula O2 Flow Rate 06/18/22 11:26 2 06/18/22 10:21 2 06/18/22 06:23 06/18/22 08:09 2 06/18/22 03:54 2 Laboratory Results BMP 06/19/22 05:57 Sodium 138 Potassium 3.9 Chloride 107 Carbon Dioxide 27 BUN 13 Creatinine 0.47 L Glucose 89 Calcium 10.4 H Medications Administered Current Inpatient Medications Acetaminophen (Acetaminophen 500 Mg Tab) 1,000 mg PO Q8H PRN PRN Reason: Pain Stop: 07/16/22 18:36 Last Admin: 06/19/22 08:37 Dose: 1,000 mg Atorvastatin Calcium (Atorvastatin 40 Mg Tab) 80 mg PO HS KIM Stop: 07/16/22 20:59 Last Admin: 06/18/22 20:00 Dose: 80 mg Fenofibrate (Fenofibrate) 1 each PO Q24H KIM Stop: 07/17/22 16:59 Last Admin: 06/18/22 16:57 Dose: 1 each Ferrous Sulfate (Ferrous Sulfate 325 Mg Tab) 325 mg PO DAILY@0730 [facility] Stop: 07/20/22 07:29 Fluoxetine HCl (Fluoxetine Hcl 20 Mg Cap) 40 mg PO QAM KIM Stop: 07/17/22 08:59 Last Admin: 06/19/22 08:32 Dose: 40 mg Heparin Sodium (Porcine) (Heparin 100 Unit/Ml 5ml Flush) 5 ml FLUSH PRN PRN PRN Reason: Flush Stop: 07/18/22 00:22 Last Admin: 06/18/22 12:30 Dose: 5 ml Sodium Phosphate 21 mmol/ (Sodium Chloride) 507 mls @ 88 mls/hr IV ONE ONE Stop: 06/19/22 14:45 Last Admin: 06/19/22 09:05 Dose: 88 mls/hr Levothyroxine Sodium (Levothyroxine Sodium 200 Mcg Tablet) 400 mcg PO MoTh@0630 [facility] Stop: 07/16/22 18:59 Last Admin: 06/16/22 23:12 Dose: 400 mcg Magnesium Oxide (Magnesium Oxide 400 Mg Tab) 400 mg PO BID KIM Stop: 07/18/22 08:59 Last Admin: 06/19/22 08:32 Dose: 400 mg Multi-Ingredient Cream (Artificial Tears Op Oint 3.5 Gm Tube) 1 appln OPR Q2H KIM Stop: 07/16/22 18:36 Last Admin: 06/19/22 11:07 Dose: Not Given Ondansetron HCl (Ondansetron 4 Mg Od Tab) 4 mg PO Q6H PRN PRN Reason: Nausea And Vomiting Stop: 07/16/22 18:36 Oxycodone/Acetaminophen (Oxycodone/Acetaminophen 5mg/325mg Tab) 1 tab PO Q4H PRN PRN Reason: svere pain Stop: 06/30/22 18:36 Last Admin: 06/18/22 20:02 Dose: 1 tab Pantoprazole Sodium (Pantoprazole 40 Mg Tab) 40 mg PO QAM KIM Stop: 07/17/22 08:59 Last Admin: 06/19/22 08:32 Dose: 40 mg Potassium Phosphate (Pot Phosphate Monobasic W/ Sod Tab) 2 tab PO BID KIM Stop: 07/18/22 08:59 Last Admin: 06/19/22 08:32 Dose: 2 tab (1) Abdominal ascites Ascites type: malignant Qualified Code(s): R18.0 - Malignant ascites
[2022-06-19] MEDS: FENOFIBRATE PO SCH (17:21)
[2022-06-19] MEDS: ATORVASTATIN 40 MG TAB PO SCH (20:54)
[2022-06-20] MEDS: ARTIFICIAL TEARS OP OINT 3.5 GM TUBE OPR SCH ×12 (01:13→23:20)
[2022-06-20] MEDS: oxyCODONE/ACETAMINOPHEN 5mg/325mg TAB PO PRN ×3 (01:27→20:04)
[2022-06-20] MEDS: LEVOTHYROXINE SODIUM 200 MCG TABLET PO SCH (06:03)
[2022-06-20 07:30] LABS: Calcium 10.3 mg/dl (8.5-10.1); Creatinine Clr Calc Pharmacy 95.8 ml/min; Est GFR (Non-African American) 100.1 ml/min; Magnesium 1.5 mg/dl (1.7-2.4); Phosphorus 2.4 mg/dl (2.5-4.9); Potassium 3.8 mmol/L (3.5-5.1)
[2022-06-20] MEDS: FERROUS SULFATE 325 MG TAB PO SCH (08:39)
[2022-06-20] MEDS: FLUoxetine HCL 20 MG CAP PO SCH (08:40)
[2022-06-20] MEDS: PANTOprazole 40 MG TAB PO SCH (08:40)
[2022-06-20] MEDS: POT PHOSPHATE MONOBASIC W/ SOD TAB PO SCH ×3 (08:42→20:11)
[2022-06-20] MEDS: MAGNESIUM OXIDE 400 MG TAB PO SCH ×3 (08:42→20:11)
--- NOTE | 2022-06-20 10:03 | Nephrology Progress Note ---
Date of Service June 20, 2022 Assessment & Plan Admission and Anticipated Discharge Date Admission Date: June 16, 2022 Subjective S---PO intake still low Lytes still low PHYSICAL EXAMINATION: GENERAL: Elderly white female who appears to be weak and frail. She is awake, alert, oriented x3. She is able to give me a detailed account of her medical problem list history. HEENT: Mucous membrane is moist. NECK: Supple. No jugular venous distention. CHEST: Bilateral decreased breath sounds, occasional crackles at the bases. CVS: S1 and S2, regular. ABDOMEN: Distended, ascites present. EXTREMITIES: Show trace edema. ASSESSMENT AND PLAN: A 67-year-old female with advanced metastatic breast cancer, admitted with abnormal outpatient labs, mainly hypercalcemia, low magnesium and low phosphorus. I have been consulted for electrolyte management. Electrolyte issues, appears to be related, essentially with poor oral intake for the last few weeks. She is barely eating any solid food as she is constantly full because of increasing abdominal ascites. Mag low and phos low. ca++ borderline high Rec: raise oral magox to 400 tid Raise Phos po to 2 gm tid. Daily labs--renal panel and mag . Results & Data ([facility]) Vital Signs (Past 12 Hours) Vital Signs Temp Pulse Pulse Resp BP Pulse Ox O2 Del Method 06/20/22 09:43 Nasal Cannula 06/20/22 06:14 71 06/20/22 06:24 36.6 C 75 16 106/54 L 97 Nasal Cannula 06/20/22 03:23 37 C 68 16 139/72 93 Nasal Cannula 06/20/22 00:37 67 06/19/22 23:14 36.9 C 70 16 139/70 97 Nasal Cannula 06/19/22 22:51 Room Air O2 Flow Rate 06/20/22 09:43 2 06/20/22 06:14 06/20/22 06:24 2 06/20/22 03:23 2 06/20/22 00:37 06/19/22 23:14 2 06/19/22 22:51
--- NOTE | 2022-06-20 10:48 | Ultrasound Report ---
US abdomen ltd ascites HISTORY: 67 years-old Female Evaluate Ascietes follow-up study in a patient with history of ascites COMPARISON: Abdominal ultrasound 06/17/2022 TECHNIQUE: Multiple real-time sonographic images of the abdomen were obtained assessing grayscale yo earance FINDINGS: Heterogeneous liver with innumerable metastasis redemonstrated. There is only a small volume of abdom inal ascites which appears similar to decreased from prior. IMPRESSION: Small volume of abdominal ascites. ACT 112: Negative or not required by law. The above report was generated using voice recognition software. It may contain grammatical, syntax o r spelling errors. Electronically signed by: Raghavendra Lange M.D. 06/20/2022 10:46 AM
[2022-06-20] MEDS: HEPARIN 100 UNIT/ML 5ML FLUSH FLUSH PRN (11:40)
--- NOTE | 2022-06-20 17:02 | Hospitalist Progress Note ---
Date of Service June 20, 2022 Assessment & Plan (1) Abdominal ascites: Plan: - Repeat PET scans were completed on 06/10 showing disease progression - Mets to liver, spine and pelvis - Moderate ascites with bilateral pleural effusions Discussed with radiology and was planned to perform 2 L paracentesis this morning 06/17/2022 Acetic fluid was too small to be drained Increasing pain of the abdomen-we will decrease the frequency of pain medication Remains weak and lethargic but generally a little better compared with yesterday Has not had any PT and/or OT evaluation Likely discharge on Monday Clinically much better and stable Will get ultrasound of the abdomen and likely discharge tomorrow afternoon Continue PT and OT evaluation prior to discharge Repeat ultrasound did not show any increase in amount of ascites She will get PT and OT evaluation and likely discharge tomorrow (2) Malignant neoplasm of central portion of right breast in female, estrogen receptor positive: Plan: - Repeat PET scans were completed on 06/10 showing disease progression - Mets to liver, spine and pelvis - Moderate ascites with bilateral pleural effusions - Follow with heme/onc with Dr. Subramanian outpatient, Dr. Kingsley recently - Has not received chemo for 3 weeks due to counts and progressively feeling weaker, palliative medicine has been consulted as an outpatient and the patient is a DNR/DNI. - Place on supportive O2 at 2 L with lower sats/poor reading while at bedside, monitor - Cont antiemetics -Remains generally weak and lethargic (3) Metastatic breast cancer: Plan: Pt with Right breast invasive ductal carcinoma grade 3, ER+/[place] -/ [id number] - diagnosed November 2017, with metastasis to left pubic ramus and liver with multiple biopsy proven lesions in Sep 2019. She has completed several chemotherapies in the past, but is currently on Eribulin weekly x 2 followed by 1 week off started on 03/28/2022. Xgeva every 12 weeks since December 2021, previously was started December 04, 2019 every 4 weeks. Electrolytes abnormality-as below - Consulted nephro : replace mag with 2 g IV, phosphorus with 30 mmol IV, and calcium noted at 11.6 but no additional therapies at this time for such Appreciate nephrology input and recommendation -We will monitor electrolytes -Magnesium and phosphate remains minimally low -Will start oral supplement with magnesium and phosphate -We will check electrolytes tomorrow again (4) Hypomagnesemia: (5) Hypophosphatemia: Plan: - Replace electrolytes as above - appreciate nephrology assistance with such (6) CAD (coronary artery disease): (7) Hypertension: Plan: Remains on the lower side (8) Hypercholesteremia: Plan: - Cont antihypertensives, statin, aspirin and hold plavix tomorrow morning prior to paracentesis and resume afterwards (9) Hypothyroidism: Plan: - Cont levothyroxine DVT ppx: scds, aspirin, holding plavix for paracentesis tomorrow CODE: DNR/DNI Admission and Anticipated Discharge Date Admission Date: June 16, 2022 Subjective 06/20/2022 The patient was seen and examined in medical telemetry unit She remains very weak and lethargic and complains to have some abdominal distention Will have PT and OT evaluation prior to discharge tomorrow Review of Systems Review of Systems: All systems reviewed and are unremarkable except as noted below Gastrointestinal: Minimal abdominal distention but soft and mildly tender Physical Exam Physical Exam: Lying in bed comfortably. Very weak and lethargic Constitutional: + ill appearing and average body habitus Eyes: PERRL, conjunctivae normal, anicteric sclerae ENMT: external ear and nose normal, oropharynx normal Neck: trachea midline, no thyromegaly Respiratory: + respiratory distress (Minimal distress at rest) Auscultation: + diminished lung sounds and + crackles (Minimal crackles at the bases) Cardiovascular: Rate/Rhythm: regular rate and regular rhythm; not tachycardic Heart Sounds: normal S1, normal S2 and + murmur Extremities: + edema (1+ edema bilaterally) Gastrointestinal (Abdomen): Inspection/Auscultation: + abdomen distended and normal bowel sounds (Decreased bowel sounds) Percussion/Palpation: + abdomen tender and abdomen soft Neurologic: no focal motor deficits Lymphatic: no cervical or axillary lymphadenopathy Results & Data Results & Data ([facility]) Vital Signs (Past 12 Hours) Vital Signs Temp Pulse Pulse Pulse Resp BP Pulse Ox 06/20/22 16:05 88 06/20/22 15:35 36.3 C L 91 H 20 120/65 91 06/20/22 15:13 91 06/20/22 11:23 36.8 C 81 20 105/50 L 94 06/20/22 09:43 06/20/22 06:14 71 06/20/22 06:24 36.6 C 75 16 106/54 L 97 O2 Del Method O2 Flow Rate 06/20/22 16:05 06/20/22 15:35 Nasal Cannula 2 06/20/22 15:13 06/20/22 11:23 Nasal Cannula 2 06/20/22 09:43 Nasal Cannula 2 06/20/22 06:14 06/20/22 06:24 Nasal Cannula 2 Laboratory Results BMP 06/20/22 06:20 Sodium 138 Potassium 3.8 Chloride 106 Carbon Dioxide 28 BUN 12 Creatinine 0.48 L Glucose 73 Calcium 10.3 H Medications Administered Current Inpatient Medications Acetaminophen (Acetaminophen 500 Mg Tab) 1,000 mg PO Q8H PRN PRN Reason: Pain Stop: 07/16/22 18:36 Last Admin: 06/19/22 08:37 Dose: 1,000 mg Atorvastatin Calcium (Atorvastatin 40 Mg Tab) 80 mg PO HS KIM Stop: 07/16/22 20:59 Last Admin: 06/19/22 20:54 Dose: 80 mg Fenofibrate (Fenofibrate) 1 each PO Q24H [facility] Stop: 07/17/22 16:59 Last Admin: 06/19/22 17:21 Dose: 1 each Ferrous Sulfate (Ferrous Sulfate 325 Mg Tab) 325 mg PO DAILY@0730 [facility] Stop: 07/20/22 07:29 Last Admin: 06/20/22 08:39 Dose: 325 mg Fluoxetine HCl (Fluoxetine Hcl 20 Mg Cap) 40 mg PO QAM [facility] Stop: 07/17/22 08:59 Last Admin: 06/20/22 08:40 Dose: 40 mg Heparin Sodium (Porcine) (Heparin 100 Unit/Ml 5ml Flush) 5 ml FLUSH PRN PRN PRN Reason: Flush Stop: 07/18/22 00:22 Last Admin: 06/20/22 11:40 Dose: 5 ml Levothyroxine Sodium (Levothyroxine Sodium 200 Mcg Tablet) 400 mcg PO MoTh@0630 [facility] Stop: 07/16/22 18:59 Last Admin: 06/20/22 06:03 Dose: 400 mcg Magnesium Oxide (Magnesium Oxide 400 Mg Tab) 400 mg PO TID [facility] Stop: 07/20/22 13:59 Last Admin: 06/20/22 14:00 Dose: 400 mg Multi-Ingredient Cream (Artificial Tears Op Oint 3.5 Gm Tube) 1 appln OPR Q2H [facility] Stop: 07/16/22 18:36 Last Admin: 06/20/22 14:00 Dose: 1 appln Ondansetron HCl (Ondansetron 4 Mg Od Tab) 4 mg PO Q6H PRN PRN Reason: Nausea And Vomiting Stop: 07/16/22 18:36 Oxycodone/Acetaminophen (Oxycodone/Acetaminophen 5mg/325mg Tab) 1 tab PO Q4H PRN PRN Reason: svere pain Stop: 06/30/22 18:36 Last Admin: 06/20/22 13:57 Dose: 1 tab Pantoprazole Sodium (Pantoprazole 40 Mg Tab) 40 mg PO QAM [facility] Stop: 07/17/22 08:59 Last Admin: 06/20/22 08:40 Dose: 40 mg Potassium Phosphate (Pot Phosphate Monobasic W/ Sod Tab) 2 tab PO TID [facility] Stop: 07/20/22 13:59 Last Admin: 06/20/22 14:00 Dose: 2 tab (1) Abdominal ascites Ascites type: malignant Qualified Code(s): R18.0 - Malignant ascites
[2022-06-20] MEDS: FENOFIBRATE PO SCH (17:03)
[2022-06-20] MEDS: ATORVASTATIN 40 MG TAB PO SCH (20:05)
[2022-06-21] MEDS: ARTIFICIAL TEARS OP OINT 3.5 GM TUBE OPR SCH ×8 (01:00→16:31)
[2022-06-21] MEDS: FERROUS SULFATE 325 MG TAB PO SCH (08:01)
[2022-06-21] MEDS: FLUoxetine HCL 20 MG CAP PO SCH (08:02)
[2022-06-21] MEDS: MAGNESIUM OXIDE 400 MG TAB PO SCH (08:02)
[2022-06-21] MEDS: POT PHOSPHATE MONOBASIC W/ SOD TAB PO SCH (08:02)
[2022-06-21] MEDS: PANTOprazole 40 MG TAB PO SCH (08:02)
[2022-06-21] MEDS: ACETAMINOPHEN 500 MG TAB PO PRN (09:22)
--- NOTE | 2022-06-21 09:29 | Nephrology Progress Note ---
Date of Service June 21, 2022 Assessment & Plan Admission and Anticipated Discharge Date Admission Date: June 16, 2022 Subjective Subjective S---PO intake still low Lytes still low PHYSICAL EXAMINATION: GENERAL: Elderly white female who appears to be weak and frail. She is awake, alert, oriented x3. She is able to give me a detailed account of her medical problem list history. HEENT: Mucous membrane is moist. NECK: Supple. No jugular venous distention. CHEST: Bilateral decreased breath sounds, occasional crackles at the bases. CVS: S1 and S2, regular. ABDOMEN: Distended, ascites present. EXTREMITIES: Show trace edema. ASSESSMENT AND PLAN: A 67-year-old female with advanced metastatic breast cancer, admitted with abnormal outpatient labs, mainly hypercalcemia, low magnesium and low phosphorus. I have been consulted for electrolyte management. Electrolyte issues, appears to be related, essentially with poor oral intake for the last few weeks. She is barely eating any solid food as she is constantly full because of increasing abdominal ascites. Mag low and phos low. ca++ borderline high Rec: raise oral mag ox to 800 tid. For discharge use Slow mag 128 mg tid as equivalent dose as she was on this. She can take Imodium 1 tab twice daily to counter magnesium induced diarrhea. Raise Phos po to 3 tabs tid. discharge on same Daily labs--renal panel and mag Results & Data ([facility]) Vital Signs (Past 12 Hours) Vital Signs Temp Pulse Pulse Resp BP Pulse Ox O2 Del Method 06/21/22 07:27 36.5 C 87 18 106/60 95 Room Air 06/21/22 02:43 36.8 C 74 16 114/64 96 Nasal Cannula 06/20/22 23:20 36.9 C 103 H 19 114/70 95 Room Air 06/20/22 23:24 99 H O2 Flow Rate 06/21/22 07:27 06/21/22 02:43 1 06/20/22 23:20 06/20/22 23:24
[2022-06-21 10:06] LABS: Calcium 10.4 mg/dl (8.5-10.1); Creatinine Clr Calc Pharmacy 78.5 ml/min; Est GFR (African American) 107.8 ml/min; Magnesium 1.5 mg/dl (1.7-2.4); Potassium 3.9 mmol/L (3.5-5.1)
[2022-06-21 11:35] VITALS: BP 134/68; TEMP 97.9; O2SAT 94
[2022-06-21] MEDS ORDERED: POT PHOSPHATE MONOBASIC W/ SOD TAB PO SCH (14:00)
[2022-06-21] MEDS ORDERED: MAGNESIUM OXIDE 400 MG TAB PO SCH (14:00)
--- NOTE | 2022-06-21 14:59 | Hospitalist Progress Note ---
Date of Service June 20, 2022 Assessment & Plan (1) Abdominal ascites: Plan: - Repeat PET scans were completed on 06/10 showing disease progression - Mets to liver, spine and pelvis - Moderate ascites with bilateral pleural effusions Discussed with radiology and was planned to perform 2 L paracentesis this morning 06/17/2022 Acetic fluid was too small to be drained Increasing pain of the abdomen-we will decrease the frequency of pain medication Remains weak and lethargic but generally a little better compared with yesterday Has not had any PT and/or OT evaluation Likely discharge on Monday Clinically much better and stable Will get ultrasound of the abdomen and likely discharge tomorrow afternoon Continue PT and OT evaluation prior to discharge Repeat ultrasound did not show any increase in amount of ascites She will get PT and OT evaluation and likely discharge tomorrow Remains medically stable but critical Will be discharged home this afternoon-she is not yet ready for hospice (2) Malignant neoplasm of central portion of right breast in female, estrogen receptor positive: Plan: - Repeat PET scans were completed on 06/10 showing disease progression - Mets to liver, spine and pelvis - Moderate ascites with bilateral pleural effusions - Follow with heme/onc with Dr. Subramanian outpatient, Dr. Kingsley recently - Has not received chemo for 3 weeks due to counts and progressively feeling weaker, palliative medicine has been consulted as an outpatient and the patient is a DNR/DNI. - Place on supportive O2 at 2 L with lower sats/poor reading while at bedside, monitor - Cont antiemetics -Remains generally weak and lethargic -Denies any nausea or vomiting or any abdominal pain (3) Metastatic breast cancer: Plan: Pt with Right breast invasive ductal carcinoma grade 3, ER+/[place] -/ [id number] - diagnosed November 2017, with metastasis to left pubic ramus and liver with multiple biopsy proven lesions in Sep 2019. She has completed several chemotherapies in the past, but is currently on Eribulin weekly x 2 followed by 1 week off started on 03/28/2022. Xgeva every 12 weeks since December 2021, previously was started December 04, 2019 every 4 weeks. Electrolytes abnormality-as below - Consulted nephro : replace mag with 2 g IV, phosphorus with 30 mmol IV, and calcium noted at 11.6 but no additional therapies at this time for such Appreciate nephrology input and recommendation -We will monitor electrolytes -Magnesium and phosphate remains minimally low -Will start oral supplement with magnesium and phosphate -We will check electrolytes tomorrow again -Electrolytes are better today (4) Hypomagnesemia: (5) Hypophosphatemia: Plan: - Replace electrolytes as above - appreciate nephrology assistance with such (6) CAD (coronary artery disease): (7) Hypertension: Plan: Remains on the lower side (8) Hypercholesteremia: Plan: - Cont antihypertensives, statin, aspirin and hold plavix tomorrow morning prior to paracentesis and resume afterwards (9) Hypothyroidism: Plan: - Cont levothyroxine DVT ppx: scds, aspirin, holding plavix for paracentesis tomorrow CODE: DNR/DNI Admission and Anticipated Discharge Date Admission Date: June 16, 2022 Subjective 06/20/2022 The patient was seen and examined in medical telemetry unit She remains very weak and lethargic and complains to have some abdominal dist ention Will have PT and OT evaluation prior to discharge tomorrow 06/21/2022 The patient was seen and examined in medical telemetry unit She has been stable but remains extremely weak and lethargic She denies any other significant symptoms Wants to go home this afternoon Review of Systems Review of Systems: All systems reviewed and are unremarkable except as noted below Gastrointestinal: Minimal abdominal distention but soft and mildly tender Physical Exam Physical Exam: Lying in bed comfortably. Very weak and lethargic Constitutional: + ill appearing and average body habitus Eyes: PERRL, conjunctivae normal, anicteric sclerae ENMT: external ear and nose normal, oropharynx normal Neck: trachea midline, no thyromegaly Respiratory: + respiratory distress (Minimal distress at rest) Auscultation: + diminished lung sounds and + crackles (Minimal crackles at the bases) Cardiovascular: Rate/Rhythm: regular rate and regular rhythm; not tachycardic Heart Sounds: normal S1, normal S2 and + murmur Extremities: + edema (1+ edema bilaterally) Gastrointestinal (Abdomen): Inspection/Auscultation: + abdomen distended and normal bowel sounds (Decreased bowel sounds) Percussion/Palpation: + abdomen tender and abdomen soft Musculoskeletal: No acute arthritis in any joint Neurologic: no focal motor deficits Lymphatic: no cervical or axillary lymphadenopathy Results & Data Results & Data ([facility]) Vital Signs (Past 12 Hours) Vital Signs Temp Pulse Pulse Pulse Resp BP Pulse Ox 06/20/22 16:05 88 06/20/22 15:35 36.3 C L 91 H 20 120/65 91 06/20/22 15:13 91 06/20/22 11:23 36.8 C 81 20 105/50 L 94 06/20/22 09:43 06/20/22 06:14 71 06/20/22 06:24 36.6 C 75 16 106/54 L 97 O2 Del Method O2 Flow Rate 06/20/22 16:05 06/20/22 15:35 Nasal Cannula 2 06/20/22 15:13 06/20/22 11:23 Nasal Cannula 2 06/20/22 09:43 Nasal Cannula 2 06/20/22 06:14 06/20/22 06:24 Nasal Cannula 2 Laboratory Results BMP 06/21/22 09:15 Sodium 139 Potassium 3.9 Chloride 105 Carbon Dioxide 28 BUN 12 Creatinine 0.60 Glucose 120 H Calcium 10.4 H Medications Administered Current Inpatient Medications Acetaminophen (Acetaminophen 500 Mg Tab) 1,000 mg PO Q8H PRN PRN Reason: Pain Stop: 07/16/22 18:36 Last Admin: 06/21/22 09:22 Dose: 1,000 mg Atorvastatin Calcium (Atorvastatin 40 Mg Tab) 80 mg PO HS KIM Stop: 07/16/22 20:59 Last Admin: 06/20/22 20:05 Dose: 80 mg Fenofibrate (Fenofibrate) 1 each PO Q24H [facility] Stop: 07/17/22 16:59 Last Admin: 06/20/22 17:03 Dose: 1 each Ferrous Sulfate (Ferrous Sulfate 325 Mg Tab) 325 mg PO DAILY@0730 [facility] Stop: 07/20/22 07:29 Last Admin: 06/21/22 08:01 Dose: 325 mg Fluoxetine HCl (Fluoxetine Hcl 20 Mg Cap) 40 mg PO QAM [facility] Stop: 07/17/22 08:59 Last Admin: 06/21/22 08:02 Dose: 40 mg Heparin Sodium (Porcine) (Heparin 100 Unit/Ml 5ml Flush) 5 ml FLUSH PRN PRN PRN Reason: Flush Stop: 07/18/22 00:22 Last Admin: 06/20/22 11:40 Dose: 5 ml Levothyroxine Sodium (Levothyroxine Sodium 200 Mcg Tablet) 400 mcg PO MoTh@0630 [facility] Stop: 07/16/22 18:59 Last Admin: 06/20/22 06:03 Dose: 400 mcg Magnesium Oxide (Magnesium Oxide 400 Mg Tab) 800 mg PO TID [facility] Stop: 07/21/22 13:59 Last Admin: 06/21/22 13:14 Dose: 800 mg Multi-Ingredient Cream (Artificial Tears Op Oint 3.5 Gm Tube) 1 appln OPR Q2H [facility] Stop: 07/16/22 18:36 Last Admin: 06/21/22 12:32 Dose: 1 appln Ondansetron HCl (Ondansetron 4 Mg Od Tab) 4 mg PO Q6H PRN PRN Reason: Nausea And Vomiting Stop: 07/16/22 18:36 Last Admin: 06/20/22 22:12 Dose: 4 mg Oxycodone/Acetaminophen (Oxycodone/Acetaminophen 5mg/325mg Tab) 1 tab PO Q4H PRN PRN Reason: svere pain Stop: 06/30/22 18:36 Last Admin: 06/20/22 20:04 Dose: 1 tab Pantoprazole Sodium (Pantoprazole 40 Mg Tab) 40 mg PO QAM [facility] Stop: 07/17/22 08:59 Last Admin: 06/21/22 08:02 Dose: 40 mg Potassium Phosphate (Pot Phosphate Monobasic W/ Sod Tab) 3 tab PO TID [facility] Stop: 07/21/22 13:59 Last Admin: 06/21/22 13:14 Dose: 3 tab (1) Abdominal ascites Ascites type: malignant Qualified Code(s): R18.0 - Malignant ascites
[2022-06-21 15:36] VITALS: PULSE 75
[2022-06-21] MEDS: oxyCODONE/ACETAMINOPHEN 5mg/325mg TAB PO PRN (15:45)
--- NOTE | 2022-06-21 17:59 | Discharge Summary ---
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 She has completed several chemotherapies in the past, but is currently on Eribulin weekly x 2 followed by 1 week off started on 03/28/2022. Xgeva every 12 weeks since December 2021, previously was started December 04, 2019 every 4 weeks. Other past medical history includes MD in 2012 s/p [id number] placement on plavix therapy, polymyalgia rheumatica on prednisone previously, currently on Plaquenil, osteoarthritis of multiple joints, diabetes, hyperlipidemia, OCD and depression on Prozac. It was noted in her last visit with heme-onc on 06/03/2022 that she was feeling increasingly weak after each chemotherapy treatment and abdominal distention and pain. Was noted that her calcium serum level was 11.7 at that time was instructed to hold calcium supplement. She was scheduled to have repeat PET scans within the next 2 weeks and now abdominal ultrasound to assess right upper quadrant pain and possible ascites. Her CT of the abdomen pelvis was completed on 06/10/2022 showing increased diffuse hepatic metallic metastatic disease, increased burden of ben hepatis and gastrohepatic ligament lymphadenopathy as well as new hypermetabolic retroperitoneal lymphadenopathy. Metastatic disease is most noted in the right pedicle of L4, in T2, and remains in the left pubic rami without focal activity, presumably treated disease. All of this suggests overall disease progression. Also notes new findings of fluid overload, including small bilateral pleural effusions, moderate ascites and body wall edema. This morning she presented to outpatient [facility] clinic for routine lab work and phorphorus was low and calcium was high. She has been getting IV hydration as an outpatient fairly frequently, within the past 2 weeks. She has gotten infusions of 1000 over 500 mL x 3, most recently was last . She feels that in the past 2 weeks her abdomen has gotten increasingly distended, pain, and decreased p.o. appetite due to distention. She is tolerating fluids without difficulty. She feels short of breath with minimal exertional activities such as getting out of bed to use bedside potty at night. Present at bedside is her friend, MALINA, who also serves as a caregiver and lives with her in her home. She reports a steady decline in the past 2 weeks specifically. Patient is aware of her recent PET scan results showing progressive malignancy/disease as it was recently discussed with her by her primary oncologist. She follows with Dr. Subramanian however as he is currently on vacation, she saw Dr. Kingsley this past visit on 06/03/2022. 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 Admission Exam Per Admitting Provider Physical Exam: General: awake, alert, no apparent distress, + alopecia, + pallor, + right sided facial droop involving the eye and mouth from Trevorton Palsy Head: Normocephalic, atraumatic ENT: PERRL, EOMI, no pharyngeal exudate, mucous membranes moist Chest: On room air, sats fluctuate between 80 and low 90s on RA, will place on O2, absent breath sounds at bases bilaterally, no wheezes rales or rhonchi. Cardiac: Regular rate and rhythm, no murmur, no JVD, normal peripheral pulses, good capillary refill Abdominal: Hypoactive bowel sounds x 4 quadrants, distended abdomen, nontender to palpation, no rebound or guarding Extremities: + Trace nonpitting peripheral edema of BLE, no erythema, calfs nontender to palpation Psych: Normal mood and affect Neuro: AAO x 3, strength intact bilaterally and rated 5/5, no motor deficits, speech is clear, no peripheral sensory deficits Principal Diagnosis Metastatic breast cancer, electrolytes abnormalities, abdominal pain with minimal ascites, hypothyroidism Discharge Exam Lying in bed comfortably. Very weak and lethargic Constitutional + ill appearing and average body habitus Eyes PERRL, conjunctivae normal, anicteric sclerae ENMT external ear and nose normal, oropharynx normal Neck trachea midline, no thyromegaly Respiratory + respiratory distress (Minimal distress at rest) Auscultation: + diminished lung sounds and + crackles (Minimal crackles at the bases) Cardiovascular Rate/Rhythm: regular rate and regular rhythm; not tachycardic Heart Sounds: normal S1, normal S2 and + murmur Extremities: + edema (1+ edema bilaterally) Gastrointestinal (Abdomen) Inspection/Auscultation: + abdomen distended and normal bowel sounds (Decreased bowel sounds) Percussion/Palpation: + abdomen tender and abdomen soft Neurologic no focal motor deficits Lymphatic no cervical or axillary lymphadenopathy Discharge Data Allergies Allergy/AdvReac Type Severity Reaction Status Date / Time methylprednisolone Allergy Severe Anaphylaxis Verified 06/16/22 16:00 NSAIDS (Non-Steroidal Allergy Severe Hives Verified 06/16/22 16:00 Anti-Inflamma oxaprozin [From Daypro] Allergy Severe Anaphylaxis Verified 06/16/22 16:00 dextromethorphan Allergy Intermediate Hives Verified 06/16/22 16:00 erythromycin base Allergy Intermediate Hives Verified 06/16/22 16:00 pseudoephedrine Allergy Intermediate Hives Verified 06/16/22 16:00 doxylamine Allergy Unknown Unknown Verified 06/16/22 16:00 Consultations 06/16/22 14:25 ED Decision to Admit Stat 06/16/22 15:39 Consult Nephrology Routine Ordered Studies 06/17/22 09:00 US abdomen ltd ascites Stat 06/20/22 07:42 US abdomen ltd ascites Routine Hospital Course (1) Abdominal ascites: - Repeat PET scans were completed on 06/10 showing disease progression - Mets to liver, spine and pelvis - Moderate ascites with bilateral pleural effusions Discussed with radiology and was planned to perform 2 L paracentesis this morning 06/17/2022 Acetic fluid was too small to be drained Increasing pain of the abdomen-we will decrease the frequency of pain medication Remains weak and lethargic but generally a little better compared with yesterday Has not had any PT and/or OT evaluation Likely discharge on Monday Clinically much better and stable Will get ultrasound of the abdomen and likely discharge tomorrow afternoon Continue PT and OT evaluation prior to discharge Repeat ultrasound did not show any increase in amount of ascites She will get PT and OT evaluation and likely discharge tomorrow Remains medically stable but critical Will be discharged home this afternoon-she is not yet ready for hospice (2) Malignant neoplasm of central portion of right breast in female, estrogen receptor positive: - Repeat PET scans were completed on 06/10 showing disease progression - Mets to liver, spine and pelvis - Moderate ascites with bilateral pleural effusions - Follow with heme/onc with Dr. Subramanian outpatient, Dr. Kingsley recently - Has not received chemo for 3 weeks due to counts and progressively feeling weaker, palliative medicine has been consulted as an outpatient and the patient is a DNR/DNI. 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 She has completed several chemotherapies in the past, but is currently on Eribulin weekly x 2 followed by 1 week off started on 03/28/2022. Xgeva every 12 weeks since December 2021, previously was started December 04, 2019 every 4 weeks. Electrolytes abnormality-as below - Consulted nephro : replace mag with 2 g IV, phosphorus with 30 mmol IV, and calcium noted at 11.6 but no additional therapies at this time for such Appreciate nephrology input and recommendation -We will monitor electrolytes -Magnesium and phosphate remains minimally low -Will start oral supplement with magnesium and phosphate -We will check electrolytes tomorrow again -Electrolytes are better today (4) Hypomagnesemia: (5) Hypophosphatemia: - Replace electrolytes as above - appreciate nephrology assistance with such (6) CAD (coronary artery disease): (7) Hypertension: Remains on the lower side (8) Hypercholesteremia: - Cont antihypertensives, statin, aspirin and hold plavix tomorrow morning prior to paracentesis and resume afterwards (9) Hypothyroidism: - Cont levothyroxine DVT ppx: scds, aspirin, holding plavix for paracentesis tomorrow CODE: DNR/DNI Total Time Total Time Spent Total Time Spent (In Minutes): 45 minutes Discharge Plan Discharge Items Patient Disposition: Home - Home Health Services Reason For Visit: BREAST CANCER, ASCITES Discharge Diagnosis: Metastatic breast cancer, electrolytes abnormalities, abdominal pain with minimal ascites, hypothyroidism Condition on Discharge: Fair Activity: Resume your previous activity Non-emergency contact: Primary Care Provider Call non-emergency contact if: you have any medication questions and your symptoms worsen Follow-up/Referrals: Randy Rush MD [Primary Care Provider] - (Date & Time 06/23/2022 1:40 PM Provider Randy Rush MD Department [facility] ) Diet: Regular Addtl Attending Provider Instructions: Take precautions to avoid fall. Take your medications as advised Please give appointment with your healthcare provider Pending Studies at Discharge: No Stand-Alone Forms: [facility], Smoking Cessation Medications and DC Order Prescriptions: New Phospha 250 Neutral 250 mg Tablet 3 tab PO TID Qty: 270 0RF magnesium oxide 400 mg (241.3 mg magnesium) Tablet 800 mg PO TID Qty: 180 0RF Continued fluticasone propionate 50 mcg/actuation spray,suspension 1 sprays INTNAS DAILY PRN (Reason: Congestion) prochlorperazine maleate [Compazine] 5 mg tablet 10 mg PO QID PRN (Reason: nausea and vomiting) Xgeva 120 mg/1.7 mL (70 mg/mL) solution 120 mg subcut .EVERY 3 MONTHS Rx Instructions: JUST HAD 2 WKS AGO. acetaminophen [Tylenol Extra Strength] 500 mg tablet 1,000 mg PO Q6H PRN (Reason: Pain) ferrous sulfate 325 mg (65 mg iron) tablet 325 mg PO 2XWK Rx Instructions: Monday and atorvastatin 80 mg tablet 80 mg PO HS Qty: 90 3RF albuterol sulfate 90 mcg/actuation HFA aerosol inhaler 2 puffs INH Q4H PRN (Reason: Shortness Of Breath Or Wheezing) amoxicillin 500 mg capsule 2,000 mg PO DIRECTED PRN (Reason: 1 HOUR PRIOR TO DENTAL APPT.) Rx Instructions: 2,000 mg PO 1 hour prior to dental appointment aspirin 81 mg tablet,delayed release (DR/EC) 81 mg PO QAM clopidogrel [Plavix] 75 mg tablet 75 mg PO QAM fenofibrate micronized 200 mg capsule 200 mg PO HS omeprazole 20 mg capsule,delayed release(DR/EC) 20 mg PO QAM levothyroxine [Synthroid] 200 mcg tablet 400 mcg PO 2XWK Rx Instructions: TAKE TWO TABLETS EVERY MONDAY AND MONDAY BEFORE BREAKFAST. fluoxetine [Prozac] 20 mg capsule 40 mg PO QAM mirtazapine 15 mg Tablet 15 mg PO HS oxycodone-acetaminophen [Percocet] 5-325 mg tablet 1 tab PO Q8H PRN (Reason: svere pain) Qty: 10 0RF ondansetron 4 mg Tablet,Disintegrating 4 mg PO Q6H PRN (Reason: Nausea And Vomiting) levothyroxine 200 mcg tablet 200 mcg PO 5XWK Rx Instructions: TAKE 200MCG EVERY MONDAY, MONDAY, MONDAY, MONDAY, MONDAY. Mag 64 64 mg tablet,delayed release (DR/EC) 64 mg PO DAILY Artificial Tears (kvng/min) 83-15 % Ointment 1 applic OPR Q2H Qty: 3.5 0RF Discharge Orders: Discharge Order (Routine); Ordered 06/21/22 Ordered By: Effie Pulido Admission Data Admit Date/Time: 06/16/22 15:12 Attending Provider: Effie Pulido Admit Provider: Dimas Sims Primary Care Provider: Randy Rush Other Providers: Dano Lira ; Dimas Sims ; [place] Other Interventions: Discharge Summary Assessment (RN) Last Done: 06/21/22 15:23
== END 2022-06-21 16:25 | disposition home health service (06) | DRG 436 ==
LOC: ED 12:41 → EDINP 15:12 → SUATTDRO 15:12 → 2W 18:35
DX: C79.51 Secondary malignant neoplasm of bone; I10 Essential (primary) hypertension; R18.0 Malignant ascites; Z66 Do not resuscitate; Z79.01 Long term (current) use of anticoagulants; E03.9 Hypothyroidism, unspecified; E83.42 Hypomagnesemia; I25.2 Old myocardial infarction; Z86.14 Personal history of Methicillin resistant Staphylococcus aureus infection; G62.9 Polyneuropathy, unspecified; Z83.3 Family history of diabetes mellitus; I25.10 Atherosclerotic heart disease of native coronary artery without angina pectoris; Z95.5 Presence of coronary angioplasty implant and graft; Z17.0 Estrogen receptor positive status [ER+]; J90 Pleural effusion, not elsewhere classified; C78.7 Secondary malignant neoplasm of liver and intrahepatic bile duct; E83.39 Other disorders of phosphorus metabolism; C50.111 Malignant neoplasm of central portion of right female breast; Z79.890 Hormone replacement therapy; E83.52 Hypercalcemia; Z88.6 Allergy status to analgesic agent; Z79.82 Long term (current) use of aspirin; E78.5 Hyperlipidemia, unspecified